=== PATIENT | male | born 1965 | race Caucasian/White ===

== ENCOUNTER → 2019-07-21 14:53 | Outpatient (BNVA) | payer MEDICAID, SELFPAY | PROVIDERS: Family Provider Nurse Practitioner; PCP Nurse Practitioner; Visit Provider Nurse Practitioner | DX: M54.5 Low back pain (principal); F17.210 Nicotine dependence, cigarettes, uncomplicated; Z79.891 Long term (current) use of opiate analgesic | CPT/HCPCS: 99213 ==

== ENCOUNTER 2019-08-11 17:25 | Emergency (ER) | payer MEDICAID, SELFPAY ==
[2019-08-11] VITALS (46 sets, daily range): BP systolic 108–149; BP diastolic 58–78; PULSE 0–134; RESP 18–20; TEMP 37.9–39.3; O2SAT 87–95; BMI 40.8
--- NOTE | 2019-08-11 18:02 | ED_ITS ---
Entered by Priya Eason, acting as scribe for Camron Ramos MD, [facility] [place] - SOB/Dyspnea General: Chief Complaint: Shortness of Breath/Dyspnea Stated Complaint: feels like he's drowning Time Seen by Provider: 08/11/19 18:01 Source: patient Mode of arrival: wheelchair Limitations: no limitations History of Present Illness: HPI Narrative: 53 yo Male presents to ED with complaint of shortness of breath. Pt states that he has had a fever of 100-102 degrees. Pt states that his whole body is aching. Pt states that he has been sleeping in a recliner and he feels like he is drowning. Pt states that he smokes a pack of cigarettes a week. Pt has had a productive cough. MD elicited complaint: shortness of breath Onset (ago): day(s) Timing: progressively worsening Severity: moderate Exacerbating factors: lying flat, exertion and coughing Relieving factors: oxygen and rest Associated symptoms: Reports chest congestion, cough and fever(s); Deny abdominal pain, chest pain, nausea, palpitations, polydipsia, polyuria or vomiting Treatment prior to arrival: none Related Data: Home oxygen amount: none Review of Systems General: Reports: 10 or more systems reviewed and unremarkable except in HPI and below Const: Reports: fever Eyes: Denies: change in vision or blurry vision ENMT: Denies: throat pain, enlarged tonsils, painful swallowing, hoarseness, mouth pain or swelling of lips/tongue Card: Denies: chest pain, palpitations, irregular heart rhythm, edema or swelling of feet/ankles Resp: Reports: shortness of breath, productive cough and chest congestion GI: Denies: abdominal pain, nausea or vomiting : Denies: flank pain, painful urination, urinary frequency, urinary urgency or urinary hesitancy Musc: Denies: neck pain, back pain or extremity swelling Skin/Breast: Denies: rash, itching or redness Neuro: Denies: headache, numbness in extremities or weakness in extremities Endo: Denies: excessive urination, excessive thirst or tired all the time [facility] ED PFSH: Medical History Chronic low back pain Depression Joint pain Long-term use of high-risk medication Lumbar back pain with radiculopathy affecting right lower extremity Pain management contract signed Smoking Surgical History History of back surgery (~2013) 12/2013 T12 REMOVAL POST WORK ACCIDENT S/P hernia repair (~12/2013) UMBILICAL HERNIA REPAIR Family History Mother Diabetes CAD (coronary artery disease) Psychiatric illness Stroke Cancer UTERINE CANCER Social History Smoking and tobacco status: current every day smoker cigarettes Alcohol intake: current Alcohol intake frequency: holidays/special occasions only Alcohol type: beer History of recent travel: No Current gender identity: Male Physical Exam Const: COMMON NORMALS: no apparent distress, average body habitus, oriented x3, no limitations, healthy appearing, alert and well nourished HENMT: COMMON NORMALS: normocephalic, head/scalp atraumatic and moist oral mucous membranes HEAD & SCALP: normocephalic and atraumatic Eye: COMMON NORMALS: PERRL, EOMs intact bilaterally, conjunctivae normal and no scleral icterus CONJUNCTIVA: Yes conjunctivae normal PUPIL: Yes PERRL Neck/C-Spine: COMMON NORMALS: full ROM, supple, no meningeal signs, no JVD and no carotid bruits Chest: COMMONS NORMALS: inspection of chest normal and palpation of chest normal Resp: COMMON NORMALS: normal respiratory effort, no retractions, no use of accessory muscles, clear to auscultation bilaterally and percussion normal AUSCULTATION: clear to auscultation bilaterally PERCUSSION: percussion normal Cardio: COMMON NORMALS: no JVD, regular rate, regular rhythm, S1 normal heart sound, S2 normal heart sound, no gallops, no clicks, no murmurs, no rub and peripheral pulses 2+ throughout RATE: regular rate RHYTHM: regular rhythm HEART SOUNDS: S1 normal and S2 normal PERIPHERAL PULSES: pulses 2+ throughout GI: COMMON NORMALS: normal to inspection, nondistended, normoactive bowel sounds, soft to palpation, non-tender, no hepatosplenomegaly, no masses and no bruits PALPATION: Yes soft and Yes no hepatosplenomegaly : COMMON NORMALS: Yes no CVA tenderness BLADDER/KIDNEY EXAM: Yes no CVA tenderness Back/Pelvis: COMMON NORMALS: no CVA tenderness Extremity: COMMON NORMALS: normal to inspection, full ROM, normal capillary refill, no calf tenderness and no pedal edema Neuro: COMMON NORMALS: oriented x3 SENSORIUM/ORIENTATION: Yes alert MENINGEAL SIGNS: Yes no meningeal signs Skin: COMMON NORMALS: no rashes or lesions noted, no wounds, skin turgor normal, no jaundice, no petechiae and no mottling GENERAL SKIN EXAM: no rashes or lesions noted and turgor normal Course Vital Signs: Vital signs: Vital Signs Temperature 100.3 F H 08/11/19 20:50 Pulse Rate 116 H 08/11/19 22:25 Respiratory Rate 20 H 08/11/19 18:57 Blood Pressure 126/68 08/11/19 22:30 Pulse Oximetry 90 08/11/19 22:25 MDM - SOB/Dyspnea MDM Narrative: Medical decision making narrative: Patient who presented to the ED with complaints of fever. The patient is also febrile here in the ED. The evaluation of this patient showed a normal WBC, elevated d-dimer, CTA was negative for a PE but showed likely bibasilar pneumonia. CURB-65 score is 0 He is therefore discharged home on oral antibiotics after receiving a dose of intravenous ceftriaxone here in the emergency department. Medical Records: Attestation: I reviewed the patient's medical records. Lab Data: Attestation: I reviewed the patient's lab results. Labs: Lab Results 08/11/19 08/11/19 08/11/19 Range/Units 17:54 17:54 17:54 WBC 9.1 (4.0-10.0) 10^3/ uL RBC 5.65 H (4.1-5.3) 10^6/u L Hgb 15.5 (11.7-16.6) g/dL Hct 48.6 (42.0-52.0) % MCV 86.0 (80-94) fL MCH 27.4 L (28.0-34.0) pg MCHC 31.9 (30.0-36.0) g/dL RDW 14.6 (12.1-15.1) % Plt Count 243 (130-400) 10^3/c mm MPV 9.4 (7.4-10.4) fL Neut % (Auto) 76.3 % Lymph % (Auto) 14.1 % Bath % (Auto) 7.5 % Eos % (Auto) 1.2 % Baso % (Auto) 0.3 % Neut # (Auto) 6.9 (1.8-7.7) 10^3/u L Lymph # (Auto) 1.3 (0.8-4.8) 10^3/u L Bath # (Auto) 0.7 (0.2-0.9) 10^3/u L Eos # (Auto) 0.1 (0.0-0.8) 10^3/u L Baso # (Auto) 0.0 (0.0-0.1) 10^3/u L Nucleated RBC % (a uto) 0 % Nucleated RBCs # 0.0 /100WBC D-Dimer (0-0.59) ug/mIFE U Sodium 135 L (136-145) mmol/L Potassium 3.7 (3.5-5.1) mmol/L Chloride 96 L (98-107) mmol/L Carbon Dioxide 27 (22-29) mmol/L Anion Gap 15.7 (5-19) BUN 11 (6-20) mg/dL Creatinine 0.9 (0.7-1.2) mg/dL GFR Calculation 88.3 L (90-130) mL/min Glucose 149 H (65-115) mg/dL Lactic Acid 2.0 (0.5-2.2) mmol/L Calcium 9.0 (8.5-10.5) mg/dL Total Bilirubin 0.4 (0.15-1.2) mg/dL AST 74 H (0-40) U/L ALT 90 H (0-41) U/L Alkaline Phosphata se 123 (40-130) IU/L NT-Pro-B Natriuret Pep (0-125) pg/mL Total Protein 7.7 (6.6-8.7) g/dL Albumin 3.7 (3.5-5.2) g/dL Globulin 4.0 (1.3-4.6) g/dL Influenza Type A A g (Negative) POC Influenza B Ag (Negative) 08/11/19 08/11/19 08/11/19 Range/Units 17:54 17:54 17:54 WBC (4.0-10.0) 10^3/ uL RBC (4.1-5.3) 10^6/u L Hgb (11.7-16.6) g/dL Hct (42.0-52.0) % MCV (80-94) fL MCH (28.0-34.0) pg MCHC (30.0-36.0) g/dL RDW (12.1-15.1) % Plt Count (130-400) 10^3/c mm MPV (7.4-10.4) fL Neut % (Auto) % Lymph % (Auto) % Bath % (Auto) % Eos % (Auto) % Baso % (Auto) % Neut # (Auto) (1.8-7.7) 10^3/u L Lymph # (Auto) (0.8-4.8) 10^3/u L Bath # (Auto) (0.2-0.9) 10^3/u L Eos # (Auto) (0.0-0.8) 10^3/u L Baso # (Auto) (0.0-0.1) 10^3/u L Nucleated RBC % (a uto) % Nucleated RBCs # /100WBC D-Dimer 1.35 H (0-0.59) ug/mIFE U Sodium (136-145) mmol/L Potassium (3.5-5.1) mmol/L Chloride (98-107) mmol/L Carbon Dioxide (22-29) mmol/L Anion Gap (5-19) BUN (6-20) mg/dL Creatinine (0.7-1.2) mg/dL GFR Calculation (90-130) mL/min Glucose (65-115) mg/dL Lactic Acid (0.5-2.2) mmol/L Calcium (8.5-10.5) mg/dL Total Bilirubin (0.15-1.2) mg/dL AST (0-40) U/L ALT (0-41) U/L Alkaline Phosphata se (40-130) IU/L NT-Pro-B Natriuret Pep 75 (0-125) pg/mL Total Protein (6.6-8.7) g/dL Albumin (3.5-5.2) g/dL Globulin (1.3-4.6) g/dL Influenza Type A A g Negative (Negative) POC Influenza B Ag Negative (Negative) Imaging Data^: CTA Chest: Radiologist's impression: [address] [address] [address] Scan Report Signed Patient: Iqra Meredith #: [id number] : 1965Acct#:[id number] Age/Sex: 53 / MADM Date: 08/11/19 Loc: ERRoom/Bed: Attending Dr: Ordering Provider/Ordering MD: Camron Ramos MD, [facility] [place] of Service: 08/11/19 Procedure(s): CT angio chest PE protcl 24224 Accession Number(s): [id number] Report Number: [id number] PROCEDURE INFORMATION: Exam: CT Angiography Chest With Contrast Exam date and time: 08/11/2019 8:17 PM Age: 53 years old Clinical indication: Shortness of breath; Prior surgery; Surgery date: 6+ months; Surgery type: Hernia. T12; Additional info: Shortness of breath, elevated d-dimer TECHNIQUE: Imaging protocol: Computed tomographic angiography of the chest with intravenous contrast. 3D rendering: MIP and/or 3D reconstructed images were created by the technologist. Total DLP: 626.53 mGy-cm Radiation optimization: All CT scans at this facility use at least one of these dose optimization techniques: automated exposure control; mA and/or kV adjustment per patient size (includes targeted exams where dose is matched to clinical indication); or iterative reconstruction. Contrast material: OMNI; Contrast volume: 95 ml; Contrast route: IV; COMPARISON: CR XR chest 1V portable [id number] 08/11/2019 6:14 PM FINDINGS: Pulmonary arteries: Normal. No pulmonary emboli. Aorta: Unremarkable. No aortic aneurysm. No aortic dissection. Lungs: Bibasilar atelectasis versus infiltrate. Pleural space: Unremarkable. No pneumothorax. No pleural effusion. Heart: Unremarkable. No cardiomegaly. No pericardial effusion. Gallbladder and bile ducts: Cholelithiasis. Pancreas: Incompletely visualized is an apparent 3.9 cm partially calcified mass in the pancreatic tail, consider dedicated nonemergent CT abdomen and pelvis. Lymph nodes: Unremarkable. No enlarged lymph nodes. Bones/joints: Surgical hardware in the spine. Soft tissues: Unremarkable. CT/CT angio chest PE protcl [id number] IMPRESSION: 1. Negative for pulmonary embolus. 2. Bibasilar atelectasis versus infiltrate. 3. Surgical hardware in the spine. 4. Cholelithiasis. 5. Incompletely visualized is an apparent 3.9 cm partially calcified mass in the pancreatic tail, consider dedicated nonemergent CT abdomen and pelvis. Radiation Dose CTDIVOL = (mGy): DLP = 626.53 (mGy-cm) Dictated By:John Rainey MD Signed By:John Rainey MDSigned Date/Time:08/11/192110 DD/ 08 Discharge Plan Discharge Patient Disposition: Home, Self-Care Clinical Impression: Community acquired pneumonia Qualifiers: Lung location: lower lobe of lung Condition: Stable Prescriptions: New amoxicillin 500 mg capsule 1,000 mg PO TID 10 Days Qty: 60 RF: 0 azithromycin 250 mg tablet See Rx Instructions .ROUTE .COMPLEX Qty: 6 RF: 0 Continued meloxicam 15 mg tablet 15 mg PO DAILY RF: 0 sulfamethoxazole-trimethoprim [Bactrim DS] 800-160 mg tablet 1 tab PO BID Qty: 20 RF: 0 hydrocodone-acetaminophen 5-325 mg tablet 1 tab PO TID PRN (Reason: pain) 30 Days Qty: 90 RF: 0 methocarbamol 500 mg tablet 500 mg PO TID RF: 0 albuterol sulfate [ProAir HFA] 90 mcg/actuation HFA aerosol inhaler 1 inh INHALATION DAILY RF: 0 sennosides-docusate sodium [Lax Stool Softener With Senna] 8.6-50 mg tablet 1 tab-cap PO DAILY RF: 0 gabapentin 300 mg capsule 300 mg PO BID Qty: 60 RF: 5 Cymbalta 60 mg capsule,delayed release(DR/EC) 60 mg PO BID RF: 0 Discharge Orders: Discharge Order (Routine); Ordered 08/11/19 Ordered By: Camron Ramos Referrals: Prema Recinos FNP [Primary Care Provider] - 1-3 days Patient Instructions: Community-acquired Pneumonia (ED) Activity Restrictions/Additional Instructions: Return for any new or worsening symptoms. Follow-up with your primary care provider within 3 days. Take the antibiotics as prescribed. If you have any concerns please return Discharge Date/Time: 08/11/19 22:45 Coding Level of Care Code ED Professor Of Literature for Chg Fwd Exam Comprehensive The documentation recorded by the Yumi fierro Carmen, accurately reflects the service I personally performed and the decisions made by , Camron Ramos MD, [facility] Aug 11, 2019 17:25
--- NOTE | 2019-08-11 18:10 | XR_ITS ---
WS: [id number] CHEST XRAY TECHNIQUE: Portable chest. CLINICAL INFORMATION: shortness of breath COMPARISON: 018 FINDINGS: Heart: Normal cardiac silhouette. Lungs: Moderate chronic emphysematous changes. Chronic right pleural thickening unchanged. No focal p neumonia. Bones: Postoperative changes pedicle screw fixation lower thoracic and upper lumbar spine. Chronic po sterior rib fractures with callus formation. Chronic right clavicular fracture with callus formation. XR/XR chest 1V portable [id number] IMPRESSION: No acute chest findings. No focal pneumonia.
[2019-08-11 18:15] LABS: Basophils % 0.3 %; Eosinophils # 0.1 10^3/uL (0.0-0.8); Eosinophils % 1.2 %; Hematocrit 48.6 % (42.0-52.0); Hemoglobin 15.5 g/dL (11.7-16.6); Lymphocytes # 1.3 10^3/uL (0.8-4.8); Lymphocytes % 14.1 %; Mean Corpuscular HGB Conc 31.9 g/dL (30.0-36.0); Mean Corpuscular Hemoglobin 27.4 pg (28.0-34.0); Mean Platelet Volume 9.4 fL (7.4-10.4); Monocytes # 0.7 10^3/uL (0.2-0.9); Monocytes % 7.5 %; Neutrophils # 6.9 10^3/uL (1.8-7.7); Neutrophils % 76.3 %; Nucleated Red Blood Cells % 0 %; Platelet Count 243 10^3/cmm (130-400); Red Blood Count 5.65 10^6/uL (4.1-5.3); Red Cell Distribution Width 14.6 % (12.1-15.1); White Blood Count 9.1 10^3/uL (4.0-10.0)
[2019-08-11 18:31] LABS: Alanine Aminotransferase 90 U/L (0-41); Albumin Level 3.7 g/dL (3.5-5.2); Alkaline Phosphatase 123 IU/L (40-130); Anion Gap 15.7 (5-19); Aspartate Amino Transferase 74 U/L (0-40); Blood Urea Nitrogen 11 mg/dL (6-20); Carbon Dioxide 27 mmol/L (22-29); Chloride 96 mmol/L (98-107); Glomerular Filtration Rate 88.3 mL/min (90-130); Glucose 149 mg/dL (65-115); Potassium 3.7 mmol/L (3.5-5.1); Sodium 135 mmol/L (136-145); Total Bilirubin 0.4 mg/dL (0.15-1.2); Total Protein 7.7 g/dL (6.6-8.7)
[2019-08-11 18:55] LABS: Influenza A by IFA Negative (Negative); Influenza B by IFA Negative (Negative)
[2019-08-11] MEDS: ipratropium-albuterol 3 mL Neb INHALATION (18:56)
--- NOTE | 2019-08-11 19:21 | PC.NURSE ---
pt request to sit up in wc d/t to pain
[2019-08-11] MEDS: acetaminophen 500 mg Tablet 1000 MG PO (19:36)
[2019-08-11] MEDS: sodium chloride 0.9% 1,000 ML 999 ML IV (19:37)
[2019-08-11 19:51] LABS: D Dimer 1.35 ug/mIFEU (0-0.59)
--- NOTE | 2019-08-11 20:03 | CTR_ITS ---
PROCEDURE INFORMATION: Exam: CT Angiography Chest With Contrast Exam date and time: 08/11/2019 8:17 PM Age: 53 years old Clinical indication: Shortness of breath; Prior surgery; Surgery date: 6+ months; Surgery type: Hernia. T12; Additional info: Shortness of breath, elevated d-dimer TECHNIQUE: Imaging protocol: Computed tomographic angiography of the chest with intravenous contrast. 3D rendering: MIP and/or 3D reconstructed images were created by the technologist. Total DLP: 626.53 mGy-cm Radiation optimization: All CT scans at this facility use at least one of these dose optimization techniques: automated exposure control; mA and/or kV adjustment per patient size (includes targeted exams where dose is matched to clinical indication); or iterative reconstruction. Contrast material: OMNI; Contrast volume: 95 ml; Contrast route: IV; COMPARISON: CR XR chest 1V portable [id number] 08/11/2019 6:14 PM FINDINGS: Pulmonary arteries: Normal. No pulmonary emboli. Aorta: Unremarkable. No aortic aneurysm. No aortic dissection. Lungs: Bibasilar atelectasis versus infiltrate. Pleural space: Unremarkable. No pneumothorax. No pleural effusion. Heart: Unremarkable. No cardiomegaly. No pericardial effusion. Gallbladder and bile ducts: Cholelithiasis. Pancreas: Incompletely visualized is an apparent 3.9 cm partially calcified mass in the pancreatic tail, consider dedicated nonemergent CT abdomen and pelvis. Lymph nodes: Unremarkable. No enlarged lymph nodes. Bones/joints: Surgical hardware in the spine. Soft tissues: Unremarkable. CT/CT angio chest PE protcl [id number] IMPRESSION: 1. Negative for pulmonary embolus. 2. Bibasilar atelectasis versus infiltrate. 3. Surgical hardware in the spine. 4. Cholelithiasis. 5. Incompletely visualized is an apparent 3.9 cm partially calcified mass in the pancreatic tail, consider dedicated nonemergent CT abdomen and pelvis. Radiation Dose CTDIVOL = (mGy): DLP = 626.53 (mGy-cm)
[2019-08-11 20:09] LABS: NT Pro B Type Natriuretic Pept 75 pg/mL (0-125)
[2019-08-11] MEDS: iohexol 350 mg/mL 100 mL Btl 95 ML IV (20:36)
[2019-08-11] MEDS: cefTRIAXone 1,000 MG in sodium chloride 0.9% (plus) 50 ML 100 MG IV (21:32)
== END 2019-08-11 22:45 | disposition home or self-care (01) ==
PROVIDERS: Emergency Provider Family Medicine; Family Provider Nurse Practitioner; PCP Nurse Practitioner
DX: J18.9 Pneumonia, unspecified organism (principal); F17.210 Nicotine dependence, cigarettes, uncomplicated
CPT/HCPCS: 36415; 71045; 71275; 80053; 83605; 83880; 85025; 85378; 87040; 87070; 87205; 87804; 94640; 96360; 96365; 99284; J0696; J7030; Q9967

== ENCOUNTER 2019-08-13 22:34 | Inpatient (IN) | payer MEDICAID, SELFPAY ==
[2019-08-13] VITALS (7 sets, daily range): BP systolic 113–152; BP diastolic 73–83; PULSE 101–114; RESP 18–26; TEMP 37.6; O2SAT 74–93; BMI 40.1
--- NOTE | 2019-08-13 22:45 | PC.NURSE ---
Patient states he started feeling bad on saturday and has been diagnosed with pneumonia on saturday. Patient states he is on antibiotics. Patient was oxygen staturation of 74 on room air when arrived at ED. Patient is sating 95 on 10 liters with a non-rebreather. Patient states he has been having a cough and shortness of breath today that has gotten increasingly worse.
--- NOTE | 2019-08-13 22:47 | ED_ITS ---
Entered by Johanne Hanley, acting as scribe for Iwona Dominguez HPI - SOB/Dyspnea General: Chief Complaint: Shortness of Breath/Dyspnea Stated Complaint: sob Time Seen by Provider: 08/13/19 22:47 Source: patient and family Mode of arrival: wheelchair History of Present Illness: HPI Narrative: 53 y/o male presents to the ED with complaint of SOB and difficulty breathing. Family states this started Saturday. He was seen here Saturday and was dx with pneumonia. He was placed on abx and has been taking them appropriately. Family states he has a hx of COPD. Pt was 74% on room air, upon arrival. He had no improvement with NC and was placed on O2 mask. MD elicited complaint: shortness of breath Pertinent past history: COPD Onset (ago): day(s) Timing: progressively worsening Severity: severe Exacerbating factors: movement and deep breaths Known history of: COPD Associated symptoms: Deny abdominal pain, chest pain, diaphoresis, dizziness, extremity pain, fever(s), nausea, orthopnea, palpitations, polydipsia, syncope or vomiting Review of Systems General: Reports: other (negative unless marked) Const: Denies: fever, chills, body aches, fatigue, malaise or diaphoresis Eyes: Denies: change in vision or blurry vision ENMT: Denies: throat pain, painful swallowing, hoarseness, ear pain, ear discharge, Change in hearing or nasal discharge Card: Denies: chest pain, palpitations, irregular heart rhythm, syncope, pre- syncope, shortness of breath on exertion or shortness of breath when lying down GI: Denies: abdominal pain, nausea, vomiting, vomiting blood, coffee grounds in vomit, diarrhea, constipation, cramping, blood in stool or black tarry stool : Denies: flank pain, difficulty urinating, painful urination, urinary frequency, urinary urgency, decreased urine ouput, urinary incontinence or blood in urine Musc: Denies: neck pain, back pain, extremity pain, extremity swelling, joint pain, joint swelling, joint warmth or joint stiffness Skin/Breast: Denies: rash, skin tenderness or yellow skin Neuro: Denies: headache, numbness in extremities, weakness in extremities, changes in sensation, lack of coordination, difficulty walking, dizziness, vertigo or confusion Endo: Denies: excessive thirst, tired all the time, cold intolerance, excessive sweating, flushing or hot flashes Emiliano/Lymph: Denies: easy bruising, easy bleeding, petechiae or enlarged lymph nodes All/Imm: Denies: hives, throat swelling, tongue swelling, facial swelling or acute wheezing PFSH ED PFSH: Social History Smoking and tobacco status: current every day smoker cigarettes Alcohol intake: current Alcohol intake frequency: holidays/special occasions only Alcohol type: beer History of recent travel: No Current gender identity: Male Physical Exam Const: COMMON NORMALS: oriented x3 EXAM LIMITATIONS: no altered mental status GENERAL APPEARANCE: cooperative, well kempt and well developed ORIENTATION/CONSCIOUSNESS: Yes awake HENMT: COMMON NORMALS: normocephalic, head/scalp atraumatic, hearing grossly normal bilaterally, external ears normal, EAC's normal, external nose normal and moist oral mucous membranes HEAD & SCALP: normal to inspection, normocephalic and atraumatic FACE & SINUS: normal facial exam and face symmetric NOSE: external nose normal and nares normal EXTERNAL EAR: Yes external ears normal EXTERNAL AUDITORY CANAL: EAC's normal MOUTH: oral and palatal mucosa normal and tongue normal Eye: COMMON NORMALS: PERRL, EOMs intact bilaterally, conjunctivae normal and no scleral icterus GENERAL EYE: normal appearance of both eyes and normal light reflex CONJUNCTIVA: Yes conjunctivae normal SCLERA: sclerae normal CORNEA: Yes corneas normal PUPIL: Yes PERRL DIRECT OPHTHALMOSCOPY: Yes normal light reflex Neck/C-Spine: COMMON NORMALS: full ROM, no lymphadenopathy, supple, no meningeal signs and no JVD GENERAL: Yes normal visual inspection and Yes trachea midline CERVICAL SPINE: Yes cervical ROM normal Chest: COMMONS NORMALS: inspection of chest normal and palpation of chest normal Cardio: COMMON NORMALS: no JVD, regular rate, regular rhythm, S1 normal heart sound, S2 normal heart sound, no gallops, no clicks, no murmurs and no rub JUGULAR VENOUS DISTENTION: no JVD RATE: regular rate RHYTHM: regular rhythm HEART SOUNDS: S1 normal and S2 normal GI: COMMON NORMALS: soft to palpation, non-tender, no hepatosplenomegaly and no masses INSPECTION: Yes normal to inspection PALPATION: Yes soft and Yes no hepatosplenomegaly : COMMON NORMALS: Yes no CVA tenderness BLADDER/KIDNEY EXAM: Yes no CVA tenderness Back/Pelvis: COMMON NORMALS: no CVA tenderness, thoracic and lumbar spine normal to inspection, no thoracic nor lumbar tenderness and thoraco-lumbar ROM normal Extremity: COMMON NORMALS: normal to inspection, full ROM, normal capillary refill, no joint enlargement, no clubbing, cyanosis or edema and no calf tenderness Neuro: COMMON NORMALS: oriented x3, CN's II-XII intact bilaterally, moves all extremities, no focal motor deficits and no sensory deficits noted MENINGEAL SIGNS: Yes no meningeal signs Psych: COMMON NORMALS: mental status grossly normal, thought process normal, cooperative, affect normal and activity/motor behavior normal APPEARANCE: Yes well kempt THOUGHT PROCESS: normal thought process Skin: COMMON NORMALS: no rashes or lesions noted, skin turgor normal, no jaundice, no petechiae and no mottling GENERAL SKIN EXAM: no rashes or lesions noted and turgor normal Course Vital Signs: Vital signs: Vital Signs Temperature 99.7 F H 08/13/19 22:41 Pulse Rate 64 08/14/19 02:20 Respiratory Rate 18 08/14/19 02:20 Blood Pressure 135/99 08/14/19 02:20 Pulse Oximetry 98 08/14/19 02:20 MDM - SOB/Dyspnea MDM Narrative: Medical decision making narrative: Mr. Meredith is a 53-year-old male who comes in complaining of shortness of breath. He is influenza A positive. He has a significant hypoxemia with this. He was placed on BiPAP and improved greatly. He is now on just supplemental oxygen. He was covered appearing with antibiotics he was also given Tamiflu. The case was endorsed to Dr. Miranda and she agrees to admission for his hypoxemia and COPD exacerbation caused by influenza. Lab Data: Labs: Lab Results 08/13/19 08/13/19 08/13/19 Range/Units 23:02 23:02 23:02 WBC 8.1 (4.0-10.0) 10^3/ uL RBC 5.59 H (4.1-5.3) 10^6/u L Hgb 15.3 (11.7-16.6) g/dL Hct 49.5 (42.0-52.0) % MCV 88.6 (80-94) fL MCH 27.4 L (28.0-34.0) pg MCHC 30.9 (30.0-36.0) g/dL RDW 14.6 (12.1-15.1) % Plt Count 220 (130-400) 10^3/c mm MPV 9.4 (7.4-10.4) fL Neut % (Auto) 80.5 % Lymph % (Auto) 11.1 % Gibson % (Auto) 7.4 % Eos % (Auto) 0.2 % Baso % (Auto) 0.4 % Neut # (Auto) 6.5 (1.8-7.7) 10^3/u L Lymph # (Auto) 0.9 (0.8-4.8) 10^3/u L Gibson # (Auto) 0.6 (0.2-0.9) 10^3/u L Eos # (Auto) 0.0 (0.0-0.8) 10^3/u L Baso # (Auto) 0.0 (0.0-0.1) 10^3/u L Nucleated RBC % (a uto) 0 % Nucleated RBCs # 0.0 /100WBC Specimen Type Sample Site ABG pH (7.35-7.45) ABG pCO2 (35-45) mmHg ABG pO2 (80.0-100.0) mmH g ABG HCO3 (22-26) mmol/L ABG Base Excess (-2.0-2.0) mmol/ L Juan Antonio Test Hematocrit (42-52) % O2 Delivery Device FiO2 % Press Hand Supervisor ID Sodium 133 L (136-145) mmol/L Potassium 3.9 (3.5-5.1) mmol/L Chloride 95 L (98-107) mmol/L Carbon Dioxide 27 (22-29) mmol/L Anion Gap 14.9 (5-19) BUN 10 (6-20) mg/dL Creatinine 0.9 (0.7-1.2) mg/dL GFR Calculation 88.3 L (90-130) mL/min Glucose 182 H (65-115) mg/dL Lactic Acid 0.9 (0.5-2.2) mmol/L Calcium 8.7 (8.5-10.5) mg/dL Magnesium 2.3 (1.7-2.3) mg/dL Total Bilirubin 0.2 (0.15-1.2) mg/dL AST 53 H (0-40) U/L ALT 98 H (0-41) U/L Alkaline Phosphata se 114 (40-130) IU/L Troponin T Baselin e (0-15) ng/mL Troponin T 120 Min chilkoot (0-15) ng/mL Delta Troponin T (0-10) ABS# NT-Pro-B Natriuret Pep 205 H (0-125) pg/mL Total Protein 7.0 (6.6-8.7) g/dL Albumin 3.1 L (3.5-5.2) g/dL Globulin 3.9 (1.3-4.6) g/dL Influenza Type A A g (Negative) POC Influenza B Ag (Negative) 08/13/19 08/13/19 08/13/19 Range/Units 23:02 23:05 23:05 WBC (4.0-10.0) 10^3/ uL RBC (4.1-5.3) 10^6/u L Hgb (11.7-16.6) g/dL Hct (42.0-52.0) % MCV (80-94) fL MCH (28.0-34.0) pg MCHC (30.0-36.0) g/dL RDW (12.1-15.1) % Plt Count (130-400) 10^3/c mm MPV (7.4-10.4) fL Neut % (Auto) % Lymph % (Auto) % Gibson % (Auto) % Eos % (Auto) % Baso % (Auto) % Neut # (Auto) (1.8-7.7) 10^3/u L Lymph # (Auto) (0.8-4.8) 10^3/u L Gibson # (Auto) (0.2-0.9) 10^3/u L Eos # (Auto) (0.0-0.8) 10^3/u L Baso # (Auto) (0.0-0.1) 10^3/u L Nucleated RBC % (a uto) % Nucleated RBCs # /100WBC Specimen Type Arterial Sample Site Radial, right ABG pH 7.43 (7.35-7.45) ABG pCO2 48.1 H (35-45) mmHg ABG pO2 71.1 L (80.0-100.0) mmH g ABG HCO3 31.7 H (22-26) mmol/L ABG Base Excess 6.0 H (-2.0-2.0) mmol/ L Juan Antonio Test Pos Hematocrit 48.9 (42-52) % O2 Delivery Device Bipap FiO2 40.0 % Press Hand Supervisor ID hinja Sodium (136-145) mmol/L Potassium (3.5-5.1) mmol/L Chloride (98-107) mmol/L Carbon Dioxide (22-29) mmol/L Anion Gap (5-19) BUN (6-20) mg/dL Creatinine (0.7-1.2) mg/dL GFR Calculation (90-130) mL/min Glucose (65-115) mg/dL Lactic Acid (0.5-2.2) mmol/L Calcium (8.5-10.5) mg/dL Magnesium (1.7-2.3) mg/dL Total Bilirubin (0.15-1.2) mg/dL AST (0-40) U/L ALT (0-41) U/L Alkaline Phosphata se (40-130) IU/L Troponin T Baselin e 18 H (0-15) ng/mL Troponin T 120 Min chilkoot (0-15) ng/mL Delta Troponin T (0-10) ABS# NT-Pro-B Natriuret Pep (0-125) pg/mL Total Protein (6.6-8.7) g/dL Albumin (3.5-5.2) g/dL Globulin (1.3-4.6) g/dL Influenza Type A A g Positive H (Negative) POC Influenza B Ag Negative (Negative) 08/14/19 Range/Units 01:10 WBC (4.0-10.0) 10^3/ uL RBC (4.1-5.3) 10^6/u L Hgb (11.7-16.6) g/dL Hct (42.0-52.0) % MCV (80-94) fL MCH (28.0-34.0) pg MCHC (30.0-36.0) g/dL RDW (12.1-15.1) % Plt Count (130-400) 10^3/c mm MPV (7.4-10.4) fL Neut % (Auto) % Lymph % (Auto) % Gibson % (Auto) % Eos % (Auto) % Baso % (Auto) % Neut # (Auto) (1.8-7.7) 10^3/u L Lymph # (Auto) (0.8-4.8) 10^3/u L Gibson # (Auto) (0.2-0.9) 10^3/u L Eos # (Auto) (0.0-0.8) 10^3/u L Baso # (Auto) (0.0-0.1) 10^3/u L Nucleated RBC % (a uto) % Nucleated RBCs # /100WBC Specimen Type Sample Site ABG pH (7.35-7.45) ABG pCO2 (35-45) mmHg ABG pO2 (80.0-100.0) mmH g ABG HCO3 (22-26) mmol/L ABG Base Excess (-2.0-2.0) mmol/ L Juan Antonio Test Hematocrit (42-52) % O2 Delivery Device FiO2 % Press Hand Supervisor ID Sodium (136-145) mmol/L Potassium (3.5-5.1) mmol/L Chloride (98-107) mmol/L Carbon Dioxide (22-29) mmol/L Anion Gap (5-19) BUN (6-20) mg/dL Creatinine (0.7-1.2) mg/dL GFR Calculation (90-130) mL/min Glucose (65-115) mg/dL Lactic Acid (0.5-2.2) mmol/L Calcium (8.5-10.5) mg/dL Magnesium (1.7-2.3) mg/dL Total Bilirubin (0.15-1.2) mg/dL AST (0-40) U/L ALT (0-41) U/L Alkaline Phosphata se (40-130) IU/L Troponin T Baselin e (0-15) ng/mL Troponin T 120 Min chilkoot 16.89 H (0-15) ng/mL Delta Troponin T -1.11 L (0-10) ABS# NT-Pro-B Natriuret Pep (0-125) pg/mL Total Protein (6.6-8.7) g/dL Albumin (3.5-5.2) g/dL Globulin (1.3-4.6) g/dL Influenza Type A A g (Negative) POC Influenza B Ag (Negative) Imaging Data^: CXR: My impression: No acute cardiopulmonary findings. EKG Data^: EKG 1: Attestation: I personally reviewed and interpreted this EKG as follows: EKG Interpretation Date: 08/13/19 EKG interpretation time: 22:45 Interpretation: Normal sinus rhythm at 113 beats a minute, normal intervals, no blocks, nonspecific ST-T wave changes. Significant baseline wandering artifact. Discharge Plan Discharge Patient Disposition: Placed in Observation Admit Provider: Emma Erazo Clinical Impression: Acute exacerbation of chronic obstructive airways disease, Influenza Condition: Stable Referrals: Prema Recinos FNP [Primary Care Provider] - Discharge Date/Time: 08/14/19 02:21 Coding Level of Care Code ED Embossing Press Operator for Chg Fwd Exam Comprehensive The documentation recorded by the Talon fierro Ashley, accurately reflects the service I personally performed and the decisions made by , Iwona Dominguez Aug 13, 2019 22:34
--- NOTE | 2019-08-13 22:47 | XRR_ITS ---
PROCEDURE INFORMATION: Exam: XR Chest, 1 View Exam date and time: 08/13/2019 11:09 PM Age: 53 years old Clinical indication: Cough and shortness of breath; Prior surgery; Surgery type: T spine; Additional info: Cough, SOB TECHNIQUE: Imaging protocol: XR of the chest Views: 1 view. COMPARISON: XR CHEST 08/11/2019 6:14 PM CTA CHEST 08/11/2019 8:44:20 PM FINDINGS: Lungs: There is bilateral central bronchial wall thickening and haziness. No focal peripheral lung consolidation, air bronchogram formation, or silhouette sign. Pleural space: No pleural effusion. No pneumothorax. Heart/Mediastinum: The heart is not felt to be enlarged when allowing for epicardial fat pads. The mediastinal contours are normal. Bones/joints: There are old, healed bilateral rib fractures. Old, healed right clavicular fracture. Prior posterior neda fusion bridging the thoracolumbar spine. XR/XR chest 1V portable [id number] IMPRESSION: Bronchitis.
--- NOTE | 2019-08-13 22:47 | PC.NURSE ---
EKG done at 2240 and shown to ER doctor
[2019-08-13] MEDS: ipratropium-albuterol 3 mL Neb 9 ML INHALATION (23:03)
[2019-08-13 23:16] LABS: ABG PCO2 48.1 mmHg (35-45); ABG PH Result 7.43 (7.35-7.45); Arterial Blood Gas Hematocrit 48.9 % (42-52); Blood Gas Allen Test Pos; Blood Gas Sample Site Radial, right; Blood Gas Sample Type Arterial; HCO3 ABG 31.7 mmol/L (22-26); Oxygen Device BIPAP; PO2 ABG 71.1 mmHg (80.0-100.0)
[2019-08-13] MEDS: piperacillin-tazobactam 3.375 GM in sodium chloride 0.9% (plus) 50 ML IV (23:25)
[2019-08-13 23:28] LABS: Basophils % 0.4 %; Eosinophils % 0.2 %; Hematocrit 49.5 % (42.0-52.0); Hemoglobin 15.3 g/dL (11.7-16.6); Lymphocytes # 0.9 10^3/uL (0.8-4.8); Lymphocytes % 11.1 %; Mean Corpuscular HGB Conc 30.9 g/dL (30.0-36.0); Mean Corpuscular Hemoglobin 27.4 pg (28.0-34.0); Mean Corpuscular Volume 88.6 fL (80-94); Mean Platelet Volume 9.4 fL (7.4-10.4); Monocytes # 0.6 10^3/uL (0.2-0.9); Monocytes % 7.4 %; Neutrophils # 6.5 10^3/uL (1.8-7.7); Neutrophils % 80.5 %; Nucleated Red Blood Cells % 0 %; Platelet Count 220 10^3/cmm (130-400); Red Blood Count 5.59 10^6/uL (4.1-5.3); Red Cell Distribution Width 14.6 % (12.1-15.1); White Blood Count 8.1 10^3/uL (4.0-10.0)
[2019-08-13] MEDS: nitroglycerin 1 gm/inch oint Pkt 1 INCH TOPICAL (23:29)
[2019-08-13 23:34] LABS: Influenza A by IFA Positive (Negative); Influenza B by IFA Negative (Negative)
[2019-08-13 23:34] LABS: Troponin(5th) Baseline 18 ng/mL (0-15)
[2019-08-13 23:35] LABS: Lactic Sepsis W/Reflex 0.9 mmol/L (0.5-2.2)
[2019-08-13 23:42] LABS: Alanine Aminotransferase 98 U/L (0-41); Albumin Level 3.1 g/dL (3.5-5.2); Alkaline Phosphatase 114 IU/L (40-130); Anion Gap 14.9 (5-19); Aspartate Amino Transferase 53 U/L (0-40); Blood Urea Nitrogen 10 mg/dL (6-20); Calcium 8.7 mg/dL (8.5-10.5); Carbon Dioxide 27 mmol/L (22-29); Chloride 95 mmol/L (98-107); Globulin 3.9 g/dL (1.3-4.6); Glomerular Filtration Rate 88.3 mL/min (90-130); Glucose 182 mg/dL (65-115); Magnesium 2.3 mg/dL (1.7-2.3); NT Pro B Type Natriuretic Pept 205 pg/mL (0-125); Potassium 3.9 mmol/L (3.5-5.1); Sodium 133 mmol/L (136-145); Total Bilirubin 0.2 mg/dL (0.15-1.2)
--- NOTE | 2019-08-13 23:42 | PC.NURSE ---
Patient requested drink of water and was given a mouth swab by nurse after HCP consult.
[2019-08-14] VITALS (11 sets, daily range): BP systolic 121–139; BP diastolic 69–99; PULSE 18–105; RESP 16–24; TEMP 37–37.2; O2SAT 86–98
--- NOTE | 2019-08-14 00:48 | ECG_ITS ---
Measurements Intervals Busy Rate: 113 P: 67 DE: 132 QRS: -34 QRSD: 100 T: 67 QT: 305 QTc: 420 SINUS TACHYCARDIA POSSIBLE LEFT ATRIAL ENLARGEMENT [-0.1mV P WAVE IN V1/V2] LEFT AXIS DEVIATION [QRS AXIS < -30] No previous ECG available for comparison Electronically Signed On 08-14-2019 11:15:59 COMMUNICATIONS PROFESSIONAL by Chante Andrews M.D. [email or web address]
--- NOTE | 2019-08-14 00:49 | P.HP_ITS ---
Providers/Chief Complaint Admitting Physician: Emma Erazo MD Primary Care Provider: LAKISHA Mehta Chief Complaint: sob History of Present Illness Iqra Meredith is a 53 year old male who presented to the emergency room with chief complaint of acute difficulty breathing. Patient has not been feeling well for several days. He was seen in the emergency room on the with similar symptoms. He was diagnosed with community-acquired pneumonia, received prescriptions for amoxicillin and azithromycin and was discharged home. Patient is continued to have fever, malaise, chills, productive cough, increased back discomfort which is a chronic problem for him. This evening he had acute worsening of difficulty breathing. Saturations were reportedly in the 70s upon arrival. With oxygen supplementation saturations just barely made it to 90%. He was put on BiPAP. Chest x-ray today shows increased haziness in the left base as well as persistent atelectasis or effusion at the right costophrenic angle. Increased pulmonary vasculature is also noted. Influenza screen today, unlike the other day, is positive for influenza A. White blood count is normal. ABG showed 7.43/40 8/71 on 40% FiO2 with BiPAP. Given the degree of distress he presented with he is being admitted for further care. Review of Systems Const: Reports: fever and chills; Denies: change in weight ENMT: Reports: throat pain and nasal congestion Card: Reports: chest pain; Denies: palpitations or edema Resp: Reports: shortness of breath, productive cough and wheezing; Denies: coughing up blood GI: Reports: nausea; Denies: abdominal pain, vomiting, diarrhea, constipation or blood in stool : Denies: urinary frequency Musc: Reports: muscle weakness and other (general aches); Denies: joint swelling or joint warmth Skin/Breast: Denies: rash or sores Neuro: Reports: headache; Denies: numbness in extremities Psych: Reports: depression; Denies: anxiety Emiliano/Lymph: Denies: easy bruising or easy bleeding Medications/Allergies Allergies Allergy/AdvReac Type Severity Reaction Status Date / Time No Known Allergies Allergy Verified 07/30/19 10:40 Additional Medication Information Additional Medication Information: Home Medications Medication Instructions Recorded Confirmed Type methocarbamol 500 mg tablet 500 mg PO TID 06/30/19 08/14/19 History albuterol sulfate 90 mcg/actuation 1 inh INHALATION DAILY gm 07/28/19 08/14/19 History aerosol inhaler meloxicam 15 mg tablet 15 mg PO DAILY tab 07/28/19 08/14/19 History sennosides 8.6 mg-docusate sodium 1 tab-cap PO DAILY tab 07/28/19 08/14/19 History 50 mg tablet duloxetine [Cymbalta] 60 mg PO BID 08/11/19 08/14/19 History Other home medications include recent prescriptions for amoxicillin and azithromycin, gabapentin, hydrocodone, meloxicam PFSH Acute PFSH: Medical History COPD (chronic obstructive pulmonary disease) Depression Lumbar back pain with radiculopathy affecting right lower extremity 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 S/P hernia repair (~12/2013) UMBILICAL HERNIA REPAIR Family History Mother Diabetes CAD (coronary artery disease) Psychiatric illness Stroke Cancer UTERINE CANCER Social History Smoking and tobacco status: current every day smoker cigarettes Alcohol intake: current Alcohol intake frequency: holidays/special occasions only Alcohol type: beer History of recent travel: No Current gender identity: Male Vitals/I&O/Wt Last Vital Signs Temp 99.7 F H 08/13/19 22:41 Pulse 105 H 08/14/19 00:20 Resp 16 08/14/19 00:20 BP 136/70 08/14/19 00:20 Pulse Ox 91 08/14/19 00:20 Weight last 48 hrs Weight 127.006 kg Physical Exam Const: COMMON NORMALS: oriented x3 and alert HENMT: COMMON NORMALS: normocephalic and head/scalp atraumatic Eye: COMMON NORMALS: PERRL and EOMs intact bilaterally Neck/C-Spine: COMMON NORMALS: supple Resp: EFFORT & INSPECTION: Yes pursed lip breathing, Yes actively coughing and Yes uses accessory muscles AUSCULTATION: wheezes throughout Cardio: COMMON NORMALS: regular rhythm, no gallops and no murmurs RATE: tachycardic GI: COMMON NORMALS: soft to palpation and non-tender AUSCULTATION: Yes normoactive bowel sounds Extremity: COMMON NORMALS: normal capillary refill, no clubbing, cyanosis or edema and no calf tenderness Neuro: COMMON NORMALS: oriented x3, moves all extremities and no sensory deficits noted Psych: COMMON NORMALS: thought process normal and cooperative THOUGHT PRO CESS: normal thought process Skin: COMMON NORMALS: no rashes or lesions noted and no mottling Data : 08/14/19 05:02 08/14/19 05:02 Micro: Microbiology 08/13/19 23:18 Blood Culture - Preliminary Blood SPECIMEN COLLECTED 08/13/19 23:02 Blood Culture - Preliminary Blood SPECIMEN COLLECTED A&P Assessment and plan (1) Influenza: Flu A positive Status: Acute Code(s): J11.1 - Influenza due to unidentified influenza virus with other respiratory manifestations (2) Community acquired pneumonia: initiated on treatment at last ED visit for this diagnosis Status: Acute Qualifiers: Laterality: left Lung location: lower lobe of lung Qualified Code(s): J18.9 - Pneumonia, unspecified organism Code(s): J18.9 - Pneumonia, unspecified organism (3) Acute exacerbation of chronic obstructive airways disease: Related to above. Not chronically on oxygen but has been told that he had a borderline low oxygen and a clinic visit previously. On those occasions oxygen saturation improved with deep breathing. Status: Acute Code(s): J44.1 - Chronic obstructive pulmonary disease with (acute) exacerbation (4) Hyperglycemia: without a history of diabetes Status: Acute Code(s): R73.9 - Hyperglycemia, unspecified (5) Transaminitis: Suspect either fatty liver or related to viral process Status: Acute Code(s): R74.0 - Nonspecific elevation of levels of transaminase and lactic acid dehydrogenase [LDH] (6) Mass of pancreas: Incidentally noted on CTA of the chest done on August 11. Will need dedicated nonemergent CT imaging of the abdomen. Denies abdominal pain, and started complaining of back pain which is chronic for him Status: Acute Code(s): K86.89 - Other specified diseases of pancreas (7) Lumbar back pain with radiculopathy affecting right lower extremity: Status: Chronic Code(s): M54.16 - Radiculopathy, lumbar region Additional A&P Information Inpatient admission Droplet isolation Breathing treatments Steroids Start on Tamiflu Will continue antibiotics started a few days ago Follow-up x-ray report Check hemoglobin A1c discussed with the patient possibility of diabetes Sliding scale insulin if needed Lovenox for DVT prophylaxis Continue home pain medications Wean oxygen as able, may need home oxygen evaluation prior to discharge Supportive care otherwise Plans discussed with patient and his and questions were answered Will need CT imaging of the abdomen upon discharge and when improved clinically. I have gone on and placed an order for the outpatient setting to be processed at the time of discharge. I did review the findings of a calcified mass in the head of the pancreas with Mr. Meredith, including the importance of following up to get the CAT scan. Mentioned that we need to see if this is anything to worry about such as cancer or other process requiring intervention. Full code Attestations Medical Necessity Statement*: Anticipated stay greater than 2 midnights in a patient with several ED visits this week who is currently requiring oxygen and does not normally, and also required BiPAP initially. Coding Level of Care Code Acute Ice Resurfacing Machine Operators for [facility] Fwd Diagnoses Influenza J11.1 Community acquired pneumonia J18.9 Laterality: left Lung location: lower lobe of lung Acute exacerbation of chronic obstructive airways disease J44.1 Hyperglycemia R73.9 Transaminitis R74.0 Mass of pancreas K86.89 Lumbar back pain with radiculopathy affecting right lower extremity M54.16
--- NOTE | 2019-08-14 01:19 | PC.NURSE ---
EKG done at 0117 and shown to ER doctor
--- NOTE | 2019-08-14 01:19 | PC.NURSE ---
Patient requested if he could sit in the wheelchair to be more comfortable. I assisted patient to the wheelchair at bedside.
[2019-08-14 01:39] LABS: Troponin 5 2HR 16.89 ng/mL (0-15)
[2019-08-14 01:44] LABS: Troponin 5 2HR Delta -1.11 ABS# (0-10)
[2019-08-14] MEDS: ondansetron 2 mg/ML SDV 2 mL 4 MG IVP (02:15)
[2019-08-14] MEDS: morphine 4 mg/mL SDV 1 mL IVP ×2 (03:59→18:29)
--- NOTE | 2019-08-14 04:48 | ECG_ITS ---
Measurements Intervals Allen Rate: 93 P: 65 ID: [id number] QRS: -12 QRSD: 98 T: 66 QT: 341 QTc: 425 SINUS RHYTHM No previous ECG available for comparison Electronically Signed On 08-14-2019 11:15:35 CORE WORKER by Chante Andrews M.D. [id number]
[2019-08-14] MEDS: sodium chloride 0.9% 1,000 ML 100 ML IV (04:56)
[2019-08-14 05:38] LABS: Basophils % 0.3 %; Hematocrit 51.2 % (42.0-52.0); Hemoglobin 15.6 g/dL (11.7-16.6); Lymphocytes # 0.5 10^3/uL (0.8-4.8); Mean Corpuscular HGB Conc 30.5 g/dL (30.0-36.0); Mean Corpuscular Hemoglobin 26.9 pg (28.0-34.0); Mean Corpuscular Volume 88.3 fL (80-94); Mean Platelet Volume 9.7 fL (7.4-10.4); Monocytes # 0.1 10^3/uL (0.2-0.9); Monocytes % 1.4 %; Neutrophils # 5.8 10^3/uL (1.8-7.7); Neutrophils % 89.7 %; Nucleated Red Blood Cells % 0 %; Platelet Count 217 10^3/cmm (130-400); Red Cell Distribution Width 14.4 % (12.1-15.1); White Blood Count 6.5 10^3/uL (4.0-10.0)
[2019-08-14 06:02] LABS: Troponin 5 6HR 12.26 ng/mL (0-15)
[2019-08-14 06:04] LABS: Troponin 5 6HR Delta -5.74 ng/L (0-12)
[2019-08-14 07:17] LABS: Anion Gap 17.8 (5-19); Blood Urea Nitrogen 11 mg/dL (6-20); Calcium 8.8 mg/dL (8.5-10.5); Carbon Dioxide 29 mmol/L (22-29); Chloride 95 mmol/L (98-107); Glomerular Filtration Rate 101.1 mL/min (90-130); Glucose 193 mg/dL (65-115); Osmolality Calculated 285 mOsm/kg (285-295); Potassium 4.8 mmol/L (3.5-5.1); Sodium 137 mmol/L (136-145)
[2019-08-14 09:16] LABS: Estmated Average Glucose 148; Hemoglobin A1C 6.8 % (4.0-6.0)
[2019-08-14] MEDS: enoxaparin 40 mg/0.4 mL Syringe SUBCUT (09:27)
[2019-08-14] MEDS: oseltamivir phosphate 75 mg Capsule PO ×2 (09:27→17:49)
[2019-08-14] MEDS: duloxetine 60 mg Capsule PO ×2 (09:27→17:49)
[2019-08-14] MEDS: gabapentin 300 mg Capsule PO ×2 (09:28→17:49)
[2019-08-14] MEDS: meloxicam 7.5 mg tablet 15 MG PO (09:28)
[2019-08-14] MEDS: sennosides-docusate Tablet 1 TAB PO (09:28)
[2019-08-14] MEDS: methocarbamol 500 mg Tablet PO ×3 (09:28→20:31)
[2019-08-14] MEDS: azithromycin 250 mg Tablet PO (09:28)
[2019-08-14] MEDS: cefTRIAXone 1,000 MG in sodium chloride 0.9% (plus) 50 ML 100 MG IV (09:29)
[2019-08-14] MEDS: predniSONE 20 mg Tablet 40 MG PO (09:29)
[2019-08-14 11:00] LABS: Glucose Point of Care 169 mg/dL (70-110)
[2019-08-14] MEDS: HYDROcodone-acetaminophen 5-325 mg Tablet 1 TAB PO ×2 (11:40→20:30)
--- NOTE | 2019-08-14 12:24 | PC.CHAP ---
Pastoral Care Encounter/Spiritual Assessment Type of Contact [] Declined split and drum room supervisor visit [] Patient/Family/Request visit [] Outpatient visit [] Follow-up visit [] Physician referral [] Code/Alert x[] Routine visit [] Staff referral [] Actively dying [] Patient sleeping [] Family support [] [] Out of room [] Palliative care [] [] Receiving care in room [] Pre-surgical visit [] Trauma [] Long length of stay [] ICU visit [] Other: Relational/Emotional Strength [x] Patient feels connected with others/family/visitors/staff [] Distress [] Loneliness/isolation [] Abandonment Spirituality of Patient [x] Person of Rosey [x] Attends Gnosticist of their Rosey [] Believes in Prayer [] Reads Bible or Congregation materials [] There are Spiritual issues to be addressed B2B Appointment Setter Interventions [x] Prayer [x] Active listening x] Non-anxious presence [x] Spiritual/emotional support [] Crisis/trauma care [] Spiritual counseling [] Bereavement support [] Provided bereavement packet [] Provided Bible/devotional materials [] Provided toy/stuffed animal, coloring book to patient or family member [] Provided Communion [] Anointing/[place] [] Salvation [x] Completed spiritual assessment [] Other: Impact on Illness or Injury [] Angry [] Fearful [] Anxious [] Often cries [] Exhaustion [] Unable to work [] Unable to attend yazidism [] Unable to walk/stand [] Unable to read [] Unable to drive [] Unable to eat/drink [] Unable to sleep [] Unable to be with family [] Patient intubated [] Other: Summary Time spent with patient 10 min
--- NOTE | 2019-08-14 13:21 | P.PN_ITS ---
Subjective Subjective: Interval history: Chart reviewed. Patient seen and examined, sitting up in bed, somewhat ill appearing, had had productive cough with clear sputum, is currently on 5 L NC. Medications: Reviewed: Yes Medication Review Details: Active Medications Generic Name Dose Route Start Last Admin Trade Name Freq PRN Reason Stop Dose Admin Acetaminophen 650 mg 08/14/19 02:27 Tylenol PO Q6H PRN Mild/Mod Pain Or Temp >/= 101 Hydrocodone Bitart /Acetaminophen 1 tab 08/14/19 08:38 08/14/19 11:40 [place] 5-325 Mg PO 1 tab Q6H PRN Administration pain Azithromycin 250 mg 08/14/19 09:00 08/14/19 09:28 Zithromax PO 08/17/19 09:01 250 mg DAILY RUPERT Administration Protocol Dextrose 25 ml 08/14/19 08:40 D50w IVP ONCE PRN hypoglycemia prot ocol Protocol Dextrose 50 ml 08/14/19 08:40 D50w IVP PRN PRN hypoglycemia prot ocol Protocol Enoxaparin Sodium 40 mg 08/14/19 08:45 08/14/19 09:27 Lovenox SUBCUT 40 mg Q24H RUPERT Administration Gabapentin 300 mg 08/14/19 09:00 08/14/19 09:28 Neurontin PO 300 mg BID RUPERT Administration Glucagon 1 mg 08/14/19 08:40 Glucagen IM ONCE PRN Adult Acute Hypog lycemia Prot. Protocol Sodium Chloride 1,000 mls @ 100 m ls/hr 08/14/19 02:27 08/14/19 04:56 Sodium Chloride 0.9% IV 100 mls/hr .Q10H RUPERT Administration Ceftriaxone Sodium 1,000 mg/ 50 mls @ 100 mls/ hr 08/14/19 09:00 08/14/19 09:29 Sodium Chloride IV 100 mls/hr Q24H RUPERT Administration Protocol Dextrose 500 mls @ 100 mls /hr 08/14/19 08:40 D5w IV ONCE PRN Adult Acute Hypog lycemia Prot Protocol Insulin Aspart 0 unit 08/14/19 12:00 08/14/19 12:05 Novolog SUBCUT 2 unit TIDWM RUPERT Administration Protocol Insulin Aspart 0 unit 08/14/19 21:00 Novolog SUBCUT BEDTIME RUPERT Protocol Meloxicam 15 mg 08/14/19 09:15 08/14/19 09:28 Mobic PO 15 mg DAILY RUPERT Administration Methocarbamol 500 mg 08/14/19 09:00 08/14/19 09:28 Robaxin PO 500 mg TID RUPERT Administration Morphine Sulfate 4 mg 08/14/19 02:27 08/14/19 03:59 Morphine IVP 4 mg Q4H PRN Administration SEVERE PAIN Nicotine 1 patch 08/14/19 08:56 Nicoderm 21 Mg P atch TRANSDERMA DAILY PRN nicotine withdraw al Ondansetron HCl 4 mg 08/14/19 02:27 Zofran PO Q8H PRN NAUSEA AND VOMITI NG Oseltamivir Phosph ate 75 mg 08/14/19 09:00 08/14/19 09:27 Tamiflu PO 75 mg BID RUPERT Administration Prednisone 40 mg 08/14/19 09:00 08/14/19 09:29 Prednisone PO 40 mg DAILY RUPERT Administration Senna/Docusate Sod ium 1 tab 08/14/19 09:00 08/14/19 09:28 Senna-S PO 1 tab DAILY RUPERT Administration No Known Allergies Allergy (Verified 07/30/19 10:40) Vitals/I&O/Wt Last Vital Signs Temp 98.7 F 08/14/19 11:51 Pulse 88 08/14/19 11:51 Resp 20 H 08/14/19 11:51 BP 136/86 08/14/19 11:51 Pulse Ox 95 08/14/19 11:51 08/13/19 08/14/19 08/14/19 22:59 06:59 14:59 Intake Total 480 / 480 240 / 240 Balance 480 / 480 240 / 240 Weight last 48 hrs Weight 127.006 kg Physical Exam Const: COMMON NORMALS: no apparent distress and oriented x3 GENERAL APPEARANCE: cooperative, comfortable and ill appearing (somewhat) NUTRITIONAL APPEARANCE: obese morbidly obese ORIENTATION/CONSCIOUSNESS: Yes awake HENMT: COMMON NORMALS: normocephalic, head/scalp atraumatic, hearing grossly normal bilaterally and moist oral mucous membranes HEAD & SCALP: normocephalic and atraumatic Eye: COMMON NORMALS: PERRL, EOMs intact bilaterally and conjunctivae normal CONJUNCTIVA: Yes conjunctivae normal PUPIL: Yes PERRL Neck/C-Spine: COMMON NORMALS: full ROM GENERAL: Yes normal visual inspection and Yes trachea midline Chest: COMMONS NORMALS: inspection of chest normal Resp: COMMON NORMALS: normal respiratory effort, no retractions and no use of accessory muscles EFFORT & INSPECTION: Yes able to speak in complete sentences, Yes symmetric chest movement and No tachypneic AUSCULTATION: rhonchi and diminished lung sounds bilateral OTHER: -currently on 5 L NC Cardio: COMMON NORMALS: regular rate, regular rhythm, S1 normal heart sound, S2 normal heart sound and no murmurs RATE: regular rate RHYTHM: regular rhythm HEART SOUNDS: S1 normal and S2 normal GI: COMMON NORMALS: normal to inspection, nondistended, normoactive bowel sounds, soft to palpation and non-tender INSPECTION: Yes central obesity PALPATION: Yes soft Extremity: COMMON NORMALS: normal to inspection, full ROM and no clubbing, cyanosis or edema; negative for no pedal edema Neuro: COMMON NORMALS: oriented x3, moves all extremities, no focal motor deficits and no sensory deficits noted Psych: COMMON NORMALS: mental status grossly normal, thought process normal, cooperative, affect normal and speech normal SPEECH: Yes normal speech THOUGHT PROCESS: normal thought process Skin: COMMON NORMALS: no rashes or lesions noted, no jaundice, no petechiae and no mottling GENERAL SKIN EXAM: no rashes or lesions noted Data : 08/14/19 05:02 08/14/19 05:02 Micro: Microbiology 08/13/19 23:18 Blood Culture - Preliminary Blood SPECIMEN COLLECTED 08/13/19 23:02 Blood Culture - Preliminary Blood SPECIMEN COLLECTED A&P Assessment and plan (1) Influenza: -found to be influenza A positive -on Tamiflu -droplet isolation precautions Status: Acute Code(s): J11.1 - Influenza due to unidentified influenza virus with other respiratory manifestations (2) Acute exacerbation of chronic obstructive airways disease: -acute COPD exacerbation -on steroids, Neb treatments, antibiotics -CXR reported as bronchitis -continue to monitor respiratory status Status: Acute Code(s): J44.1 - Chronic obstructive pulmonary disease with (acute) exacerbation (3) Community acquired pneumonia: -CXR reported as bronchitis -noted possible infiltrates on CT chest done 08/11 and has been on antibiotics which are continued (Ceftriaxone, Azithromycin) -no leukocytosis, afebrile Status: Acute Qualifiers: Laterality: left Lung location: lower lobe of lung Qualified Code(s): J18.9 - Pneumonia, unspecified organism Code(s): J18.9 - Pneumonia, unspecified organism Additional A&P Information -Hyperglycemia with A1c-6.8; accucheks, ISS, consistent carb diet -Morbid obesity: BMI-40 kg/m2 -Transaminitis, continue to trend LFTs; CT abdomen as outpatient for further evaluation -Chronic low back pain; continue pain meds -DVT ppx with Lovenox -Dispo: home -Code status: FULL code Attestations Medical Necessity Statement*: Patient requires hospitalization for continued management of influenza A, pneumonia and acute COPD exacerbation. Time Spent in Patient Care: 16 - 35 minutes (>than 50% of time spent in counselling and/or direct pt care on unit) . 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
--- NOTE | 2019-08-14 16:55 | PC.RESP ---
Patient given Pulmonary Rehab/Smoking Cessation information.
[2019-08-14 17:00] LABS: Glucose Point of Care 140 mg/dL (70-110)
[2019-08-14 20:28] LABS: Glucose Point of Care 167 mg/dL (70-110)
[2019-08-15] VITALS (14 sets, daily range): BP systolic 128–148; BP diastolic 71–86; PULSE 58–92; RESP 16–20; TEMP 36.7–37.3; O2SAT 91–96
[2019-08-15] MEDS: ondansetron 2 mg/ML SDV 2 mL 4 MG IVP (00:42)
[2019-08-15] MEDS: sodium chloride 0.9% 1,000 ML 100 ML IV ×2 (01:08→19:22)
[2019-08-15] MEDS: HYDROcodone-acetaminophen 5-325 mg Tablet 1 TAB PO (05:46)
[2019-08-15 06:54] LABS: Glucose Point of Care 174 mg/dL (70-110)
[2019-08-15] MEDS: cefTRIAXone 1,000 MG in sodium chloride 0.9% (plus) 50 ML 100 MG IV (08:27)
[2019-08-15] MEDS: methocarbamol 500 mg Tablet PO (08:28)
[2019-08-15] MEDS: duloxetine 60 mg Capsule PO (08:28)
[2019-08-15] MEDS: enoxaparin 40 mg/0.4 mL Syringe SUBCUT (08:28)
[2019-08-15] MEDS: predniSONE 20 mg Tablet 40 MG PO (08:29)
[2019-08-15] MEDS: sennosides-docusate Tablet 1 TAB PO (08:29)
[2019-08-15] MEDS: azithromycin 250 mg Tablet PO (08:29)
[2019-08-15] MEDS: gabapentin 300 mg Capsule PO (08:29)
[2019-08-15] MEDS: oseltamivir phosphate 75 mg Capsule PO ×2 (08:29→17:58)
[2019-08-15] MEDS: meloxicam 7.5 mg tablet 15 MG PO (08:29)
[2019-08-15 11:17] LABS: Glucose Point of Care 147 mg/dL (70-110)
[2019-08-15 16:09] LABS: ABG PH Result 7.29 (7.35-7.45); Arterial Blood Gas Hematocrit 46.6 % (42-52); Base Excess ABG 7.7 mmol/L (-2.0-2.0); Blood Gas Allen Test Pos; Blood Gas LPM 4.5 %; Blood Gas Sample Site Radial, left; Blood Gas Sample Type Arterial; Carboxyhemoglobin 0.7 %THgb (0.4-20.1); HCO3 ABG 37.8 mmol/L (22-26); HGB O2 Sat 93.8 % (95-100); Ionized Calcium Level - ABG 1.2 mmol/L (1.1-1.4); Methemoglobin 0.3 % (0.4-1.5); Oxygen Device NC; Oxygen Saturation ABG 94.7; PO2 ABG 76.4 mmHg (80.0-100.0); Total Hemoglobin 15.2 g/dL (14-18)
[2019-08-15 16:10] LABS: ABG PCO2 78.8 mmHg (35-45)
--- NOTE | 2019-08-15 16:20 | P.PN_ITS ---
Subjective Subjective: Interval history: No acute events overnight. This morning on evaluation patient is little drowsy and sleepy though is AO x3. He states his cough is a little better. As per the nurse patient was started on his home dose of Cymbalta and gabapentin yesterday which she has not been taking as an outpatient because he was trying to save up money. Vitals/I&O/Wt Last Vital Signs Temp 98.0 F 08/15/19 15:50 Pulse 61 08/15/19 15:50 Resp 18 08/15/19 15:50 BP 128/75 08/15/19 15:50 Pulse Ox 93 08/15/19 15:50 08/15/19 08/15/19 08/15/19 06:59 14:59 22:59 Intake Total 720 / 720 Balance 720 / 720 Weight last 48 hrs Weight 127.006 kg Physical Exam Narrative: EXAM NARRATIVE: General: No acute distress, AO x3, lethargic HEENT: PERRLA, pupils bilaterally equal and reactive Chest: Normal vesicular breath sounds, bilateral rhonchi anterior more than posterior, equal good air entry bilaterally CVS: S1-S2 regular, no murmurs, no tachycardia, no gallops, no rubs Abdomen: Soft, nontender, no organomegaly, bowel sounds present Neuro: No focal deficits, no facial deformity, AO x3, power 5/5 in all limbs Data : 08/14/19 05:02 08/14/19 05:02 Micro: Microbiology 08/13/19 23:18 Blood Culture - Preliminary Blood NEGATIVE TO DATE 08/13/19 23:02 Blood Culture - Preliminary Blood NEGATIVE TO DATE A&P Assessment and plan (1) Acute exacerbation of chronic obstructive airways disease: Related to above. Not chronically on oxygen but has been told that he had a borderline low oxygen and a clinic visit previously. On those occasions oxygen saturation improved with deep breathing. Status: Acute Code(s): J44.1 - Chronic obstructive pulmonary disease with (acute) exacerbation (2) Influenza: Flu A positive Status: Acute Code(s): J11.1 - Influenza due to unidentified influenza virus with other respiratory manifestations (3) Community acquired pneumonia: initiated on treatment at last ED visit for this diagnosis Status: Acute Qualifiers: Laterality: left Lung location: lower lobe of lung Qualified Code(s): J18.9 - Pneumonia, unspecified organism Code(s): J18.9 - Pneumonia, unspecified organism (4) Transaminitis: Suspect either fatty liver or related to viral process Status: Acute Code(s): R74.0 - Nonspecific elevation of levels of transaminase and lactic acid dehydrogenase [LDH] (5) Mass of pancreas: Status: Acute Code(s): K86.89 - Other specified diseases of pancreas (6) Type 2 diabetes mellitus: Status: Acute Code(s): E11.9 - Type 2 diabetes mellitus without complications Additional A&P Information Acute exacerbation of COPD: Most likely due to influenza A and bronchitis. Contact precautions. Continue Tamiflu. Continue prednisone 40 mg p.o. daily. Would most likely need 5-day course. Nebulizations not ordered. We will start patient on budesonide twice daily and DuoNebs every 6 hourly. Community-acquired pneumonia: CT done on 10/23/2019 felt consistent with bilateral lower lobe possible infiltrates. NO leukocytosis. Altready started on Azithromycin and ceftriaxone. Will continue antibiotics for overall 5 days. Day 2 today. Can plan to discharge on azithromycin and oral Levaquin. Altered mental status: We will have to rule out hypercapnia given COPD exacerbation. Stat ABG. We will cut down on his outpatient Cymbalta and gabapentin to daily rather than twice daily. If hypercapnic will plan for BiPAP ventilation. Type 2 diabetes mellitus: A1c 6.8. Insulin sliding scale, consistent carb diet. Incidental mass on pancreas and CT:Will need CT imaging of the abdomen upon discharge and when improved clinically. I have gone on and placed an order for the outpatient setting to be processed at the time of discharge. I did review the findings of a calcified mass in the head of the pancreas with Mr. Meredith, including the importance of following up to get the CAT scan. Mentioned that we need to see if this is anything to worry about such as cancer or other process requiring intervention. Full code. Consistent carb diet. Lovenox for DVT prophylaxis. 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
[2019-08-15 17:29] LABS: Glucose Point of Care 144 mg/dL (70-110)
[2019-08-15] MEDS: ipratropium-albuterol 3 mL Neb INHALATION (19:50)
[2019-08-15] MEDS: budesonide 0.5 mg/2 mL Neb INHALATION (19:50)
[2019-08-15 21:25] LABS: Glucose Point of Care 159 mg/dL (70-110)
--- NOTE | 2019-08-15 22:11 | PC.CHAP ---
Pastoral Care Encounter/Spiritual Assessment Type of Contact [] Declined senior sales administrator visit [] Patient/Family/Request visit [] Outpatient visit [] Follow-up visit [] Physician referral [] Code/Alert [] Routine visit [] Staff referral [] Actively dying [] Patient sleeping [] Family support [] [] Out of room [] Palliative care [] [] Receiving care in room [] Pre-surgical visit [] Trauma [] Long length of stay [] ICU visit [] Other: Relational/Emotional Strength [] Patient feels connected with others/family/visitors/staff [] Distress [] Loneliness/isolation [] Abandonment Spirituality of Patient [] Person of Rosey [] Attends Adventism of their Rosey [] Believes in Prayer [] Reads Bible or Congregational materials [] There are Spiritual issues to be addressed Prepleater Interventions [] Prayer [] Active listening [] Non-anxious presence [] Spiritual/emotional support [] Crisis/trauma care [] Spiritual counseling [] Bereavement support [] Provided bereavement packet [] Provided Bible/devotional materials [] Provided toy/stuffed animal, coloring book to patient or family member [] Provided Communion [] Anointing/[place] [] Salvation [] Completed spiritual assessment [] Other: Impact on Illness or Injury [] Angry [] Fearful [] Anxious [] Often cries [] Exhaustion [] Unable to work [] Unable to attend buddhism [] Unable to walk/stand [] Unable to read [] Unable to drive [] Unable to eat/drink [] Unable to sleep [] Unable to be with family [] Patient intubated [] Other: Summary COULD NOT VISIT DUE TO INFECTION PRECAUTIONS Time spent with patient
[2019-08-16] VITALS (14 sets, daily range): BP systolic 116–138; BP diastolic 64–78; PULSE 60–84; RESP 16–22; TEMP 36.6–37.2; O2SAT 91–96
[2019-08-16] MEDS: ipratropium-albuterol 3 mL Neb INHALATION ×4 (02:49→21:21)
[2019-08-16] MEDS: HYDROcodone-acetaminophen 5-325 mg Tablet 1 TAB PO (04:45)
[2019-08-16] MEDS: sodium chloride 0.9% 1,000 ML 100 ML IV ×2 (04:48→17:55)
[2019-08-16 06:35] LABS: Glucose Point of Care 149 mg/dL (70-110)
[2019-08-16] MEDS: cefTRIAXone 1,000 MG in sodium chloride 0.9% (plus) 50 ML 100 MG IV (08:47)
[2019-08-16] MEDS: enoxaparin 40 mg/0.4 mL Syringe SUBCUT (08:47)
[2019-08-16] MEDS: oseltamivir phosphate 75 mg Capsule PO ×2 (08:48→19:47)
[2019-08-16] MEDS: azithromycin 250 mg Tablet PO (08:48)
[2019-08-16] MEDS: sennosides-docusate Tablet 1 TAB PO (08:48)
[2019-08-16] MEDS: methocarbamol 500 mg Tablet PO ×3 (08:48→19:46)
[2019-08-16] MEDS: predniSONE 20 mg Tablet 40 MG PO (08:48)
[2019-08-16] MEDS: gabapentin 300 mg Capsule PO (08:49)
[2019-08-16] MEDS: meloxicam 7.5 mg tablet 15 MG PO (08:49)
[2019-08-16] MEDS: budesonide 0.5 mg/2 mL Neb INHALATION ×2 (09:42→21:21)
[2019-08-16 10:55] LABS: Glucose Point of Care 150 mg/dL (70-110)
[2019-08-16 16:21] LABS: Glucose Point of Care 163 mg/dL (70-110)
--- NOTE | 2019-08-16 16:44 | PM.PN ---
Subjective Subjective: Interval history: No acute events overnight. On examination patient is continued to remain on BiPAP. As per the nurse patient has not been tried off BiPAP since morning. Patient is awake alert oriented and not confused during examination today. Denies of having any nausea, vomiting, headache, palpitations. On evaluation because the patient is off BiPAP and started him on nasal cannula oxygenation on 4 L. Patient remains comfortable without any tachypnea. Vitals/I&O/Wt Last Vital Signs Temp 97.9 F 08/16/19 15:05 Pulse 72 08/16/19 15:18 Resp 20 H 08/16/19 15:18 BP 138/64 08/16/19 15:05 Pulse Ox 92 08/16/19 15:18 08/16/19 08/16/19 08/16/19 06:59 14:59 22:59 Intake Total 943.333 / 2953.333 720 / 720 Output Total 650 / 650 Balance 943.333 / 2853.333 70 / 70 Physical Exam Narrative: EXAM NARRATIVE: General: No acute distress, AO x3, lethargic HEENT: PERRLA, pupils bilaterally equal and reactive Chest: Normal vesicular breath sounds, bilateral rhonchi anterior more than posterior, equal good air entry bilaterally CVS: S1-S2 regular, no murmurs, no tachycardia, no gallops, no rubs Abdomen: Soft, nontender, no organomegaly, bowel sounds present Neuro: No focal deficits, no facial deformity, AO x3, power 5/5 in all limbs Data : 08/14/19 05:02 08/14/19 05:02 A&P Assessment and plan (1) Acute exacerbation of chronic obstructive airways disease: Related to above. Not chronically on oxygen but has been told that he had a borderline low oxygen and a clinic visit previously. On those occasions oxygen saturation improved with deep breathing. Status: Acute Code(s): J44.1 - Chronic obstructive pulmonary disease with (acute) exacerbation (2) Influenza: Flu A positive Status: Acute Code(s): J11.1 - Influenza due to unidentified influenza virus with other respiratory manifestations (3) Community acquired pneumonia: initiated on treatment at last ED visit for this diagnosis Status: Acute Qualifiers: Laterality: left Lung location: lower lobe of lung Qualified Code(s): J18.9 - Pneumonia, unspecified organism Code(s): J18.9 - Pneumonia, unspecified organism (4) Transaminitis: Suspect either fatty liver or related to viral process Status: Acute Code(s): R74.0 - Nonspecific elevation of levels of transaminase and lactic acid dehydrogenase [LDH] (5) Mass of pancreas: Status: Acute Code(s): K86.89 - Other specified diseases of pancreas (6) Type 2 diabetes mellitus: Status: Acute Code(s): E11.9 - Type 2 diabetes mellitus without complications Additional A&P Information Acute exacerbation of COPD: Most likely due to influenza A and bronchitis. Given patient body habitus it is most likely patient has an undiagnosed PATRICIA as well. Contact precautions. Continue Tamiflu. Day 3 of treatment today. Continue prednisone 40 mg p.o. daily. Would most likely need 5-day course. Nebulizations not ordered. We will start patient on budesonide twice daily and DuoNebs every 6 hourly. Community-acquired pneumonia: X-ray done on admission did not show any infiltrate. CT scan done on 08/11 showed possible bibasilar atelectasis. NO leukocytosis. Altready started on Azithromycin and ceftriaxone. Will continue antibiotics for overall 5 days. Day 3 today. We will stop the azithromycin and continue the ceftriaxone for 2 more days. Can plan to discharge on oral Levaquin. Altered mental status: Due to hypercapnia from COPD exacerbation and somnolence from Cymbalta and gabapentin. Resolved now. We will continue with decreased dose of Cymbalta and gabapentin. BiPAP nightly as needed Type 2 diabetes mellitus: A1c 6.8. Insulin sliding scale, consistent carb diet. Incidental mass on pancreas and CT:Will need CT imaging of the abdomen upon discharge and when improved clinically. I have gone on and placed an order for the outpatient setting to be processed at the time of discharge. I did review the findings of a calcified mass in the head of the pancreas with Mr. Meredith, including the importance of following up to get the CAT scan. Mentioned that we need to see if this is anything to worry about such as cancer or other process requiring intervention. Full code. Consistent carb diet. Lovenox for DVT prophylaxis. 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
[2019-08-16 19:27] LABS: Glucose Point of Care 173 mg/dL (70-110)
[2019-08-16] MEDS: duloxetine 60 mg Capsule PO (19:47)
[2019-08-17] VITALS (15 sets, daily range): BP systolic 133–165; BP diastolic 73–96; PULSE 67–93; RESP 16–20; TEMP 35.7–37.1; O2SAT 91–95
[2019-08-17] MEDS: ipratropium-albuterol 3 mL Neb INHALATION ×5 (02:39→21:37)
[2019-08-17] MEDS: sodium chloride 0.9% 1,000 ML 100 ML IV ×2 (03:34→12:25)
[2019-08-17 06:37] LABS: Glucose Point of Care 105 mg/dL (70-110)
[2019-08-17] MEDS: budesonide 0.5 mg/2 mL Neb INHALATION ×2 (08:41→21:37)
[2019-08-17] MEDS: sennosides-docusate Tablet 1 TAB PO (09:00)
[2019-08-17] MEDS: gabapentin 300 mg Capsule PO (09:00)
[2019-08-17] MEDS: predniSONE 20 mg Tablet 40 MG PO (09:00)
[2019-08-17] MEDS: oseltamivir phosphate 75 mg Capsule PO ×2 (09:01→17:51)
[2019-08-17] MEDS: azithromycin 250 mg Tablet PO (09:01)
[2019-08-17] MEDS: meloxicam 7.5 mg tablet 15 MG PO (09:01)
[2019-08-17] MEDS: cefTRIAXone 1,000 MG in sodium chloride 0.9% (plus) 50 ML 100 MG IV (09:01)
[2019-08-17] MEDS: enoxaparin 40 mg/0.4 mL Syringe SUBCUT (09:01)
[2019-08-17] MEDS: methocarbamol 500 mg Tablet PO ×3 (09:01→19:46)
[2019-08-17 09:23] LABS: Basophils % 0.2 %; Eosinophils % 0.3 %; Hematocrit 45.2 % (42.0-52.0); Lymphocytes # 2.4 10^3/uL (0.8-4.8); Lymphocytes % 26.2 %; Mean Corpuscular Hemoglobin 26.6 pg (28.0-34.0); Mean Corpuscular Volume 85.9 fL (80-94); Mean Platelet Volume 9.6 fL (7.4-10.4); Monocytes # 0.6 10^3/uL (0.2-0.9); Monocytes % 6.9 %; Neutrophils % 65.7 %; Nucleated Red Blood Cells % 0 %; Platelet Count 254 10^3/cmm (130-400); Red Blood Count 5.26 10^6/uL (4.1-5.3); Red Cell Distribution Width 13.8 % (12.1-15.1); White Blood Count 9.2 10^3/uL (4.0-10.0)
[2019-08-17 10:05] LABS: Alanine Aminotransferase 51 U/L (0-41); Albumin Level 3.1 g/dL (3.5-5.2); Alkaline Phosphatase 79 IU/L (40-130); Anion Gap 12.8 (5-19); Aspartate Amino Transferase 19 U/L (0-40); Blood Urea Nitrogen 12 mg/dL (6-20); Calcium 8.4 mg/dL (8.5-10.5); Carbon Dioxide 32 mmol/L (22-29); Chloride 99 mmol/L (98-107); Globulin 3.5 g/dL (1.3-4.6); Glomerular Filtration Rate 140.9 mL/min (90-130); Glucose 146 mg/dL (65-115); Potassium 3.8 mmol/L (3.5-5.1); Sodium 140 mmol/L (136-145); Total Bilirubin 0.5 mg/dL (0.15-1.2); Total Protein 6.6 g/dL (6.6-8.7)
[2019-08-17 10:18] LABS: Slide Review Slide Review Perform
--- NOTE | 2019-08-17 11:16 | PC.RESP ---
Patient given information on Smoking Cessation.
[2019-08-17 17:05] LABS: Glucose Point of Care 185 mg/dL (70-110)
--- NOTE | 2019-08-17 17:47 | P.PN_ITS ---
Subjective Subjective: Interval history: No acute events overnight. On examination patient is on 4 L nasal cannula saturating more than 94%. Patient states he is feeling little better. He denies of having any shortness of breath, nausea, vomiting, headache, palpitations, cough. Overnight patient was on BiPAP intermittently which she was not able to tolerate well. Not really sure why BiPAP was placed as he continued to saturate well. We will asked respiratory therapy to avoid BiPAP overnight to see if patient can be discharged tomorrow. To put BiPAP only if patient is desaturating or u ncomfortable. Medications: Reviewed: Yes Medication Review Details: Active Medications Generic Name Dose Route Start Last Admin Trade Name Freq PRN Reason Stop Dose Admin Acetaminophen 650 mg 08/14/19 02:27 Tylenol PO Q6H PRN Mild/Mod Pain Or Temp >/= 101 Hydrocodone Bitart /Acetaminophen 1 tab 08/14/19 08:38 08/14/19 11:40 Levant 5-325 Mg PO 1 tab Q6H PRN Administration pain Azithromycin 250 mg 08/14/19 09:00 08/14/19 09:28 Zithromax PO 08/17/19 09:01 250 mg DAILY RUPERT Administration Protocol Dextrose 25 ml 08/14/19 08:40 D50w IVP ONCE PRN hypoglycemia prot ocol Protocol Dextrose 50 ml 08/14/19 08:40 D50w IVP PRN PRN hypoglycemia prot ocol Protocol Enoxaparin Sodium 40 mg 08/14/19 08:45 08/14/19 09:27 Lovenox SUBCUT 40 mg Q24H RUPERT Administration Gabapentin 300 mg 08/14/19 09:00 08/14/19 09:28 Neurontin PO 300 mg BID RUPERT Administration Glucagon 1 mg 08/14/19 08:40 Glucagen IM ONCE PRN Adult Acute Hypog lycemia Prot. Protocol Sodium Chloride 1,000 mls @ 100 m ls/hr 08/14/19 02:27 08/14/19 04:56 Sodium Chloride 0.9% IV 100 mls/hr .Q10H RUPERT Administration Ceftriaxone Sodium 1,000 mg/ 50 mls @ 100 mls/ hr 08/14/19 09:00 08/14/19 09:29 Sodium Chloride IV 100 mls/hr Q24H RUPERT Administration Protocol Dextrose 500 mls @ 100 mls /hr 08/14/19 08:40 D5w IV ONCE PRN Adult Acute Hypog lycemia Prot Protocol Insulin Aspart 0 unit 08/14/19 12:00 08/14/19 12:05 Novolog SUBCUT 2 unit TIDWM RUPERT Administration Protocol Insulin Aspart 0 unit 08/14/19 21:00 Novolog SUBCUT BEDTIME RUPERT Protocol Meloxicam 15 mg 08/14/19 09:15 08/14/19 09:28 Mobic PO 15 mg DAILY RUPERT Administration Methocarbamol 500 mg 08/14/19 09:00 08/14/19 09:28 Robaxin PO 500 mg TID RUPERT Administration Morphine Sulfate 4 mg 08/14/19 02:27 08/14/19 03:59 Morphine IVP 4 mg Q4H PRN Administration SEVERE PAIN Nicotine 1 patch 08/14/19 08:56 Nicoderm 21 Mg P atch TRANSDERMA DAILY PRN nicotine withdraw al Ondansetron HCl 4 mg 08/14/19 02:27 Zofran PO Q8H PRN NAUSEA AND VOMITI NG Oseltamivir Phosph ate 75 mg 08/14/19 09:00 08/14/19 09:27 Tamiflu PO 75 mg BID RUPERT Administration Prednisone 40 mg 08/14/19 09:00 08/14/19 09:29 Prednisone PO 40 mg DAILY RUPERT Administration Senna/Docusate Sod ium 1 tab 08/14/19 09:00 08/14/19 09:28 Senna-S PO 1 tab DAILY RUPERT Administration No Known Allergies Allergy (Verified 07/30/19 10:40) Vitals/I&O/Wt Last Vital Signs Temp 98.8 F 08/17/19 15:37 Pulse 93 08/17/19 15:37 Resp 18 08/17/19 15:37 BP 165/96 08/17/19 15:37 Pulse Ox 91 08/17/19 15:37 08/17/19 08/17/19 08/17/19 06:59 14:59 22:59 Intake Total 965 / 3495 1245 / 1245 Output Total 555 / 1405 900 / 900 Balance 410 / 2090 1245 / 1245 -900 / 345 Physical Exam Narrative: EXAM NARRATIVE: General: No acute distress, AO x3, lethargic HEENT: PERRLA, pupils bilaterally equal and reactive Chest: Normal vesicular breath sounds, bilateral rhonchi anterior more than posterior, equal good air entry bilaterally CVS: S1-S2 regular, no murmurs, no tachycardia, no gallops, no rubs Abdomen: Soft, nontender, no organomegaly, bowel sounds present Neuro: No focal deficits, no facial deformity, AO x3, power 5/5 in all limbs Data : 08/17/19 09:00 08/17/19 09:00 A&P Assessment and plan (1) Acute exacerbation of chronic obstructive airways disease: Related to above. Not chronically on oxygen but has been told that he had a borderline low oxygen and a clinic visit previously. On those occasions oxygen saturation improved with deep breathing. Status: Acute Code(s): J44.1 - Chronic obstructive pulmonary disease with (acute) exacerbation (2) Influenza: Flu A positive Status: Acute Code(s): J11.1 - Influenza due to unidentified influenza virus with other respiratory manifestations (3) Community acquired pneumonia: initiated on treatment at last ED visit for this diagnosis Status: Acute Qualifiers: Laterality: left Lung location: lower lobe of lung Qualified Code(s): J18.9 - Pneumonia, unspecified organism Code(s): J18.9 - Pneumonia, unspecified organism (4) Transaminitis: Suspect either fatty liver or related to viral process Status: Acute Code(s): R74.0 - Nonspecific elevation of levels of transaminase and lactic acid d ehydrogenase [LDH] (5) Mass of pancreas: Status: Acute Code(s): K86.89 - Other specified diseases of pancreas (6) Type 2 diabetes mellitus: Status: Acute Code(s): E11.9 - Type 2 diabetes mellitus without complications Additional A&P Information Acute exacerbation of COPD: Most likely due to influenza A and bronchitis. Given patient body habitus it is most likely patient has an undiagnosed PATRICIA as well. Contact precautions. Continue Tamiflu. Day 4 of treatment today. Continue prednisone 40 mg p.o. daily. Would most likely need 5-day course. Continue with duo nebs and budesonide as ordered. Community-acquired pneumonia: X-ray done on admission did not show any infiltrate. CT scan done on 08/11 showed possible bibasilar atelectasis. NO leukocytosis. Altready started on Azithromycin and ceftriaxone. Will continue antibiotics for overall 5 days. Day 4 today. We will stop the azithromycin and continue the ceftriaxone for 1 more days. Can plan to discharge on oral Levaquin. Altered mental status: Due to hypercapnia from COPD exacerbation and somnolence from Cymbalta and gabapentin. Resolved now. We will continue with decreased dose of Cymbalta and gabapentin. BiPAP nightly as needed Type 2 diabetes mellitus: A1c 6.8. Insulin sliding scale, consistent carb diet. Incidental mass on pancreas and CT:Will need CT imaging of the abdomen upon discharge and when improved clinically. I have gone on and placed an order for the outpatient setting to be processed at the time of discharge. I did review the findings of a calcified mass in the head of the pancreas with Mr. Meredith, including the importance of following up to get the CAT scan. Mentioned that we need to see if this is anything to worry about such as cancer or other process requiring intervention. Full code. Consistent carb diet. Lovenox for DVT prophylaxis. 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
[2019-08-17] MEDS: duloxetine 60 mg Capsule PO (19:46)
[2019-08-17 19:47] LABS: Glucose Point of Care 126 mg/dL (70-110)
[2019-08-17 19:47] LABS: Glucose Point of Care 142 mg/dL (70-110)
[2019-08-18] VITALS (12 sets, daily range): BP systolic 131–147; BP diastolic 76–89; PULSE 75–104; RESP 16–20; TEMP 37.1–37.2; O2SAT 88–96
[2019-08-18] MEDS: sodium chloride 0.9% 1,000 ML 100 ML IV (01:47)
[2019-08-18] MEDS: ipratropium-albuterol 3 mL Neb INHALATION ×3 (02:27→14:32)
[2019-08-18 05:51] LABS: Basophils % 0.2 %; Eosinophils # 0.1 10^3/uL (0.0-0.8); Eosinophils % 0.6 %; Hematocrit 45.5 % (42.0-52.0); Hemoglobin 14.4 g/dL (11.7-16.6); Lymphocytes # 2.7 10^3/uL (0.8-4.8); Lymphocytes % 25.2 %; Mean Corpuscular HGB Conc 31.6 g/dL (30.0-36.0); Mean Corpuscular Hemoglobin 27.9 pg (28.0-34.0); Mean Platelet Volume 9.4 fL (7.4-10.4); Monocytes # 0.7 10^3/uL (0.2-0.9); Monocytes % 6.6 %; Nucleated Red Blood Cells % 0 %; Platelet Count 266 10^3/cmm (130-400); Positive M 1; Red Blood Count 5.17 10^6/uL (4.1-5.3); Red Cell Distribution Width 14.2 % (12.1-15.1); White Blood Count 10.7 10^3/uL (4.0-10.0)
[2019-08-18 06:14] LABS: Alanine Aminotransferase 74 U/L (0-41); Albumin Level 3.1 g/dL (3.5-5.2); Alkaline Phosphatase 82 IU/L (40-130); Anion Gap 12.9 (5-19); Aspartate Amino Transferase 27 U/L (0-40); Blood Urea Nitrogen 12 mg/dL (6-20); Calcium 8.7 mg/dL (8.5-10.5); Carbon Dioxide 33 mmol/L (22-29); Chloride 100 mmol/L (98-107); Globulin 3.2 g/dL (1.3-4.6); Glomerular Filtration Rate 173.9 mL/min (90-130); Glucose 122 mg/dL (65-115); Potassium 3.9 mmol/L (3.5-5.1); Sodium 142 mmol/L (136-145); Total Bilirubin 0.4 mg/dL (0.15-1.2); Total Protein 6.3 g/dL (6.6-8.7)
[2019-08-18 06:28] LABS: Slide Review Slide Review Perform
[2019-08-18 06:45] LABS: Glucose Point of Care 128 mg/dL (70-110)
[2019-08-18] MEDS: cefTRIAXone 1,000 MG in sodium chloride 0.9% (plus) 50 ML 100 MG IV (08:01)
[2019-08-18] MEDS: enoxaparin 40 mg/0.4 mL Syringe SUBCUT (08:02)
[2019-08-18] MEDS: methocarbamol 500 mg Tablet PO (08:02)
[2019-08-18] MEDS: meloxicam 7.5 mg tablet 15 MG PO (08:03)
[2019-08-18] MEDS: oseltamivir phosphate 75 mg Capsule PO (08:03)
[2019-08-18] MEDS: gabapentin 300 mg Capsule PO (08:03)
[2019-08-18] MEDS: predniSONE 20 mg Tablet 40 MG PO (08:03)
[2019-08-18] MEDS: sennosides-docusate Tablet 1 TAB PO (08:04)
[2019-08-18] MEDS: budesonide 0.5 mg/2 mL Neb INHALATION (09:00)
--- NOTE | 2019-08-18 11:42 | PM.DCS ---
Discharge Providers Date of Admission: 08/14/19 10:27 Date of Discharge: August 18, 2019 Attending Provider at Admission: Emma Erazo MD Attending Provider at Discharge: Dash Price MD Primary Care Provider: LAKISHA Mehta Diagnoses at Discharge Discharge Diagnosis (1) Acute exacerbation of chronic obstructive airways disease: Status: Acute (2) Influenza: Status: Acute (3) Community acquired pneumonia: Status: Acute Qualifiers: Laterality: left Lung location: lower lobe of lung Qualified Code(s): J18.9 - Pneumonia, unspecified organism (4) Transaminitis: Status: Acute (5) Mass of pancreas: Status: Acute Problem details: Incidentally noted on CTA of the chest done in the ED 08/11/2019 (6) Type 2 diabetes mellitus: Status: Acute Reason for Visit Reason for Visit: Reason For Visit: sob Hospital Course Discharge Summary: Iqra Meredith is a 53 year old male who presented to the emergency room with chief complaint of acute difficulty breathing on August 14, 2019. Patient has not been feeling well for several days. He was seen in the emergency room on the with similar symptoms. He was diagnosed with community-acquired pneumonia, received prescriptions for amoxicillin and azithromycin and was discharged home. Patient is continued to have fever, malaise, chills, productive cough, increased back discomfort which is a chronic problem for him. This evening he had acute worsening of difficulty breathing. Saturations were reportedly in the 70s upon arrival. With oxygen supplementation saturations just barely made it to 90%. He was put on BiPAP. Chest x-ray today shows increased haziness in the left base as well as persistent atelectasis or effusion at the right costophrenic angle. Increased pulmonary vasculature is also noted. Influenza screen today, unlike the other day, is positive for influenza A. White blood count is normal. ABG showed 7.43/40 8/71 on 40% FiO2 with BiPAP. Given the degree of distress he presented with he is being admitted for further care. Patient was started treatment on Tamiflu, IV Rocephin for possible superimposed pneumonia. Patient during hospitalization required BiPAP for tonight which was transitioned over to nasal cannula oxygen supplementation keeping saturation 90%. Patient responded well to the treatment but was still requiring oxygen so home O2 exam evaluation was done and he was qualified for 4 L of oxygen requirement. Patient was treated with oral steroids for which he would require for 3 more days and he finished a course of 5 days of Tamiflu antibiotics. Patient's was also being treated for Tamiflu so he was given 2 more days of Tamiflu course to finish overall 7 days. He is being discharged in hemodynamically stable condition with 4 L oxygen requirement for which oxygen has been provided. Prior to hospitalization patient was having difficulty getting his medication so financial assistance program was sought and admits to bed was done so that he can have all his medications with him. Patient's hospital stay was unremarkable. CT chest abdomen pelvis was done on admission given his respiratory distress which showed an incidental mass in his pancreas for which he was advised to follow-up as an outpatient with a repeat study in [address] abdomen has been ordered. Given the body habitus it is most likely patient also has sleep apnea for which sleep study has been ordered and is supposed to followed up with his primary care physician. Physical Exam Narrative: EXAM NARRATIVE: General: No acute distress, AO x3, lethargic HEENT: PERRLA, pupils bilaterally equal and reactive Chest: Normal vesicular breath sounds, bilateral rhonchi anterior more than posterior, equal good air entry bilaterally CVS: S1-S2 regular, no murmurs, no tachycardia, no gallops, no rubs Abdomen: Soft, nontender, no organomegaly, bowel sounds present Neuro: No focal deficits, no facial deformity, AO x3, power 5/5 in all limbs Discharge Data Data Completed and Pending: Completed Studies During Hospitalization Category Date Time Status XR chest 1V m[place] ble [id number] Stat Exams 08/13/19 22:47 Completed Pending at discharge Category Date Time Status Blood Culture Sta t Lab 08/13/19 23:18 Results Labs from last 24 hours 08/18/19 08/18/19 08/18/19 06:40 05:18 05:18 WBC 10.7 H RBC 5.17 Hgb 14.4 Hct 45.5 MCV 88.0 MCH 27.9 L MCHC 31.6 RDW 14.2 Plt Count 266 MPV 9.4 Neut % (Auto) 66.0 Lymph % (Auto) 25.2 [place] % (Auto) 6.6 Eos % (Auto) 0.6 Baso % (Auto) 0.2 Neut # (Auto) 7.0 Lymph # (Auto) 2.7 [place] # (Auto) 0.7 Eos # (Auto) 0.1 Baso # (Auto) 0.0 Nucleated RBC % (a uto) 0 Nucleated RBCs # 0.0 Sodium 142 Potassium 3.9 Chloride 100 Carbon Dioxide 33 H Anion Gap 12.9 BUN 12 Creatinine 0.5 L GFR Calculation 173.9 H Glucose 122 H POC Glucose 128 Calcium 8.7 Total Bilirubin 0.4 AST 27 ALT 74 H Alkaline Phosphata se 82 Total Protein 6.3 L Albumin 3.1 L Globulin 3.2 08/17/19 08/17/19 08/17/19 19:04 16:58 11:29 WBC RBC Hgb Hct MCV MCH MCHC RDW Plt Count MPV Neut % (Auto) Lymph % (Auto) [place] % (Auto) Eos % (Auto) Baso % (Auto) Neut # (Auto) Lymph # (Auto) [place] # (Auto) Eos # (Auto) Baso # (Auto) Nucleated RBC % (a uto) Nucleated RBCs # Sodium Potassium Chloride Carbon Dioxide Anion Gap BUN Creatinine GFR Calculation Glucose POC Glucose 142 185 126 Calcium Total Bilirubin AST ALT Alkaline Phosphata se Total Protein Albumin Globulin Vitals: Last Vital Signs Temp 98.7 F 08/18/19 11:30 Pulse 87 08/18/19 11:30 Resp 20 H 08/18/19 11:30 BP 147/76 08/18/19 11:30 Pulse Ox 92 08/18/19 11:30 Discharge Plan Discharge Patient Disposition: Home, Self-Care Condition: Stable Prescriptions: New Tamiflu 75 mg capsule 75 mg PO BID Qty: 5 RF: 0 Pulmicort Flexhaler 180 mcg/actuation aerosol powdr breath activated 1 inh INHALATION Q12H Qty: 1 RF: 0 Spiriva with HandiHaler 18 mcg capsule, w/inhalation device 1 cap INHALATION DAILY Qty: 14 RF: 0 prednisone 20 mg Tablet 40 mg PO DAILY Qty: 6 RF: 0 Protonix 40 mg tablet,delayed release (DR/EC) 40 mg PO DAILY 10 Days Qty: 10 RF: 0 Continued meloxicam 15 mg tablet 15 mg PO DAILY RF: 0 hydrocodone-acetaminophen 5-325 mg tablet 1 tab PO TID PRN (Reason: pain) 30 Days Qty: 90 RF: 0 methocarbamol 500 mg tablet 500 mg PO TID RF: 0 albuterol sulfate [ProAir HFA] 90 mcg/actuation HFA aerosol inhaler 1 inh INHALATION DAILY RF: 0 sennosides-docusate sodium [Lax Stool Softener With Senna] 8.6-50 mg tablet 1 tab-cap PO DAILY RF: 0 gabapentin 300 mg capsule 300 mg PO BID Qty: 60 RF: 5 duloxetine [Cymbalta] 60 mg capsule,delayed release(DR/EC) 60 mg PO BID RF: 0 Discontinued sulfamethoxazole-trimethoprim [Bactrim DS] 800-160 mg tablet 1 tab PO BID Qty: 20 RF: 0 amoxicillin 500 mg capsule 1,000 mg PO TID 10 Days Qty: 60 RF: 0 azithromycin 250 mg tablet See Rx Instructions .ROUTE .COMPLEX Qty: 6 RF: 0 Discharge Orders: Discharge Order (Routine); Ordered 08/18/19 Ordered By: Dash Price Other Ambulatory Orders: CT abdomen pelvis w con* [id number] (Routine) Timeframe: 2 Weeks Facility: [facility] - Location: [facility] Ordered By: Emma Erazo DME: Oxygen (Order) Location: None Selected Ordered By: Dash Price Sleep Study W Sleep Stage (Routine) Timeframe: 2 Weeks Location: None Selected Ordered By: Dash Price Referrals: Prema Recinos FNP [Primary Care Provider] - 08/26/19 9:30 am Discharge Diet: Regular Discharge Activity: Resume usual activity Patient Instructions: Type 2 Diabetes, Diabetes and Diet, Prednisone (By mouth), Budesonide (By breathing), Oseltamivir (By mouth), Pantoprazole (By mouth), Tiotropium (By breathing) Activity Restrictions/Additional Instructions: Please follow-up with CT abdomen sleep studies as prescribed. Continue medications as directed. 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
--- NOTE | 2019-08-18 16:46 | PC.NURSE ---
Discharge summary patient was given discharge summary and verbalized understanding. IV discontinued and alert and oriented. patient received teaching on how to use his at home oxygen. patient received his meds at bedside. Follow up appointments made and relayed to patient.
[2019-08-19 06:14] LABS: Glucose Point of Care 179 mg/dL (70-110)
== END 2019-08-18 16:00 | disposition home or self-care (01) | DRG 190 ==
LOC: ER 08-14 00:40 → MEDSURG 08-14 01:59
PROVIDERS: Family Medicine; Admitting Provider Hospitalist; Emergency Provider Emergency Medicine; Family Provider Nurse Practitioner; PCP Nurse Practitioner; Visit Provider Student in an Organized Health Care Education/Training Program
DX: J44.1 Chronic obstructive pulmonary disease with (acute) exacerbation (principal); J18.9 Pneumonia, unspecified organism; Z68.41 Body mass index [BMI] 40.0-44.9, adult; J11.1 Influenza due to unidentified influenza virus with other respiratory manifestations; F17.210 Nicotine dependence, cigarettes, uncomplicated; K86.89 Other specified diseases of pancreas; R74.0 Nonspecific elevation of levels of transaminase and lactic acid dehydrogenase [LDH]; E11.65 Type 2 diabetes mellitus with hyperglycemia; M54.16 Radiculopathy, lumbar region; E66.01 Morbid (severe) obesity due to excess calories; G89.29 Other chronic pain; F45.42 Pain disorder with related psychological factors; Z79.51 Long term (current) use of inhaled steroids; Z99.81 Dependence on supplemental oxygen; Z79.2 Long term (current) use of antibiotics
CPT/HCPCS: 12345; 36415; 36416; 36600; 71045; 80048; 80051; 80053; 82803; 82810; 82962; 83036; 83605; 83735; 83880; 83986; 84484; 85025; 87040; 87804; 93005; 94640; 94660; 96372; 96375; 99284; G0378; J0696; J1650; J1815; J2270; J2405; J2543; J2930; J7030; J7512; J7626; Q0144

== ENCOUNTER 2019-08-13 22:34 | Emergency (ER) | payer MEDICAID, SELFPAY | END 2019-08-14 02:21 | disposition still patient (30) | LOC: ER 10-05 09:57 | PROVIDERS: Emergency Provider Emergency Medicine; Family Provider Nurse Practitioner; PCP Nurse Practitioner | DX: Z01.89 Encounter for other specified special examinations (principal) | CPT/HCPCS: 36600; 71045; 80053; 82803; 83605; 83735; 83880; 84484; 85025; 87040; 87804; 93005; 94640; 94660; 96365; 96372; 96375; 99284; 99291; G0378; J0696; J1650; J2270; J2405; J2543; J2930; J7030; J7512; Q0144 ==

== ENCOUNTER 2019-09-01 12:17 | Outpatient (CLI) | payer MEDICAID, SELFPAY ==
[2019-09-01] MEDS: iohexol 300 mg/mL 50 mL Btl PO (12:40)
--- NOTE | 2019-09-01 14:00 | CT_ITS ---
WS: [id number] CT ABDOMEN PELVIS TECHNIQUE: Contrast-enhanced CT of the abdomen and pelvis with coronal and sagittal reformatted image s. CLINICAL INFORMATION: pancreatic mass noted on CTA chest COMPARISON: CTA 2019 DLP: 1100.[address] scans at [facility] use at least one of these dose optimization techniques: automat ed exposure control; mA and/or kV adjustment per patient size (includes targeted exams where dose is matched to clinical indication); or iterative reconstruction. FINDINGS: Cholelithiasis. No pericholecystic fluid or gallbladder wall thickening. Peripheral enhancing partial ly calcified pancreatic mass in the tail of the pancreas measuring approximately 3.1 x 3.1 CM. Centra l low-attenuation. No significant pancreatic ductal dilatation. Primary differential considerations i nclude mucinous or serous cystic neoplasms. Pancreatic fatty atrophy. Spleen appears normal. Adrenal glands are normal. Normal liver. Normal GE junction. Subsegmental atelectasis in the lung bases. Adrenal glands are normal. Normal renal parenchymal enhancement. No hydronephrosis. Normal caliber abdominal aorta. No periaortic lymphadenopathy. Sigmoid diverticulosis. No evidence of small or large bowel obstruction. No periaortic or inguinal lymphadenopathy. Extensive prior postoperative changes T10-L3. Interconnecting rods appear intact. Interbody fusion at T12-L1. Associated laminectomy defects. CT/CT abdomen pelvis w con* [id number] IMPRESSION: 1. Partially calcified peripheral enhancing mass in the tail of the pancreas m easuring 3.1 x 3.1 cm with central low-attenuation. Findings are consistent wit h pancreatic neoplasm and primary considerations include mucinous or serous cys tic neoplasm. No significant pancreatic ductal dilatation. This can be further evaluated with MRI for better anatomic detail 2. No abdominal lymphadenopathy. No pelvic or inguinal lymphadenopathy. 3. Cholelithiasis. No gallbladder wall thickening or pericholecystic fluid. Ga llbladder can be further evaluated with ultrasound. 4. Extensive prior postoperative changes lower thoracic and lumbar spine descr ibed above. 5. Normal caliber abdominal aorta.
[2019-09-01] MEDS: iohexol 300 mg/mL 100 mL Btl IV (14:08)
== END 2019-09-01 12:18 | disposition home or self-care (01) ==
LOC: RADWPI 12:37
PROVIDERS: Family Provider Nurse Practitioner; PCP Nurse Practitioner; Visit Provider Hospitalist
DX: K86.89 Other specified diseases of pancreas (principal); K80.20 Calculus of gallbladder without cholecystitis without obstruction; Z79.899 Other long term (current) drug therapy
CPT/HCPCS: 74177; Q9967

== ENCOUNTER 2019-09-10 06:51 | Outpatient (CLI) | payer MEDICAID, SELFPAY | END 2019-09-10 06:52 | disposition home or self-care (01) | LOC: RADSHAW 06:53 | PROVIDERS: Family Provider Nurse Practitioner; PCP Nurse Practitioner; Visit Provider Nurse Practitioner | DX: Z01.89 Encounter for other specified special examinations (principal) ==

== ENCOUNTER → 2019-09-15 08:12 | Outpatient (BNVA) | payer MEDICAID, SELFPAY | PROVIDERS: Family Provider Nurse Practitioner; PCP Nurse Practitioner; Visit Provider Anesthesiology | DX: Z76.89 Persons encountering health services in other specified circumstances (principal) | CPT/HCPCS: 99213 ==

== ENCOUNTER → 2019-11-04 08:00 | Outpatient (BNVA) | payer MEDICAID, SELFPAY | PROVIDERS: Family Provider Nurse Practitioner; PCP Nurse Practitioner; Visit Provider Counselor Mental Health | DX: F33.2 Major depressive disorder, recurrent severe without psychotic features (principal) | CPT/HCPCS: 90834 ==

== ENCOUNTER → 2019-11-06 10:41 | Outpatient (BNVA) | payer MEDICAID, SELFPAY | PROVIDERS: Family Provider Nurse Practitioner; PCP Nurse Practitioner; Visit Provider Psychiatry & Neurology Psychiatry | DX: F06.32 Mood disorder due to known physiological condition with major depressive-like episode (principal); F32.9 Major depressive disorder, single episode, unspecified; G47.00 Insomnia, unspecified; F17.200 Nicotine dependence, unspecified, uncomplicated | CPT/HCPCS: 99205 ==

== ENCOUNTER → 2019-11-11 08:04 | Outpatient (BNVA) | payer MEDICAID, SELFPAY | PROVIDERS: Family Provider Nurse Practitioner; PCP Nurse Practitioner; Visit Provider Counselor Mental Health | DX: F33.2 Major depressive disorder, recurrent severe without psychotic features (principal) | CPT/HCPCS: 90834 ==

== ENCOUNTER → 2019-11-18 08:08 | Outpatient (BNVA) | payer MEDICAID, SELFPAY | PROVIDERS: Family Provider Nurse Practitioner; PCP Nurse Practitioner; Visit Provider Counselor Mental Health | DX: F32.9 Major depressive disorder, single episode, unspecified (principal) | CPT/HCPCS: 90832; 90834 ==

== ENCOUNTER → 2019-11-25 08:11 | Outpatient (BNVA) | payer MEDICAID, SELFPAY | PROVIDERS: Family Provider Nurse Practitioner; PCP Nurse Practitioner; Visit Provider Counselor Mental Health | DX: F32.9 Major depressive disorder, single episode, unspecified (principal); F06.32 Mood disorder due to known physiological condition with major depressive-like episode | CPT/HCPCS: 90834 ==

== ENCOUNTER → 2019-12-02 08:02 | Outpatient (BNVA) | payer MEDICAID, SELFPAY | PROVIDERS: Family Provider Nurse Practitioner; PCP Nurse Practitioner; Visit Provider Counselor Mental Health | DX: F32.9 Major depressive disorder, single episode, unspecified (principal); F06.32 Mood disorder due to known physiological condition with major depressive-like episode | CPT/HCPCS: 90834 ==

== ENCOUNTER → 2019-12-10 08:04 | Outpatient (BNVA) | payer MEDICAID, SELFPAY | PROVIDERS: Family Provider Nurse Practitioner; PCP Nurse Practitioner; Visit Provider Nurse Practitioner Psychiatric/Mental Health | DX: F06.32 Mood disorder due to known physiological condition with major depressive-like episode (principal); M54.5 Low back pain; G89.29 Other chronic pain; F17.200 Nicotine dependence, unspecified, uncomplicated | CPT/HCPCS: 99212 ==

== ENCOUNTER → 2019-12-16 07:37 | Outpatient (BNVA) | payer MEDICAID, SELFPAY | PROVIDERS: Family Provider Nurse Practitioner; PCP Nurse Practitioner; Visit Provider Counselor Mental Health | DX: F32.9 Major depressive disorder, single episode, unspecified (principal); F06.32 Mood disorder due to known physiological condition with major depressive-like episode | CPT/HCPCS: 90832 ==

== ENCOUNTER → 2019-12-17 15:01 | Outpatient (BNVA) | payer MEDICAID, SELFPAY | PROVIDERS: Family Provider Nurse Practitioner; PCP Nurse Practitioner; Visit Provider Nurse Practitioner | DX: G89.29 Other chronic pain (principal); M54.16 Radiculopathy, lumbar region; Z79.891 Long term (current) use of opiate analgesic; Z87.891 Personal history of nicotine dependence | CPT/HCPCS: 99213 ==

== ENCOUNTER → 2019-12-23 08:13 | Outpatient (BNVA) | payer MEDICAID, SELFPAY | PROVIDERS: Family Provider Nurse Practitioner; PCP Nurse Practitioner; Visit Provider Counselor Mental Health | DX: F32.9 Major depressive disorder, single episode, unspecified (principal) | CPT/HCPCS: 90834 ==

== ENCOUNTER → 2019-12-24 10:02 | Outpatient (BNVA) | payer MEDICAID, SELFPAY | PROVIDERS: Family Provider Nurse Practitioner; PCP Nurse Practitioner; Visit Provider Anesthesiology | DX: G89.29 Other chronic pain (principal); M54.16 Radiculopathy, lumbar region; Z98.1 Arthrodesis status; Z79.891 Long term (current) use of opiate analgesic | CPT/HCPCS: 62323; J1040; J3490 ==

== ENCOUNTER → 2019-12-30 08:37 | Outpatient (BNVA) | payer MEDICAID, SELFPAY | PROVIDERS: Family Provider Nurse Practitioner; PCP Nurse Practitioner; Visit Provider Counselor Mental Health | DX: F06.32 Mood disorder due to known physiological condition with major depressive-like episode (principal) | CPT/HCPCS: 90834 ==

== ENCOUNTER → 2020-01-06 08:01 | Outpatient (BNVA) | payer MEDICAID, SELFPAY | PROVIDERS: Family Provider Nurse Practitioner; PCP Nurse Practitioner; Visit Provider Counselor Mental Health | DX: F32.9 Major depressive disorder, single episode, unspecified (principal); F06.32 Mood disorder due to known physiological condition with major depressive-like episode; F43.12 Post-traumatic stress disorder, chronic | CPT/HCPCS: 90834 ==

== ENCOUNTER → 2020-01-07 08:14 | Outpatient (BNVA) | payer MEDICAID, SELFPAY | PROVIDERS: Family Provider Nurse Practitioner; PCP Nurse Practitioner; Visit Provider Nurse Practitioner Psychiatric/Mental Health | DX: F06.32 Mood disorder due to known physiological condition with major depressive-like episode (principal); M54.5 Low back pain; G89.29 Other chronic pain | CPT/HCPCS: 99213 ==

== ENCOUNTER → 2020-01-13 08:10 | Outpatient (BNVA) | payer MEDICAID, SELFPAY | PROVIDERS: Family Provider Nurse Practitioner; PCP Nurse Practitioner; Visit Provider Counselor Mental Health | DX: F06.32 Mood disorder due to known physiological condition with major depressive-like episode (principal); F32.9 Major depressive disorder, single episode, unspecified; F43.11 Post-traumatic stress disorder, acute | CPT/HCPCS: 90834 ==

== ENCOUNTER 2020-01-17 17:02 | Emergency (ER) | payer MEDICAID, SELFPAY ==
[2020-01-17 17:22] VITALS: BP 138/80; PULSE 115; RESP 16; TEMP 36.8; O2SAT 93; BMI 41.5
--- NOTE | 2020-01-17 17:29 | W.ED.GENADLT ---
HPI - General Adult General: Chief complaint: General Medical Stated complaint: rash Time Seen by Provider: 01/17/20 17:29 History of Present Illness: HPI narrative: Patient is a 54-year-old male comes to the ED with bilateral pruritic rash on both right and left lower extremities. Rash started 10 days ago when patient was outside walking in the yard with bare feet. Patient says rash is continued to move up the leg. Denies any fever, chills, nausea/vomiting, abdominal pain,, shortness of breath, bladder or bowel symptoms. Associated symptoms: Reports rash (Bilateral lower extremity pruritic rash); Deny chest pain, dyspnea, headache(s), nausea, palpitations or vomiting Review of Systems Const: Denies: fever(s), chills or fatigue Eyes: Denies: change in vision or eye discomfort ENMT: Denies: throat pain, odynophagia, nasal discharge or nasal congestion Card: Denies: chest pain, palpitations, edema, swelling of feet/ankles, dyspnea on exertion or orthopnea Resp: Denies: dyspnea, productive cough or non-productive cough GI: Denies: abdominal pain, nausea, vomiting, diarrhea, constipation or hematochezia : Denies: flank pain, difficulty urinating, dysuria or hematuria Musc: Denies: neck pain, back pain or extremity swelling Skin/Breast: Reports: rash (Bilateral lower extremity pruritic rash); Denies: new lesions Neuro: Denies: headache(s), numbness in extremities or weakness in extremities PFSH ED PFSH: Medical History COPD (chronic obstructive pulmonary disease) Depression Encounter for long-term opiate analgesic use Lumbar back pain with radiculopathy affecting right lower extremity Nicotine dependence with current use Not interested in smoking cessation. 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 History of spinal fusion S/P hernia repair (~12/2013) UMBILICAL HERNIA REPAIR Family History Mother Diabetes CAD (coronary artery disease) Psychiatric illness Stroke Cancer UTERINE CANCER Social History Smoking and tobacco status: current some day smoker cigarettes Quit status (tobacco): has tried quititng Second hand smoke exposure: No Alcohol intake: former Substance/Drug Use: never History of recent travel: No Current gender identity: Male Physical Exam Const: COMMON NORMALS: no acute distress, patient oriented x3, healthy appearing and alert GENERAL APPEARANCE: cooperative and comfortable HENMT: COMMON NORMALS: normocephalic HEAD & SCALP: normocephalic MOUTH: Normal oral and palatal mucosa present THROAT: posterior oropharynx normal and uvula midline Eye: COMMON NORMALS: Equal, round and reactive pupils present PUPIL: Yes Equal, round and reactive pupils present Neck/C-Spine: COMMON NORMALS: supple GENERAL: Yes normal visual inspection Resp: COMMON NORMALS: normal respiratory effort, No retractions, No use of accessory muscles and clear to auscultation bilaterally AUSCULTATION: clear to auscultation bilaterally Cardio: COMMON NORMALS: regular rate, regular rhythm, S1 normal heart sound present, S2 normal heart sound present, No gallops present (Cardio), No clicks present (Cardio), No murmurs present (Cardio) and Peripheral pulses 2+ throughout RATE: regular rate RHYTHM: regular rhythm HEART SOUNDS: S1 normal heart sound present and S2 normal heart sound present PERIPHERAL PULSES: Peripheral pulses 2+ throughout GI: COMMON NORMALS: Normal to inspection, nondistended, normoactive bowel sounds present, Soft to palpation, non-tender and no masses PALPATION: Yes Soft to palpation : COMMON NORMALS: Yes no CVA tenderness BLADDER/KIDNEY EXAM: Yes no CVA tenderness Back/Pelvis: COMMON NORMALS: no CVA tenderness Extremity: NARRATIVE EXTREMITY EXAM: Pruritic rash on both right and left lower extremities. GENERAL: Yes normal exam except as noted Neuro: COMMON NORMALS: patient oriented x3 and moves all extremities SENSORIUM/ORIENTATION: Yes alert Skin: GENERAL SKIN EXAM: dry skin RASHES: rashes noted bilateral LE rash Rash type: Yes maculopapular Rash location: Pruritic rash on both right and left lower extremities starting from foot going up to mid calf. Rash distribution: Yes asymmetrical Rash color: Yes red and Yes other (Pruritic) Rash surface: Yes dry Rash border: Yes raised and Yes surrounding erythema Rash tenderness: Yes nontender Rash findings consistent with: Yes contact dermatitis Course Vital Signs: Vital signs: Vital Signs Temperature 98.2 F 01/17/20 17:22 Pulse Rate 62 01/17/20 18:04 Respiratory Rate 18 01/17/20 18:04 Blood Pressure 165/74 01/17/20 18:04 Pulse Oximetry 96 01/17/20 18:04 MDM - General Adult MDM Narrative: Medical decision making narrative: Patient is a 54-year-old male comes to the ED with pruritic rash on both right and left lower extremities that started 10 days ago after walking around outside barefoot. Patient says rashes very itchy and has continued to move up both legs. Rash is not tender or warm. It is red and raised. patient diagnosed with contact dermatitis and given an injection of triamcinolone while here in the ED and sent home with a prescription for prednisone. Patient was told to return to the ED if symptoms worsen. Follow-up with PCP in 7 days reevaluation. Patient understood and agreed with plan. Discharge Plan Discharge Patient Disposition: Home Clinical Impression: Allergic contact dermatitis Qualifiers: Contact dermatitis trigger: unspecified trigger Qualified Code(s): L23.9 - Allergic contact dermatitis, unspecified cause Condition: Stable Prescriptions: No Action albuterol sulfate [ProAir HFA] 90 mcg/actuation HFA aerosol inhaler 1 inh INHALATION DAILY RF: 0 sennosides-docusate sodium [Lax Stool Softener With Senna] 8.6-50 mg tablet 1 tab-cap PO DAILY RF: 0 hydrocodone-acetaminophen 5-325 mg tablet 1 tab PO TID PRN (Reason: pain) 30 Days Qty: 90 RF: 0 methocarbamol 500 mg tablet 500 mg PO TID PRN (Reason: muscle spasticity) Qty: 90 RF: 1 Cerefolin 6-5-50-1 mg tablet 1 tab PO BID Qty: 30 RF: 2 potassium gluconate 595 mg (99 mg) tablet 595 mg PO DAILY RF: 0 aspirin [Adult Low Dose Aspirin] 81 mg tablet,delayed release (DR/EC) 81 mg PO .HS RF: 0 bupropion HCl [Wellbutrin SR] 150 mg tablet sustained-release 12 hr 150 mg PO QAM Qty: 30 RF: 1 gabapentin 300 mg capsule 300 mg PO BID Qty: 60 RF: 5 meloxicam 15 mg tablet 15 mg PO DAILY 30 Days Qty: 30 RF: 1 Discharge Orders: Discharge Order (Routine); Ordered 01/17/20 Ordered By: Bobby Crystal Discharge Diet: Regular Discharge Activity: Resume usual activity Patient Instructions: Contact Dermatitis (ED) Activity Restrictions/Additional Instructions: Follow-up with medical provider as directed in 7-10 days. Take medications as prescribed. Return to the ER or your medical provider if condition worsens. Please read and understand discharge instructions. If any questions, please ask. Discharge Date/Time: 01/17/20 18:08 Coding Level of Care Code ED Stra[employer] for [employer]shad Fwd Exam Comprehensive
[2020-01-17] MEDS: triamcinolone 40 mg/mL SDV IM (18:03)
[2020-01-17 18:04] VITALS: BP 165/74; PULSE 62; RESP 18; O2SAT 96
== END 2020-01-17 18:08 | disposition home or self-care (01) ==
PROVIDERS: Emergency Provider Physician Assistant
DX: L23.9 Allergic contact dermatitis, unspecified cause (principal); Z79.82 Long term (current) use of aspirin; J44.9 Chronic obstructive pulmonary disease, unspecified; F17.210 Nicotine dependence, cigarettes, uncomplicated
CPT/HCPCS: 12345; 96372; 99281; 99283; J3301

== ENCOUNTER → 2020-01-20 08:49 | Outpatient (BNVA) | payer MEDICAID, SELFPAY | PROVIDERS: Visit Provider Counselor Mental Health | DX: F32.9 Major depressive disorder, single episode, unspecified (principal); F06.32 Mood disorder due to known physiological condition with major depressive-like episode; F43.11 Post-traumatic stress disorder, acute | CPT/HCPCS: 90834 ==

== ENCOUNTER → 2020-01-27 09:06 | Outpatient (BNVA) | payer MEDICAID, SELFPAY | PROVIDERS: Visit Provider Counselor Mental Health | DX: F32.9 Major depressive disorder, single episode, unspecified (principal); F06.32 Mood disorder due to known physiological condition with major depressive-like episode; F43.11 Post-traumatic stress disorder, acute | CPT/HCPCS: 90834 ==

== ENCOUNTER → 2020-02-03 08:27 | Outpatient (BNVA) | payer MEDICAID, SELFPAY | PROVIDERS: Family Provider Nurse Practitioner; PCP Nurse Practitioner; Visit Provider Counselor Mental Health | DX: F06.32 Mood disorder due to known physiological condition with major depressive-like episode (principal); F32.9 Major depressive disorder, single episode, unspecified; G47.00 Insomnia, unspecified; F43.11 Post-traumatic stress disorder, acute | CPT/HCPCS: 90834 ==

== ENCOUNTER 2020-02-09 20:00 | Outpatient (CLI) | payer MEDICAID, SELFPAY | END 2020-02-09 20:01 | disposition home or self-care (01) | LOC: SLEEP 02-10 09:43 | PROVIDERS: Visit Provider Internal Medicine | DX: G47.33 Obstructive sleep apnea (adult) (pediatric) (principal); R06.83 Snoring | CPT/HCPCS: 95810 ==

== ENCOUNTER → 2020-02-10 08:35 | Outpatient (BNVA) | payer MEDICAID, SELFPAY | PROVIDERS: Visit Provider Counselor Mental Health | DX: F32.9 Major depressive disorder, single episode, unspecified (principal); F06.32 Mood disorder due to known physiological condition with major depressive-like episode; F43.11 Post-traumatic stress disorder, acute | CPT/HCPCS: 90834 ==

== ENCOUNTER → 2020-02-17 08:48 | Outpatient (BNVA) | payer MEDICAID, SELFPAY | PROVIDERS: Visit Provider Counselor Mental Health | DX: F32.9 Major depressive disorder, single episode, unspecified (principal); F06.32 Mood disorder due to known physiological condition with major depressive-like episode | CPT/HCPCS: 90834 ==

== ENCOUNTER → 2020-02-19 08:53 | Outpatient (BNVA) | payer MEDICAID, SELFPAY | PROVIDERS: Family Provider Nurse Practitioner; PCP Internal Medicine; Visit Provider Nurse Practitioner | DX: G89.29 Other chronic pain (principal); M54.16 Radiculopathy, lumbar region; M54.6 Pain in thoracic spine; M25.50 Pain in unspecified joint; F17.210 Nicotine dependence, cigarettes, uncomplicated; Z02.89 Encounter for other administrative examinations; Z79.891 Long term (current) use of opiate analgesic; Z71.6 Tobacco abuse counseling | CPT/HCPCS: 99213 ==

== ENCOUNTER → 2020-02-24 08:57 | Outpatient (BNVA) | payer MEDICAID, SELFPAY | PROVIDERS: Visit Provider Counselor Mental Health | DX: F32.9 Major depressive disorder, single episode, unspecified (principal); F06.32 Mood disorder due to known physiological condition with major depressive-like episode; F43.11 Post-traumatic stress disorder, acute | CPT/HCPCS: 90834 ==

== ENCOUNTER → 2020-02-25 07:55 | Outpatient (BNVA) | payer MEDICAID, SELFPAY | PROVIDERS: Visit Provider Nurse Practitioner Psychiatric/Mental Health | DX: F06.32 Mood disorder due to known physiological condition with major depressive-like episode (principal); M54.5 Low back pain; G89.29 Other chronic pain | CPT/HCPCS: 99212 ==

== ENCOUNTER → 2020-03-02 08:31 | Outpatient (BNVA) | payer MEDICAID, SELFPAY | PROVIDERS: Visit Provider Counselor Mental Health | DX: F32.9 Major depressive disorder, single episode, unspecified (principal); F06.32 Mood disorder due to known physiological condition with major depressive-like episode | CPT/HCPCS: 90834 ==

== ENCOUNTER → 2020-03-09 08:39 | Outpatient (BNVA) | payer MEDICAID, SELFPAY | PROVIDERS: Visit Provider Counselor Mental Health | DX: F06.32 Mood disorder due to known physiological condition with major depressive-like episode (principal); F32.9 Major depressive disorder, single episode, unspecified | CPT/HCPCS: 90834 ==

== ENCOUNTER 2020-03-16 13:29 | Outpatient (CLI) | payer MEDICAID, SELFPAY | END 2020-03-16 13:30 | disposition home or self-care (01) | PROVIDERS: Family Provider Internal Medicine; Visit Provider Counselor Mental Health | DX: F32.9 Major depressive disorder, single episode, unspecified (principal); F06.32 Mood disorder due to known physiological condition with major depressive-like episode | CPT/HCPCS: 90834 ==

== ENCOUNTER → 2020-03-23 08:43 | Outpatient (BNVA) | payer MEDICAID, SELFPAY | PROVIDERS: Visit Provider Counselor Mental Health | DX: F06.32 Mood disorder due to known physiological condition with major depressive-like episode (principal) | CPT/HCPCS: 90834 ==

== ENCOUNTER → 2020-03-30 08:35 | Outpatient (BNVA) | payer MEDICAID, SELFPAY | PROVIDERS: Visit Provider Counselor Mental Health | DX: F06.32 Mood disorder due to known physiological condition with major depressive-like episode (principal); F32.9 Major depressive disorder, single episode, unspecified | CPT/HCPCS: 90834 ==

== ENCOUNTER → 2020-04-06 08:33 | Outpatient (BNVA) | payer MEDICAID, SELFPAY | PROVIDERS: Visit Provider Counselor Mental Health | DX: F06.32 Mood disorder due to known physiological condition with major depressive-like episode (principal); F32.9 Major depressive disorder, single episode, unspecified | CPT/HCPCS: 90834 ==

== ENCOUNTER 2020-04-11 20:00 | Outpatient (CLI) | payer MEDICAID, SELFPAY | END 2020-04-11 20:01 | disposition home or self-care (01) | LOC: SLEEP 04-12 09:00 | PROVIDERS: PCP Internal Medicine; Visit Provider Internal Medicine | DX: G47.33 Obstructive sleep apnea (adult) (pediatric) (principal); I10 Essential (primary) hypertension | CPT/HCPCS: 90834; 95811 ==

== ENCOUNTER → 2020-04-13 07:45 | Outpatient (BNVA) | payer MEDICAID, SELFPAY | PROVIDERS: PCP Internal Medicine; Visit Provider Counselor Mental Health | DX: F06.32 Mood disorder due to known physiological condition with major depressive-like episode (principal); F32.9 Major depressive disorder, single episode, unspecified | CPT/HCPCS: 90834 ==

== ENCOUNTER → 2020-04-15 08:39 | Outpatient (BNVA) | payer MEDICAID, SELFPAY | PROVIDERS: Family Provider Nurse Practitioner; PCP Internal Medicine; Visit Provider Anesthesiology | DX: G89.29 Other chronic pain (principal); M54.6 Pain in thoracic spine; M47.22 Other spondylosis with radiculopathy, cervical region; M25.50 Pain in unspecified joint; F17.210 Nicotine dependence, cigarettes, uncomplicated; Z98.1 Arthrodesis status; Z79.891 Long term (current) use of opiate analgesic | CPT/HCPCS: 99214 ==

== ENCOUNTER 2020-04-18 08:27 | Outpatient (RCR) | payer MEDICAID, SELFPAY | END 2020-05-16 23:59 | disposition home or self-care (01) | LOC: SPT 08:27 | PROVIDERS: PCP Internal Medicine; Referring Provider Internal Medicine; Visit Provider Internal Medicine | DX: M54.9 Dorsalgia, unspecified (principal); G89.29 Other chronic pain | CPT/HCPCS: 80061; 83036; 97110; 97161 ==

== ENCOUNTER → 2020-04-20 09:00 | Outpatient (BNVA) | payer MEDICAID, SELFPAY ==
[2020-04-19 14:47] VITALS: BP 136/85; BMI 41.3
== END ==
PROVIDERS: Family Provider Nurse Practitioner; Visit Provider Counselor Mental Health
DX: F06.32 Mood disorder due to known physiological condition with major depressive-like episode (principal); F32.9 Major depressive disorder, single episode, unspecified
CPT/HCPCS: 90834

== ENCOUNTER → 2020-04-27 08:19 | Outpatient (BNVA) | payer MEDICAID, SELFPAY ==
[2020-04-19 14:47] VITALS: BP 136/85; BMI 41.3
== END ==
PROVIDERS: Family Provider Nurse Practitioner; PCP Internal Medicine; Visit Provider Counselor Mental Health
DX: F06.32 Mood disorder due to known physiological condition with major depressive-like episode (principal); F32.9 Major depressive disorder, single episode, unspecified
CPT/HCPCS: 90834

== ENCOUNTER → 2020-05-04 08:34 | Outpatient (BNVA) | payer MEDICAID, SELFPAY ==
[2020-04-19 14:47] VITALS: BP 136/85; BMI 41.3
== END ==
PROVIDERS: Family Provider Nurse Practitioner; PCP Internal Medicine; Visit Provider Counselor Mental Health
DX: F33.2 Major depressive disorder, recurrent severe without psychotic features (principal)
CPT/HCPCS: 90834

== ENCOUNTER 2020-05-06 04:49 | Emergency (ER) | payer MEDICAID, SELFPAY ==
[2020-04-19 14:47] VITALS: BP 136/85; BMI 41.3
[2020-05-06 04:59] VITALS: BP 125/82; PULSE 99; RESP 18; TEMP 36.8; O2SAT 94; BMI 41.1
--- NOTE | 2020-05-06 05:32 | XR_ITS ---
WS: [id number] RIGHT ELBOW: 3 VIEW(S) TECHNIQUE: AP, oblique and lateral. HISTORY: Fall/injury COMPARISON: None available. No acute fractures or dislocation. No joint effusion. No soft tissue abnormality. XR/XR elbow RT min 3V* [id number] IMPRESSION: Normal RIGHT elbow.
--- NOTE | 2020-05-06 05:32 | XR_ITS ---
WS: [id number] LUMBAR SPINE: 3 VIEWS TECHNIQUE: AP, lateral and L5-S1 spot. HISTORY: Fall/injury COMPARISON: 01/28/2018 Straightening of the normal lumbar lordosis. Posterior lumbar fusion hardware extends from T9 through L3. Hardware is intact. Metallic cage at the T12 level is unchanged in position. No acute fractures. SI joints are symmetric bilaterally. No soft tissue abnormalities. Well-circumscribed calcified densities in the mid RIGHT abdomen were present on the prior studies and may be related to gallstones. XR/XR lumbar spine 2-3V* [id number] IMPRESSION: 1. Extensive posterior thoracolumbar fusion hardware. No acute fracture or int erval change since 01/28/2018.
--- NOTE | 2020-05-06 05:35 | W.ED.BACK ---
Documented by User: Iwona Dominguez 05/06/20 05:37 HPI - Back Pain/Injury General: Chief Complaint: Back Pain/Injury Stated Complaint: fall/lower back pain/right elbow Time Seen by Provider: 05/06/20 05:29 Source: patient Mode of arrival: ambulatory Limitations: no limitations History of Present Illness: HPI Narrative: Mr. Meredith is a very nice 54-year-old male who comes in complaining of low back pain and right elbow pain after a fall. Patient states that he was sitting on a chair which broke underneath him causing him to fall to the ground. This was probably 2-1/2 3 feet from the ground. He landed on his bottom. Since that time the areas feels stiff and painful. He denies any other complaints or injuries. Associated symptoms: Deny abdominal pain, chills, difficulty walking, dysuria, fatigue, fever(s), hematuria, nausea, syncope, urinary urgency or vomiting Review of Systems Const: Denies: fever(s), chills, body aches, fatigue, malaise or diaphoresis Eyes: Denies: change in vision, blurry vision, photophobia, eye discomfort, eye discharge, eye redness or yellow eyes ENMT: Denies: throat pain, odynophagia, hoarseness, swelling of lips/tongue, ear or mastoid pain, ear discharge, change in hearing or nasal discharge Card: Denies: chest pain, palpitations, irregular heart rhythm, edema, lightheadedness, syncope, pre-syncope, dyspnea on exertion or orthopnea Resp: Denies: dyspnea, productive cough, non-productive cough, wheezing, hemoptysis or chest congestion GI: Denies: abdominal pain, nausea, vomiting, hematemesis, coffee ground emesis, heartburn, diarrhea, constipation, GI cramping, hematochezia or melena : Denies: flank pain, dysuria, urinary frequency, urinary urgency or hematuria Musc: Reports: back pain and joint pain; Denies: neck pain, extremity pain, extremity swelling, joint swelling, joint redness, joint warmth or joint stiffness Skin/Breast: Denies: rash, pruritus, erythema, skin pain or skin tenderness Neuro: Denies: headache(s), numbness in extremities, weakness in extremities, sensory changes, lack of coordination, difficulty walking, dizziness, vertigo, confusion, Slurred speech present or seizure-like activity Emiliano/Lymph: Denies: easy bruising, easy bleeding, petechiae, purpura or enlarged lymph nodes All/Imm: Denies: urticaria, throat swelling, tongue swelling, facial swelling or acute wheezing PFSH ED PFSH: Medical History Cellulitis and abscess of left leg COPD (chronic obstructive pulmonary disease) Depression Encounter for long-term opiate analgesic use Lumbar back pain with radiculopathy affecting right lower extremity Nicotine dependence with current use Not interested in smoking cessation. 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 History of spinal fusion S/P hernia repair (~12/2013) UMBILICAL HERNIA REPAIR Family History Mother Diabetes CAD (coronary artery disease) Psychiatric illness Stroke Cancer UTERINE CANCER Other Family history of premature coronary artery disease Social History Smoking and tobacco status: current some day smoker cigarettes Quit status (tobacco): has tried quititng Second hand smoke exposure: No Alcohol intake: former Desire information about alcohol rehabilitation?: No Adopted: No Caregiver/support person: No Lives independently: Yes Household members: spouse, family and children Housing: Manufactured/Mobile home Marital status: Number of children: 2 Number of grandchildren: 3 Highest education level completed: Some College, No Degree service: No Current occupational status: disabled Pets and animals: Yes Pets & animals: cat(s), dog(s), farm animals and other Pets & animal details: rabbits History of recent travel: No Leisure activites: games Current gender identity: Male Rosey/Restorationist: Other Special rosey needs: No Agree to transfusion: Yes Financial difficulty paying for basics: Hard Physical Exam Const: COMMON NORMALS: no acute distress, patient oriented x3, no limitations and alert GENERAL APPEARANCE: cooperative HENMT: COMMON NORMALS: normocephalic, atraumatic, external ears normal, EAC's normal and Normal external nose present HEAD & SCALP: normal to inspection, normocephalic and atraumatic FACE & SINUS: normal facial exam and face symmetric NOSE: Normal external nose present and Normal nares present EXTERNAL EAR: Yes external ears normal EXTERNAL AUDITORY CANAL: EAC's normal MOUTH: Normal oral and palatal mucosa present, lip normal and tongue normal Eye: COMMON NORMALS: Equal, round and reactive pupils present and conjunctivae normal GENERAL EYE: appearance normal, both eyes and all related structures ALIGNMENT: Yes alignment normal PERIORBITAL: periorbital findings normal EYELID: eyelids normal CONJUNCTIVA: Yes conjunctivae normal SCLERA: sclerae normal PUPIL: Yes Equal, round and reactive pupils present Neck/C-Spine: COMMON NORMALS: full ROM, no lymphadenopathy, supple, no meningeal signs and no JVD GENERAL: Yes normal visual inspection and Yes trachea midline Chest: COMMONS NORMALS: normal inspection of the chest and normal palpation of entire chest wall Resp: COMMON NORMALS: normal respiratory effort, No retractions, No use of accessory muscles and clear to auscultation bilaterally EFFORT & INSPECTION: Yes able to speak in complete sentences and Yes symmetric chest movement AUSCULTATION: clear to auscultation bilaterally, no crackles, no rales, no rhonchi and no wheezes Cardio: COMMON NORMALS: no JVD, regular rate, regular rhythm, S1 normal heart sound present and S2 normal heart sound present RATE: regular rate RHYTHM: regular rhythm HEART SOUNDS: S1 normal heart sound present, S2 normal heart sound present, no click, no gallops, no murmurs and no rubs GI: COMMON NORMALS: Soft to palpation and No hepatosplenomegaly present PALPATION: Yes Soft to palpation, No Tenderness to palpation present (GI), No Guarding due to palpation present (GI), No Rigid due to palpation, Yes No hepatosplenomegaly present, No Hernia present, No Palpable mass present and No Pulsatile mass present Back/Pelvis: GENERAL BACK: Yes other (Mild tenderness to palpation in the bilateral lumbar paraspinal muscles. N) Extremity: COMMON NORMALS: normal to inspection, full ROM, capillary refill normal, no joint enlargement, no clubbing, cyanosis or edema and no calf tenderness NARRATIVE EXTREMITY EXAM: Mild pain with range of motion of the right elbow. No obvious deformity or injury seen. Neuro: COMMON NORMALS: patient oriented x3, CN's II-XII intact bilaterally, moves all extremities, no focal motor deficits and no sensory deficits noted SENSORIUM/ORIENTATION: Yes alert MENINGEAL SIGNS: Yes no meningeal signs SPEECH: speech normal Psych: COMMON NORMALS: mental status grossly normal, Normal thought process present, cooperative, normal affect, speech normal and activity/motor behavior normal SPEECH: Yes normal speech THOUGHT PROCESS: Normal thought process present Skin: COMMON NORMALS: no rashes or lesions noted, turgor normal, no jaundice, no petechiae and no mottling GENERAL SKIN EXAM: no rashes or lesions noted and turgor normal Course Vital Signs: Vital signs: Vital Signs Temperature 97.8 F 05/06/20 07:50 Pulse Rate 89 05/06/20 07:50 Respiratory Rate 20 H 05/06/20 07:50 Blood Pressure 120/68 05/06/20 07:50 Pulse Oximetry 94 05/06/20 07:50 Discharge Plan Discharge Patient Disposition: Home Clinical Impression: Fall from chair, Chronic low back pain, History of spinal fusion, Low back pain Condition: Stable Prescriptions: No Action docusate sodium 100 mg capsule 100 mg PO DAILY RF: 0 bupropion HCl [Wellbutrin SR] 150 mg tablet sustained-release 12 hr 150 mg PO QAM Qty: 30 RF: 2 hydrocodone-acetaminophen 5-325 mg tablet 1 tab PO TID PRN (Reason: pain) 30 Days Qty: 90 RF: 0 hydrocodone-acetaminophen 5-325 mg tablet 1 tab PO TID PRN (Reason: pain) 30 Days Qty: 90 RF: 0 meloxicam 15 mg tablet 15 mg PO DAILY 30 Days Qty: 30 RF: 0 albuterol sulfate [ProAir HFA] 90 mcg/actuation HFA aerosol inhaler 1 inh INHALATION DAILY RF: 0 Cerefolin 6-5-50-1 mg tablet 1 tab PO BID Qty: 30 RF: 2 potassium gluconate 595 mg (99 mg) tablet 595 mg PO DAILY PRNRF: 0 trazodone 150 mg tablet 150 mg PO .1/2-1 HS PRNRF: 0 metformin 500 mg tablet 500 mg PO BID RF: 0 methocarbamol 500 mg tablet 500 mg PO TID PRN (Reason: muscle spasticity) Qty: 90 RF: 2 gabapentin 300 mg capsule 300 mg PO BID Qty: 60 RF: 2 methylprednisolone acetate [Depo-Medrol] 80 mg/mL suspension 80 mg Infiltration ONCE Qty: 1 RF: 0 sodium chloride 0.9 % Solution 10 ml epidural ONCE Qty: 10 RF: 0 bupivacaine (PF) 0.25 % (2.5 mg/mL) solution 2 ml epidural ONCE Qty: 1 RF: 0 lidocaine (PF) 10 mg/mL (1 %) solution 10 mg SUBCUT ONCE Qty: 1 RF: 0 Discharge Orders: Discharge Order (Routine); Ordered 05/06/20 Ordered By: Liam Hooker Referrals: Luz Thomas DO [Primary Care Provider] - Discharge Diet: Usual diet Discharge Activity: Increase activity as tolerated Activity Restrictions/Additional Instructions: Use previously prescribed medications for pain Sign Out Sign Out Data: Patient Sign Out occurred on 05/06/20 at 07:36. Patient's care was discussed, and care was transferred from to Liam Hooker DO. Coding Level of Care Code ED Machine Setter Supervisor for Chg Fwd Exam Comprehensive Documented by User: Liam Hooker DO 05/06/20 07:55 HPI - Back Pain/Injury General: Chief Complaint: Back Pain/Injury Stated Complaint: fall/lower back pain/right elbow Time Seen by Provider: 05/06/20 05:29 PFSH ED PFSH: Medical History Cellulitis and abscess of left leg COPD (chronic obstructive pulmonary disease) Depression Encounter for long-term opiate analgesic use Lumbar back pain with radiculopathy affecting right lower extremity Nicotine dependence with current use Not interested in smoking cessation. 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 History of spinal fusion S/P hernia repair (~12/2013) UMBILICAL HERNIA REPAIR Family History Mother Diabetes CAD (coronary artery disease) Psychiatric illness Stroke Cancer UTERINE CANCER Other Family history of premature coronary artery disease Social History Smoking and tobacco status: current some day smoker cigarettes Quit status (tobacco): has tried quititng Second hand smoke exposure: No Alcohol intake: former Desire information about alcohol rehabilitation?: No Adopted: No Caregiver/support person: No Lives independently: Yes Household members: spouse, family and children Housing: Manufactured/Mobile home Marital status: Number of children: 2 Number of grandchildren: 3 Highest education level completed: Some College, No Degree service: No Current occupational status: disabled Pets and animals: Yes Pets & animals: cat(s), dog(s), farm animals and other Pets & animal details: rabbits History of recent travel: No Leisure activites: games Current gender identity: Male Rosey/Restorationist: Other Special rosey needs: No Agree to transfusion: Yes Financial difficulty paying for basics: Hard Course Vital Signs: Vital signs: Vital Signs Temperature 97.8 F 05/06/20 07:50 Pulse Rate 89 05/06/20 07:50 Respiratory Rate 20 H 05/06/20 07:50 Blood Pressure 120/68 05/06/20 07:50 Pulse Oximetry 94 05/06/20 07:50 MDM - Back Pain/Injury MDM Narrative: Medical decision making narrative: Care assumed a change of shift from Dr. Pham. X-ray is unremarkable compared to previous lumbar spine films to today's no acute fractures hardware is intact. Patient is sleeping in the room is actually a little bit difficult to arouse when we did arouse him he states he is at his baseline as far as pain and discomfort with his back goes we will go and discharge him home use previously prescribed medications for pain control and follow-up with his primary care doctor as previously scheduled return to the emergency room if has further problems. Discharge Plan Discharge Patient Disposition: Home Clinical Impression: Fall from chair, Chronic low back pain, History of spinal fusion, Low back pain Condition: Stable Prescriptions: No Action docusate sodium 100 mg capsule 100 mg PO DAILY RF: 0 bupropion HCl [Wellbutrin SR] 150 mg tablet sustained-release 12 hr 150 mg PO QAM Qty: 30 RF: 2 hydrocodone-acetaminophen 5-325 mg tablet 1 tab PO TID PRN (Reason: pain) 30 Days Qty: 90 RF: 0 hydrocodone-acetaminophen 5-325 mg tablet 1 tab PO TID PRN (Reason: pain) 30 Days Qty: 90 RF: 0 meloxicam 15 mg tablet 15 mg PO DAILY 30 Days Qty: 30 RF: 0 albuterol sulfate [ProAir HFA] 90 mcg/actuation HFA aerosol inhaler 1 inh INHALATION DAILY RF: 0 Cerefolin 6-5-50-1 mg tablet 1 tab PO BID Qty: 30 RF: 2 potassium gluconate 595 mg (99 mg) tablet 595 mg PO DAILY PRNRF: 0 trazodone 150 mg tablet 150 mg PO .1/2-1 HS PRNRF: 0 metformin 500 mg tablet 500 mg PO BID RF: 0 methocarbamol 500 mg tablet 500 mg PO TID PRN (Reason: muscle spasticity) Qty: 90 RF: 2 gabapentin 300 mg capsule 300 mg PO BID Qty: 60 RF: 2 methylprednisolone acetate [Depo-Medrol] 80 mg/mL suspension 80 mg Infiltration ONCE Qty: 1 RF: 0 sodium chloride 0.9 % Solution 10 ml epidural ONCE Qty: 10 RF: 0 bupivacaine (PF) 0.25 % (2.5 mg/mL) solution 2 ml epidural ONCE Qty: 1 RF: 0 lidocaine (PF) 10 mg/mL (1 %) solution 10 mg SUBCUT ONCE Qty: 1 RF: 0 Discharge Orders: Discharge Order (Routine); Ordered 05/06/20 Ordered By: Liam Hooker Referrals: Luz Thomas DO [Primary Care Provider] - Discharge Diet: Usual diet Discharge Activity: Increase activity as tolerated Activity Restrictions/Additional Instructions: Use previously prescribed medications for pain Sign Out Sign Out Data: Patient Sign Out occurred on 05/06/20 at 07:36. Patient's care was discussed, and care was transferred from to Liam Hooker DO. Coding Level of Care Code ED Machine Setter Supervisor for Chg Fwd Exam Comprehensive
[2020-05-06 05:51] VITALS: BP 119/77; PULSE 91; RESP 16; O2SAT 93
[2020-05-06 06:33] VITALS: BP 120/77; PULSE 91; RESP 17; O2SAT 93
[2020-05-06 07:00] VITALS: BP 118/74; PULSE 94; RESP 18; O2SAT 93
--- NOTE | 2020-05-06 07:02 | PC.NURSE ---
Received report assumed care. NO changes noted from report. Offered water, updated pt of reports. Continue to monitor.
[2020-05-06 07:50] VITALS: BP 120/68; PULSE 89; RESP 20; TEMP 36.6; O2SAT 94
== END 2020-05-06 07:52 | disposition home or self-care (01) ==
PROVIDERS: Emergency Provider Family Medicine; PCP Internal Medicine
DX: G89.29 Other chronic pain (principal); M54.5 Low back pain; W07.XXXA Fall from chair, initial encounter; Z79.84 Long term (current) use of oral hypoglycemic drugs; J44.9 Chronic obstructive pulmonary disease, unspecified; F17.210 Nicotine dependence, cigarettes, uncomplicated
CPT/HCPCS: 12345; 72100; 73080; 99282; 99283

== ENCOUNTER → 2020-05-11 07:40 | Outpatient (BNVA) | payer MEDICAID, SELFPAY ==
[2020-04-19 14:47] VITALS: BP 136/85; BMI 41.3
== END ==
PROVIDERS: PCP Internal Medicine; Visit Provider Counselor Mental Health
DX: F06.32 Mood disorder due to known physiological condition with major depressive-like episode (principal); F32.9 Major depressive disorder, single episode, unspecified
CPT/HCPCS: 90834

== ENCOUNTER 2020-05-17 06:00 | Outpatient (RCR) | payer MEDICAID, SELFPAY ==
[2020-04-19 14:47] VITALS: BP 136/85; BMI 41.3
== END 2020-06-16 23:59 | disposition home or self-care (01) ==
LOC: SPT 06:00
PROVIDERS: Family Provider Nurse Practitioner; PCP Internal Medicine; Referring Provider Internal Medicine; Visit Provider Internal Medicine
DX: M54.89 Other dorsalgia (principal); G89.29 Other chronic pain; M99.09 Segmental and somatic dysfunction of abdomen and other regions
CPT/HCPCS: 97110

== ENCOUNTER → 2020-05-18 08:41 | Outpatient (BNVA) | payer MEDICAID, SELFPAY ==
[2020-04-19 14:47] VITALS: BP 136/85; BMI 41.3
== END ==
PROVIDERS: Family Provider Nurse Practitioner; PCP Internal Medicine; Visit Provider Counselor Mental Health
DX: F06.32 Mood disorder due to known physiological condition with major depressive-like episode (principal); F32.9 Major depressive disorder, single episode, unspecified
CPT/HCPCS: 90834

== ENCOUNTER → 2020-05-23 08:45 | Outpatient (BNVA) | payer MEDICAID, SELFPAY ==
[2020-04-19 14:47] VITALS: BP 136/85; BMI 41.3
== END ==
PROVIDERS: Family Provider Nurse Practitioner; PCP Internal Medicine; Visit Provider Nurse Practitioner Psychiatric/Mental Health
DX: F06.32 Mood disorder due to known physiological condition with major depressive-like episode (principal); G47.00 Insomnia, unspecified; M54.5 Low back pain; G89.29 Other chronic pain
CPT/HCPCS: 99212

== ENCOUNTER → 2020-05-26 10:25 | Outpatient (BNVA) | payer MEDICAID, SELFPAY ==
[2020-04-19 14:47] VITALS: BP 136/85; BMI 41.3
== END ==
PROVIDERS: Family Provider Nurse Practitioner; PCP Internal Medicine; Visit Provider Anesthesiology
DX: G89.29 Other chronic pain (principal); M54.16 Radiculopathy, lumbar region; M54.6 Pain in thoracic spine; F17.210 Nicotine dependence, cigarettes, uncomplicated; Z98.1 Arthrodesis status; Z79.891 Long term (current) use of opiate analgesic
CPT/HCPCS: 62323; J1040; J3490

== ENCOUNTER → 2020-06-01 08:23 | Outpatient (BNVA) | payer MEDICAID, SELFPAY ==
[2020-04-19 14:47] VITALS: BP 136/85; BMI 41.3
== END ==
PROVIDERS: Family Provider Nurse Practitioner; PCP Internal Medicine; Visit Provider Counselor Mental Health
DX: F06.32 Mood disorder due to known physiological condition with major depressive-like episode (principal)
CPT/HCPCS: 90834

== ENCOUNTER → 2020-06-08 07:54 | Outpatient (BNVA) | payer MEDICAID, SELFPAY ==
[2020-04-19 14:47] VITALS: BP 136/85; BMI 41.3
== END ==
PROVIDERS: Family Provider Nurse Practitioner; PCP Internal Medicine; Visit Provider Counselor Mental Health
DX: F06.32 Mood disorder due to known physiological condition with major depressive-like episode (principal); F32.9 Major depressive disorder, single episode, unspecified
CPT/HCPCS: 90834

== ENCOUNTER → 2020-06-15 08:04 | Outpatient (BNVA) | payer MEDICAID, SELFPAY ==
[2020-04-19 14:47] VITALS: BP 136/85; BMI 41.3
== END ==
PROVIDERS: Family Provider Nurse Practitioner; PCP Internal Medicine; Visit Provider Counselor Mental Health
DX: F06.32 Mood disorder due to known physiological condition with major depressive-like episode (principal); F32.9 Major depressive disorder, single episode, unspecified
CPT/HCPCS: 90834

== ENCOUNTER 2020-06-17 06:00 | Outpatient (RCR) | payer MEDICAID, SELFPAY ==
[2020-04-19 14:47] VITALS: BP 136/85; BMI 41.3
== END 2020-07-17 23:59 | disposition home or self-care (01) ==
LOC: SPT 06:00
PROVIDERS: Family Provider Nurse Practitioner; PCP Internal Medicine; Referring Provider Internal Medicine; Visit Provider Internal Medicine
DX: M54.9 Dorsalgia, unspecified (principal); M99.09 Segmental and somatic dysfunction of abdomen and other regions
CPT/HCPCS: 97110

== ENCOUNTER → 2020-06-24 09:09 | Outpatient (BNVA) | payer MEDICAID, SELFPAY ==
[2020-04-19 14:47] VITALS: BP 136/85; BMI 41.3
== END ==
PROVIDERS: Family Provider Nurse Practitioner; PCP Internal Medicine; Visit Provider Anesthesiology
DX: G89.29 Other chronic pain (principal); M47.22 Other spondylosis with radiculopathy, cervical region; M54.5 Low back pain; M25.50 Pain in unspecified joint; M54.6 Pain in thoracic spine; F17.210 Nicotine dependence, cigarettes, uncomplicated; Z79.1 Long term (current) use of non-steroidal anti-inflammatories (NSAID); Z79.891 Long term (current) use of opiate analgesic; Z79.899 Other long term (current) drug therapy
CPT/HCPCS: 99213

== ENCOUNTER → 2020-06-29 09:16 | Outpatient (BNVA) | payer MEDICAID, SELFPAY ==
[2020-06-24 09:44] VITALS: BP 136/85; BMI 41.3
== END ==
PROVIDERS: Family Provider Nurse Practitioner; PCP Internal Medicine; Visit Provider Counselor Mental Health
DX: F06.32 Mood disorder due to known physiological condition with major depressive-like episode (principal); F32.9 Major depressive disorder, single episode, unspecified
CPT/HCPCS: 90834

== ENCOUNTER → 2020-07-06 08:26 | Outpatient (BNVA) | payer MEDICAID, SELFPAY ==
[2020-06-24 09:44] VITALS: BP 136/85; BMI 41.3
== END ==
PROVIDERS: Family Provider Nurse Practitioner; PCP Internal Medicine; Visit Provider Counselor Mental Health
DX: F06.32 Mood disorder due to known physiological condition with major depressive-like episode (principal); F32.9 Major depressive disorder, single episode, unspecified
CPT/HCPCS: 90834

== ENCOUNTER → 2020-07-13 08:32 | Outpatient (BNVA) | payer MEDICAID, SELFPAY ==
[2020-06-24 09:44] VITALS: BP 136/85; BMI 41.3
== END ==
PROVIDERS: Family Provider Nurse Practitioner; PCP Internal Medicine; Visit Provider Counselor Mental Health
DX: F06.32 Mood disorder due to known physiological condition with major depressive-like episode (principal); F32.9 Major depressive disorder, single episode, unspecified
CPT/HCPCS: 90834

== ENCOUNTER 2020-07-17 06:41 | Emergency (ER) | payer MEDICAID, SELFPAY ==
[2020-06-24 09:44] VITALS: BP 136/85; BMI 41.3
[2020-07-17 06:49] VITALS: BP 138/80; PULSE 86; RESP 16; TEMP 35.9; O2SAT 94; BMI 40.6
--- NOTE | 2020-07-17 07:06 | ED_ITS ---
HPI - Back Pain/Injury General: Chief Complaint: Back Pain/Injury Stated Complaint: Lower Back Pain/Injury Time Seen by Provider: 07/17/20 06:44 History of Present Illness: HPI Narrative: Patient is a 54-year-old male comes to the ED with lower back pain after fall. Patient says yesterday he was outside and he stepped in some mud and slipped falling backwards. Patient says he landed on his back and it took him a few minutes before he was able to get up. Since fall patient reports having lower back pain that is located just in the lower back and no pain radiating down his legs. He rates his pain an 8 out of 10. Denies bladder or bowel incontinence, pelvic anesthesia or any weakness or numbness to lower extremities. He is able to ambulate and has some pain in his lower back with range of motion. Patient has taken meloxicam, methocarbamol and hydrocodone to help with lower back pain. Denies any head trauma or loss of consciousness. Associated symptoms: Deny abdominal pain, chills, dysuria, fatigue, fever(s), hematuria, nausea or vomiting Review of Systems Const: Denies: fever(s), chills or fatigue Eyes: Denies: change in vision or eye discomfort ENMT: Denies: throat pain, odynophagia, nasal discharge or nasal congestion Card: Denies: chest pain, palpitations, edema, swelling of feet/ankles, dyspnea on exertion or orthopnea Resp: Denies: dyspnea, productive cough or non-productive cough GI: Denies: abdominal pain, nausea, vomiting, diarrhea, constipation or hematochezia : Denies: flank pain, difficulty urinating, dysuria or hematuria Musc: Reports: back pain; Denies: neck pain or extremity swelling Skin/Breast: Denies: rash or new lesions Neuro: Denies: headache(s), numbness in extremities or weakness in extremities PFSH ED PFSH: Medical History Cellulitis and abscess of left leg COPD (chronic obstructive pulmonary disease) Depression Encounter for long-term opiate analgesic use Lumbar back pain with radiculopathy affecting right lower extremity Nicotine dependence with current use Not interested in smoking cessation. 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 History of spinal fusion S/P hernia repair (~12/2013) UMBILICAL HERNIA REPAIR Family History Mother Diabetes CAD (coronary artery disease) Psychiatric illness Stroke Cancer UTERINE CANCER Other Family history of premature coronary artery disease Social History Smoking and tobacco status: current some day smoker cigarettes Quit status (tobacco): has tried quititng Second hand smoke exposure: No Alcohol intake: former Desire information about alcohol rehabilitation?: No Adopted: No Caregiver/support person: No Lives independently: Yes Household members: spouse, family and children Housing: Manufactured/Mobile home Marital status: Number of children: 2 Number of grandchildren: 3 Highest education level completed: Some College, No Degree service: No Current occupational status: disabled Pets and animals: Yes Pets & animals: cat(s), dog(s), farm animals and other Pets & animal details: rabbits History of recent travel: No Leisure activites: games Current gender identity: Male Rosey/Temple: Other Special rosey needs: No Agree to transfusion: Yes Financial difficulty paying for basics: Hard Physical Exam Const: COMMON NORMALS: no acute distress, patient oriented x3 and alert GENERAL APPEARANCE: cooperative and comfortable NUTRITIONAL APPEARANCE: obese HENMT: COMMON NORMALS: normocephalic HEAD & SCALP: normocephalic MOUTH: Normal oral and palatal mucosa present THROAT: posterior oropharynx normal and uvula midline Neck/C-Spine: COMMON NORMALS: supple GENERAL: Yes normal visual inspection Resp: COMMON NORMALS: normal respiratory effort, No retractions, No use of accessory muscles and clear to auscultation bilaterally AUSCULTATION: clear to auscultation bilaterally Cardio: COMMON NORMALS: regular rate, regular rhythm, S1 normal heart sound present, S2 normal heart sound present, No gallops present (Cardio), No clicks present (Cardio), No murmurs present (Cardio) and Peripheral pulses 2+ throughout RATE: regular rate RHYTHM: regular rhythm HEART SOUNDS: S1 normal heart sound present and S2 normal heart sound present PERIPHERAL PULSES: Peripheral pulses 2+ throughout GI: COMMON NORMALS: Normal to inspection, nondistended, normoactive bowel sounds present, Soft to palpation, non-tender and no masses PALPATION: Yes Soft to palpation : COMMON NORMALS: Yes no CVA tenderness BLADDER/KIDNEY EXAM: Yes no CVA tenderness Back/Pelvis: COMMON NORMALS: no CVA tenderness LUMBAR SPINE/LOWER BACK: Yes pain with ROM, No lumbar spinal tenderness and Yes paraspinal muscle tenderness Extremity: COMMON NORMALS: normal to inspection Neuro: COMMON NORMALS: patient oriented x3 and moves all extremities SENSORIUM/ORIENTATION: Yes alert Skin: GENERAL SKIN EXAM: dry skin Course Vital Signs: Vital signs: Vital Signs Temperature 96.7 F L 07/17/20 06:49 Pulse Rate 86 07/17/20 06:49 Respiratory Rate 16 07/17/20 06:49 Blood Pressure 138/80 07/17/20 06:49 Pulse Oximetry 94 07/17/20 06:49 MDM - Back Pain/Injury MDM Narrative: Medical decision making narrative: Patient is a 54-year-old male comes to the ED with lower back pain after fall. Denies any pain radiating down the leg or cauda equina symptoms. Patient had some paraspinal muscle tenderness in the lumbar spine. No lumbar spinal tenderness. Lumbar x-ray showed no acute fractures or findings. Patient was given a shot of Toradol here in the ED. He was diagnosed with lumbar back pain and discharged home. Follow- up with PCP in 7 to 10 days for reevaluation. Return to ED precautions given. Continue taking previously prescribed pain medications and muscle relaxer to help with symptoms. Patient understood and agreed with plan. Imaging Data^: Xray Ortho: Attestation: I personally reviewed and interpreted this imaging study as follows: Radiologist's impression: [address] [address] XRay Report Signed Patient: Iqra Meredith Unit #: [id number] : 1965 Age/Sex: 54 / M ADM Date: 07/17/20 Loc: ER Room/Bed: Attending Dr: Ordering Provider/Ordering MD: Bobby Crystal Date of Service: 07/17/20 Procedure(s): XR lumbar spine 2-3V* [id number] Accession Number(s): [id number] Report Number: [id number] PROCEDURE INFORMATION: Exam: XR Lumbosacral Spine, 2 or 3 Views Exam date and time: 07/17/2020 7:20 AM Age: 54 years old Clinical indication: Injury or trauma; Fall; Blunt trauma (contusions or hematomas); Prior surgery; Surgery type: Back; Additional info: Fall with back injury TECHNIQUE: Imaging protocol: XR of the lumbosacral spine, 2 or 3 views. COMPARISON: CT abdomen pelvis w con* [id number] 09/01/2019 2:07 PM FINDINGS: Bones/joints: The patient has undergone posterior spinal fusion with pedicle screws and rods extending from T10 to L3. There is an intervertebral disc cage at the T12-L1 level. The position and alignment appears satisfactory. There is old mild compression fracture of the superior endplate of T9. No acute fractures are seen. There is no malalignment. Chronic degenerative changes are present especially in the lower lumbar facet joints. Soft tissues: Unremarkable. Other findings: Cholelithiasis. XR/XR lumbar spine 2-3V* [id number] IMPRESSION: No acute abnormalities are seen. Dictated By: Marciano Peoples Signed By: Marciano Peoples Signed Date/Time: 07/17/20751 DD/ 075 Discharge Plan Discharge Patient Disposition: Home Clinical Impression: Lumbar back pain Condition: Stable Prescriptions: No Action docusate sodium 100 mg capsule 100 mg PO DAILY RF: 0 hydrocodone-acetaminophen 5-325 mg tablet 1 tab PO TID PRN (Reason: pain) 30 Days Qty: 90 RF: 0 hydrocodone-acetaminophen 5-325 mg tablet 1 tab PO TID PRN (Reason: pain) 30 Days Qty: 90 RF: 0 meloxicam 15 mg tablet 15 mg PO DAILY 30 Days Qty: 30 RF: 1 gabapentin 300 mg capsule 300 mg PO BID Qty: 60 RF: 1 albuterol sulfate [ProAir HFA] 90 mcg/actuation HFA aerosol inhaler 1 inh INHALATION DAILY RF: 0 Cerefolin 6-5-50-1 mg tablet 1 tab PO BID Qty: 30 RF: 2 potassium gluconate 595 mg (99 mg) tablet 595 mg PO DAILY PRNRF: 0 trazodone 150 mg tablet 150 mg PO .1/2-1 HS PRNRF: 0 methocarbamol 500 mg tablet 500 mg PO TID PRN (Reason: muscle spasticity) Qty: 90 RF: 2 metformin 500 mg tablet 1,000 mg PO BID RF: 0 bupropion HCl [Wellbutrin SR] 150 mg tablet sustained-release 12 hr 150 mg PO QAM Qty: 30 RF: 2 multivitamin Tablet 1 tab PO DAILY RF: 0 Discharge Orders: Discharge ED (Routine); Ordered 07/17/20 Ordered By: Bobby Crystal Referrals: Luz Thomas DO [Primary Care Provider] - Discharge Diet: Regular Discharge Activity: Increase activity as tolerated Patient Instructions: Acute Low Back Pain (ED), Back Pain (ED) Activity Restrictions/Additional Instructions: Follow-up with medical provider as directed in 7 to 10 days. Continue to taking all home medications as prescribed. Rest and apply cold pack or heat on lower back to help with symptoms. Stretch lower back daily. Continue taking your previously prescribed muscle relaxer and pain meds to help with symptoms. Return to the ER or your medical provider if condition worsens. Please read and understand discharge instructions. If any questions, please ask. Coding Level of Care Code ED Rivet Hole Puncher for Dilshad Fwd Exam Comprehensive
--- NOTE | 2020-07-17 07:15 | XRR_ITS ---
PROCEDURE INFORMATION: Exam: XR Lumbosacral Spine, 2 or 3 Views Exam date and time: 07/17/2020 7:20 AM Age: 54 years old Clinical indication: Injury or trauma; Fall; Blunt trauma (contusions or hematomas); Prior surgery; Surgery type: Back; Additional info: Fall with back injury TECHNIQUE: Imaging protocol: XR of the lumbosacral spine, 2 or 3 views. COMPARISON: CT abdomen pelvis w con* [id number] 09/01/2019 2:07 PM FINDINGS: Bones/joints: The patient has undergone posterior spinal fusion with pedicle screws and rods extending from T10 to L3. There is an intervertebral disc cage at the T12-L1 level. The position and alignment appears satisfactory. There is old mild compression fracture of the superior endplate of T9. No acute fractures are seen. There is no malalignment. Chronic degenerative changes are present especially in the lower lumbar facet joints. Soft tissues: Unremarkable. Other findings: Cholelithiasis. XR/XR lumbar spine 2-3V* [id number] IMPRESSION: No acute abnormalities are seen.
[2020-07-17] MEDS: ketorolac 60 mg/2 mL INJ IM (07:19)
== END 2020-07-17 08:13 | disposition home or self-care (01) ==
PROVIDERS: Emergency Provider Physician Assistant; PCP Internal Medicine
DX: M54.5 Low back pain (principal); J44.9 Chronic obstructive pulmonary disease, unspecified; F17.210 Nicotine dependence, cigarettes, uncomplicated
CPT/HCPCS: 12345; 72100; 96372; 99281; 99283; J1885

== ENCOUNTER 2020-07-18 06:00 | Outpatient (RCR) | payer MEDICAID, SELFPAY ==
[2020-06-24 09:44] VITALS: BP 136/85; BMI 41.3
== END 2020-08-14 23:59 | disposition home or self-care (01) ==
LOC: SPT 06:00
PROVIDERS: Family Provider Nurse Practitioner; PCP Internal Medicine; Referring Provider Internal Medicine; Visit Provider Internal Medicine
DX: G89.29 Other chronic pain (principal); M54.9 Dorsalgia, unspecified; M99.09 Segmental and somatic dysfunction of abdomen and other regions
CPT/HCPCS: 97110

== ENCOUNTER → 2020-07-20 09:09 | Outpatient (BNVA) | payer MEDICAID, SELFPAY ==
[2020-06-24 09:44] VITALS: BP 136/85; BMI 41.3
== END ==
PROVIDERS: Family Provider Nurse Practitioner; PCP Internal Medicine; Visit Provider Counselor Mental Health
DX: F06.32 Mood disorder due to known physiological condition with major depressive-like episode (principal); F32.9 Major depressive disorder, single episode, unspecified; G47.00 Insomnia, unspecified
CPT/HCPCS: 90834

== ENCOUNTER → 2020-07-27 08:20 | Outpatient (BNVA) | payer MEDICAID, SELFPAY ==
[2020-06-24 09:44] VITALS: BP 136/85; BMI 41.3
== END ==
PROVIDERS: Family Provider Nurse Practitioner; PCP Internal Medicine; Visit Provider Counselor Mental Health
DX: F06.32 Mood disorder due to known physiological condition with major depressive-like episode (principal); F32.9 Major depressive disorder, single episode, unspecified; G47.00 Insomnia, unspecified
CPT/HCPCS: 90834

== ENCOUNTER → 2020-08-04 07:46 | Outpatient (BNVA) | payer MEDICAID, SELFPAY ==
[2020-06-24 09:44] VITALS: BP 136/85; BMI 41.3
== END ==
PROVIDERS: Family Provider Nurse Practitioner; PCP Internal Medicine; Visit Provider Counselor Mental Health
DX: F06.32 Mood disorder due to known physiological condition with major depressive-like episode (principal); F32.9 Major depressive disorder, single episode, unspecified; G47.00 Insomnia, unspecified
CPT/HCPCS: 90834

== ENCOUNTER → 2020-08-10 08:08 | Outpatient (BNVA) | payer MEDICAID, SELFPAY ==
[2020-06-24 09:44] VITALS: BP 136/85; BMI 41.3
== END ==
PROVIDERS: Family Provider Nurse Practitioner; PCP Internal Medicine; Visit Provider Counselor Mental Health
DX: F06.32 Mood disorder due to known physiological condition with major depressive-like episode (principal); F32.9 Major depressive disorder, single episode, unspecified; G47.00 Insomnia, unspecified
CPT/HCPCS: 90834

== ENCOUNTER 2020-08-10 12:55 | Outpatient (CLI) | payer MEDICAID, SELFPAY ==
[2020-06-24 09:44] VITALS: BP 136/85; BMI 41.3
--- NOTE | 2020-08-10 15:37 | ONC CON_ITS ---
Dr. Guy New Patient Note Patient: Iqra Meredith Unit #: [id number]: 1965 Dicatated By: Dale Gyu M.D.Date of Visit: Aug 10, 2020 Onc MED New Patient/Consult Referring Physician: Dr. Ej Mcbride Iii, M.D. History of Present Illness: Mr. Iqra Meredith, is a 55-year-old gentleman with a history of pancreatic mass since July 2019, as per patient at that time he was admitted to hospital with pneumonia and scans done at that time shows incidental finding of pancreatic body/tail mass and patient was referred to Dr. Mcbride in [place] for evaluation but due to Covid related issue, there was delay in surgical consultation eventually on April 08, 2020 patient underwent MRI scan of abdomen with and without contrast and it showed rounded hypervascular mass arising from the pancreatic tail which contain a capsule and demonstrates a central area of calcification. No associated adenopathy or metastatic foci associated with this abnormality and shown some mild increase in size since previous exam done in August 2019. Small right-sided adrenal nodule demonstrating features of benign adrenal adenoma, patient was evaluated by Dr. Mcbride on May 09, 2020 and at that time patient reported no episode of hyper or hypoglycemia, no diarrhea, no facial flushing, no unintentional weight loss, as per patient and medical record, patient was advised for EUS and left pancreatectomy and splenectomy was recommended and presplenectomy vaccination was given to the patient. Patient underwent EUS Showed 3.9 x 3.8 cm tail of the pancreas mass with central calcification and shadowing and FNA of pancreatic tail mass on July 12, 2020 and final pathology report came back well-differentiated neuroendocrine tumor tumor cells are positive for synaptophysin and chromogranin and Ki-67 was less than 1%. Patient came to see us for second opinion regarding nonsurgical options Patient denies any history of alcohol use or smoking Patient denies any history of diarrhea or facial flushing, denies any wheezing, denies any abdominal pain denies any jaundice denies any back pain. Denies any weight loss Denies any indigestion or hyperacidity Past Medical History: Mr. Gilberts medical history consists of chronic obstructive pulmonary disease, depression, and lumbar radiculopathy. Past Surgical History: Mr. Meredith's surgical/procedural history consists of removal of T12, hernia repair in 2014 - umbilical, hernia repair in 2013, and spinal fusion in 2013. Medications: A Thru Z Select 50+ Mens Tablet Oral daily, buPROPion HCl (100 mg) Tablet Oral daily, buPROPion HCl ER (SR) (150 mg) Tablet SR 12 HR Oral daily, Dulcolax Stool Softener Capsule Oral daily, Gabapentin (300 mg) Capsule Oral b.i.d., Glucophage (1000 mg) Tablet Oral b.i.d., HYDROcodone-Acetaminophen (5-325 mg) Tablet Oral t.i.d., Mobic (15 mg) Tablet Oral daily, traZODone HCl (150 mg) Tablet Oral at bedtime Allergies: No Known Allergies. Social History: Mr. Meredith is . He is a daily smoker who smokes 0.5 packs/day. He is a former drinker. He has indicated exposure to the following products: cigarettes. Family History: Mr. Meredith's mother at age 67: coronary artery disease, and stroke, and type II diabetes, and uterine cancer. Mr. Meredith's father at age 55. Mr. Meredith has 1 sister who is alive. Review Of Symptoms: Review of Systems is not available for this patient. Vital Signs: Performed on Aug 10, 2020 14:21: 6, 8, 0.00, 0.00 sq.m, 93 % (LOW), 91 /min, 18 /min, 122/77 mm(hg), 97.9 F (LOW), and 283 lbs (HIGH). Performance Status: 0 - Fully active, able to carry on all predisease activities without restrictions. (ECOG) Physical Examination: ENMT - No mouth sores, no thrush, no jaundice, Respiratory - Lungs are clear to auscultation, Cardiovascular - Regular rate and rhythm of heart, Abdomen - Soft, bowel sounds present, Extremities - No visible edema. Lab/Imaging: Most recent lab results are not available for this patient. Impression: Well-differentiated neuroendocrine tumor of pancreatic tail per EUS/FNA done on July 12, 2020 which showed 3.9 x 3.8 cm mass with central calcification and shadowing. Immunohistochemistry were positive for synaptophysin and chromogranin, Ki-67 was less than 1% MRI scan of the abdomen done on April 08, 2020 showed rounded hypervascular mass arising from the pancreatic tail which contain capsule and demonstrate a central area of calcification with no associated adenopathy or metastatic disease Plan: Discussed with patient regarding disease status and treatment options, as per pathology, patient has neuroendocrine tumor probably nonsecretory type as patient has no associated signs symptom like facial flushing, diarrhea, hypokalemia, facial flushing, hyper or hypoglycemia or uncontrolled hyperacidity and MRI scan of the abdomen done in March 2020 showed localized disease and recently done EUS showed no liver mets. Patient was seen by Dr. Mcbride in [place] and was offered left pancreatectomy with splenectomy in fact he was given presplenectomy vaccination during his last visit. But patient wanted to discuss nonsurgical options, patient was advised as per NCCN guidelines, neuroendocrine tumor of pancreas with size more than 2 cm, surgery is the best option as systemic therapy is not curative rather most of the time palliative. As his MRI scan of abdomen was done in March 2020, may recommend repeating scan or octreotide scan to assess the disease status although EUS done recently showed no significant change in the size of the tumor or no mention about regional lymphadenopathy. we will defer that decision to Dr. Mcbride As patient is considering surgical intervention Patient has decided to proceed with surgery and would call Dr. Mcbride for an appointment, and we will see him on as-needed basis. Signed By: Dale Guy M.D. <<Signature on File>>
== END 2020-08-10 12:56 | disposition home or self-care (01) ==
LOC: ONCMED 12:56
PROVIDERS: Family Provider Nurse Practitioner; PCP Internal Medicine; Visit Provider Internal Medicine Hematology & Oncology
DX: C7A.8 Other malignant neuroendocrine tumors (principal)
CPT/HCPCS: 90834; 99205

== ENCOUNTER 2020-08-15 06:00 | Outpatient (RCR) | payer MEDICAID, SELFPAY ==
[2020-06-24 09:44] VITALS: BP 136/85; BMI 41.3
== END 2020-09-14 23:59 | disposition home or self-care (01) ==
LOC: SPT 06:00
PROVIDERS: PCP Internal Medicine; Referring Provider Internal Medicine; Visit Provider Internal Medicine
DX: F06.32 Mood disorder due to known physiological condition with major depressive-like episode (principal); G47.00 Insomnia, unspecified; M54.5 Low back pain; G89.29 Other chronic pain; M99.09 Segmental and somatic dysfunction of abdomen and other regions
CPT/HCPCS: 97110; 99213

== ENCOUNTER → 2020-08-17 08:10 | Outpatient (BNVA) | payer MEDICAID, SELFPAY ==
[2020-06-24 09:44] VITALS: BP 136/85; BMI 41.3
== END ==
PROVIDERS: Family Provider Nurse Practitioner; PCP Internal Medicine; Visit Provider Counselor Mental Health
DX: F06.32 Mood disorder due to known physiological condition with major depressive-like episode (principal); F32.9 Major depressive disorder, single episode, unspecified; G47.00 Insomnia, unspecified
CPT/HCPCS: 90834

== ENCOUNTER → 2020-08-24 08:16 | Outpatient (BNVA) | payer MEDICAID, SELFPAY ==
[2020-06-24 09:44] VITALS: BP 136/85; BMI 41.3
== END ==
PROVIDERS: Family Provider Nurse Practitioner; PCP Internal Medicine; Visit Provider Counselor Mental Health
DX: F06.32 Mood disorder due to known physiological condition with major depressive-like episode (principal); F32.9 Major depressive disorder, single episode, unspecified; G47.00 Insomnia, unspecified
CPT/HCPCS: 90834

== ENCOUNTER → 2020-08-31 08:05 | Outpatient (BNVA) | payer MEDICAID, SELFPAY ==
[2020-06-24 09:44] VITALS: BP 136/85; BMI 41.3
== END ==
PROVIDERS: Family Provider Nurse Practitioner; PCP Internal Medicine; Visit Provider Counselor Mental Health
DX: F06.32 Mood disorder due to known physiological condition with major depressive-like episode (principal); F32.9 Major depressive disorder, single episode, unspecified; G47.00 Insomnia, unspecified
CPT/HCPCS: 90834

== ENCOUNTER → 2020-09-14 08:11 | Outpatient (BNVA) | payer MEDICAID, SELFPAY ==
[2020-06-24 09:44] VITALS: BP 136/85; BMI 41.3
== END ==
PROVIDERS: Family Provider Nurse Practitioner; PCP Internal Medicine; Visit Provider Counselor Mental Health
DX: F06.32 Mood disorder due to known physiological condition with major depressive-like episode (principal); F32.9 Major depressive disorder, single episode, unspecified; G47.00 Insomnia, unspecified
CPT/HCPCS: 90834

== ENCOUNTER → 2020-09-21 08:26 | Outpatient (BNVA) | payer MEDICAID, SELFPAY ==
[2020-06-24 09:44] VITALS: BP 136/85; BMI 41.3
== END ==
PROVIDERS: Family Provider Nurse Practitioner; PCP Internal Medicine; Visit Provider Counselor Mental Health
DX: F06.32 Mood disorder due to known physiological condition with major depressive-like episode (principal)
CPT/HCPCS: 90832

== ENCOUNTER → 2020-10-04 09:47 | Outpatient (BNVA) | payer MEDICAID, SELFPAY ==
[2020-06-24 09:44] VITALS: BP 136/85; BMI 41.3
== END ==
PROVIDERS: Family Provider Nurse Practitioner; PCP Internal Medicine; Visit Provider Anesthesiology
DX: G89.29 Other chronic pain (principal); M47.22 Other spondylosis with radiculopathy, cervical region; M25.50 Pain in unspecified joint; M54.6 Pain in thoracic spine; Z98.1 Arthrodesis status; Z79.899 Other long term (current) drug therapy; Z79.891 Long term (current) use of opiate analgesic
CPT/HCPCS: 99213

== ENCOUNTER → 2020-10-05 07:49 | Outpatient (BNVA) | payer MEDICAID, SELFPAY ==
[2020-06-24 09:44] VITALS: BP 136/85; BMI 41.3
== END ==
PROVIDERS: Family Provider Nurse Practitioner; PCP Internal Medicine; Visit Provider Counselor Mental Health
DX: F06.32 Mood disorder due to known physiological condition with major depressive-like episode (principal); F32.9 Major depressive disorder, single episode, unspecified; G47.00 Insomnia, unspecified
CPT/HCPCS: 90834

== ENCOUNTER 2020-10-10 08:12 | Outpatient (CLI) | payer MEDICAID, SELFPAY ==
[2020-06-24 09:44] VITALS: BP 136/85; BMI 41.3
[2020-10-10 10:08] LABS: Basophils # 0.1 10^3/uL (0.0-0.1); Basophils % 0.7 %; Eosinophils # 0.2 10^3/uL (0.0-0.8); Eosinophils % 1.6 %; Hematocrit 45.8 % (42.0-52.0); Hemoglobin 14.4 g/dL (11.7-16.6); Lymphocytes # 2.4 10^3/uL (0.8-4.8); Lymphocytes % 17.8 %; Mean Corpuscular HGB Conc 31.4 g/dL (30.0-36.0); Mean Corpuscular Hemoglobin 27.2 pg (28.0-34.0); Mean Corpuscular Volume 86.6 fL (80-94); Mean Platelet Volume 9.4 fL (7.4-10.4); Monocytes # 1.3 10^3/uL (0.2-0.9); Monocytes % 9.7 %; Neutrophils % 69.6 %; Nucleated Red Blood Cells % 0 %; Platelet Count 641 10^3/cmm (130-400); Red Blood Count 5.29 10^6/uL (4.1-5.3); Red Cell Distribution Width 15.6 % (12.1-15.1); White Blood Count 13.5 10^3/uL (4.0-10.0)
[2020-10-10 10:31] LABS: Alanine Aminotransferase 23 U/L (0-41); Albumin Level 3.6 g/dL (3.5-5.2); Alkaline Phosphatase 118 IU/L (40-130); Anion Gap 14.4 (5-19); Aspartate Amino Transferase 16 U/L (0-40); Blood Urea Nitrogen 8 mg/dL (6-20); Calcium 8.7 mg/dL (8.5-10.5); Carbon Dioxide 29 mmol/L (22-29); Chloride 98 mmol/L (98-107); Globulin 3.3 g/dL (1.3-4.6); Glomerular Filtration Rate 140.4 mL/min (90-130); Glucose 178 mg/dL (65-115); Osmolality Calculated 287 mOsm/kg (285-295); Potassium 4.4 mmol/L (3.5-5.1); Sodium 137 mmol/L (136-145); Total Bilirubin 0.3 mg/dL (0.15-1.2); Total Protein 6.9 g/dL (6.6-8.7)
[2020-10-10 10:42] LABS: Parathyroid Hormone 25.4 pg/mL (15-65)
--- NOTE | 2020-10-12 16:30 | ONC FU_ITS ---
Dr. Guy follow up note Patient: Iqra Meredith Unit #: [id number]: 1965 Dicatated By: Dale Guy M.D.Date of Visit:Oct 10, 2020 Onc Med Follow-up/Prog Note History of Present Illness: Mr. Iqra Meredith, is a 54-year-old gentleman with a history of pancreatic mass since July 2019, as per patient at that time he was admitted to hospital with pneumonia and scans done at that time shows incidental finding of pancreatic body/tail mass and patient was referred to Dr. Mcbride in [place] for evaluation but due to Covid related issue, there was delay in surgical consultation eventually on April 08, 2020 patient underwent MRI scan of abdomen with and without contrast and it showed rounded hypervascular mass arising from the pancreatic tail which contain a capsule and demonstrates a central area of calcification. No associated adenopathy or metastatic foci associated with this abnormality and shown some mild increase in size since previous exam done in August 2019. Small right-sided adrenal nodule demonstrating features of benign adrenal adenoma, patient was evaluated by Dr. Mcbride on May 09, 2020 and at that time patient reported no episode of hyper or hypoglycemia, no diarrhea, no facial flushing, no unintentional weight loss, as per patient and medical record, patient was advised for EUS and left pancreatectomy and splenectomy was recommended and presplenectomy vaccination was given to the patient. Patient underwent EUS Showed 3.9 x 3.8 cm tail of the pancreas mass with central calcification and shadowing and FNA of pancreatic tail mass on July 12, 2020 and final pathology report came back well-differentiated neuroendocrine tumor tumor cells are positive for synaptophysin and chromogranin and Ki-67 was less than 1%. Patient came to see us for second opinion regarding nonsurgical options, Eventually patient decided to go for surgery and on September 20, 2020 he underwent laparoscopic left pancreatectomy and splenectomy and final pathology report confirmed well-differentiated neuroendocrine tumor, less than 2 mitosis per 2 mm, Ki-67 was approximately 6%, all margins clear. 0 of 5 lymph node positive for metastatic disease. No lymphovascular or perineural invasion seen. pT2, N0 Patient denies any history of alcohol use or smoking Patient denies any history of diarrhea or facial flushing, denies any wheezing, denies any abdominal pain denies any jaundice denies any back pain. Denies any weight loss Denies any indigestion or hyperacidity Came for follow-up, patient denies any specific complaints except diarrhea since surgery, usually 4-6 bowel movements a day, no mucus or blood seen. Mostly watery stool. No abdominal pain, no shortness of breath no wheezing, no indigestion or belching, no facial flushing, no jaundice, no history of fluctuation in blood sugar. Or unstable blood pressure. Patient tolerated pancreatic surgery well otherwise Medications: A Thru Z Select 50+ Mens Tablet Oral daily, buPROPion HCl (100 mg) Tablet Oral daily, buPROPion HCl ER (SR) (150 mg) Tablet SR 12 HR Oral daily, Dulcolax Stool Softener Capsule Oral daily, Gabapentin (300 mg) Capsule Oral b.i.d., Glucophage (1000 mg) Tablet Oral b.i.d., HYDROcodone-Acetaminophen (5-325 mg) Tablet Oral t.i.d., Mobic (15 mg) Tablet Oral daily, traZODone HCl (150 mg) Tablet Oral at bedtime Allergies: No Known Allergies. Review of Systems: Review of Systems is not available for this patient. Vital Signs: Performed on Oct 10, 2020 08:46 Weight - 272.6 lbs (LOW) BSA - 0.00 sq.m BMI - 0.00 Temperature - 97.0 F (LOW) Pulse - 99 /min Respiration - 18 /min BP - 147/83 mm(hg) (HIGH) O2 Sat - 94 % (LOW) Pain - 6 Fatigue - 8 Performance Status: 1 - No physically strenuous activity, but ambulatory and able to carry out light or sedentary work (e.g. office work, light house work). (ECOG) Physical Examination: ENMT - No mouth sores, no thrush, no jaundice, Respiratory - Poor air entry otherwise clear, Cardiovascular - Regular rate and rhythm of heart, Abdomen - Soft, bowel sounds present, Extremities - No visible edema. Lab/Imaging: Most recent lab results are not available for this patient. Impression: Well-differentiated neuroendocrine tumor of pancreatic tail per EUS/FNA done on July 12, 2020 which showed 3.9 x 3.8 cm mass with central calcification and shadowing. Immunohistochemistry were positive for synaptophysin and chromogranin, Ki-67 was less than 1% Status post laparoscopic left pancreatectomy and splenectomy,Done on September 20, 2020 final pathology report showed 3.5 cm, well-differentiated neuroendocrine tumor, mitotic rate less than 2 mitosis per millimeter square, Ki-67 proximately 6%, margins clear, no lymphovascular or perineural invasion seen., 0 out of 5 lymph node positive for metastatic disease., PT2N0 MRI scan of the abdomen done on April 08, 2020 showed rounded hypervascular mass arising from the pancreatic tail which contain capsule and demonstrate a central area of calcification with no associated adenopathy or metastatic disease Plan: Discussed with patient regarding risks final pathology report and is concerned about diarrhea since surgery, etiology could be multifactorial including pancreatic enzyme deficiency or bacterial overgrowth or functional neuroendocrine tumor but less likely., As clinically it appears 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 13 region. Patient may have other malignancies like parathyroid involvement pituitary or adrenal or thyroid, thus we will refer him to endocrinology for evaluation in the consider gastrin level, serotonin, chromogranin A level, PTH, 24-hour urine for 5-HIAA and patient will return to clinic in 3 weeks with CBC CMP As per patient his diarrhea is somewhat improving, if above-mentioned work-up shows no abnormality and diarrhea still persist, may consider pancreas supplement. Signed By: Dale Guy M.D. <<Signature on File>>
[2020-10-12 20:57] LABS: Gastrin <15 pg/mL (< OR = 100)
[2020-10-13 12:43] LABS: Serotonin Whole Blood 207 ng/mL (56-244)
== END 2020-10-10 08:13 | disposition home or self-care (01) ==
PROVIDERS: PCP Internal Medicine; Visit Provider Internal Medicine Hematology & Oncology
DX: C7A.8 Other malignant neuroendocrine tumors (principal); R19.7 Diarrhea, unspecified; Z79.899 Other long term (current) drug therapy
CPT/HCPCS: 80053; 82310; 82941; 83970; 84260; 85025; 86316; 99214

== ENCOUNTER 2020-10-12 08:09 | Outpatient (CLI) | payer MEDICAID, SELFPAY ==
[2020-06-24 09:44] VITALS: BP 136/85; BMI 41.3
[2020-10-16 06:07] LABS: 24 Hour Urine Volume 2225 mL; 5-HIAA, 24 Hour Urine 4.5 mg/24 h (<=6.0)
== END 2020-10-12 08:10 | disposition home or self-care (01) ==
LOC: ONCMED 08:11
PROVIDERS: PCP Internal Medicine; Visit Provider Internal Medicine Hematology & Oncology
DX: F06.32 Mood disorder due to known physiological condition with major depressive-like episode (principal); F32.9 Major depressive disorder, single episode, unspecified; G47.00 Insomnia, unspecified
CPT/HCPCS: 90834; 83497

== ENCOUNTER 2020-10-16 01:22 | Emergency (ER) | payer MEDICAID, SELFPAY ==
[2020-06-24 09:44] VITALS: BP 136/85; BMI 41.3
[2020-10-16 01:28] VITALS: BP 121/85; PULSE 121; RESP 18; TEMP 37; O2SAT 90; BMI 38.2
--- NOTE | 2020-10-16 01:37 | XRR_ITS ---
PROCEDURE INFORMATION: Exam: XR Chest Exam date and time: 10/16/2020 1:59 AM Age: 54 years old Clinical indication: Left-sided chest pain; Patient HX: C/O L sided abd and cp, tachy w low o2 sats; Additional info: Tachycardia, low o2 TECHNIQUE: Imaging protocol: XR of the chest. Views: 1 view. COMPARISON: CR XR chest 1V portable [id number] 08/13/2019 10:57 PM FINDINGS: Lungs: There are some hazy in strandy opacity seen in the lung bases bilaterally most probably representing atelectasis. However, bilateral basilar infiltrates and pneumonia cannot be entirely excluded. Pleural spaces: Left hemidiaphragm is obscured likely secondary to a left pleural effusion. Heart/Mediastinum: Unremarkable. No cardiomegaly. Bones/joints: Pedicle screws and posterior rods are seen within the lower thoracic spine. XR/XR chest 1V portable [id number] IMPRESSION: 1. Left pleural effusion obscures the left hemidiaphragm. 2. Strandy and hazy opacities in the lung bases bilaterally may represent atelectasis although basilar infiltrates and pneumonia cannot be entirely excluded.
--- NOTE | 2020-10-16 01:37 | USR_ITS ---
PROCEDURE INFORMATION: Exam: US Duplex Right Lower Extremity Veins, Limited Exam date and time: 10/16/2020 1:43 AM Age: 54 years old Clinical indication: Pain; Leg, lower; Right; Additional info: Leg swelling; Recent surgery on abd TECHNIQUE: Imaging protocol: Real-time Duplex ultrasound of the Right Lower Extremity with 2-D mackay scale, color Doppler flow and spectral waveform analysis with image documentation. Limited exam was focused on the right lower extremity veins. COMPARISON: No relevant prior studies available. FINDINGS: Right deep veins: Unremarkable. The common femoral, femoral, proximal profunda femoral and popliteal veins are patent without thrombus. Normal Doppler waveforms. Normal compressibility and/or augmentation response. Right superficial veins: Unremarkable. Saphenofemoral junction is patent without thrombus. Soft tissues: Unremarkable. US/[place] [id number] IMPRESSION: No evidence of deep vein thrombosis.
--- NOTE | 2020-10-16 01:37 | CTR_ITS ---
PROCEDURE INFORMATION: Exam: CTA Chest With Contrast Exam date and time: 10/16/2020 2:10 AM Age: 54 years old Clinical indication: Abdominal tenderness; Shortness of breath; Prior surgery; Surgery date: <1 month; Surgery type: ? Whipple and spleen; Patient HX: C/O L sided abd pain w SOB and tachy; Additional info: Recent surgery; SOB; Low o2 TECHNIQUE: Imaging protocol: Computed tomographic angiography of the chest with contrast. 3D rendering (Not supervised by radiologist): MIP and/or 3D reconstructed images were created by the technologist. Radiation optimization: All CT scans at this facility use at least one of these dose optimization techniques: automated exposure control; mA and/or kV adjustment per patient size (includes targeted exams where dose is matched to clinical indication); or iterative reconstruction. Contrast material: OMNI 350; Contrast volume: 95 ml; Contrast route: INTRAVENOUS (IV); COMPARISON: CT angio chest PE protcl [id number] 08/11/2019 8:44 PM RADIATION DOSE METRICS: Total DLP (mGy-cm): 2265.21 FINDINGS: Pulmonary arteries: Normal. No pulmonary emboli. Aorta: Unremarkable. No aortic aneurysm. No aortic dissection. Lungs: Strandy and patchy opacities and some consolidation is superimposed over the left pleural effusion likely representing atelectasis. However, a basilar pneumonia cannot be entirely excluded. There is evidence of healed rib fractures bilaterally. Pleural spaces: There is a left pleural effusion present. Heart: Unremarkable. No cardiomegaly. No pericardial effusion. Lymph nodes: Unremarkable. No enlarged lymph nodes. Bones/joints: See Lungs finding. Soft tissues: Unremarkable. IMPRESSION: 1. There is no evidence for pulmonary emboli. 2. Left pleural effusion with superimposed strandy and patchy opacities and consolidation likely representing atelectasis although left basilar pneumonia cannot be entirely excluded. PROCEDURE INFORMATION: Exam: CT Abdomen And Pelvis With Contrast Exam date and time: 10/16/2020 2:10 AM Age: 54 years old Clinical indication: Abdominal tenderness; Shortness of breath; Prior surgery; Surgery date: <1 month; Surgery type: ? Whipple and spleen; Patient HX: C/O L sided abd pain w SOB and tachy; Additional info: Recent surgery; SOB; Low o2 TECHNIQUE: Imaging protocol: Computed tomography of the abdomen and pelvis with contrast. Radiation optimization: All CT scans at this facility use at least one of these dose optimization techniques: automated exposure control; mA and/or kV adjustment per patient size (includes targeted exams where dose is matched to clinical indication); or iterative reconstruction. Contrast material: OMNI 350; Contrast volume: 95 ml; Contrast route: INTRAVENOUS (IV); COMPARISON: CT angio chest PE protcl [id number] 08/11/2019 8:44 PM RADIATION DOSE METRICS: Total DLP (mGy-cm): 2265.21 FINDINGS: Tubes, catheters and devices: There is a tubular tract that extends from the left anterior abdominal wall to the left upper quadrant likely representing the pathway of a previously placed surgical drain tube. Liver: Normal. No mass. Gallbladder and bile ducts: There are 2 prominent gallstones seen within the gallbladder neck. Pancreas: There is a fluid collection seen adjacent to the pancreatectomy site that measures 3.9 cm transverse dimension by 5.1 cm AP dimension by 4.3 cm craniocaudal dimension. This may represent a developing pancreatic cyst or pseudocyst. However, abscess cannot be entirely excluded. Spleen: Status post partial pancreatectomy and splenectomy. Adrenal glands: Normal. No mass. Kidneys and ureters: Normal. No hydronephrosis. Stomach and bowel: A few diverticula are seen on the sigmoid colon. There are no inflammatory changes seen to suggest diverticulitis. Appendix: The appendix is visualized and is normal in configuration. Intraperitoneal space: There is an abnormal fluid collection seen in the subdiaphragmatic region on the left measuring 5.4 cm transverse dimension by 5.8 cm AP dimension by 4.5 cm craniocaudal dimension surrounded by a rim a soft tissue attenuation , findings suggesting a subdiaphragmatic abscess. There are strandy opacities seen in the adjacent fat and fascia compatible with some inflammatory changes. Vasculature: Unremarkable. No abdominal aortic aneurysm. Lymph nodes: Unremarkable. No enlarged lymph nodes. Urinary bladder: Unremarkable as visualized. Reproductive: Unremarkable as visualized. Bones/joints: Pedicle screws and posterior rods extend from the lower thoracic spine through the L3 level. Soft tissues: Unremarkable. CT/CT angio chest w abd pel w con IMPRESSION: 1. The patient appears to be status post a partial pancreatectomy and splenectomy. 2. There is a cystic mass present in the region the pancreatic tail adjacent to the pancreatectomy site likely representing a developing pancreatic cyst or pseudocyst. However a abscess cannot be entirely excluded. 3. There is a subdiaphragmatic abnormal fluid collection seen in the left upper quadrant with surrounding the soft tissue enhancement worrisome for a subdiaphragmatic abscess. There is evidence of a previously placed surgical drain tube in the left upper quadrant . 4. Two prominent gallstones without evidence of cholecystitis. Radiation Dose CTDIVOL = (mGy): DLP = 2265.21~2265.21 (mGy-cm)
--- NOTE | 2020-10-16 01:42 | ED_ITS ---
Documented by User: JAMIA Gleason 10/16/20 17:27 HPI - Abdominal Pain General: Chief Complaint: Abdominal Pain Stated Complaint: post op left lower abd pain Time Seen by Provider: 10/16/20 01:24 Source: patient Mode of arrival: ambulatory Limitations: no limitations History of Present Illness: HPI narrative: Patient is a very nice 54-year-old male who presents to the ED today for evaluation of left abdominal pain. Patient states approximately 4 weeks ago he underwent a splenectomy and pancreatectomy by Dr. Mcbride in [place] secondary to pancreatic cancer. Patient tells me he was discharged home with SHANTAL drains. He states he has had one follow-up visit with Dr. Mcbride. He states the SHANTAL drains accidentally fell out a few days ago. He states this evening he began developing fairly severe left-sided abdominal pain. He is complaining of pain to his left shoulder. No injury or trauma. Of note, during my assessment patient is noted to be mildly hypoxic at 88 to 90%. He tells me he was discharged from the hospital with oxygen although he had never required this before. He has not been running fevers. No nausea or vomiting. Reports some mild constipation that he feels is secondary to pain medication. MD elicited complaint: abdominal pain Pertinent past history: other (recent abdominal surgery; hx of pancreatic cancer ) Onset (ago): hour(s) Pain Consistency: constant Location: LUQ and LLQ Migration to: no migration Exacerbating factors: nothing Relieving factors: nothing Associated Symptoms: Denies change in stool character, chills, diarrhea, dysuria, fever(s), nausea, syncope and vomiting Review of Systems Const: Denies: fever(s), chills, body aches, fatigue or malaise Card: Reports: dyspnea on exertion; Denies: chest pain, palpitations, irregular heart rhythm, edema, swelling of feet/ankles, lightheadedness, syncope or pre-syncope Resp: Reports: dyspnea; Denies: productive cough, hemoptysis or chest congestion GI: Reports: abdominal pain; Denies: nausea, vomiting, diarrhea or change in stool character : Denies: flank pain or dysuria Musc: Denies: neck pain, back pain or joint pain Skin/Breast: Denies: rash Neuro: Denies: headache(s), numbness in extremities, weakness in extremities, sensory changes, dizziness or confusion FORMERLY [facility], [facility] ED PFSH: Medical History Cellulitis and abscess of left leg COPD (chronic obstructive pulmonary disease) Depression Encounter for long-term opiate analgesic use Lumbar back pain with radiculopathy affecting right lower extremity Nicotine dependence with current use Not interested in smoking cessation. 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 History of spinal fusion S/P hernia repair (~12/2013) UMBILICAL HERNIA REPAIR Family History Mother Diabetes CAD (coronary artery disease) Psychiatric illness Stroke Cancer UTERINE CANCER Other Family history of premature coronary artery disease Social History Smoking and tobacco status: former smoker Quit status (tobacco): has quit using tobacco Second hand smoke exposure: No Alcohol intake: current Desire information about alcohol rehabilitation?: No Adopted: No Caregiver/support person: No Lives independently: Yes Household members: spouse, family and children Housing: Manufactured/Mobile home Marital status: Number of children: 2 Number of grandchildren: 3 Highest education level completed: Some College, No Degree service: No Current occupational status: disabled Pets and animals: Yes Pets & animals: cat(s), dog(s), farm animals and other Pets & animal details: rabbits History of recent travel: No Leisure activites: games Current gender identity: Male Rosey/Roman Catholic: Other Special rosey needs: No Agree to transfusion: Yes Financial difficulty paying for basics: Hard Physical Exam Const: COMMON NORMALS: no acute distress, patient oriented x3, no limitations and alert GENERAL APPEARANCE: cooperative NUTRITIONAL APPEARANCE: obese ORIENTATION/CONSCIOUSNESS: Yes awake, Yes oriented to person, Yes oriented to place and Yes oriented to time HENMT: COMMON NORMALS: normocephalic and atraumatic HEAD & SCALP: normocephalic and atraumatic Resp: COMMON NORMALS: normal respiratory effort and clear to auscultation bilaterally AUSCULTATION: clear to auscultation bilaterally OTHER: pt noted to be hypoxic at 88-91% on RA; he complains of mild SOB-states this worsens with exertion Cardio: COMMON NORMALS: regular rhythm RATE: tachycardic RHYTHM: regular rhythm GI: INSPECTION: Yes other (surgical incisions do not appear infected ) AUSCULTATION: Yes normoactive bowel sounds PALPATION: Yes Firmness to palpation present (GI) and Yes Tenderness to palpation present (GI) (throughout L abdomen ) Extremity: COMMON NORMALS: no pedal edema NARRATIVE EXTREMITY EXAM: R LE is larger in circumference than L; no calf tenderness/negative Eveline's; no redness/warmth Neuro: JOSEPH COMA SCALE: document GCS findings Joseph coma scale eye opening: Spontaneous Enterprise coma scale verbal response: Orientated Enterprise coma scale motor response: Obey commands Joseph coma scale total score: 15 COMMON NORMALS: patient oriented x3 SENSORIUM/ORIENTATION: Yes alert, Yes oriented to person, Yes oriented to place and Yes oriented to time Course ED course: Will obtain CT imaging to evaluate for intra-abdominal process related to recent surgery. Given his mild hypoxia, SOB tachycardia, R LE swelling, and recent surgery he will also need CTA imaging of his chest to rule out PE. CXR shows L lower effusion. Vital Signs: Vital signs: Vital Signs Temperature 98.6 F 10/16/20 01:28 Pulse Rate 111 H 10/16/20 05:40 Respiratory Rate 19 H 10/16/20 05:40 Blood Pressure 136/89 10/16/20 05:40 Pulse Oximetry 97 10/16/20 05:40 MDM - Abdominal Pain MDM Narrative: Medical decision making narrative: Care transferred to Dr. Gramajo at the end of my shift pending CT results. Lab Data: Labs: Lab Results 10/16/20 10/16/20 10/16/20 Range/Units 01:45 01:45 01:45 WBC 16.9 H (4.0-10.0) 10^3/ uL RBC 5.37 H (4.1-5.3) 10^6/u L Hgb 14.7 (11.7-16.6) g/dL Hct 46.5 (42.0-52.0) % MCV 86.6 (80-94) fL MCH 27.4 L (28.0-34.0) pg MCHC 31.6 (30.0-36.0) g/dL RDW 15.5 H (12.1-15.1) % Plt Count 586 H (130-400) 10^3/c mm MPV 9.7 (7.4-10.4) fL Neut % (Auto) 67.4 % Lymph % (Auto) 19.0 % [place] % (Auto) 11.1 % Eos % (Auto) 1.5 % Baso % (Auto) 0.6 % Neut # (Auto) 11.40 H (1.8-7.7) 10^3/u L Lymph # (Auto) 3.2 (0.8-4.8) 10^3/u L [place] # (Auto) 1.9 H (0.2-0.9) 10^3/u L Eos # (Auto) 0.3 (0.0-0.8) 10^3/u L Baso # (Auto) 0.1 (0.0-0.1) 10^3/u L Nucleated RBC % (a uto) 0 % Nucleated RBCs # 0.0 /100WBC Sodium 133 L (136-145) mmol/L Potassium 4.3 (3.5-5.1) mmol/L Chloride 97 L (98-107) mmol/L Carbon Dioxide 27 (22-29) mmol/L Anion Gap 13.3 (5-19) BUN 9 (6-20) mg/dL Creatinine 0.6 L (0.7-1.2) mg/dL GFR Calculation 140.4 H (90-130) mL/min Glucose 140 H (65-115) mg/dL Calculated Osmolal ity 277 L (285-295) mOsm/k g Lactic Acid 1.2 (0.5-2.2) mmol/L Calcium 8.5 (8.5-10.5) mg/dL Total Bilirubin 0.6 (0.15-1.2) mg/dL AST 21 (0-40) U/L ALT 24 (0-41) U/L Alkaline Phosphata se 117 (40-130) IU/L Total Protein 6.9 (6.6-8.7) g/dL Albumin 3.6 (3.5-5.2) g/dL Globulin 3.3 (1.3-4.6) g/dL Lipase 35 (13-60) U/L Urine Color (Yellow) Urine Appearance (CLEAR) Urine pH (5-7) Ur Specific Gravit y (1.005-1.030) Urine Protein (Negative) Urine Glucose (UA) (Normal) Urine Ketones (Negative) Urine Blood (Negative) Urine Nitrate (Negative) Urine Bilirubin (Negative) Urine Urobilinogen (Negative) mg/dL Ur Leukocyte Tresa ase (Negative) 10/16/20 Range/Units 03:20 WBC (4.0-10.0) 10^3/ uL RBC (4.1-5.3) 10^6/u L Hgb (11.7-16.6) g/dL Hct (42.0-52.0) % MCV (80-94) fL MCH (28.0-34.0) pg MCHC (30.0-36.0) g/dL RDW (12.1-15.1) % Plt Count (130-400) 10^3/c mm MPV (7.4-10.4) fL Neut % (Auto) % Lymph % (Auto) % [place] % (Auto) % Eos % (Auto) % Baso % (Auto) % Neut # (Auto) (1.8-7.7) 10^3/u L Lymph # (Auto) (0.8-4.8) 10^3/u L [place] # (Auto) (0.2-0.9) 10^3/u L Eos # (Auto) (0.0-0.8) 10^3/u L Baso # (Auto) (0.0-0.1) 10^3/u L Nucleated RBC % (a uto) % Nucleated RBCs # /100WBC Sodium (136-145) mmol/L Potassium (3.5-5.1) mmol/L Chloride (98-107) mmol/L Carbon Dioxide (22-29) mmol/L Anion Gap (5-19) BUN (6-20) mg/dL Creatinine (0.7-1.2) mg/dL GFR Calculation (90-130) mL/min Glucose (65-115) mg/dL Calculated Osmolal ity (285-295) mOsm/k g Lactic Acid (0.5-2.2) mmol/L Calcium (8.5-10.5) mg/dL Total Bilirubin (0.15-1.2) mg/dL AST (0-40) U/L ALT (0-41) U/L Alkaline Phosphata se (40-130) IU/L Total Protein (6.6-8.7) g/dL Albumin (3.5-5.2) g/dL Globulin (1.3-4.6) g/dL Lipase (13-60) U/L Urine Color Yellow (Yellow) Urine Appearance Clear (CLEAR) Urine pH 6 (5-7) Ur Specific Gravit y 1.020 (1.005-1.030) Urine Protein Neg (Negative) Urine Glucose (UA) Norm (Normal) Urine Ketones Negative (Negative) Urine Blood Neg (Negative) Urine Nitrate Negative (Negative) Urine Bilirubin Neg (Negative) Urine Urobilinogen Norm (Negative) mg/dL Ur Leukocyte Tresa ase Negative (Negative) Imaging Data ^: CXR: Radiologist's impression: [address] [id number] ReportSigned Patient: Iqra Meredith #: [id number]: 1965Acct#:[id number]/Sex: 54 / MADM Date: 10/16/20Loc: ERRoom/Bed:Attending Dr: Ordering Provider/Ordering MD: Vanna Lares Date of Service: 10/16/20 Procedure(s): XR chest 1V portable [id number] Accession Number(s): [id number] Report Number: [id number] PROCEDURE INFORMATION: Exam: XR Chest Exam date and time: 10/16/2020 1:59 AM Age: 54 years old Clinical indication: Left-sided chest pain; Patient HX: C/O L sided abd and cp, tachy w low o2 sats; Additional info: Tachycardia, low o2 TECHNIQUE: Imaging protocol: XR of the chest. Views: 1 view. COMPARISON: CR XR chest 1V portable [id number] 08/13/2019 10:57 PM FINDINGS: Lungs: There are some hazy in strandy opacity seen in the lung bases bilaterally most probably representing atelectasis. However, bilateral basilar infiltrates and pneumonia cannot be entirely excluded. Pleural spaces: Left hemidiaphragm is obscured likely secondary to a left pleural effusion. Heart/Mediastinum: Unremarkable. No cardiomegaly. Bones/joints: Pedicle screws and posterior rods are seen within the lower thoracic spine. XR/XR chest 1V portable [id number] IMPRESSION: 1. Left pleural effusion obscures the left hemidiaphragm. 2. Strandy and hazy opacities in the lung bases bilaterally may represent atelectasis although basilar infiltrates and pneumonia cannot be entirely excluded. Dictated By:Elvis Lopez MDSigned By:Elvis Lopez MDSigned Date/Time:10/16/20237DD/ 5 US R LE venous: My impression: Per Jeremy Aguilera, tech?no DVT Discharge Plan Discharge Patient Disposition: Xfer Short-Term Hosp Clinical Impression: Abdominal fluid collection Abdominal pain Qualifiers: Abdominal location: left upper quadrant Qualified Code(s): R10.12 - Left upper quadrant pain Condition: Stable Referrals: Luz Thomas DO [Primary Care Provider] - Patient Instructions: Abdominal Pain (ED) Coding Level of Care Code ED Zinc Etcher for Chg Fwd Exam Detailed Documented by User: Denny Gramajo DO 10/16/20 06:49 HPI - Abdominal Pain General: Chief Complaint: Abdominal Pain Stated Complaint: post op left lower abd pain Time Seen by Provider: 10/16/20 01:24 PFSH ED PFSH: Medical History Cellulitis and abscess of left leg COPD (chronic obstructive pulmonary disease) Depression Encounter for long-term opiate analgesic use Lumbar back pain with radiculopathy affecting right lower extremity Nicotine dependence with current use Not interested in smoking cessation. 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 History of spinal fusion S/P hernia repair (~12/2013) UMBILICAL HERNIA REPAIR Family History Mother Diabetes CAD (coronary artery disease) Psychiatric illness Stroke Cancer UTERINE CANCER Other Family history of premature coronary artery disease Social History (Reviewed 10/04/20 @ 10:14 by JOSE Herrera Smoking and tobacco status: former smoker Quit status (tobacco): has quit using tobacco Second hand smoke exposure: No Alcohol intake: current Desire information about alcohol rehabilitation?: No Adopted: No Caregiver/support person: No Lives independently: Yes Household members: spouse, family and children Housing: Manufactured/Mobile home Marital status: Number of children: 2 Number of grandchildren: 3 Highest education level completed: Some College, No Degree service: No Current occupational status: disabled Pets and animals: Yes Pets & animals: cat(s), dog(s), farm animals and other Pets & animal details: rabbits History of recent travel: No Leisure activites: games Current gender identity: Male Rosey/Roman Catholic: Other Special rosey needs: No Agree to transfusion: Yes Financial difficulty paying for basics: Hard Course ED course: 54-year-old male checked out to me by Mrs. Lares?PAWAN Ferro I agree with her history, evaluation, work-up and treatment. This gentleman has tachycardia, mild hypoxia, and increased pain near his surgical site. He has a white blood cell count of 17. He has an increased platelet count. His el ectrolytes are benign. CT of the chest does not reveal a PE. CT of the abdomen reveals a fluid collection in the left upper quadrant as well as the pancreas. Abscess cannot be ruled out in this patient. He is started on Zosyn. If drainage is needed, we do not have interventional radiology here. He will be transferred back to service at [facility] where he had his surgery. Ultrasound for DVT was negative. Vital Signs: Vital signs: Vital Signs Temperature 98.6 F 10/16/20 01:28 Pulse Rate 111 H 10/16/20 05:40 Respiratory Rate 19 H 10/16/20 05:40 Blood Pressure 136/89 10/16/20 05:40 Pulse Oximetry 97 10/16/20 05:40 MDM - Abdominal Pain Lab Data: Labs: Lab Results 10/16/20 10/16/20 10/16/20 Range/Units 01:45 01:45 01:45 WBC 16.9 H (4.0-10.0) 10^3/ uL RBC 5.37 H (4.1-5.3) 10^6/u L Hgb 14.7 (11.7-16.6) g/dL Hct 46.5 (42.0-52.0) % MCV 86.6 (80-94) fL MCH 27.4 L (28.0-34.0) pg MCHC 31.6 (30.0-36.0) g/dL RDW 15.5 H (12.1-15.1) % Plt Count 586 H (130-400) 10^3/c mm MPV 9.7 (7.4-10.4) fL Neut % (Auto) 67.4 % Lymph % (Auto) 19.0 % [place] % (Auto) 11.1 % Eos % (Auto) 1.5 % Baso % (Auto) 0.6 % Neut # (Auto) 11.40 H (1.8-7.7) 10^3/u L Lymph # (Auto) 3.2 (0.8-4.8) 10^3/u L [place] # (Auto) 1.9 H (0.2-0.9) 10^3/u L Eos # (Auto) 0.3 (0.0-0.8) 10^3/u L Baso # (Auto) 0.1 (0.0-0.1) 10^3/u L Nucleated RBC % (a uto) 0 % Nucleated RBCs # 0.0 /100WBC Sodium 133 L (136-145) mmol/L Potassium 4.3 (3.5-5.1) mmol/L Chloride 97 L (98-107) mmol/L Carbon Dioxide 27 (22-29) mmol/L Anion Gap 13.3 (5-19) BUN 9 (6-20) mg/dL Creatinine 0.6 L (0.7-1.2) mg/dL GFR Calculation 140.4 H (90-130) mL/min Glucose 140 H (65-115) mg/dL Calculated Osmolal ity 277 L (285-295) mOsm/k g Lactic Acid 1.2 (0.5-2.2) mmol/L Calcium 8.5 (8.5-10.5) mg/dL Total Bilirubin 0.6 (0.15-1.2) mg/dL AST 21 (0-40) U/L ALT 24 (0-41) U/L Alkaline Phosphata se 117 (40-130) IU/L Total Protein 6.9 (6.6-8.7) g/dL Albumin 3.6 (3.5-5.2) g/dL Globulin 3.3 (1.3-4.6) g/dL Lipase 35 (13-60) U/L Urine Color (Yellow) Urine Appearance (CLEAR) Urine pH (5-7) Ur Specific Gravit y (1.005-1.030) Urine Protein (Negative) Urine Glucose (UA) (Normal) Urine Ketones (Negative) Urine Blood (Negative) Urine Nitrate (Negative) Urine Bilirubin (Negative) Urine Urobilinogen (Negative) mg/dL Ur Leukocyte Tresa ase (Negative) 10/16/20 Range/Units 03:20 WBC (4.0-10.0) 10^3/ uL RBC (4.1-5.3) 10^6/u L Hgb (11.7-16.6) g/dL Hct (42.0-52.0) % MCV (80-94) fL MCH (28.0-34.0) pg MCHC (30.0-36.0) g/dL RDW (12.1-15.1) % Plt Count (130-400) 10^3/c mm MPV (7.4-10.4) fL Neut % (Auto) % Lymph % (Auto) % [place] % (Auto) % Eos % (Auto) % Baso % (Auto) % Neut # (Auto) (1.8-7.7) 10^3/u L Lymph # (Auto) (0.8-4.8) 10^3/u L [place] # (Auto) (0.2-0.9) 10^3/u L Eos # (Auto) (0.0-0.8) 10^3/u L Baso # (Auto) (0.0-0.1) 10^3/u L Nucleated RBC % (a uto) % Nucleated RBCs # /100WBC Sodium (136-145) mmol/L Potassium (3.5-5.1) mmol/L Chloride (98-107) mmol/L Carbon Dioxide (22-29) mmol/L Anion Gap (5-19) BUN (6-20) mg/dL Creatinine (0.7-1.2) mg/dL GFR Calculation (90-130) mL/min Glucose (65-115) mg/dL Calculated Osmolal ity (285-295) mOsm/k g Lactic Acid (0.5-2.2) mmol/L Calcium (8.5-10.5) mg/dL Total Bilirubin (0.15-1.2) mg/dL AST (0-40) U/L ALT (0-41) U/L Alkaline Phosphata se (40-130) IU/L Total Protein (6.6-8.7) g/dL Albumin (3.5-5.2) g/dL Globulin (1.3-4.6) g/dL Lipase (13-60) U/L Urine Color Yellow (Yellow) Urine Appearance Clear (CLEAR) Urine pH 6 (5-7) Ur Specific Gravit y 1.020 (1.005-1.030) Urine Protein Neg (Negative) Urine Glucose (UA) Norm (Normal) Urine Ketones Negative (Negative) Urine Blood Neg (Negative) Urine Nitrate Negative (Negative) Urine Bilirubin Neg (Negative) Urine Urobilinogen Norm (Negative) mg/dL Ur Leukocyte Tresa ase Negative (Negative) Discharge Plan Discharge Patient Disposition: Xfer Short-Term Hosp Clinical Impression: Abdominal fluid collection Abdominal pain Qualifiers: Abdominal location: left upper quadrant Qualified Code(s): R10.12 - Left upper quadrant pain Condition: Stable Referrals: Luz Thomas DO [Primary Care Provider] - Patient Instructions: Abdominal Pain (ED) Coding Level of Care Code ED Zinc Etcher for g Fwd Exam Detailed
[2020-10-16 02:06] LABS: Basophils # 0.1 10^3/uL (0.0-0.1); Basophils % 0.6 %; Eosinophils # 0.3 10^3/uL (0.0-0.8); Eosinophils % 1.5 %; Hematocrit 46.5 % (42.0-52.0); Hemoglobin 14.7 g/dL (11.7-16.6); Lymphocytes # 3.2 10^3/uL (0.8-4.8); Mean Corpuscular HGB Conc 31.6 g/dL (30.0-36.0); Mean Corpuscular Hemoglobin 27.4 pg (28.0-34.0); Mean Corpuscular Volume 86.6 fL (80-94); Mean Platelet Volume 9.7 fL (7.4-10.4); Monocytes # 1.9 10^3/uL (0.2-0.9); Monocytes % 11.1 %; Neutrophils % 67.4 %; Nucleated Red Blood Cells % 0 %; Platelet Count 586 10^3/cmm (130-400); Red Blood Count 5.37 10^6/uL (4.1-5.3); Red Cell Distribution Width 15.5 % (12.1-15.1); White Blood Count 16.9 10^3/uL (4.0-10.0)
[2020-10-16 02:21] LABS: Alanine Aminotransferase 24 U/L (0-41); Albumin Level 3.6 g/dL (3.5-5.2); Alkaline Phosphatase 117 IU/L (40-130); Anion Gap 13.3 (5-19); Aspartate Amino Transferase 21 U/L (0-40); Blood Urea Nitrogen 9 mg/dL (6-20); Calcium 8.5 mg/dL (8.5-10.5); Carbon Dioxide 27 mmol/L (22-29); Chloride 97 mmol/L (98-107); Globulin 3.3 g/dL (1.3-4.6); Glomerular Filtration Rate 140.4 mL/min (90-130); Glucose 140 mg/dL (65-115); Lipase 35 U/L (13-60); Osmolality Calculated 277 mOsm/kg (285-295); Potassium 4.3 mmol/L (3.5-5.1); Sodium 133 mmol/L (136-145); Total Bilirubin 0.6 mg/dL (0.15-1.2); Total Protein 6.9 g/dL (6.6-8.7)
[2020-10-16 02:22] LABS: Lactic Sepsis W/Reflex 1.2 mmol/L (0.5-2.2)
[2020-10-16 03:21] VITALS: BP 133/81; PULSE 87; RESP 16; O2SAT 96
[2020-10-16 03:26] LABS: Add Urine Microscopic? NO; Charge for UA Resulting for Rev
[2020-10-16 03:28] LABS: Bilirubin Urine Neg (Negative); Blood Urine Neg (Negative); Glucose Urine UA Norm (Normal); Ketones Urine Negative (Negative); Leukocyte Esterase Urine Negative (Negative); Nitrate Urine Negative (Negative); Protein Urine Neg (Negative); Urine Appearance Clear (CLEAR); Urine Color Yellow (Yellow); Urobilinogen Urine Norm (Negative); pH Urine 6 (5-7)
[2020-10-16] MEDS: iohexol 350 mg/mL 100 mL Btl IV (03:36)
[2020-10-16 04:03] VITALS: BP 136/89; PULSE 111; RESP 19; O2SAT 97
[2020-10-16] MEDS: ondansetron 2 mg/ML SDV 2 mL 4 MG IVP (05:37)
[2020-10-16] MEDS: morphine 4 mg/mL SDV 1 mL IVP (05:38)
[2020-10-16 05:40] VITALS: BP 136/89; PULSE 111; RESP 19; O2SAT 97
--- NOTE | 2020-10-16 05:53 | PC.NURSE ---
Report called to Antonio Goldstein RN at [facility] at 1426
[2020-10-16] MEDS: HYDROmorphone 1 mg/mL INJ 1 mL IVP (06:52)
== END 2020-10-16 06:58 | disposition short-term general hospital (02) ==
PROVIDERS: Physician Assistant; Emergency Provider Emergency Medicine; PCP Internal Medicine
DX: R10.12 Left upper quadrant pain (principal); R18.8 Other ascites; J44.9 Chronic obstructive pulmonary disease, unspecified; Z87.891 Personal history of nicotine dependence
CPT/HCPCS: 71045; 71275; 74177; 80053; 81003; 83605; 83690; 85025; 87040; 93971; 96374; 96375; 99285; J1170; J2270; J2405; Q9967

== ENCOUNTER → 2020-10-19 08:26 | Outpatient (BNVA) | payer MEDICAID, SELFPAY ==
[2020-06-24 09:44] VITALS: BP 136/85; BMI 41.3
== END ==
PROVIDERS: Family Provider Nurse Practitioner; PCP Internal Medicine; Visit Provider Counselor Mental Health
DX: F06.32 Mood disorder due to known physiological condition with major depressive-like episode (principal); F32.9 Major depressive disorder, single episode, unspecified; G47.00 Insomnia, unspecified
CPT/HCPCS: 90832

== ENCOUNTER 2020-10-24 15:08 | Outpatient (CLI) | payer MEDICAID, SELFPAY ==
[2020-06-24 09:44] VITALS: BP 136/85; BMI 41.3
--- NOTE | 2020-10-24 15:26 | XRR_ITS ---
PROCEDURE INFORMATION: Exam: XR Chest Exam date and time: 10/24/2020 3:53 PM Age: 54 years old Clinical indication: Condition or disease; Lung condition and disease; Pleural effusion; Other: Not specified; Prior surgery; Surgery type: Pancreatic, t12, hernia; Patient HX: HX of pancreatic cancer; Additional info: Pleural effuison TECHNIQUE: Imaging protocol: XR of the chest. Views: 2 views. Total images: 2 COMPARISON: 1. CR XR chest 1V portable [id number] 10/16/2020 1:[address] angio chest w abd pel w con 10/16/2020 3:40:18 AM FINDINGS: Tubes, catheters and devices: Interpedicle screw and sidebar fixation device. Lungs: Cardiac structures and configuration stable. Pleural spaces: Moderate volume left pleural effusion. Heart/Mediastinum: Silhouetting of the left hemidiaphragm and left heart border consistent with consolidated alveolar airspace disease of the lingula and left lower lobe which could reflect atelectasis, focal edema, and/or pneumonia. Right lung clear. Bones/joints: Old right clavicle fracture. Intervertebral disc prosthesis. XR/XR chest 2V* [id number] IMPRESSION: 1. Moderate volume left pleural effusion. 2. Left lower lobe and lingula consolidated alveolar airspace disease.
--- NOTE | 2020-10-24 15:26 | XRR_ITS ---
PROCEDURE INFORMATION: Exam: XR Abdomen Exam date and time: 10/24/2020 3:53 PM Age: 54 years old Clinical indication: Condition or disease; Ascites; Prior surgery; Surgery type: Pancreatic, t-12, hernia; Patient HX: HX of pancreatic cancer TECHNIQUE: Imaging protocol: XR of the abdomen. Views: 2 Views. Upright and supine views. Total images: 3 COMPARISON: CT angio chest w abd pel w con 10/16/2020 3:40 AM FINDINGS: Pleural space: Moderate volume left pleural effusion. Gastrointestinal tract: Heavy fecal residue consistent with constipation. Nonobstructive bowel pattern. No visible adynamic or reactive ileus. Intraperitoneal space: No visible pneumoperitoneum. Organs: Cholelithiasis. Bones/joints: Interpedicle screw and side bar fixation T9 through L3. Other findings: Hepatomegaly. XR/XR abdomen min 2V [id number] IMPRESSION: 1. Heavy fecal residue consistent with constipation. 2. Moderate volume left pleural effusion. 3. Cholelithiasis.
== END 2020-10-24 15:09 | disposition home or self-care (01) ==
PROVIDERS: PCP Internal Medicine; Visit Provider Internal Medicine
DX: R18.8 Other ascites (principal); J90 Pleural effusion, not elsewhere classified; K80.20 Calculus of gallbladder without cholecystitis without obstruction
CPT/HCPCS: 71046; 74019

== ENCOUNTER → 2020-10-26 08:20 | Outpatient (BNVA) | payer MEDICAID, SELFPAY ==
[2020-06-24 09:44] VITALS: BP 136/85; BMI 41.3
== END ==
PROVIDERS: PCP Internal Medicine; Visit Provider Counselor Mental Health
DX: F06.32 Mood disorder due to known physiological condition with major depressive-like episode (principal); F32.9 Major depressive disorder, single episode, unspecified; G47.00 Insomnia, unspecified
CPT/HCPCS: 90834

== ENCOUNTER 2020-10-31 15:18 | Outpatient (CLI) | payer MEDICAID, SELFPAY ==
[2020-06-24 09:44] VITALS: BP 136/85; BMI 41.3
--- NOTE | 2020-10-31 16:29 | ONC FU_ITS ---
Dr. Guy follow up note Patient: Iqra Meredith Unit #: [id number]: [id number] Dicatated By: Dale Guy M.D.Date of Visit:October 31, 2020 Onc Med Follow-up/Prog Note History of Present Illness: Mr. Iqra Meredith, is a 54-year-old gentleman with a history of pancreatic mass since July 2019, as per patient at that time he was admitted to hospital with pneumonia and scans done at that time shows incidental finding of pancreatic body/tail mass and patient was referred to Dr. Mcbride in [place] for evaluation but due to Covid related issue, there was delay in surgical consultation eventually on April 08, 2020 patient underwent MRI scan of abdomen with and without contrast and it showed rounded hypervascular mass arising from the pancreatic tail which contain a capsule and demonstrates a central area of calcification. No associated adenopathy or metastatic foci associated with this abnormality and shown some mild increase in size since previous exam done in August 2019. Small right-sided adrenal nodule demonstrating features of benign adrenal adenoma, patient was evaluated by Dr. Mcbride on May 09, 2020 and at that time patient reported no episode of hyper or hypoglycemia, no diarrhea, no facial flushing, no unintentional weight loss, as per patient and medical record, patient was advised for EUS and left pancreatectomy and splenectomy was recommended and presplenectomy vaccination was given to the patient. Patient underwent EUS Showed 3.9 x 3.8 cm tail of the pancreas mass with central calcification and shadowing and FNA of pancreatic tail mass on July 12, 2020 and final pathology report came back well-differentiated neuroendocrine tumor tumor cells are positive for synaptophysin and chromogranin and Ki-67 was less than 1%. Patient came to see us for second opinion regarding nonsurgical options, Eventually patient decided to go for surgery and on September 20, 2020 he underwent laparoscopic left pancreatectomy and splenectomy and final pathology report confirmed well-differentiated neuroendocrine tumor, less than 2 mitosis per 2 mm, Ki-67 was approximately 6%, all margins clear. 0 of 5 lymph node positive for metastatic disease. No lymphovascular or perineural invasion seen. pT2, N0 Lab work-up done on October 10, 2020 showed gastrin less than 15, serotonin 207, chromogranin A level 187, normal less than 311, 24-hour urine for 5-HIAA 4.5, normal being less than 6 Patient denies any history of alcohol use or smoking Patient denies any history of diarrhea or facial flushing, denies any wheezing, denies any abdominal pain denies any jaundice denies any back pain. Denies any weight loss Denies any indigestion or hyperacidity , Came for follow-up, complaining of generalized weakness and fatigue, patient is on narcotics for chronic injuries due to work-related accident, also on CPAP and using home oxygen. His diarrhea is improving. No melena hematochezia, no hemoptysis or hematemesis, no jaundice, no facial flushing, no wheezing Medications: A Thru Z Select 50+ Mens Tablet Oral daily, buPROPion HCl (100 mg) Tablet Oral daily, buPROPion HCl ER (SR) (150 mg) Tablet SR 12 HR Oral daily, Dulcolax Stool Softener Capsule Oral daily, Gabapentin (300 mg) Capsule Oral b.i.d., Glucophage (1000 mg) Tablet Oral b.i.d., HYDROcodone-Acetaminophen (5-325 mg) Tablet Oral t.i.d., Mobic (15 mg) Tablet Oral daily, traZODone HCl (150 mg) Tablet Oral at bedtime Allergies: No Known Allergies. Review of Systems: Review of Systems is not available for this patient. Vital Signs: Performed on October 31, 2020 15:51 Weight - 266 lbs (LOW) BSA - 0.00 sq.m BMI - 0.00 Temperature - 97.6 F (LOW) Pulse - 97 /min Respiration - 18 /min BP - 152/92 mm(hg) (HIGH) O2 Sat - 94 % (LOW) Pain - 4 Performance Status: 1 - No physically strenuous activity, but ambulatory and able to carry out light or sedentary work (e.g. office work, light house work). (ECOG) Physical Examination: ENMT - No mouth sores, no thrush, no jaundice, Respiratory - Lungs are clear to auscultation, Cardiovascular - Regular rate and rhythm of heart, Abdomen - Soft, bowel sounds present, Extremities - No visible edema. Lab/Imaging: Most recent lab results are not available for this patient. Impression: Well-differentiated neuroendocrine tumor of pancreatic tail per EUS/FNA done on July 12, 2020 which showed 3.9 x 3.8 cm mass with central calcification and shadowing. Immunohistochemistry were positive for synaptophysin and chromogranin, Ki-67 was less than 1% Status post laparoscopic left pancreatectomy and splenectomy,Done on September 20, 2020 final pathology report showed 3.5 cm, well-differentiated neuroendocrine tumor, mitotic rate less than 2 mitosis per millimeter square, Ki-67 proximately 6%, margins clear, no lymphovascular or perineural invasion seen., 0 out of 5 lymph node positive for metastatic disease., PT2N0 Labs checked on October 11, 2020 Showed serotonin, chromogranin A, gastrin level, 24-hour urine for 5-HIAA level all came back within normal range, MRI scan of the abdomen done on April 08, 2020 showed rounded hypervascular mass arising from the pancreatic tail which contain capsule and demonstrate a central area of calcification with no associated adenopathy or metastatic disease Chronic generalized body pains/chronic back pain due to work-related injuries, COPD/sleep apnea, on home oxygen and CPAP machine Plan: Discussed with patient regarding his lab work-up which include serotonin, chromogranin A, gastrin level, 24-hour urine for 5-HIAA level all came back within normal range, patient has no signs symptoms suggestive of secretory carcinoid tumor. Patient is awaiting endocrinology evaluation for evaluation regarding MEN 1 As for generalized weakness and fatigue is concerned probably multifactorial including narcotics, decreased mobility due to chronic injuries, Return to clinic in 2 months with CBC CMP and follow-up CT scan of abdomen pelvis Signed By: Dale Guy M.D. <<Signature on File>>
== END 2020-10-31 15:19 | disposition home or self-care (01) ==
LOC: ONCMED 15:19
PROVIDERS: PCP Internal Medicine; Visit Provider Internal Medicine Hematology & Oncology
DX: C7A.8 Other malignant neuroendocrine tumors (principal); R79.89 Other specified abnormal findings of blood chemistry; G89.29 Other chronic pain; M54.5 Low back pain; J44.9 Chronic obstructive pulmonary disease, unspecified; G47.33 Obstructive sleep apnea (adult) (pediatric); Z99.81 Dependence on supplemental oxygen; Z79.899 Other long term (current) drug therapy
CPT/HCPCS: 99214

== ENCOUNTER → 2020-11-01 09:04 | Outpatient (BNVA) | payer MEDICAID, SELFPAY ==
[2020-06-24 09:44] VITALS: BP 136/85; BMI 41.3
== END ==
PROVIDERS: Family Provider Nurse Practitioner; PCP Internal Medicine; Visit Provider Nurse Practitioner Psychiatric/Mental Health
DX: F06.32 Mood disorder due to known physiological condition with major depressive-like episode (principal); G47.00 Insomnia, unspecified; M54.5 Low back pain; G89.29 Other chronic pain
CPT/HCPCS: 99213

== ENCOUNTER → 2020-11-02 08:01 | Outpatient (BNVA) | payer MEDICAID, SELFPAY ==
[2020-06-24 09:44] VITALS: BP 136/85; BMI 41.3
== END ==
PROVIDERS: Family Provider Nurse Practitioner; PCP Internal Medicine; Visit Provider Counselor Mental Health
DX: F06.32 Mood disorder due to known physiological condition with major depressive-like episode (principal); F32.9 Major depressive disorder, single episode, unspecified; G47.00 Insomnia, unspecified
CPT/HCPCS: 90834

== ENCOUNTER 2020-11-05 10:43 | Emergency (ER) | payer MEDICAID, SELFPAY ==
[2020-06-24 09:44] VITALS: BP 136/85; BMI 41.3
[2020-11-05 11:05] VITALS: BP 131/84; PULSE 108; RESP 18; TEMP 37.2; O2SAT 91; BMI 37.3
--- NOTE | 2020-11-05 11:16 | XRR_ITS ---
PROCEDURE INFORMATION: Exam: XR Chest Exam date and time: 11/05/2020 11:18 AM Age: 54 years old Clinical indication: Shortness of breath; Additional info: Shortness of breath/pleural effusion TECHNIQUE: Imaging protocol: XR of the chest. Views: 1 view. COMPARISON: CR XR chest 2V* [id number] 10/24/2020 3:35 PM FINDINGS: Lungs: Interstitial prominence. Extensive left basilar airspace/pleural disease obscuring the left hemidiaphragm and the inferior left heart border. Mild right basilar airspace/pleural disease. Heart/Mediastinum: No cardiomegaly. Bones/joints: Old right clavicular fracture. Surgical hardware in the thoracic spine. Degenerative change. XR/XR chest 1V portable [id number] IMPRESSION: 1. Extensive left basilar airspace/pleural disease obscuring the left hemidiaphragm and the inferior left heart border. 2. Additional findings as described above. Impression.
--- NOTE | 2020-11-05 11:17 | ED_ITS ---
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 Patient states that he subsequently developed a lot of ascites and pleural effusion. Patient had a thoracentesis yesterday at [facility] in [facility] with Dr. Mcbride. Patient was reportedly advised to come to the emergency department patient developed a fever. Patient did have a fever of greater than 101 that has been intermittent since yesterday would come down intermittently with aspirin but then returned back. Patient angry and having issues with shortness of breath and tenderness to the abdomen. Will do medical evaluation treat as needed. MD elicited complaint: abdominal pain Pertinent past history: none Pain Consistency: intermittent Severity: moderate Pain scale (0-10): 5 Associated Symptoms: Reports fever(s); Denies chills, dysuria, nausea and vomiting Review of Systems General: Reports: 10 or more systems reviewed and unremarkable except in HPI and below Const: Reports: fever(s); Denies: chills Eyes: Denies: change in vision or blurry vision ENMT: Denies: throat pain, hoarseness or mouth pain Card: Denies: chest pain, palpitations, irregular heart rhythm, edema, swelling of feet/ankles or lightheadedness Resp: Reports: dyspnea; Denies: productive cough, non-productive cough, wheezing or pain on inspiration GI: Reports: abdominal pain; Denies: nausea or vomiting : Denies: dysuria Musc: Denies: neck pain, back pain, extremity pain, extremity swelling, joint pain, joint swelling, joint redness, joint warmth or limited range of motion Skin/Breast: Denies: rash, pruritus, erythema or skin tenderness Neuro: Denies: headache(s), numbness in extremities or weakness in extremities Psych: Denies: anxiety or depression PFSH ED PFSH: Medical History Cellulitis and abscess of left leg COPD (chronic obstructive pulmonary disease) Depression Encounter for long-term opiate analgesic use Lumbar back pain with radiculopathy affecting right lower extremity Nicotine dependence with current use Not interested in smoking cessation. 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 History of spinal fusion S/P hernia repair (~12/2013) UMBILICAL HERNIA REPAIR Family History Mother Diabetes CAD (coronary artery disease) Psychiatric illness Stroke Cancer UTERINE CANCER Other Family history of premature coronary artery disease Social History Smoking and tobacco status: former smoker Quit status (tobacco): has quit using tobacco Second hand smoke exposure: No Alcohol intake: current Desire information about alcohol rehabilitation?: No Adopted: No Caregiver/support person: No Lives independently: Yes Household members: spouse, family and children Housing: Manufactured/Mobile home Marital status: Number of children: 2 Number of grandchildren: 3 Highest education level completed: Some College, No Degree service: No Current occupational status: disabled Pets and animals: Yes Pets & animals: cat(s), dog(s), farm animals and other Pets & animal details: rabbits History of recent travel: No Leisure activites: games Current gender identity: Male Rosey/Congregation: Other Special rosey needs: No Agree to transfusion: Yes Financial difficulty paying for basics: Hard Physical Exam Const: COMMON NORMALS: no acute distress, average body habitus, patient oriented x3, no limitations, healthy appearing, alert and well nourished HENMT: COMMON NORMALS: normocephalic, atraumatic, external ears normal, EAC's normal, TM's normal bilaterally, Normal external nose present and Normal nasal mucous membranes and turbinates present HEAD & SCALP: normocephalic and atraumatic NOSE: Normal external nose present and Normal nasal mucous membranes and turbinates present EXTERNAL EAR: Yes external ears normal EXTERNAL AUDITORY CANAL: EAC's normal TYMPANIC MEMBRANE: TM's normal bilaterally Neck/C-Spine: COMMON NORMALS: full ROM, no lymphadenopathy, supple, no meningeal signs, no JVD, Thyroid normal and No carotid bruits THYROID: Thyroid normal Chest: COMMONS NORMALS: normal inspection of the chest, normal palpation of entire chest wall, normal inspection of the breasts and normal palpation of the breasts Breast/axilla inspection: Yes normal inspection of the breasts BREAST/AXILLA PALPATION: Yes normal palpation of the breasts Resp: COMMON NORMALS: normal respiratory effort, No retractions, No use of ac cessory muscles, clear to auscultation bilaterally and percussion normal EFFORT & INSPECTION: Yes tachypneic AUSCULTATION: clear to auscultation bilaterally and diminished lung sounds PERCUSSION: percussion normal Cardio: COMMON NORMALS: no JVD, regular rate, regular rhythm, S1 normal heart sound present, S2 normal heart sound present, No gallops present (Cardio), No clicks present (Cardio), No murmurs present (Cardio), No rub (Cardio) and Peripheral pulses 2+ throughout RATE: regular rate RHYTHM: regular rhythm HEART SOUNDS: S1 normal heart sound present and S2 normal heart sound present PERIPHERAL PULSES: Peripheral pulses 2+ throughout GI: COMMON NORMALS: Normal to inspection, nondistended, normoactive bowel sounds present, non-tender, No hepatosplenomegaly present, no masses and no bruits PALPATION: Yes Firmness to palpation present (GI), Yes Tenderness to palpation present (GI) and Yes No hepatosplenomegaly present : COMMON NORMALS: Yes no CVA tenderness BLADDER/KIDNEY EXAM: Yes no CVA tenderness Back/Pelvis: COMMON NORMALS: no CVA tenderness, thoracic and lumbar spine normal to inspection, no thoracic nor lumbar tenderness, thoraco-lumbar ROM normal and straight leg raise negative bilaterally Extremity: COMMON NORMALS: normal to inspection, full ROM, capillary refill normal, no joint enlargement, no clubbing, cyanosis or edema, no calf tenderness and no pedal edema Neuro: COMMON NORMALS: patient oriented x3 SENSORIUM/ORIENTATION: Yes alert MENINGEAL SIGNS: Yes no meningeal signs Course Reevaluation(s): Reevaluation #1: Patient doing well with no complaints. Discussed options with patient about being transferred to [facility] in [place] for further evaluation and treatment for area of concern for lung pneumonia. And intermittent fevers. Versus treatment as an outpatient and followed up as an outpatient. Patient declines transfer and wishes to be discharged home he is aware of my conversation with Dr. Cloud and states understanding and is thankful. Patient is to follow the following instructions. Continue home O2. Use incent adam spirometer as discussed. ProAir puffer inhaler as needed. Finish all antibiotics. His symptoms fail to improve or worsen he may return to the emergency department either here or at [facility]. Follow-up with primary care and specialist as instructed in the next 2 to 3 days. Time: 13:14 Consultations: Consultation #1: I discussed at length with Dr. Cloud at [facility] we did reviewed the patient's chart and recent procedures at [facility] for thoracentesis and his procedure to remove a mass off of his pancreas. He agrees to accept this patient for transfer if needed will discuss further with patient about options. He also stated it would be okay to follow-up as an outpatient if patient wishes or desires. 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 Patient states that he subsequently developed a lot of ascites and pleural effusion. Patient had a thoracentesis yesterday at [facility] in [facility] with Dr. Mcbride. Patient was reportedly advised to come to the emergency department patient developed a fever. Patient did have a fever of greater than 101 that has been intermittent since yesterday would come down intermittently with aspirin but then returned back. Patient angry and having issues with shortness of breath and tenderness to the abdomen.I discussed at length with Dr. Cloud at [facility] we did reviewed the patient's chart and recent procedures at [facility] for thoracentesis and his procedure to remove a mass off of his pancreas. He agrees to accept this patient for transfer if needed will discuss further with patient about options. He also stated it would be okay to follow-up as an outpatient if patient wishes or desires. Patient doing well with no complaints. Discussed options with patient about being transferred to [facility] in [place] for further evaluation and treatment for area of concern for lung pneumonia. And intermittent fevers. Versus treatment as an outpatient and followed up as an outpatient. Patient declines transfer and wishes to be discharged home he is aware of my conversation with Dr. Cloud and states understanding and is thankful. Patient is to follow the following instructions. Continue home O2. Use incentive spirometer as discussed. ProAir puffer inhaler as needed. Finish all antibiotics. His symptoms fail to improve or worsen he may return to the emergency department either here or at [facility]. Follow-up with primary care and specialist as instructed in the next 2 to 3 days. Medical Records: Attestation: I reviewed the patient's medical records. Lab Data: Attestation: I reviewed the patient's lab results. Labs: Lab Results 11/05/20 11/05/20 11/05/20 Range/Units 11:33 11:33 11:33 WBC 17.4 H (4.0-10.0) 10^3/ uL RBC 5.40 H (4.1-5.3) 10^6/u L Hgb 14.7 (11.7-16.6) g/dL Hct 46.7 (42.0-52.0) % MCV 86.5 (80-94) fL MCH 27.2 L (28.0-34.0) pg MCHC 31.5 (30.0-36.0) g/dL RDW 15.8 H (12.1-15.1) % Plt Count 538 H (130-400) 10^3/c mm MPV 10.0 (7.4-10.4) fL Neut % (Auto) 72.0 % Lymph % (Auto) 14.8 % Pickett % (Auto) 10.2 % Eos % (Auto) 2.0 % Baso % (Auto) 0.6 % Neut # (Auto) 12.53 H (1.8-7.7) 10^3/u L Lymph # (Auto) 2.6 (0.8-4.8) 10^3/u L Pickett # (Auto) 1.8 H (0.2-0.9) 10^3/u L Eos # (Auto) 0.4 (0.0-0.8) 10^3/u L Baso # (Auto) 0.1 (0.0-0.1) 10^3/u L Nucleated RBC % (a uto) 0 % Nucleated RBCs # 0.0 /100WBC ESR 67 H (0-10) mm/hr PT 14.20 (12.1-14.9) SECO NDS INR 1.07 (0.8-1.2) APTT 30.5 (23.9-36.7) SECO NDS Specimen Type Sample Site ABG pH (7.35-7.45) ABG pCO2 (35-45) mmHg ABG pO2 (80.0-100.0) mmH g ABG HCO3 (22-26) mmol/L ABG Base Excess (-2.0-2.0) mmol/ L Juan Antonio Test Hematocrit (42-52) % O2 Delivery Device O2 Liters/Min % FiO2 % House Fellow ID Sodium (136-145) mmol/L Potassium (3.5-5.1) mmol/L Chloride (98-107) mmol/L Carbon Dioxide (22-29) mmol/L Anion Gap (5-19) BUN (6-20) mg/dL Creatinine (0.7-1.2) mg/dL GFR Calculation (90-130) mL/min Glucose (65-115) mg/dL Calculated Osmolal ity (285-295) mOsm/k g Lactate (0.5-2.2) mmol/L Calcium (8.5-10.5) mg/dL Total Bilirubin (0.15-1.2) mg/dL AST (0-40) U/L ALT (0-41) U/L Alkaline Phosphata se (40-130) IU/L NT-Pro-B Natriuret Pep (0-125) pg/mL Total Protein (6.6-8.7) g/dL Albumin (3.5-5.2) g/dL Globulin (1.3-4.6) g/dL Lipase (13-60) U/L Urine Color (Yellow) Urine Appearance (CLEAR) Urine pH (5-7) Ur Specific Gravit y (1.005-1.030) Urine Protein (Negative) Urine Glucose (UA) (Normal) Urine Ketones (Negative) Urine Blood (Negative) Urine Nitrate (Negative) Urine Bilirubin (Negative) Urine Urobilinogen (Negative) mg/dL Ur Leukocyte Tresa ase (Negative) 11/05/20 11/05/20 11/05/20 Range/Units 11:33 11:33 12:02 WBC (4.0-10.0) 10^3/ uL RBC (4.1-5.3) 10^6/u L Hgb (11.7-16.6) g/dL Hct (42.0-52.0) % MCV (80-94) fL MCH (28.0-34.0) pg MCHC (30.0-36.0) g/dL RDW (12.1-15.1) % Plt Count (130-400) 10^3/c mm MPV (7.4-10.4) fL Neut % (Auto) % Lymph % (Auto) % Pickett % (Auto) % Eos % (Auto) % Baso % (Auto) % Neut # (Auto) (1.8-7.7) 10^3/u L Lymph # (Auto) (0.8-4.8) 10^3/u L Pickett # (Auto) (0.2-0.9) 10^3/u L Eos # (Auto) (0.0-0.8) 10^3/u L Baso # (Auto) (0.0-0.1) 10^3/u L Nucleated RBC % (a uto) % Nucleated RBCs # /100WBC ESR (0-10) mm/hr PT (12.1-14.9) SECO NDS INR (0.8-1.2) APTT (23.9-36.7) SECO NDS Specimen Type Arterial Sample Site Radial, left ABG pH 7.48 H (7.35-7.45) ABG pCO2 41.0 (35-45) mmHg ABG pO2 92.5 (80.0-100.0) mmH g ABG HCO3 30.2 H (22-26) mmol/L ABG Base Excess 6.0 H (-2.0-2.0) mmol/ L Juan Antonio Test Pos Hematocrit 46.4 (42-52) % O2 Delivery Device Nc O2 Liters/Min 2.0 % FiO2 28.0 % House Fellow ID Cak Sodium 137 (136-145) mmol/L Potassium 4.0 (3.5-5.1) mmol/L Chloride 99 (98-107) mmol/L Carbon Dioxide 29 (22-29) mmol/L Anion Gap 13.0 (5-19) BUN 7 (6-20) mg/dL Creatinine 0.6 L (0.7-1.2) mg/dL GFR Calculation 140.4 H (90-130) mL/min Glucose 128 H (65-115) mg/dL Calculated Osmolal ity 284 L (285-295) mOsm/k g Lactate 0.9 (0.5-2.2) mmol/L Calcium 8.8 (8.5-10.5) mg/dL Total Bilirubin 0.8 (0.15-1.2) mg/dL AST 37 (0-40) U/L ALT 54 H (0-41) U/L Alkaline Phosphata se 146 H (40-130) IU/L NT-Pro-B Natriuret Pep 25 (0-125) pg/mL Total Protein 7.9 (6.6-8.7) g/dL Albumin 3.5 (3.5-5.2) g/dL Globulin 4.4 (1.3-4.6) g/dL Lipase 14 (13-60) U/L Urine Color (Yellow) Urine Appearance (CLEAR) Urine pH (5-7) Ur Specific Gravit y (1.005-1.030) Urine Protein (Negative) Urine Glucose (UA) (Normal) Urine Ketones (Negative) Urine Blood (Negative) Urine Nitrate (Negative) Urine Bilirubin (Negative) Urine Urobilinogen (Negative) mg/dL Ur Leukocyte Tresa ase (Negative) 11/05/20 Range/Units 12:50 WBC (4.0-10.0) 10^3/ uL RBC (4.1-5.3) 10^6/u L Hgb (11.7-16.6) g/dL Hct (42.0-52.0) % MCV (80-94) fL MCH (28.0-34.0) pg MCHC (30.0-36.0) g/dL RDW (12.1-15.1) % Plt Count (130-400) 10^3/c mm MPV (7.4-10.4) fL Neut % (Auto) % Lymph % (Auto) % Pickett % (Auto) % Eos % (Auto) % Baso % (Auto) % Neut # (Auto) (1.8-7.7) 10^3/u L Lymph # (Auto) (0.8-4.8) 10^3/u L Pickett # (Auto) (0.2-0.9) 10^3/u L Eos # (Auto) (0.0-0.8) 10^3/u L Baso # (Auto) (0.0-0.1) 10^3/u L Nucleated RBC % (a uto) % Nucleated RBCs # /100WBC ESR (0-10) mm/hr PT (12.1-14.9) SECO NDS INR (0.8-1.2) APTT (23.9-36.7) SECO NDS Specimen Type Sample Site ABG pH (7.35-7.45) ABG pCO2 (35-45) mmHg ABG pO2 (80.0-100.0) mmH g ABG HCO3 (22-26) mmol/L ABG Base Excess (-2.0-2.0) mmol/ L Juan Antonio Test Hematocrit (42-52) % O2 Delivery Device O2 Liters/Min % FiO2 % House Fellow ID Sodium (136-145) mmol/L Potassium (3.5-5.1) mmol/L Chloride (98-107) mmol/L Carbon Dioxide (22-29) mmol/L Anion Gap (5-19) BUN (6-20) mg/dL Creatinine (0.7-1.2) mg/dL GFR Calculation (90-130) mL/min Glucose (65-115) mg/dL Calculated Osmolal ity (285-295) mOsm/k g Lactate (0.5-2.2) mmol/L Calcium (8.5-10.5) mg/dL Total Bilirubin (0.15-1.2) mg/dL AST (0-40) U/L ALT (0-41) U/L Alkaline Phosphata se (40-130) IU/L NT-Pro-B Natriuret Pep (0-125) pg/mL Total Protein (6.6-8.7) g/dL Albumin (3.5-5.2) g/dL Globulin (1.3-4.6) g/dL Lipase (13-60) U/L Urine Color Dark yellow (Yellow) Urine Appearance Clear (CLEAR) Urine pH 5 (5-7) Ur Specific Gravit y 1.020 (1.005-1.030) Urine Protein Neg (Negative) Urine Glucose (UA) Norm (Normal) Urine Ketones Negative (Negative) Urine Blood Neg (Negative) Urine Nitrate Negative (Negative) Urine Bilirubin 1+ H (Negative) Urine Urobilinogen 1 H (Negative) mg/dL Ur Leukocyte Tresa ase Negative (Negative) Imaging Data ^: CXR: Attestation: I personally reviewed and interpreted this imaging study as follows: Radiologist's impression: FINDINGS: Lungs: Interstitial prominence. Extensive left basilar airspace/pleural disease obscuring the left hemidiaphragm and the inferior left heart border. Mild right basilar airspace/pleural disease. Heart/Mediastinum: No cardiomegaly. Bones/joints: Old right clavicular fracture. Surgical hardware in the thoracic spine. Degenerative change. XR/XR chest 1V portable [id number] IMPRESSION: 1. Extensive left basilar airspace/pleural disease obscuring the left hemidiaphragm and the inferior left heart border. Discharge Plan Discharge Patient Disposition: Home Clinical Impression: Pneumonia, COPD (chronic obstructive pulmonary disease), Status post thoracentesis Condition: Stable Prescriptions: New ProAir HFA 90 mcg/actuation HFA aerosol inhaler 2 inh inhalation Q4H PRN (Reason: shortness of breath or wheezing) Qty: 8.5 RF: 0 Zithromax 250 mg tablet See Rx Instructions .ROUTE .COMPLEX Qty: 6 RF: 0 No Action docusate sodium 100 mg capsule 100 mg PO DAILY RF: 0 hydrocodone-acetaminophen 5-325 mg tablet 1 tab PO TID PRN (Reason: pain) 30 Days Qty: 90 RF: 0 gabapentin 300 mg capsule 300 mg PO BID Qty: 60 RF: 1 meloxicam 15 mg tablet 15 mg PO DAILY 30 Days Qty: 30 RF: 1 albuterol sulfate [ProAir HFA] 90 mcg/actuation HFA aerosol inhaler 1 inh INHALATION DAILY RF: 0 methocarbamol 500 mg tablet 500 mg PO TID PRN (Reason: muscle spasticity) Qty: 90 RF: 2 metformin 500 mg tablet 1,000 mg PO BID RF: 0 multivitamin Tablet 1 tab PO DAILY RF: 0 (DME) oxygen-air delivery systems Device See Rx Instructions .ROUTE RF: 0 L.acidoph,saliva-B.bif-S.therm [Acidophilus Probiotic Blend] 175 mg capsule 1 cap PO DAILY RF: 0 trazodone 150 mg tablet 150 mg PO .1/2-1 HS PRN (Reason: insomnia) Qty: 30 RF: 2 bupropion HCl 200 mg tablet sustained-release 12 hr 200 mg PO DAILY RF: 0 Discharge Orders: Discharge ED (Routine); Ordered 11/05/20 Ordered By: Mathieu Terry Referrals: Luz Thomas DO [Primary Care Provider] - Discharge Diet: Usual diet Discharge Activity: Resume usual activity Patient Instructions: Opioid Safety Activity Restrictions/Additional Instructions: Patient is to follow the following instructions. Continue home O2. Use incentive spirometer as discussed. ProAir puffer inhaler as needed. Finish all antibiotics. His symptoms fail to improve or worsen he may return to the emergency department either here or at [facility]. Follow-up with primary care and specialist as instructed in the next 2 to 3 days. Coding Level of Care Code ED Safe And Vault Mechanic for Dilshad Bowens Exam Comprehensive
[2020-11-05 11:45] LABS: Basophils # 0.1 10^3/uL (0.0-0.1); Basophils % 0.6 %; Eosinophils # 0.4 10^3/uL (0.0-0.8); Hematocrit 46.7 % (42.0-52.0); Hemoglobin 14.7 g/dL (11.7-16.6); Lymphocytes # 2.6 10^3/uL (0.8-4.8); Lymphocytes % 14.8 %; Mean Corpuscular HGB Conc 31.5 g/dL (30.0-36.0); Mean Corpuscular Hemoglobin 27.2 pg (28.0-34.0); Mean Corpuscular Volume 86.5 fL (80-94); Monocytes # 1.8 10^3/uL (0.2-0.9); Monocytes % 10.2 %; Neutrophils # 12.53 10^3/uL (1.8-7.7); Nucleated Red Blood Cells % 0 %; Platelet Count 538 10^3/cmm (130-400); Red Cell Distribution Width 15.8 % (12.1-15.1); White Blood Count 17.4 10^3/uL (4.0-10.0)
[2020-11-05 12:01] LABS: INR 1.07 (0.8-1.2)
[2020-11-05 12:02] LABS: Partial Thromboplastin Time 30.5 SECONDS (23.9-36.7)
[2020-11-05 12:14] LABS: ABG PH Result 7.48 (7.35-7.45); Arterial Blood Gas Hematocrit 46.4 % (42-52); Blood Gas Allen Test Pos; Blood Gas Operator Identificat CAK; Blood Gas Sample Site Radial, left; Blood Gas Sample Type Arterial; HCO3 ABG 30.2 mmol/L (22-26); Oxygen Device NC; PO2 ABG 92.5 mmHg (80.0-100.0)
[2020-11-05 12:18] LABS: Lactate (Lactic Acid level) 0.9 mmol/L (0.5-2.2)
[2020-11-05 12:28] LABS: Alanine Aminotransferase 54 U/L (0-41); Albumin Level 3.5 g/dL (3.5-5.2); Alkaline Phosphatase 146 IU/L (40-130); Aspartate Amino Transferase 37 U/L (0-40); Blood Urea Nitrogen 7 mg/dL (6-20); Calcium 8.8 mg/dL (8.5-10.5); Carbon Dioxide 29 mmol/L (22-29); Chloride 99 mmol/L (98-107); Globulin 4.4 g/dL (1.3-4.6); Glomerular Filtration Rate 140.4 mL/min (90-130); Glucose 128 mg/dL (65-115); Lipase 14 U/L (13-60); NT Pro B Type Natriuretic Pept 25 pg/mL (0-125); Osmolality Calculated 284 mOsm/kg (285-295); Sodium 137 mmol/L (136-145); Total Bilirubin 0.8 mg/dL (0.15-1.2); Total Protein 7.9 g/dL (6.6-8.7)
[2020-11-05 12:32] LABS: Erythrocyte Sedimentation Rate 67 mm/hr (0-10)
[2020-11-05 13:00] LABS: Add Urine Microscopic? NO; Charge for UA Resulting for Rev
[2020-11-05] MEDS: cefTRIAXone 1,000 MG in sodium chloride 0.9% (plus) 50 ML 100 MG IV (13:02)
[2020-11-05 13:03] LABS: Bilirubin Urine 1+ (Negative); Blood Urine Neg (Negative); Glucose Urine UA Norm (Normal); Ketones Urine Negative (Negative); Leukocyte Esterase Urine Negative (Negative); Nitrate Urine Negative (Negative); Protein Urine Neg (Negative); Urine Appearance Clear (CLEAR); Urine Color Dark Yellow (Yellow); Urobilinogen Urine 1 mg/dL (Negative); pH Urine 5 (5-7)
[2020-11-05 13:23] VITALS: PULSE 78; RESP 17; O2SAT 95
[2020-11-05 13:36] VITALS: BP 152/96; PULSE 104; RESP 18; O2SAT 94
[2020-11-05 13:46] VITALS: BP 152/74; PULSE 107; RESP 18; O2SAT 96
== END 2020-11-05 13:47 | disposition home or self-care (01) ==
PROVIDERS: Emergency Provider Emergency Medicine; PCP Internal Medicine
DX: J44.0 Chronic obstructive pulmonary disease with (acute) lower respiratory infection (principal); J18.9 Pneumonia, unspecified organism; Z87.891 Personal history of nicotine dependence
CPT/HCPCS: 36600; 71045; 80053; 81003; 82803; 83605; 83690; 83880; 85025; 85610; 85651; 85730; 87040; 96365; 99284; J0696

== ENCOUNTER 2020-11-14 21:38 | Emergency (ER) | payer MEDICAID, SELFPAY ==
[2020-06-24 09:44] VITALS: BP 136/85; BMI 41.3
[2020-11-14 22:11] VITALS: BP 114/74; PULSE 108; RESP 24; TEMP 37.2; O2SAT 94; BMI 36.7
--- NOTE | 2020-11-14 22:15 | XRR_ITS ---
PROCEDURE INFORMATION: Exam: XR Chest Exam date and time: 11/14/2020 10:52 PM Age: 54 years old Clinical indication: Cough and fever and shortness of breath; Additional info: Cough, nausea, fever TECHNIQUE: Imaging protocol: XR of the chest. Views: 2 views. COMPARISON: CR (CHEST, ) 11/05/2020 11:30 AM FINDINGS: Ill-defined opacification at each lung base is most compatible with atelectasis/infiltrate with adjacent pleural effusion, mild on right and prominent on left, again demonstrated. Much of cardiac silhouette is obscured. No significant vascular congestion is demonstrated. There is scattered pulmonary scarring bilaterally. There is old fracture of midshaft right clavicle . Metallic hardware projects over visualized thoracic spine. XR/XR chest 2V* [id number] IMPRESSION: Ill-defined opacification at each lung base is most compatible with atelectasis/infiltrate with adjacent pleural effusion, mild on right and prominent on left, again demonstrated. Much of cardiac silhouette is obscured.
--- NOTE | 2020-11-14 22:42 | ED_ITS ---
HPI - Fever General: Chief Complaint: Fever Stated Complaint: fever, n/v, cough Time Seen by Provider: 11/14/20 22:41 Source: patient Mode of arrival: ambulatory Limitations: no limitations History of Present Illness: HPI Narrative: Mr. Iqra Meredith, is a 54-year-old male patient presents with c/o fever SOB and just not feeling well. Pt with a history of pancreatic mass which had removed September 20, 2020 he underwentlaparoscopic left pancreatectomy and splenectomy. pt denies chest pain abd pain does c/o back pain. Pt denies any urinary symptoms. Ot is TYPE 2 DM with controlled sugars Associated symptoms: Reports chills, nausea and vomiting; Deny abdominal pain, flank pain, chest pain, confusion, diarrhea, dysuria, extremity pain, headache(s), nasal congestion or sinus pain Review of Systems Const: Reports: fever(s), chills, fatigue and malaise; Denies: body aches, change in appetite, change in weight or diaphoresis Eyes: Denies: change in vision, blurry vision, blind spots, photophobia, eye discomfort, eye discharge, eye redness, floaters or seeing flashes ENMT: Denies: throat pain, uvular edema, enlarged tonsils, odynophagia, hoarseness, mouth pain, swelling of lips/tongue, oral sores, bleeding gums, dental pain, dry mouth, ear or mastoid pain, ear discharge, change in hearing, tinnitus, disequilibrium, nasal discharge, nasal congestion, post nasal drip or sinus pain Card: Denies: chest pain, palpitations, irregular heart rhythm, edema, swelling of feet/ankles, lightheadedness, syncope, pre-syncope, dyspnea on exertion, orthopnea, leg pain with exertion or acrocyanosis Resp: Reports: dyspnea; Denies: productive cough, non-productive cough, wheezing, stridor, pain on inspiration, change in phlegm color, hemoptysis or chest congestion GI: Reports: nausea and vomiting; Denies: abdominal pain, hematemesis, dysphagia, diarrhea, constipation, GI cramping, change in bowel habits or rectal pain : Denies: flank pain, dysuria, urinary frequency, urinary urgency, urinary hesitancy or hematuria Musc: Denies: neck pain, back pain, extremity pain, extremity swelling, joint pain, joint swelling, joint redness, joint warmth or deformity Skin/Breast: Denies: rash, pruritus, erythema, sores, new lesions, changes in skin color or dry skin Neuro: Denies: headache(s), numbness in extremities, weakness in extremities, sensory changes, lack of coordination, difficulty walking, frequent falls, dizziness, vertigo, confusion, behavioral changes, Slurred speech present, difficulty communicating thoughts or seizure-like activity Psych: Denies: anxiety, depression, suicidal ideation or homicidal ideation Endo: Denies: polyuria, polydipsia, tired all the time, cold intolerance, excessive sweating, flushing, hot flashes or heat intolerance Emiliano/Lymph: Denies: easy bruising, easy bleeding, petechiae, purpura, enlarged lymph nodes or tender lymph nodes All/Imm: Denies: urticaria, throat swelling, tongue swelling, facial swelling, acute wheezing or itchy eyes PFSH ED PFSH: Medical History Cellulitis and abscess of left leg COPD (chronic obstructive pulmonary disease) Depression Encounter for long-term opiate analgesic use Lumbar back pain with radiculopathy affecting right lower extremity Nicotine dependence with current use Not interested in smoking cessation. 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 History of spinal fusion S/P hernia repair (~12/2013) UMBILICAL HERNIA REPAIR Family History Mother Diabetes CAD (coronary artery disease) Psychiatric illness Stroke Cancer UTERINE CANCER Other Family history of premature coronary artery disease Social History Smoking and tobacco status: former smoker Quit status (tobacco): has quit using tobacco Second hand smoke exposure: No Alcohol intake: current Desire information about alcohol rehabilitation?: No Adopted: No Caregiver/support person: No Lives independently: Yes Household members: spouse, family and children Housing: Manufactured/Mobile home Marital status: Number of children: 2 Number of grandchildren: 3 Highest education level completed: Some College, No Degree service: No Current occupational status: disabled Pets and animals: Yes Pets & animals: cat(s), dog(s), farm animals and other Pets & animal details: rabbits History of recent travel: No Leisure activites: games Current gender identity: Male Rosey/Gnosticism: Other Special rosey needs: No Agree to transfusion: Yes Financial difficulty paying for basics: Hard Physical Exam Const: COMMON NORMALS: no acute distress, patient oriented x3, healthy appearing, alert and well nourished GENERAL APPEARANCE: cooperative, comfortable, well kempt and well developed; not ill appearing ORIENTATION/CONSCIOUSNESS: Yes awake, Yes oriented to person, Yes oriented to place and Yes oriented to time HENMT: COMMON NORMALS: normocephalic, atraumatic, hearing grossly normal bilaterally, external ears normal, EAC's normal, TM's normal bilaterally, Normal external nose present, Normal nasal mucous membranes and turbinates present and moist oral mucous membranes HEAD & SCALP: normal to inspection, normocephalic and atraumatic FACE & SINUS: normal facial exam, sinuses nontender and face symmetric NOSE: Normal external nose present, Normal nares present, Normal nasal mucous membranes and turbinates present, No nasal discharge present and Abnormal external nose present EXTERNAL EAR: Yes external ears normal and Yes mastoids normal EXTERNAL AUDITORY CANAL: EAC's normal TYMPANIC MEMBRANE: TM's normal bilaterally MOUTH: Normal oral and palatal mucosa present, lip normal, tongue normal and Normal salivary glands and ducts present THROAT: no uvular edema Eye: COMMON NORMALS: Equal, round and reactive pupils present, EOMs intact bilaterally, conjunctivae normal, no scleral icterus and no papilledema GENERAL EYE: appearance normal, both eyes and all related structures EYELID: eyelids normal CONJUNCTIVA: Yes conjunctivae normal SCLERA: sclerae normal CORNEA: Yes corneas normal PUPIL: Yes Equal, round and reactive pupils present DIRECT OPHTHALMOSCOPY: Yes no papilledema Neck/C-Spine: COMMON NORMALS: full ROM, no lymphadenopathy, supple, no meningeal signs, no JVD and Thyroid normal GENERAL: Yes normal visual inspection and Yes trachea midline THYROID: Thyroid normal CERVICAL SPINE: Yes cervical ROM normal Lymph: LYMPHATIC: no lymphadenopathy noted and no lymphedema noted Chest: COMMONS NORMALS: normal inspection of the chest and normal palpation of entire chest wall Resp: COMMON NORMALS: normal respiratory effort, No retractions, No use of accessory muscles and clear to auscultation bilaterally EFFORT & INSPECTION: Yes able to speak in complete sentences and Yes symmetric chest movement AUSCULTATION: clear to auscultation bilaterally and diminished lung sounds on the left Cardio: COMMON NORMALS: no JVD, regular rate and regular rhythm RATE: regular rate RHYTHM: regular rhythm GI: COMMON NORMALS: Normal to inspection, nondistended, normoactive bowel sounds present, Soft to palpation, non-tender, No hepatosplenomegaly present, no masses and no bruits INSPECTION: Yes normal to inspection AUSCULTATION: Yes normoactive bowel sounds PALPATION: Yes Soft to palpation and Yes No hepatosplenomegaly present PERCUSSION: normal to percussion RECTAL EXAM: Yes deferred : COMMON NORMALS: Yes no CVA tenderness BLADDER/KIDNEY EXAM: Yes no CVA tenderness Back/Pelvis: COMMON NORMALS: no CVA tenderness, thoracic and lumbar spine normal to inspection, no thoracic nor lumbar tenderness, thoraco-lumbar ROM normal and straight leg raise negative bilaterally THORACIC SPINE/UPPER BACK: Yes normal to inspection LUMBAR SPINE/LOWER BACK: Yes normal to inspection Extremity: COMMON NORMALS: normal to inspection, full ROM and capillary refill normal GENERAL: Yes normal exam except as noted Neuro: COMMON NORMALS: patient oriented x3, CN's II-XII intact bilaterally, moves all extremities, no focal motor deficits, no sensory deficits noted, deep tendon reflexes 2+ bilaterally and gait normal SENSORIUM/ORIENTATION: Yes alert, Yes oriented to person, Yes oriented to place and Yes oriented to time MENINGEAL SIGNS: Yes no meningeal signs CRANIAL NERVES: Yes CN normal except as noted SPEECH: speech normal GAIT: Yes Normal gait present SENSORY EXAM: Yes extremities MOTOR EXAM: 5/5 motor strength present throughout Psych: COMMON NORMALS: mental status grossly normal, Normal thought process present, cooperative, normal affect, speech normal, activity/motor behavior normal, denies hallucinations, denies homicidal ideation and denies suicidal ideation APPEARANCE: Yes grossly normal and Yes well kempt ATTITUDE: Yes calm ACTIVITY/MOTOR BEHAVIOR: Yes appropriate eye contact SPEECH: Yes normal speech THOUGHT PROCESS: Normal thought process present THOUGHT CONTENT: Yes Normal thought content present ATTENTION/CONCENTRATION: Yes attention grossly intact MEMORY/COGNITION: Yes memory grossly intact INSIGHT: Good insight present (Psych) JUDGEMENT: Good judgement present (Psych) Skin: COMMON NORMALS: no rashes or lesions noted, no wounds, turgor normal, no jaundice, no petechiae and no mottling GENERAL SKIN EXAM: no rashes or lesions noted and turgor normal Course Vital Signs: Vital signs: Vital Signs Temperature 98.6 F 11/15/20 02:03 Pulse Rate 102 H 11/15/20 02:03 Respiratory Rate 19 H 11/15/20 02:03 Blood Pressure 149/84 11/15/20 02:03 Pulse Oximetry 94 11/15/20 02:03 MDM - Fever MDM Narrative: Medical decision making narrative: PT will be transferred to [facility] by Dr. Larson. based on patient labs of WBC 27.[address] report Patient: Iqra Meredith #: [id number]: 1965Acct#:[id number]/Sex: 54 / MADM Date: 11/14/20Loc: ERRoom/Bed:Attending Dr: Ordering Provider/Ordering MD: Mercy Hathaway NP Date of Service: 11/14/20 Procedure(s): CT chest abd pel w con* Accession Number(s): [id number] Report Number: [id number] PROCEDURE INFORMATION: Exam: CT Chest With Contrast; Diagnostic Exam date and time: 11/14/2020 11:36 PM Age: 54 years old Clinical indication: Abnormal findings; Abnormal lab test; Elevated wbc; Abnormal diagnostic tests; Abnormal ekg; Prior surgery; Surgery date: 6+ months; Surgery type: Hernia, pancreas, back; Patient HX: Pancreatic cancer, SOB; Additional info: Infection TECHNIQUE: Imaging protocol: Diagnostic computed tomography of the chest with contrast. Radiation optimization: All CT scans at this facility use at least one of these dose optimization techniques: automated exposure control; mA and/or kV adjustment per patient size (includes targeted exams where dose is matched to clinical indication); or iterative reconstruction. Contrast material: OMNI 300; Contrast volume: 95 ml; Contrast route: INTRAVENOUS (IV); COMPARISON: CT angio chest w abd pel w con 10/16/2020 3:40 AM RADIATION DOSE METRICS: Total DLP (mGy-cm): 2740.91 FINDINGS: Lungs: Strandy opacities and some consolidation seen in the left lower lobe most probably representing atelectasis. However, a left lower lobe infiltrate and pneumonia cannot be entirely excluded. Stable strandy opacities are seen in the right lower lobe peripherally and within the left upper lobe laterally. Pleural spaces: A left pleural effusion is again seen, slightly larger compared with 10/16/2020. Heart: Unremarkable. No cardiomegaly. No pericardial effusion. Aorta: Unremarkable. No aortic aneurysm. Lymph nodes: Unremarkable. No enlarged lymph nodes. Bones/joints: Unremarkable. No acute fracture. Soft tissues: Unremarkable. IMPRESSION: 1. Slightly larger left pleural effusion compared to 10/16/2020. 2. Probable left lower lobe atelectasis although infiltrates and pneumonia cannot be entirely excluded. 3. Otherwise stable CT appearance of the chest compared with 10/16/2020. PROCEDURE INFORMATION: Exam: CT Abdomen And Pelvis With Contrast Exam date and time: 11/14/2020 11:36 PM Age: 54 years old Clinical indication: Abnormal findings; Abnormal lab test; Elevated wbc; Abnormal diagnostic tests; Abnormal ekg; Prior surgery; Surgery date: 6+ months; Surgery type: Hernia, pancreas, back; Patient HX: Pancreatic cancer, SOB; Additional info: Infection TECHNIQUE: Imaging protocol: Computed tomography of the abdomen and pelvis with contrast. Radiation optimization: All CT scans at this facility use at least one of these dose optimization techniques: automated exposure control; mA and/or kV adjustment per patient size (includes targeted exams where dose is matched to clinical indication); or iterative reconstruction. Contrast material: OMNI 300; Contrast volume: 95 ml; Contrast route: INTRAVENOUS (IV); COMPARISON: CT angio chest w abd pel w con 10/16/2020 3:40 AM RADIATION DOSE METRICS: Total DLP (mGy-cm): 2740.91 FINDINGS: Liver: Normal. No mass. Gallbladder and bile ducts: Gallstones are again seen within the gallbladder neck. Pancreas: A mildly inhomogeneous cystic masses is again seen in the pancreatic tail adjacent to the suture line measuring 5.5 cm transverse dimension by 7 cm AP dimension by 6.6 cm craniocaudal dimension. This represents an increase in size compared with 10/16/2020. Although this may represent an enlarging pseudocyst, an infected cyst or abscess cannot be excluded. This pancreatic cystic mass appears contiguous with the greater curvature of the stomach. A stent is now seen within the distal main pancreatic duct. 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 Adrenal glands: Normal. No mass. Kidneys and ureters: Normal. No hydronephrosis. Stomach and bowel: See Intraperitoneal space finding. Appendix: No evidence of appendicitis. Intraperitoneal space: There is a complex subdiaphragmatic fluid collection present surrounded by soft tissue attenuation again seen. The mass is similar in configuration to that seen previously, perhaps slightly smaller today. The mass is contiguous with the gastric fundus. A subdiaphragmatic abscess cannot be excluded. Vasculature: Unremarkable. No abdominal aortic aneurysm. Lymph nodes: Unremarkable. No enlarged lymph nodes. Urinary bladder: Unremarkable as visualized. Reproductive: Unremarkable as visualized. Bones/joints: Status post PLIF the lower thoracic spine through L3. Soft tissues: Unremarkable. CT/CT chest abd pel w con* IMPRESSION: 1. The patient is status post partial pancreatectomy and splenectomy. 2. There is interval placement of a stent within the distal main pancreatic duct. 3. Enlarging cystic mass within the pancreatic tail compared with 10/16/2020. Although this could represent a cyst or pseudocyst, a recurrent cystic pancreatic mass, infected cyst or abscess cannot be excluded. 4. Stable complex subdiaphragmatic cystic mass adjacent to the gastric fundus. 5. Gallstones Blood cultures are pending. Gentamycin and Zosyn given Lab Data: Labs: Lab Results 11/14/20 11/14/20 11/14/20 Range/Units 23:00 23:02 23:02 WBC 27.3 H (4.0-10.0) 10^3/ uL RBC 4.99 (4.1-5.3) 10^6/u L Hgb 13.3 (11.7-16.6) g/dL Hct 41.9 L (42.0-52.0) % MCV 84.0 (80-94) fL MCH 26.7 L (28.0-34.0) pg MCHC 31.7 (30.0-36.0) g/dL RDW 15.1 (12.1-15.1) % Plt Count 631 H (130-400) 10^3/c mm MPV 9.5 (7.4-10.4) fL Neut % (Auto) 79.8 % Lymph % (Auto) 10.3 % [place] % (Auto) 8.4 % Eos % (Auto) 0.2 % Baso % (Auto) 0.4 % Neut # (Auto) 21.78 H (1.8-7.7) 10^3/u L Lymph # (Auto) 2.8 (0.8-4.8) 10^3/u L [place] # (Auto) 2.3 H (0.2-0.9) 10^3/u L Eos # (Auto) 0.1 (0.0-0.8) 10^3/u L Baso # (Auto) 0.1 (0.0-0.1) 10^3/u L Nucleated RBC % (a uto) 0 % Nucleated RBCs # 0.0 /100WBC Sodium 135 L (136-145) mmol/L Potassium 4.5 (3.5-5.1) mmol/L Chloride 97 L (98-107) mmol/L Carbon Dioxide 28 (22-29) mmol/L Anion Gap 14.5 (5-19) BUN 7 (6-20) mg/dL Creatinine 0.6 L (0.7-1.2) mg/dL GFR Calculation 140.4 H (90-130) mL/min Glucose 134 H (65-115) mg/dL Calculated Osmolal ity 280 L (285-295) mOsm/k g Lactate (0.5-2.2) mmol/L Calcium 8.8 (8.5-10.5) mg/dL Total Bilirubin 0.5 (0.15-1.2) mg/dL AST 30 (0-40) U/L ALT 56 H (0-41) U/L Alkaline Phosphata se 199 H (40-130) IU/L NT-Pro-B Natriuret Pep 155 H (0-125) pg/mL Total Protein 7.4 (6.6-8.7) g/dL Albumin 3.2 L (3.5-5.2) g/dL Globulin 4.2 (1.3-4.6) g/dL Amylase 14 L (28-100) U/L Lipase 11 L (13-60) U/L Urine Color Yellow (Yellow) Urine Appearance Clear (CLEAR) Urine pH 5 (5-7) Ur Specific Gravit y 1.015 (1.005-1.030) Urine Protein Neg (Negative) Urine Glucose (UA) Norm (Normal) Urine Ketones Negative (Negative) Urine Blood Neg (Negative) Urine Nitrate Negative (Negative) Urine Bilirubin Neg (Negative) Urine Urobilinogen Norm (Negative) mg/dL Ur Leukocyte Tresa ase Negative (Negative) SARS-CoV-2 Ag (Rap id) (Negative) 11/14/20 11/14/20 Range/Units 23:05 23:29 WBC (4.0-10.0) 10^3/ uL RBC (4.1-5.3) 10^6/u L Hgb (11.7-16.6) g/dL Hct (42.0-52.0) % MCV (80-94) fL MCH (28.0-34.0) pg MCHC (30.0-36.0) g/dL RDW (12.1-15.1) % Plt Count (130-400) 10^3/c mm MPV (7.4-10.4) fL Neut % (Auto) % Lymph % (Auto) % [place] % (Auto) % Eos % (Auto) % Baso % (Auto) % Neut # (Auto) (1.8-7.7) 10^3/u L Lymph # (Auto) (0.8-4.8) 10^3/u L [place] # (Auto) (0.2-0.9) 10^3/u L Eos # (Auto) (0.0-0.8) 10^3/u L Baso # (Auto) (0.0-0.1) 10^3/u L Nucleated RBC % (a uto) % Nucleated RBCs # /100WBC Sodium (136-145) mmol/L Potassium (3.5-5.1) mmol/L Chloride (98-107) mmol/L Carbon Dioxide (22-29) mmol/L Anion Gap (5-19) BUN (6-20) mg/dL Creatinine (0.7-1.2) mg/dL GFR Calculation (90-130) mL/min Glucose (65-115) mg/dL Calculated Osmolal ity (285-295) mOsm/k g Lactate 1.0 (0.5-2.2) mmol/L Calcium (8.5-10.5) mg/dL Total Bilirubin (0.15-1.2) mg/dL AST (0-40) U/L ALT (0-41) U/L Alkaline Phosphata se (40-130) IU/L NT-Pro-B Natriuret Pep (0-125) pg/mL Total Protein (6.6-8.7) g/dL Albumin (3.5-5.2) g/dL Globulin (1.3-4.6) g/dL Amylase (28-100) U/L Lipase (13-60) U/L Urine Color (Yellow) Urine Appearance (CLEAR) Urine pH (5-7) Ur Specific Gravit y (1.005-1.030) Urine Protein (Negative) Urine Glucose (UA) (Normal) Urine Ketones (Negative) Urine Blood (Negative) Urine Nitrate (Negative) Urine Bilirubin (Negative) Urine Urobilinogen (Negative) mg/dL Ur Leukocyte Tresa ase (Negative) SARS-CoV-2 Ag (Rap id) Negative (Negative) Discharge Plan Discharge Prescriptions: No Action docusate sodium 100 mg capsule 100 mg PO DAILY RF: 0 hydrocodone-acetaminophen 5-325 mg tablet 1 tab PO TID PRN (Reason: pain) 30 Days Qty: 90 RF: 0 gabapentin 300 mg capsule 300 mg PO BID Qty: 60 RF: 1 meloxicam 15 mg tablet 15 mg PO DAILY 30 Days Qty: 30 RF: 1 albuterol sulfate [ProAir HFA] 90 mcg/actuation HFA aerosol inhaler 1 inh INHALATION DAILY RF: 0 methocarbamol 500 mg tablet 500 mg PO TID PRN (Reason: muscle spasticity) Qty: 90 RF: 2 metformin 500 mg tablet 1,000 mg PO BID RF: 0 multivitamin Tablet 1 tab PO DAILY RF: 0 (DME) oxygen-air delivery systems Device See Rx Instructions .ROUTE RF: 0 L.acidoph,saliva-B.bif-S.therm [Acidophilus Probiotic Blend] 175 mg capsule 1 cap PO DAILY RF: 0 trazodone 150 mg tablet 150 mg PO .1/2-1 HS PRN (Reason: insomnia) Qty: 30 RF: 2 bupropion HCl 200 mg tablet sustained-release 12 hr 200 mg PO DAILY RF: 0 ProAir HFA 90 mcg/actuation HFA aerosol inhaler 2 inh inhalation Q4H PRN (Reason: shortness of breath or wheezing) Qty: 8.5 RF: 0 Zithromax 250 mg tablet See Rx Instructions .ROUTE .COMPLEX Qty: 6 RF: 0 Coding Level of Care Code ED Strategic Account Manager for Chg Fwd Exam Comprehensive
[2020-11-14 23:03] LABS: Add Urine Microscopic? NO; Charge for UA Resulting for Rev
[2020-11-14 23:07] LABS: Basophils # 0.1 10^3/uL (0.0-0.1); Basophils % 0.4 %; Eosinophils # 0.1 10^3/uL (0.0-0.8); Eosinophils % 0.2 %; Hematocrit 41.9 % (42.0-52.0); Hemoglobin 13.3 g/dL (11.7-16.6); Lymphocytes # 2.8 10^3/uL (0.8-4.8); Lymphocytes % 10.3 %; Mean Corpuscular HGB Conc 31.7 g/dL (30.0-36.0); Mean Corpuscular Hemoglobin 26.7 pg (28.0-34.0); Mean Platelet Volume 9.5 fL (7.4-10.4); Monocytes # 2.3 10^3/uL (0.2-0.9); Monocytes % 8.4 %; Neutrophils # 21.78 10^3/uL (1.8-7.7); Neutrophils % 79.8 %; Nucleated Red Blood Cells % 0 %; Platelet Count 631 10^3/cmm (130-400); Red Blood Count 4.99 10^6/uL (4.1-5.3); Red Cell Distribution Width 15.1 % (12.1-15.1); White Blood Count 27.3 10^3/uL (4.0-10.0)
[2020-11-14 23:08] LABS: Bilirubin Urine Neg (Negative); Blood Urine Neg (Negative); Glucose Urine UA Norm (Normal); Ketones Urine Negative (Negative); Leukocyte Esterase Urine Negative (Negative); Nitrate Urine Negative (Negative); Protein Urine Neg (Negative); Specific Gravity, Urine 1.015 (1.005-1.030); Urine Appearance Clear (CLEAR); Urine Color Yellow (Yellow); Urobilinogen Urine Norm (Negative); pH Urine 5 (5-7)
[2020-11-14 23:25] LABS: SARS Covid-2 Antigen Negative (Negative)
--- NOTE | 2020-11-14 23:32 | CTR_ITS ---
PROCEDURE INFORMATION: Exam: CT Chest With Contrast; Diagnostic Exam date and time: 11/14/2020 11:36 PM Age: 54 years old Clinical indication: Abnormal findings; Abnormal lab test; Elevated wbc; Abnormal diagnostic tests; Abnormal ekg; Prior surgery; Surgery date: 6+ months; Surgery type: Hernia, pancreas, back; Patient HX: Pancreatic cancer, SOB; Additional info: Infection TECHNIQUE: Imaging protocol: Diagnostic computed tomography of the chest with contrast. Radiation optimization: All CT scans at this facility use at least one of these dose optimization techniques: automated exposure control; mA and/or kV adjustment per patient size (includes targeted exams where dose is matched to clinical indication); or iterative reconstruction. Contrast material: OMNI 300; Contrast volume: 95 ml; Contrast route: INTRAVENOUS (IV); COMPARISON: CT angio chest w abd pel w con 10/16/2020 3:40 AM RADIATION DOSE METRICS: Total DLP (mGy-cm): 2740.91 FINDINGS: Lungs: Strandy opacities and some consolidation seen in the left lower lobe most probably representing atelectasis. However, a left lower lobe infiltrate and pneumonia cannot be entirely excluded. Stable strandy opacities are seen in the right lower lobe peripherally and within the left upper lobe laterally. Pleural spaces: A left pleural effusion is again seen, slightly larger compared with 10/16/2020. Heart: Unremarkable. No cardiomegaly. No pericardial effusion. Aorta: Unremarkable. No aortic aneurysm. Lymph nodes: Unremarkable. No enlarged lymph nodes. Bones/joints: Unremarkable. No acute fracture. Soft tissues: Unremarkable. IMPRESSION: 1. Slightly larger left pleural effusion compared to 10/16/2020. 2. Probable left lower lobe atelectasis although infiltrates and pneumonia cannot be entirely excluded. 3. Otherwise stable CT appearance of the chest compared with 10/16/2020. PROCEDURE INFORMATION: Exam: CT Abdomen And Pelvis With Contrast Exam date and time: 11/14/2020 11:36 PM Age: 54 years old Clinical indication: Abnormal findings; Abnormal lab test; Elevated wbc; Abnormal diagnostic tests; Abnormal ekg; Prior surgery; Surgery date: 6+ months; Surgery type: Hernia, pancreas, back; Patient HX: Pancreatic cancer, SOB; Additional info: Infection TECHNIQUE: Imaging protocol: Computed tomography of the abdomen and pelvis with contrast. Radiation optimization: All CT scans at this facility use at least one of these dose optimization techniques: automated exposure control; mA and/or kV adjustment per patient size (includes targeted exams where dose is matched to clinical indication); or iterative reconstruction. Contrast material: OMNI 300; Contrast volume: 95 ml; Contrast route: INTRAVENOUS (IV); COMPARISON: CT angio chest w abd pel w con 10/16/2020 3:40 AM RADIATION DOSE METRICS: Total DLP (mGy-cm): 2740.91 FINDINGS: Liver: Normal. No mass. Gallbladder and bile ducts: Gallstones are again seen within the gallbladder neck. Pancreas: A mildly inhomogeneous cystic masses is again seen in the pancreatic tail adjacent to the suture line measuring 5.5 cm transverse dimension by 7 cm AP dimension by 6.6 cm craniocaudal dimension. This represents an increase in size compared with 10/16/2020. Although this may represent an enlarging pseudocyst, an infected cyst or abscess cannot be excluded. This pancreatic cystic mass appears contiguous with the greater curvature of the stomach. A stent is now seen within the distal main pancreatic duct. 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 Adrenal glands: Normal. No mass. Kidneys and ureters: Normal. No hydronephrosis. Stomach and bowel: See Intraperitoneal space finding. Appendix: No evidence of appendicitis. Intraperitoneal space: There is a complex subdiaphragmatic fluid collection present surrounded by soft tissue attenuation again seen. The mass is similar in configuration to that seen previously, perhaps slightly smaller today. The mass is contiguous with the gastric fundus. A subdiaphragmatic abscess cannot be excluded. Vasculature: Unremarkable. No abdominal aortic aneurysm. Lymph nodes: Unremarkable. No enlarged lymph nodes. Urinary bladder: Unremarkable as visualized. Reproductive: Unremarkable as visualized. Bones/joints: Status post PLIF the lower thoracic spine through L3. Soft tissues: Unremarkable. CT/CT chest abd pel w con* IMPRESSION: 1. The patient is status post partial pancreatectomy and splenectomy. 2. There is interval placement of a stent within the distal main pancreatic duct. 3. Enlarging cystic mass within the pancreatic tail compared with 10/16/2020. Although this could represent a cyst or pseudocyst, a recurrent cystic pancreatic mass, infected cyst or abscess cannot be excluded. 4. Stable complex subdiaphragmatic cystic mass adjacent to the gastric fundus. 5. Gallstones Radiation Dose CTDIVOL = (mGy): DLP = 2740.91~2740.91 (mGy-cm)
[2020-11-14 23:46] LABS: Alanine Aminotransferase 56 U/L (0-41); Albumin Level 3.2 g/dL (3.5-5.2); Alkaline Phosphatase 199 IU/L (40-130); Amylase 14 U/L (28-100); Anion Gap 14.5 (5-19); Aspartate Amino Transferase 30 U/L (0-40); Blood Urea Nitrogen 7 mg/dL (6-20); Calcium 8.8 mg/dL (8.5-10.5); Carbon Dioxide 28 mmol/L (22-29); Chloride 97 mmol/L (98-107); Globulin 4.2 g/dL (1.3-4.6); Glomerular Filtration Rate 140.4 mL/min (90-130); Glucose 134 mg/dL (65-115); Lipase 11 U/L (13-60); NT Pro B Type Natriuretic Pept 155 pg/mL (0-125); Osmolality Calculated 280 mOsm/kg (285-295); Potassium 4.5 mmol/L (3.5-5.1); Sodium 135 mmol/L (136-145); Total Bilirubin 0.5 mg/dL (0.15-1.2); Total Protein 7.4 g/dL (6.6-8.7)
[2020-11-15] MEDS: iohexol 300 mg/mL 100 mL Btl IV (00:13)
[2020-11-15] MEDS: piperacillin-tazobactam 4.5 GM in sodium chloride 0.9% (plus) 50 ML IV (00:26)
[2020-11-15 00:32] VITALS: BP 143/80; PULSE 106; RESP 19; O2SAT 94
[2020-11-15 02:03] VITALS: BP 149/84; PULSE 102; RESP 19; TEMP 37; O2SAT 94
[2020-11-15 02:59] VITALS: BP 128/80; PULSE 88; RESP 18; O2SAT 96
--- NOTE | 2020-11-15 03:34 | PC.NURSE ---
Pt left facility with [facility] at [id number]
== END 2020-11-15 02:59 | disposition short-term general hospital (02) ==
PROVIDERS: Emergency Provider Registered Nurse; PCP Internal Medicine
DX: R50.9 Fever, unspecified (principal); Z79.84 Long term (current) use of oral hypoglycemic drugs; J44.9 Chronic obstructive pulmonary disease, unspecified; Z87.891 Personal history of nicotine dependence
CPT/HCPCS: 36415; 71046; 71260; 74177; 80053; 81003; 82150; 83605; 83690; 83880; 85025; 87040; 87426; 96365; 96366; 96367; 96375; 99285; J1580; J2543; J2930; Q9967

== ENCOUNTER 2020-11-21 10:26 | Outpatient (CLI) | payer MEDICAID, SELFPAY ==
[2020-06-24 09:44] VITALS: BP 136/85; BMI 41.3
--- NOTE | 2020-11-21 10:36 | XRR_ITS ---
PROCEDURE INFORMATION: Exam: XR Chest Exam date and time: 11/21/2020 10:37 AM Age: 54 years old Clinical indication: Condition or disease; Lung condition and disease; Pleural effusion; Other: Not specified; Prior surgery; Surgery type: Appendectomy, spleen; Additional info: Rule out pleural effusion TECHNIQUE: Imaging protocol: XR of the chest. Views: 2 views. COMPARISON: CT chest abd pel w con* 11/15/2020 12:03 AM FINDINGS: Lungs: Hyperinflation , interstitial prominence, and asymmetric left basilar airspace disease. Pleural spaces: Large left pleural effusion obscuring the inferior left heart border left hemidiaphragm. Heart/Mediastinum: No cardiomegaly. Bones/joints: Surgical hardware in the thoracolumbar spine. Old rib and clavicular fractures. Degenerative change and ligamentous calcification. XR/XR chest 2V* [id number] IMPRESSION: 1. Hyperinflation, interstitial prominence, and left basilar airspace disease. 2. Large left pleural effusion obscuring the inferior left heart border left hemidiaphragm.
== END 2020-11-21 10:27 | disposition home or self-care (01) ==
PROVIDERS: PCP Internal Medicine; Visit Provider Internal Medicine Pulmonary Disease
DX: J90 Pleural effusion, not elsewhere classified (principal)
CPT/HCPCS: 71046

== ENCOUNTER → 2020-11-23 08:35 | Outpatient (BNVA) | payer MEDICAID, SELFPAY ==
[2020-06-24 09:44] VITALS: BP 136/85; BMI 41.3
== END ==
PROVIDERS: PCP Internal Medicine; Visit Provider Counselor Mental Health
DX: F06.32 Mood disorder due to known physiological condition with major depressive-like episode (principal); F32.9 Major depressive disorder, single episode, unspecified; G47.00 Insomnia, unspecified
CPT/HCPCS: 90834

== ENCOUNTER 2020-11-25 05:55 | Day surgery (SDC) | payer MEDICAID, SELFPAY ==
[2020-06-24 09:44] VITALS: BP 136/85; BMI 41.3
[2020-11-25 06:23] VITALS: BMI 35.7
[2020-11-25 06:28] VITALS: BP 130/86; PULSE 90; RESP 18; TEMP 35.6; O2SAT 97
--- NOTE | 2020-11-25 07:28 | XR_ITS ---
WS: [id number] CHEST 2 VIEWS HISTORY: LEFT PLEURAL EFFUSION COMPARISON: 11/21/2020 Lungs: Atelectasis and obscuration at the LEFT lung base. There is a small LEFT pleural effusion whic h is not significantly changed. No significant RIGHT pleural effusion. Lungs are hyperinflated from e mphysema. Cardiac size: Mildly enlarged cardiac silhouette. Mediastinum/Aorta: Normal mediastinum. Bones: Status post thoracolumbar fusion. XR/XR chest 2V* [id number] IMPRESSION: 1. Small LEFT pleural effusion with no change since the prior study of 1. 2. Emphysema.
--- NOTE | 2020-11-25 07:44 | PM.OP ---
Operative Report Date of procedure: November 25, 2020 Pre-op Diagnosis: left pleural effusion Post-op diagnosis: same Post-op Findings: mild - moderate left pleural effusion - not good enough pocket to drain Procedure Done: bedside ultrasound showed mild - moderate pleural effusion - not good enough pocket to drain., procedure aborted Brief History: Mr. Iqra Meredith is a 54-year-old gentleman with past medical history of neuroendocrine tumor of pancreas, COPD, sleep apnea on home oxygen and CPAP machine, Patient was referred by his PCP for recurrent left pleural effusion. Patient was admitted to hospital with pneumonia and scans done at that time showed incidental finding of pancreatic body/tail mass and patient was referred to Dr. Mcbride in [place] for evaluation but due to Covid related issue there was delay in surgical consultation and eventually on April 08, 2020 patient underwent MRI of abdomen with and without contrast which showed rounded hypervascular mass arising from pancreatic tail which contains a capsule and demonstrates a central Area of calcification. No associated adenopathy or metastatic foci associated with this abnormality and show some mild increase in size since previous exam done in August 2019. Small right-sided adrenal nodule demonstrating features of benign adrenal adenoma and patient was evaluated by Dr. Mcbride on May 09, 2020. He underwent EUS that showed a 3.9 x 3.8 cm tail of pancreatic mass with central calcification and shadowing in FNA of pancreatic tail mass on July 12, 2020 and final pathology report came back well-differentiated neuroendocrine tumor cells positive for synaptophysin and chromogranin and CHEPE-67 was < 1%. He underwent laparoscopic left pancreatectomy and splenectomy on 09/20/2020 and pathology confirmed well-differentiated neuroendocrine tumor, less than 2 mitosis per 2 mm, Ki-67 was approximately 6%, all margins clear. 0 of 5 lymph node positivem for metastatic disease. No lymphovascular or perineural invasion seen. pT2, N0. Lab work-up done on October 10, 2020 showed gastrin less than 15, serotonin 207, chromogranin A level 187, normal less than 311, 24-hour urine for 5-HIAA 4.5, normal being less than 6. Patient has a history of smoking-up to 2 packs a day for about 35 years and currently cut down to 1/4 pack a day. He is using proair as needed no other inhalers. Reported undergoing thoracentesis 3 times in last 2 months at [facility] and most recently on 11/14/2020 drained 450 mL of fluid and discharged with antibiotics. Currently still taking antibiotics azithromycin. Today in clinic reported that he is having dyspnea on exertion also associated with leg swelling and nonproductive cough. Also complained of abdominal discomfort. Every time he comes to the emergency room at [facility] he was transferred to [facility] for thoracentesis of pleural effusion as he is being worked up for pancreatic cancer since September 2020 and being seen by journeyman powerhouse operator at [facility] for left pleural effusion. I have seen this patient for the first time in pulmonary clinic on 11/21/2020 and left pleural effusion and chest xray on 11/21/20 showed Large left pleural effusion obscuring the inferior left heart border left hemidiaphragm. I scheduled for outpatient thoracentesis today. Procedure: Pulmonary & Critical Care Medicine Procedure - left pleural effusion Thoracentesis Procedure: left pleural effusion Thoracentesis Indication: left Pleural effusion Purchasing Analyst(s): Troy Lynne MD Consent: Signed and placed in chart Anesthesia: 10 cc 1% lidocaine without epinephrine Description: left pleural effusion was localized using ultrasound guidance and the site was marked accordingly. On ultrasound, there is mild to moderate effusion, possibly loculated, but there is no good pocket for entry as free margin of lung is too close to diaphragm on inspiration. There is possibility of trapped lung. patient denied respiratory distress, fevers, chest pain and currently saturating 94% at rest on room air. At home he has been on 3L nasal cannula. 6 minute walk test showed: Patient saturating 92% in room air but desaturated to 87% on exertion requiring 3 L nasal cannula Procedure aborted. Repeat Chest x ray today showed Small LEFT pleural effusion with no change since the prior study of 11/21/2020. Spoke to Dr. Rocha radiology and she thinks there is mild to moderate effusion surrounding possible atelectatic lung. Ultrasound guidance used: yes. Image saved to ultrasound machine yes. -Recommended to use Home O2 - Patient to follow up with pulmonology later this month at [facility] and I discussed with patient about possible VATS. Associated Problem List Diagnoses (1) Recurrent left pleural effusion: (2) Pancreatic cancer: Qualifiers: Pancreatic malignancy location: tail of pancreas Qualified Code(s): C25.2 - Malignant neoplasm of tail of pancreas
[2020-11-25 09:05] VITALS: O2SAT 96
[2020-11-25 09:06] VITALS: O2SAT 87; O2SAT 92; O2SAT 96
== END 2020-11-25 09:05 | disposition home or self-care (01) ==
LOC: GILAB 05:56
PROVIDERS: PCP Internal Medicine; Visit Provider Internal Medicine Pulmonary Disease
DX: J90 Pleural effusion, not elsewhere classified (principal); C25.2 Malignant neoplasm of tail of pancreas
CPT/HCPCS: 71046

== ENCOUNTER → 2020-11-30 07:59 | Outpatient (BNVA) | payer MEDICAID, SELFPAY ==
[2020-06-24 09:44] VITALS: BP 136/85; BMI 41.3
== END ==
PROVIDERS: PCP Internal Medicine; Visit Provider Counselor Mental Health
DX: F06.32 Mood disorder due to known physiological condition with major depressive-like episode (principal); F32.9 Major depressive disorder, single episode, unspecified; G47.00 Insomnia, unspecified
CPT/HCPCS: 90834

== ENCOUNTER → 2020-12-06 09:06 | Outpatient (BNVA) | payer MEDICAID, SELFPAY ==
[2020-06-24 09:44] VITALS: BP 136/85; BMI 41.3
== END ==
PROVIDERS: PCP Internal Medicine; Visit Provider Nurse Practitioner
DX: G89.29 Other chronic pain (principal); M25.50 Pain in unspecified joint; M47.22 Other spondylosis with radiculopathy, cervical region; M54.6 Pain in thoracic spine; Z98.890 Other specified postprocedural states; Z79.891 Long term (current) use of opiate analgesic
CPT/HCPCS: 99213

== ENCOUNTER → 2020-12-14 07:50 | Outpatient (BNVA) | payer MEDICAID, SELFPAY ==
[2020-06-24 09:44] VITALS: BP 136/85; BMI 41.3
== END ==
PROVIDERS: PCP Internal Medicine; Visit Provider Counselor Mental Health
DX: F06.32 Mood disorder due to known physiological condition with major depressive-like episode (principal)
CPT/HCPCS: 90834

== ENCOUNTER → 2020-12-23 09:08 | Outpatient (BNVA) | payer MEDICAID, SELFPAY ==
[2020-06-24 09:44] VITALS: BP 136/85; BMI 41.3
== END ==
PROVIDERS: PCP Internal Medicine; Visit Provider Counselor Mental Health
DX: F06.32 Mood disorder due to known physiological condition with major depressive-like episode (principal)
CPT/HCPCS: 90834

== ENCOUNTER → 2020-12-28 07:25 | Outpatient (BNVA) | payer MEDICAID, SELFPAY ==
[2020-06-24 09:44] VITALS: BP 136/85; BMI 41.3
== END ==
PROVIDERS: PCP Internal Medicine; Visit Provider Counselor Mental Health
DX: F06.32 Mood disorder due to known physiological condition with major depressive-like episode (principal)
CPT/HCPCS: 90834

== ENCOUNTER → 2021-01-04 10:10 | Outpatient (BNVA) | payer MEDICAID, SELFPAY ==
[2020-06-24 09:44] VITALS: BP 136/85; BMI 41.3
== END ==
PROVIDERS: PCP Internal Medicine; Visit Provider Counselor Mental Health
DX: F06.32 Mood disorder due to known physiological condition with major depressive-like episode (principal); F32.9 Major depressive disorder, single episode, unspecified; G47.00 Insomnia, unspecified
CPT/HCPCS: 90834

== ENCOUNTER → 2021-01-12 07:37 | Outpatient (BNVA) | payer MEDICAID, SELFPAY ==
[2020-06-24 09:44] VITALS: BP 136/85; BMI 41.3
== END ==
PROVIDERS: PCP Internal Medicine; Visit Provider Counselor Mental Health
DX: F06.32 Mood disorder due to known physiological condition with major depressive-like episode (principal); F32.9 Major depressive disorder, single episode, unspecified; G47.00 Insomnia, unspecified
CPT/HCPCS: 90834

== ENCOUNTER → 2021-01-19 07:19 | Outpatient (BNVA) | payer MEDICAID, SELFPAY ==
[2020-06-24 09:44] VITALS: BP 136/85; BMI 41.3
== END ==
PROVIDERS: PCP Internal Medicine; Visit Provider Counselor Mental Health
DX: F06.32 Mood disorder due to known physiological condition with major depressive-like episode (principal); F32.9 Major depressive disorder, single episode, unspecified; G47.00 Insomnia, unspecified
CPT/HCPCS: 90834

== ENCOUNTER 2021-01-19 11:00 | Emergency (ER) | payer MEDICAID, SELFPAY ==
[2020-06-24 09:44] VITALS: BP 136/85; BMI 41.3
[2021-01-19] VITALS (10 sets, daily range): BP systolic 123–160; BP diastolic 68–96; PULSE 79–110; RESP 18–22; TEMP 37–37.7; O2SAT 83–96; BMI 35.9
--- NOTE | 2021-01-19 11:11 | XRR_ITS ---
PROCEDURE INFORMATION: Exam: XR Chest Exam date and time: 01/19/2021 11:11 AM Age: 55 years old Clinical indication: Shortness of breath. Worsening COVID symptoms since 01/15/21. Hypoxia. TECHNIQUE: Imaging protocol: XR of the chest. Views: 1 view. COMPARISON: CR XR chest 2V* [id number] 11/25/2020 7:43 AM FINDINGS: Lungs: There are patchy bilateral pulmonary opacities compatible with known COVID pneumonia. Pleural spaces: Decreased left pleural effusion/left basilar consolidation when compared to November 25/2021. No pneumothorax. Heart/Mediastinum: The cardiac silhouette is unchanged. No gross evidence of pneumomediastinum. Bones/joints: Spinal hardware is noted. No gross fracture. XR/XR chest 1V portable [id number] IMPRESSION: 1. Patchy bilateral pulmonary opacities compatible with known COVID pneumonia. 2. Decreased left pleural effusion/left basilar consolidation when compared to November 25/2021.
--- NOTE | 2021-01-19 11:12 | CT_ITS ---
WS: [id number] CT CHEST ANGIOGRAPHY WITH REFORMATS HISTORY: covid/hypoxia TECHNIQUE: Contiguous axial images are obtained through the chest during arterial injection of intrav enous contrast. Images are reconstructed to evaluate the pulmonary arteries. MIP imaging also reviewe d. All CT scans at [facility] use at least one of these dose optimization techniques: aut omated exposure control; mA and/or kV adjustment per patient size (includes targeted exams where dose is matched to clinical indication); or iterative reconstruction. CONTRAST: Omnipaque 350; 95 mL IV. DLP: 1240.66 mGy.cm COMPARISON: 11/15/2020 Adequate but limited opacification of the pulmonary arteries. No central pulmonary embolism. There is significant artifact through the chest secondary to patient's body habitus and the dense areas of co nsolidation within the lungs. Beyond the segmental branches pulmonary emboli cannot be excluded. No e nlargement of the pulmonary artery or RIGHT heart strain. Normal aorta. Normal size heart. Significant multifocal, multilobar areas of consolidations. Mixture of groundglass attenuation and co nsolidations. Small bilateral pleural effusions. No pneumothorax. Reactive mediastinal and hilar lymp h nodes. Underlying metastatic disease from known pancreatic cancer cannot be excluded but the consol idations appear more likely due to pneumonia and pneumonitis. Partial pancreatectomy and splenectomy. There is a stent within the main pancreatic duct. Cholelithia sis. Soft tissue mass with cystic components associated with the pancreatic tail and stomach has sign ificantly decreased in size since 11/15/2020. Extensive posterior fusion hardware. Prior fracture with healing RIGHT clavicle. 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 CT/CT angio chest PE protcl [id number] IMPRESSION: 1. No central pulmonary embolism. Distal to the segmental branches pulmonary e mboli cannot be excluded. 2. Diffuse multi lobar areas of groundglass attenuation and consolidations con sistent with Covid 19. 3. Prior partial pancreatectomy and splenectomy. 4. Cholelithiasis without acute cholecystitis. 5. Hilar and mediastinal adenopathy. Probably reactive from the acute pneumoni a.
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
[2021-01-19 11:20] LABS: ABG PCO2 37.3 mmHg (35-45); ABG PH Result 7.49 (7.35-7.45); Arterial Blood Gas Hematocrit 45.7 % (42-52); Base Excess ABG 5.2 mmol/L (-2.0-2.0); Blood Gas Allen Test Pos; Blood Gas Sample Site Radial, left; Blood Gas Sample Type Arterial; HCO3 ABG 28.6 mmol/L (22-26); Oxygen Device NC; PO2 ABG 70.2 mmHg (80.0-100.0)
[2021-01-19 11:49] LABS: Basophils % 0.3 %; Hematocrit 44.3 % (42.0-52.0); Hemoglobin 14.1 g/dL (11.7-16.6); Lymphocytes # 1.2 10^3/uL (0.8-4.8); Lymphocytes % 8.6 %; Mean Corpuscular HGB Conc 31.8 g/dL (30.0-36.0); Mean Corpuscular Hemoglobin 26.8 pg (28.0-34.0); Mean Corpuscular Volume 84.1 fL (80-94); Mean Platelet Volume 10.2 fL (7.4-10.4); Monocytes # 0.7 10^3/uL (0.2-0.9); Monocytes % 4.8 %; Neutrophils # 11.97 10^3/uL (1.8-7.7); Neutrophils % 85.9 %; Nucleated Red Blood Cells % 0 %; Platelet Count 449 10^3/cmm (130-400); Red Blood Count 5.27 10^6/uL (4.1-5.3); Red Cell Distribution Width 18.9 % (12.1-15.1); White Blood Count 13.9 10^3/uL (4.0-10.0)
[2021-01-19] MEDS: iohexol 350 mg/mL 100 mL Btl IV ×2 (12:09)
[2021-01-19 12:10] LABS: Alanine Aminotransferase 48 U/L (0-41); Albumin Level 3.5 g/dL (3.5-5.2); Alkaline Phosphatase 138 IU/L (40-130); Anion Gap 16.7 (5-19); Aspartate Amino Transferase 52 U/L (0-40); Blood Urea Nitrogen 9 mg/dL (6-20); C Reactive Protein 295.7 mg/L (0.0-4.9); Calcium 8.2 mg/dL (8.5-10.5); Carbon Dioxide 27 mmol/L (22-29); Chloride 94 mmol/L (98-107); Globulin 3.4 g/dL (1.3-4.6); Glomerular Filtration Rate 139.9 mL/min (90-130); Glucose 117 mg/dL (65-115); Osmolality Calculated 278 mOsm/kg (285-295); Potassium 3.7 mmol/L (3.5-5.1); Sodium 134 mmol/L (136-145); Total Bilirubin 0.6 mg/dL (0.15-1.2); Total Protein 6.9 g/dL (6.6-8.7)
[2021-01-19] MEDS: remdesivir 200 MG in sodium chloride 0.9% (100 ml) 100 ML 100 MG IV (12:46)
[2021-01-19] MEDS: dexamethasone 10 mg/mL INJ 6 MG IVP (12:47)
--- NOTE | 2021-01-19 12:53 | PC.PHAR ---
PT STATES HE TAKES CARE OF HIS OWN MEDICATIONS-PT STATES HE HASNT TAKEN METFORMIN SINCE NOVEMBER AFTER A PROCEDURE-PT STATES HE WAS SUPPOSE TO RESTART TAKING BUT NEVER DID-RX LAST FILLED 12/18/20 30D/S-PT STATES HE HAS BEEN TAKING METHOCARBAMOL 500MG PRN RX LAST FILLED 08/09/20 30D/S-PT STATES HE ALSO TAKES TRAZODONE PRN
[2021-01-19] MEDS: HYDROcodone-acetaminophen 5-325 mg Tablet 1 TAB PO (13:22)
--- NOTE | 2021-01-19 19:45 | PC.NURSE ---
Shift Change - Pt alert and oriented, sitting up on chair watching TV. Pt educated on bipap machine and mechanism of treatment. Bipap @ 60% and 01/04. VSS
== END 2021-01-19 22:23 ==
PROVIDERS: Emergency Provider Family Medicine; PCP Internal Medicine
DX: U07.1 COVID-19 (principal); J44.1 Chronic obstructive pulmonary disease with (acute) exacerbation; J96.00 Acute respiratory failure, unspecified whether with hypoxia or hypercapnia; E11.9 Type 2 diabetes mellitus without complications; E66.9 Obesity, unspecified; Z79.84 Long term (current) use of oral hypoglycemic drugs; Z87.891 Personal history of nicotine dependence
CPT/HCPCS: 36415; 36600; 71045; 71275; 80053; 82803; 83605; 85025; 85378; 86140; 94660; 96365; 96375; 99291; J1100; Q9967

== ENCOUNTER → 2021-02-16 09:12 | Outpatient (BNVA) | payer MEDICAID, SELFPAY ==
[2020-06-24 09:44] VITALS: BP 136/85; BMI 41.3
== END ==
PROVIDERS: PCP Internal Medicine; Visit Provider Nurse Practitioner Psychiatric/Mental Health
DX: F32.9 Major depressive disorder, single episode, unspecified (principal); F41.9 Anxiety disorder, unspecified; G47.00 Insomnia, unspecified; M54.5 Low back pain; G89.29 Other chronic pain
CPT/HCPCS: 99213

== ENCOUNTER → 2021-03-09 07:19 | Outpatient (BNVA) | payer MEDICAID, SELFPAY ==
[2020-06-24 09:44] VITALS: BP 136/85; BMI 41.3
== END ==
PROVIDERS: PCP Internal Medicine; Visit Provider Counselor Mental Health
DX: F06.32 Mood disorder due to known physiological condition with major depressive-like episode (principal); F32.9 Major depressive disorder, single episode, unspecified; G47.00 Insomnia, unspecified
CPT/HCPCS: 90834; 87635

== ENCOUNTER 2021-03-15 07:42 | Outpatient (CLI) | payer MEDICAID, SELFPAY ==
[2020-06-24 09:44] VITALS: BP 136/85; BMI 41.3
--- NOTE | 2021-03-15 10:42 | PFTS_ITS ---
Date of Study:03/15/21 Date of Dictation: 03/15/2021 MECHANICS: Postbronchodilator forced vital capacity (FVC) is reduced 59%. Postbronchodilator forced expiratory volume in one second (FEV1) is reduced 57%. FEV1/FVC is normal. There is significant broncho-dilator response FLOW VOLUME LOOP: Normal . LUNG VOLUMES: Total lung capacity (TLC) is mildly reduced. Residual volume (RV) is normal . DIFFUSING CAPACITY FOR CARBON MONOXIDE: Mildly reduced . INTERPRETATION: The spirometry suggestive of moderate restriction with significant bronchodilator response. Lung volumes also reflect mild restriction. There is mild gas transfer defect. clinical correlation recommended.. MTDD
== END 2021-03-15 07:43 | disposition home or self-care (01) ==
LOC: RT 07:45
PROVIDERS: PCP Internal Medicine; Visit Provider Internal Medicine Pulmonary Disease
DX: J43.2 Centrilobular emphysema (principal)
CPT/HCPCS: 94060; 94726; 94729; J7611

== ENCOUNTER → 2021-03-16 09:25 | Outpatient (BNVA) | payer MEDICAID, SELFPAY ==
[2020-06-24 09:44] VITALS: BP 136/85; BMI 41.3
== END ==
PROVIDERS: PCP Internal Medicine; Visit Provider Counselor Mental Health
DX: F06.32 Mood disorder due to known physiological condition with major depressive-like episode (principal); F32.9 Major depressive disorder, single episode, unspecified; G47.00 Insomnia, unspecified
CPT/HCPCS: 90834

== ENCOUNTER → 2021-03-17 13:42 | Outpatient (BNVA) | payer MEDICAID, SELFPAY ==
[2020-06-24 09:44] VITALS: BP 136/85; BMI 41.3
== END ==
PROVIDERS: PCP Internal Medicine; Visit Provider Anesthesiology
DX: G89.29 Other chronic pain (principal); M54.16 Radiculopathy, lumbar region; M54.6 Pain in thoracic spine; Z79.899 Other long term (current) drug therapy; Z79.891 Long term (current) use of opiate analgesic; Z98.1 Arthrodesis status
CPT/HCPCS: 99213

== ENCOUNTER → 2021-04-06 09:14 | Outpatient (BNVA) | payer MEDICAID, SELFPAY ==
[2021-03-17 15:06] VITALS: BP 136/85; BMI 41.3
== END ==
PROVIDERS: PCP Family Medicine; Visit Provider Anesthesiology
DX: M51.16 Intervertebral disc disorders with radiculopathy, lumbar region (principal); Z87.891 Personal history of nicotine dependence
CPT/HCPCS: 62323; 80061; 83036; J1040; J3490

== ENCOUNTER 2021-04-14 10:00 | Outpatient (CLI) | payer MEDICAID, SELFPAY ==
[2021-03-17 15:06] VITALS: BP 136/85; BMI 41.3
[2021-04-10 14:10] VITALS: BP 134/90; BMI 39.5
--- NOTE | 2021-04-14 10:15 | CT_ITS ---
WS: [id number] Exam: CT chest wo con [id number] Date/Time of Exam: 04/14/2021 10:09 AM Reason For Exam: Assess Resolution of Pneumonia DLP: 1011.[address] scans at [facility] use at least one of these dose optimization techniques: automated e xposure control; mA and/or kV adjustment per patient size (includes targeted exams where dose is matc hed to clinical indication); or iterative reconstruction. Comparison 01/19/2021. The lungs are fully expanded. Mild residual groundglass densities in both lungs. No areas of consolid ation. No pleural effusion seen. No suspicious pulmonary nodules are noted. The thoracic aorta is nor mal in caliber. No significant mediastinal or hilar lymphadenopathy. No axillary lymphadenopathy. The airway is patent. Normal thyroid lobes. No pleural or pericardial effusion. Fusion hardware visualiz ed in the mid and lower thoracic spine. No destructive bone lesions. Old healed sternal fracture. The chest wall is otherwise intact. Multiple old rib fractures. Old right clavicle fracture. Signs of pa rtial pancreatectomy. CT/CT chest wo con [id number] IMPRESSION: 1. Mild residual groundglass densities and areas of pleural scarring in both raquel ngs. No acute infiltrate. No suspicious nodule or mass identified. 2. No significant lymphadenopathy in the chest. 3. Other chronic findings as detailed above.
== END 2021-04-14 10:01 | disposition home or self-care (01) ==
LOC: RADWPI 10:03
PROVIDERS: PCP Family Medicine; Visit Provider Internal Medicine Pulmonary Disease
DX: U09.9 Post COVID-19 condition, unspecified (principal)
CPT/HCPCS: 71250

== ENCOUNTER → 2021-04-18 14:32 | Outpatient (BNVA) | payer MEDICAID, SELFPAY ==
[2021-04-10 14:10] VITALS: BP 134/90; BMI 39.5
== END ==
PROVIDERS: PCP Family Medicine; Visit Provider Urology
DX: N43.40 Spermatocele of epididymis, unspecified (principal)
CPT/HCPCS: 81003

== ENCOUNTER → 2021-04-19 08:06 | Outpatient (BNVA) | payer MEDICAID, SELFPAY ==
[2021-04-10 14:10] VITALS: BP 134/90; BMI 39.5
== END ==
PROVIDERS: PCP Family Medicine; Visit Provider Counselor Mental Health
DX: F06.32 Mood disorder due to known physiological condition with major depressive-like episode (principal); F32.9 Major depressive disorder, single episode, unspecified; G47.00 Insomnia, unspecified; F41.9 Anxiety disorder, unspecified; Z02.89 Encounter for other administrative examinations
CPT/HCPCS: 90834

== ENCOUNTER → 2021-04-20 08:10 | Outpatient (BNVA) | payer MEDICAID, SELFPAY ==
[2021-04-10 14:10] VITALS: BP 134/90; BMI 39.5
== END ==
PROVIDERS: PCP Family Medicine; Visit Provider Nurse Practitioner Psychiatric/Mental Health
DX: F32.9 Major depressive disorder, single episode, unspecified (principal); F06.32 Mood disorder due to known physiological condition with major depressive-like episode; G47.00 Insomnia, unspecified
CPT/HCPCS: 99213

== ENCOUNTER → 2021-04-26 07:51 | Outpatient (BNVA) | payer MEDICAID, SELFPAY ==
[2021-04-10 14:10] VITALS: BP 134/90; BMI 39.5
== END ==
PROVIDERS: PCP Family Medicine; Visit Provider Counselor Mental Health
DX: F06.32 Mood disorder due to known physiological condition with major depressive-like episode (principal); F32.9 Major depressive disorder, single episode, unspecified; G47.00 Insomnia, unspecified; F41.9 Anxiety disorder, unspecified; Z02.89 Encounter for other administrative examinations
CPT/HCPCS: 90834

== ENCOUNTER → 2021-05-03 07:57 | Outpatient (BNVA) | payer MEDICAID, SELFPAY ==
[2021-04-10 14:10] VITALS: BP 134/90; BMI 39.5
== END ==
PROVIDERS: PCP Family Medicine; Visit Provider Counselor Mental Health
DX: F06.32 Mood disorder due to known physiological condition with major depressive-like episode (principal); F32.9 Major depressive disorder, single episode, unspecified; G47.00 Insomnia, unspecified; F41.9 Anxiety disorder, unspecified; Z02.89 Encounter for other administrative examinations
CPT/HCPCS: 90834

== ENCOUNTER → 2021-05-08 14:12 | Outpatient (BNVA) | payer MEDICAID, SELFPAY ==
[2021-04-10 14:10] VITALS: BP 134/90; BMI 39.5
== END ==
PROVIDERS: PCP Family Medicine; Visit Provider Internal Medicine
DX: E31.21 Multiple endocrine neoplasia [MEN] type I (principal); D3A.8 Other benign neuroendocrine tumors
CPT/HCPCS: 99214

== ENCOUNTER → 2021-05-09 14:07 | Outpatient (BNVA) | payer MEDICAID, SELFPAY ==
[2021-04-10 14:10] VITALS: BP 134/90; BMI 39.5
== END ==
PROVIDERS: PCP Family Medicine; Visit Provider Anesthesiology
DX: G89.29 Other chronic pain (principal); M54.16 Radiculopathy, lumbar region; M54.6 Pain in thoracic spine; M53.3 Sacrococcygeal disorders, not elsewhere classified; Z98.1 Arthrodesis status; Z79.891 Long term (current) use of opiate analgesic; Z79.899 Other long term (current) drug therapy; Z87.891 Personal history of nicotine dependence
CPT/HCPCS: 99214

== ENCOUNTER → 2021-05-24 07:40 | Outpatient (BNVA) | payer MEDICAID, SELFPAY ==
[2021-04-10 14:10] VITALS: BP 134/90; BMI 39.5
== END ==
PROVIDERS: PCP Family Medicine; Visit Provider Social Worker
DX: F06.32 Mood disorder due to known physiological condition with major depressive-like episode (principal); F32.9 Major depressive disorder, single episode, unspecified; G47.00 Insomnia, unspecified; F41.9 Anxiety disorder, unspecified
CPT/HCPCS: 90837; 90834

== ENCOUNTER → 2021-05-31 07:45 | Outpatient (BNVA) | payer MEDICAID, SELFPAY ==
[2021-04-10 14:10] VITALS: BP 134/90; BMI 39.5
== END ==
PROVIDERS: PCP Family Medicine; Visit Provider Social Worker
DX: F06.32 Mood disorder due to known physiological condition with major depressive-like episode (principal)
CPT/HCPCS: 90834

== ENCOUNTER 2021-06-02 18:00 | Emergency (ER) | payer MEDICAID, SELFPAY ==
[2021-04-10 14:10] VITALS: BP 134/90; BMI 39.5
[2021-06-02 18:09] VITALS: BP 169/86; PULSE 102; RESP 16; TEMP 36.5; O2SAT 93
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
[2021-06-02 21:21] VITALS: BP 162/81; PULSE 98; RESP 17; O2SAT 94
== END 2021-06-02 21:16 | disposition home or self-care (01) ==
PROVIDERS: Emergency Provider Nurse Practitioner Family; PCP Family Medicine
DX: R04.0 Epistaxis (principal); S09.8XXA Other specified injuries of head, initial encounter; Y04.2XXA Assault by strike against or bumped into by another person, initial encounter; Y92.512 Supermarket, store or market as the place of occurrence of the external cause; F17.200 Nicotine dependence, unspecified, uncomplicated; Z79.891 Long term (current) use of opiate analgesic
CPT/HCPCS: 71101; 99282

== ENCOUNTER → 2021-06-14 07:48 | Outpatient (BNVA) | payer MEDICAID, SELFPAY ==
[2021-04-10 14:10] VITALS: BP 134/90; BMI 39.5
== END ==
PROVIDERS: PCP Family Medicine; Visit Provider Social Worker
DX: F06.32 Mood disorder due to known physiological condition with major depressive-like episode (principal); F32.9 Major depressive disorder, single episode, unspecified; G47.00 Insomnia, unspecified; F41.9 Anxiety disorder, unspecified
CPT/HCPCS: 90837; 90834

== ENCOUNTER 2021-06-19 08:07 | Outpatient (CLI) | payer MEDICAID, SELFPAY ==
[2021-04-10 14:10] VITALS: BP 134/90; BMI 39.5
--- NOTE | 2021-06-19 08:13 | MR_ITS ---
WS: [id number] MRI BRAIN WITHOUT CONTRAST HISTORY: Pancreatic cancer. Looking for metastases. COMPARISON: None available. TECHNIQUE: Diffusion imaging, multiplanar T1, T2 and FLAIR imaging obtained. Patient was unable to tolerate additional imaging with postcontrast due to pain. Study terminated ear ly due to pain. No evidence for acute infarct or hemorrhage. [place]endleton-white matter differentiation is normal. No remote or acute infarct. There are a few scattered T2 and FLAIR signal hyperintensities from chron ic white matter disease. No mass effect. No hemorrhage. Ventricles and extra-axial spaces are normal. Mild inferior displacement of cerebellar tonsils by 5.3 mm. Consistent with a very mild Chiari I malf ormation. No obstruction or dilatation of the fourth ventricle. Dural venous sinuses and [place] demonstrate no abnormality on this unenhanced studies. Paranasal sinuses: Clear. Mastoid air cells: Normal. Calvarium and scalp: Intact. MR/MR head wo con* [id number] IMPRESSION: 1. Study terminated early due to pain. No postcontrast imaging. 2. No acute infarct. No acute hemorrhage. 3. Mild chronic microvascular ischemic type changes in the white matter. No si gnificant mass effect or midline shift. 4. Mild Chiari I malformation.
== END 2021-06-19 08:08 | disposition home or self-care (01) ==
PROVIDERS: PCP Family Medicine
DX: E31.21 Multiple endocrine neoplasia [MEN] type I (principal); G93.5 Compression of brain; I67.82 Cerebral ischemia
CPT/HCPCS: 70551

== ENCOUNTER → 2021-06-21 08:16 | Outpatient (BNVA) | payer MEDICAID, SELFPAY ==
[2021-04-10 14:10] VITALS: BP 134/90; BMI 39.5
== END ==
PROVIDERS: PCP Family Medicine; Visit Provider Social Worker
DX: F06.32 Mood disorder due to known physiological condition with major depressive-like episode (principal); F32.9 Major depressive disorder, single episode, unspecified; G47.00 Insomnia, unspecified; F41.9 Anxiety disorder, unspecified
CPT/HCPCS: 90837; 90834

== ENCOUNTER 2021-06-27 13:14 | Outpatient (CLI) | payer MEDICAID, SELFPAY ==
[2021-04-10 14:10] VITALS: BP 134/90; BMI 39.5
--- NOTE | 2021-06-27 13:34 | PFTS_ITS ---
Date of Study:06/27/21 Date of Dictation: MECHANICS: Forced vital capacity (FVC) is reduced. Forced expiratory volume in one second (FEV1) is reduced. FEV1/FVC is normal. FLOW VOLUME LOOP: Reduced lateral lung volumes with scooping. LUNG VOLUMES: Total lung capacity (TLC) is reduced. Residual volume (RV) is normal. DIFFUSING CAPACITY FOR CARBON MONOXIDE: Normal. INTERPRETATION: The postbronchodilator spirometry is consistent with moderate restriction. No significant postbronchodilator response is present. Lung volumes are consistent with restrictive physiology. The patient also has a component of obstructive lung disease as noted by the shape of the flow volume loop. Gas exchange (DLCO) is normal. MTDD
== END 2021-06-27 13:15 | disposition home or self-care (01) ==
LOC: RT 13:15
PROVIDERS: PCP Family Medicine; Visit Provider Internal Medicine Pulmonary Disease
DX: J43.2 Centrilobular emphysema (principal)
CPT/HCPCS: 94060; 94726; 94729; J7611

== ENCOUNTER → 2021-06-28 07:27 | Outpatient (BNVA) | payer MEDICAID, SELFPAY ==
[2021-04-10 14:10] VITALS: BP 134/90; BMI 39.5
== END ==
PROVIDERS: PCP Family Medicine; Visit Provider Social Worker
DX: F06.32 Mood disorder due to known physiological condition with major depressive-like episode (principal); F32.9 Major depressive disorder, single episode, unspecified; G47.00 Insomnia, unspecified; F41.9 Anxiety disorder, unspecified
CPT/HCPCS: 90832

== ENCOUNTER → 2021-07-05 07:38 | Outpatient (BNVA) | payer MEDICAID, SELFPAY ==
[2021-04-10 14:10] VITALS: BP 134/90; BMI 39.5
== END ==
PROVIDERS: PCP Family Medicine; Visit Provider Social Worker
DX: F06.32 Mood disorder due to known physiological condition with major depressive-like episode (principal); F32.9 Major depressive disorder, single episode, unspecified; G47.00 Insomnia, unspecified; F41.9 Anxiety disorder, unspecified
CPT/HCPCS: 90837; 90834

== ENCOUNTER → 2021-07-12 07:53 | Outpatient (BNVA) | payer MEDICAID, SELFPAY ==
[2021-04-10 14:10] VITALS: BP 134/90; BMI 39.5
== END ==
PROVIDERS: PCP Family Medicine; Visit Provider Social Worker
DX: F32.9 Major depressive disorder, single episode, unspecified (principal); F06.32 Mood disorder due to known physiological condition with major depressive-like episode
CPT/HCPCS: 90837; 90834

== ENCOUNTER → 2021-07-13 07:40 | Outpatient (BNVA) | payer MEDICAID, SELFPAY ==
[2021-04-10 14:10] VITALS: BP 134/90; BMI 39.5
== END ==
PROVIDERS: PCP Family Medicine; Visit Provider Nurse Practitioner Psychiatric/Mental Health
DX: F06.32 Mood disorder due to known physiological condition with major depressive-like episode (principal); G47.00 Insomnia, unspecified; F41.9 Anxiety disorder, unspecified
CPT/HCPCS: 99213

== ENCOUNTER → 2021-07-26 08:21 | Outpatient (BNVA) | payer MEDICAID, SELFPAY ==
[2021-04-10 14:10] VITALS: BP 134/90; BMI 39.5
== END ==
PROVIDERS: PCP Family Medicine; Visit Provider Social Worker
DX: F41.9 Anxiety disorder, unspecified (principal); F32.9 Major depressive disorder, single episode, unspecified; F06.32 Mood disorder due to known physiological condition with major depressive-like episode
CPT/HCPCS: 90837; 90834

== ENCOUNTER → 2021-08-02 07:54 | Outpatient (BNVA) | payer MEDICAID, SELFPAY ==
[2021-04-10 14:10] VITALS: BP 134/90; BMI 39.5
== END ==
PROVIDERS: PCP Family Medicine; Visit Provider Social Worker
DX: F32.9 Major depressive disorder, single episode, unspecified (principal); F06.32 Mood disorder due to known physiological condition with major depressive-like episode
CPT/HCPCS: 90837; 90834

== ENCOUNTER → 2021-08-09 07:29 | Outpatient (BNVA) | payer MEDICAID, SELFPAY ==
[2021-04-10 14:10] VITALS: BP 134/90; BMI 39.5
== END ==
PROVIDERS: PCP Family Medicine; Visit Provider Social Worker
DX: F32.9 Major depressive disorder, single episode, unspecified (principal); F06.32 Mood disorder due to known physiological condition with major depressive-like episode; F41.9 Anxiety disorder, unspecified
CPT/HCPCS: 90837; 90834

== ENCOUNTER → 2021-08-16 07:53 | Outpatient (BNVA) | payer MEDICAID, SELFPAY ==
[2021-04-10 14:10] VITALS: BP 134/90; BMI 39.5
== END ==
PROVIDERS: PCP Family Medicine; Visit Provider Social Worker
DX: F32.9 Major depressive disorder, single episode, unspecified (principal); F06.32 Mood disorder due to known physiological condition with major depressive-like episode; F41.9 Anxiety disorder, unspecified
CPT/HCPCS: 90837; 90834

== ENCOUNTER → 2021-08-24 07:51 | Outpatient (BNVA) | payer MEDICAID, SELFPAY ==
[2021-04-10 14:10] VITALS: BP 134/90; BMI 39.5
== END ==
PROVIDERS: PCP Family Medicine; Visit Provider Social Worker
DX: F32.9 Major depressive disorder, single episode, unspecified (principal); F06.32 Mood disorder due to known physiological condition with major depressive-like episode; F41.9 Anxiety disorder, unspecified
CPT/HCPCS: 90837; 90834

== ENCOUNTER → 2021-08-30 11:13 | Outpatient (BNVA) | payer MEDICAID, SELFPAY ==
[2021-04-10 14:10] VITALS: BP 134/90; BMI 39.5
== END ==
PROVIDERS: PCP Family Medicine; Visit Provider Social Worker
DX: F32.9 Major depressive disorder, single episode, unspecified (principal); F06.32 Mood disorder due to known physiological condition with major depressive-like episode; F41.9 Anxiety disorder, unspecified
CPT/HCPCS: 90834

== ENCOUNTER → 2021-09-06 08:20 | Outpatient (BNVA) | payer MEDICAID, SELFPAY ==
[2021-04-10 14:10] VITALS: BP 134/90; BMI 39.5
== END ==
PROVIDERS: PCP Family Medicine; Visit Provider Social Worker
DX: F32.9 Major depressive disorder, single episode, unspecified (principal); F06.32 Mood disorder due to known physiological condition with major depressive-like episode
CPT/HCPCS: 90834

== ENCOUNTER → 2021-09-13 07:52 | Outpatient (BNVA) | payer MEDICAID, SELFPAY ==
[2021-04-10 14:10] VITALS: BP 134/90; BMI 39.5
== END ==
PROVIDERS: PCP Family Medicine; Visit Provider Social Worker
DX: F32.9 Major depressive disorder, single episode, unspecified (principal); F06.32 Mood disorder due to known physiological condition with major depressive-like episode
CPT/HCPCS: 90837; 90834

== ENCOUNTER → 2021-09-28 07:39 | Outpatient (BNVA) | payer MEDICAID, OTHER, SELFPAY ==
[2021-04-10 14:10] VITALS: BP 134/90; BMI 39.5
== END ==
PROVIDERS: PCP Family Medicine; Visit Provider Social Worker
DX: F32.9 Major depressive disorder, single episode, unspecified (principal); F06.32 Mood disorder due to known physiological condition with major depressive-like episode
CPT/HCPCS: 90837; 90834

== ENCOUNTER → 2021-10-04 07:30 | Outpatient (BNVA) | payer MEDICAID, SELFPAY ==
[2021-04-10 14:10] VITALS: BP 134/90; BMI 39.5
== END ==
PROVIDERS: PCP Family Medicine; Visit Provider Social Worker
DX: F32.9 Major depressive disorder, single episode, unspecified (principal); F06.32 Mood disorder due to known physiological condition with major depressive-like episode
CPT/HCPCS: 90834

== ENCOUNTER → 2021-10-05 07:24 | Outpatient (BNVA) | payer MEDICAID, SELFPAY ==
[2021-04-10 14:10] VITALS: BP 134/90; BMI 39.5
== END ==
PROVIDERS: PCP Family Medicine; Visit Provider Nurse Practitioner Psychiatric/Mental Health
DX: F06.32 Mood disorder due to known physiological condition with major depressive-like episode (principal); F41.9 Anxiety disorder, unspecified; G47.00 Insomnia, unspecified
CPT/HCPCS: 99213

== ENCOUNTER 2021-10-09 06:00 | Outpatient (RCR) | payer MEDICAID, SELFPAY ==
[2021-04-10 14:10] VITALS: BP 134/90; BMI 39.5
== END 2021-10-14 23:59 | disposition home or self-care (01) ==
LOC: SPT 06:00
PROVIDERS: PCP Family Medicine; Referring Provider Family Medicine; Visit Provider Family Medicine
DX: M54.9 Dorsalgia, unspecified (principal); G89.29 Other chronic pain
CPT/HCPCS: 97161

== ENCOUNTER → 2021-10-11 07:17 | Outpatient (BNVA) | payer MEDICAID, SELFPAY ==
[2021-04-10 14:10] VITALS: BP 134/90; BMI 39.5
== END ==
PROVIDERS: PCP Family Medicine; Visit Provider Social Worker
DX: F06.32 Mood disorder due to known physiological condition with major depressive-like episode (principal); F41.9 Anxiety disorder, unspecified
CPT/HCPCS: 90834

== ENCOUNTER → 2021-10-16 08:13 | Outpatient (BNVA) | payer MEDICAID, SELFPAY ==
[2021-04-10 14:10] VITALS: BP 134/90; BMI 39.5
== END ==
PROVIDERS: PCP Family Medicine; Visit Provider Internal Medicine
DX: D3A.8 Other benign neuroendocrine tumors (principal); Z87.891 Personal history of nicotine dependence
CPT/HCPCS: 99213; 99214

== ENCOUNTER → 2021-10-18 07:24 | Outpatient (BNVA) | payer MEDICAID, SELFPAY ==
[2021-04-10 14:10] VITALS: BP 134/90; BMI 39.5
== END ==
PROVIDERS: PCP Family Medicine; Visit Provider Social Worker
DX: F41.9 Anxiety disorder, unspecified (principal); F06.32 Mood disorder due to known physiological condition with major depressive-like episode; F32.9 Major depressive disorder, single episode, unspecified
CPT/HCPCS: 90834

== ENCOUNTER → 2021-10-25 07:26 | Outpatient (BNVA) | payer MEDICAID, SELFPAY ==
[2021-04-10 14:10] VITALS: BP 134/90; BMI 39.5
== END ==
PROVIDERS: PCP Family Medicine; Visit Provider Social Worker
DX: F41.9 Anxiety disorder, unspecified (principal); F32.9 Major depressive disorder, single episode, unspecified; F06.32 Mood disorder due to known physiological condition with major depressive-like episode
CPT/HCPCS: 90834

== ENCOUNTER 2021-10-30 12:38 | Outpatient (CLI) | payer MEDICAID, SELFPAY ==
[2021-04-10 14:10] VITALS: BP 134/90; BMI 39.5
--- NOTE | 2021-10-30 12:45 | XRR_ITS ---
PROCEDURE INFORMATION: Exam: XR Thoracic Spine Exam date and time: 10/30/2021 12:59 PM Age: 55 years old Clinical indication: Pain in thoracic spine; Prior surgery; Surgery type: T spine; Patient HX: Chronic back pain, HX FX 2012, HX of pancreatic cancer; Additional info: Back pain, thoracic region TECHNIQUE: Imaging protocol: XR of the thoracic spine. Views: 3 views. COMPARISON: CR (CHEST, ) 06/02/2021 6:23 PM FINDINGS: Bones/joints: No spine curvature seen. The normal thoracic kyphosis is maintained, without listhesis. Thoracolumbar spine fusion is partially included. No evidence of hardware related complication. No acute fracture identified. Mild central loss of height of the T8 superior endplate is again seen, unchanged. There is multilevel degenerative changes, manifested by intervertebral disc space narrowing, endplate osteophytes and facet joint arthrosis. Soft tissues: Unremarkable. XR/XR thoracic spine 2V [id number] IMPRESSION: 1. Degenerative changes of the thoracic spine. 2. No acute injury.
--- NOTE | 2021-10-30 12:45 | XRR_ITS ---
PROCEDURE INFORMATION: Exam: XR Lumbosacral Spine Exam date and time: 10/30/2021 12:59 PM Age: 55 years old Clinical indication: Low back pain; Prior surgery; Surgery type: Chronic back pain, HX FX 2012; Patient HX: HX of pancreatic cancer; Additional info: Thoracic region back pain, h/o veterbral FX at t12 TECHNIQUE: Imaging protocol: XR of the lumbosacral spine. Views: 2 or 3 views. COMPARISON: CR XR lumbar spine 2-3V* [id number] 07/17/2020 7:37 AM FINDINGS: Bones/joints: No spine curvature seen. There is straightening of the normal lumbar lordosis, without listhesis. Stable appearance of T10-L3 posterior fusion hardware. No evidence of hardware related complication. No fracture identified. There is multilevel degenerative changes, manifested by intervertebral disc space narrowing, endplate osteophytes and facet joint arthrosis. Soft tissues: Unremarkable. XR/XR lumbar spine 2-3V* [id number] IMPRESSION: 1. Degenerative changes of the lumbar spine. 2. No acute injury.
== END 2021-10-30 12:39 | disposition home or self-care (01) ==
PROVIDERS: PCP Family Medicine; Visit Provider Family Medicine
DX: M54.6 Pain in thoracic spine (principal); M54.50 Low back pain, unspecified; Z85.07 Personal history of malignant neoplasm of pancreas; M47.896 Other spondylosis, lumbar region; M47.894 Other spondylosis, thoracic region
CPT/HCPCS: 72070; 72100

== ENCOUNTER → 2021-11-01 07:27 | Outpatient (BNVA) | payer MEDICAID, SELFPAY ==
[2021-04-10 14:10] VITALS: BP 134/90; BMI 39.5
== END ==
PROVIDERS: PCP Family Medicine; Visit Provider Social Worker
DX: F41.9 Anxiety disorder, unspecified (principal); F32.9 Major depressive disorder, single episode, unspecified; F06.32 Mood disorder due to known physiological condition with major depressive-like episode
CPT/HCPCS: 90837; 90834

== ENCOUNTER → 2021-11-08 07:32 | Outpatient (BNVA) | payer MEDICAID, SELFPAY ==
[2021-04-10 14:10] VITALS: BP 134/90; BMI 39.5
== END ==
PROVIDERS: PCP Family Medicine; Visit Provider Social Worker
DX: F41.9 Anxiety disorder, unspecified (principal); F06.32 Mood disorder due to known physiological condition with major depressive-like episode; F32.9 Major depressive disorder, single episode, unspecified
CPT/HCPCS: 90834

== ENCOUNTER 2021-11-15 06:00 | Outpatient (RCR) | payer MEDICAID, SELFPAY ==
[2021-04-10 14:10] VITALS: BP 134/90; BMI 39.5
== END 2021-12-14 23:59 | disposition home or self-care (01) ==
LOC: SPT 06:00
PROVIDERS: PCP Family Medicine; Referring Provider Family Medicine; Visit Provider Family Medicine
DX: M54.9 Dorsalgia, unspecified (principal)
CPT/HCPCS: 97110

== ENCOUNTER → 2021-11-15 07:37 | Outpatient (BNVA) | payer MEDICAID, SELFPAY ==
[2021-04-10 14:10] VITALS: BP 134/90; BMI 39.5
== END ==
PROVIDERS: PCP Family Medicine; Visit Provider Social Worker
DX: F41.9 Anxiety disorder, unspecified (principal); F32.9 Major depressive disorder, single episode, unspecified; F06.32 Mood disorder due to known physiological condition with major depressive-like episode
CPT/HCPCS: 90834

== ENCOUNTER → 2021-12-06 07:21 | Outpatient (BNVA) | payer MEDICAID, SELFPAY ==
[2021-04-10 14:10] VITALS: BP 134/90; BMI 39.5
== END ==
PROVIDERS: PCP Family Medicine; Visit Provider Social Worker
DX: F41.9 Anxiety disorder, unspecified (principal); F32.9 Major depressive disorder, single episode, unspecified; F06.32 Mood disorder due to known physiological condition with major depressive-like episode
CPT/HCPCS: 90837; 90834

== ENCOUNTER 2021-12-08 06:58 | Day surgery (SDC) | payer MEDICAID, SELFPAY ==
[2021-04-10 14:10] VITALS: BP 134/90; BMI 39.5
[2021-12-06 08:59] VITALS: BMI 40.1
--- NOTE | 2021-12-08 06:41 | W.PM.OPSFHP ---
Same Day Surgery H&P Indication for Procedure/HPI DATE OF PROCEDURE: December 08, 2021 CHIEF COMPLAINT/INDICATIONFOR SURGICAL PROCEDURE: Screening colonoscopy PREOP DIAGNOSIS: Screening colonoscopy PLANNED PROCEDURE: Operation Date: 12/08/21 08:30 Proposed Procedures p Colonoscopy 71252/[id number](Not Applicable) - Tr Adhikari MD This is a pleasant 55 years old gentleman referred to my practice for screening colonoscopy. Patient denies any history of colon cancer or bleeding per rectum or change in bowel habits. Comes today for screening colonoscopy ROS All systems have been reviewed negative except as for the above or per problem list. Medications/Allergies* Home Medications Medication Instructions Recorded Confirmed Type multivitamin 1 tab PO DAILY 05/19/20 12/08/21 History oxygen-air delivery systems 10/31/20 10/16/21 History acetaminophen 500 mg tablet 1,000 mg PO PRN 01/19/21 12/08/21 History (Tylenol Extra Strength) meloxicam 15 mg tablet 15 mg PO QAM 01/19/21 12/08/21 History atorvastatin 10 mg tablet 10 mg PO DAILY 03/17/21 12/08/21 History glipizide 5 mg tablet 5 mg PO DAILY 03/17/21 12/08/21 History lisinopril 2.5 mg tablet 2.5 mg PO DAILY 03/17/21 12/08/21 History albuterol sulfate 90 mcg/actuation 2 puff INHALATION Q6H PRN 07/11/21 12/08/21 History aerosol inhaler (ProAir HFA) Allergies/Adverse Reactions Allergy/AdvReac Type Severity Reaction Status Date / Time No Known Allergies Allergy Verified 10/16/21 08:30 Pertinent History/Comorbid Conditions* Medical History (Updated 07/04/21 @ 15:04 by Troy Lynne MD) Cellulitis and abscess of left leg Chronic SI joint pain COPD (chronic obstructive pulmonary disease) Depression Encounter for long-term opiate analgesic use Lumbar back pain with radiculopathy affecting right lower extremity Nicotine dependence with current use Not interested in smoking cessation. Obesity Smoking Spermatocele Surgical History (Updated 11/13/20 @ 00:01 by ) History of back surgery (~2013) 12/2013 T12 REMOVAL POST WORK ACCIDENT History of spinal fusion S/P hernia repair (~12/2013) UMBILICAL HERNIA REPAIR Family History (Updated 11/02/21 @ 14:30 by JOSE Powell Father, AT AGE 56 Mother, IN HER 60'S Diabetes Mother CAD (coronary artery disease) Mother Psychiatric illness Mother Family history of premature coronary artery disease Cancer Mother UTERINE CANCER Father PROSTATE Stroke Mother Social History Smoking and tobacco status: former smoker Smoking risk assessment/counseling performed?: Yes Alcohol intake: current Alcohol intake frequency: holidays/special occasions only Marital status: Number of children: 2 Number of grandchildren: 3 Education level details: Phlebotomy Current occupational status: disabled History of recent travel: No Rosey/Scientologist: Other Pertinent Exam Findings alert, oriented x 3, clear to auscultation bilaterally, regular rate & rhythm and procedure specific exam findings (Abdominal examination nontender nondistended soft) Recommendations Surgery/Procedure today (Screening colonoscopy) Other Plans: Plan of care; After thorough history and physical examination and reviewing the chart, plan to perform screening colonoscopy. I discussed with the patient in details the risks,benefits,alternatives and indications.The risk of aspiration, bleeding, soft tissue injury, perforation of the colon and other potential concomitant complications were explained to the patient in details,also the potential need for Laproscoy/Laparotomy to repair any related complications including but not limited to colectomy and or Closotomy.The patient understood this well and did agree to proceed. Rationale was carefully and clearly discussed with the patient.Appropriate informed consent have been reviewed and signed All questions have been answered and all concerns have been addressed to patient's satisfaction. 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
[2021-12-08 07:14] VITALS: BP 145/83; PULSE 94; RESP 18; TEMP 36.2; O2SAT 95
[2021-12-08] MEDS: sodium chloride 0.9% 1,000 ML 30 ML IV (07:29)
--- NOTE | 2021-12-08 07:40 | P.ANESASSM_ITS ---
Pre-Anesthetic Assessment Height/Weight: Height 1.78 m Weight 127.006 kg Temp Pulse Resp BP Pulse Ox 97.1 F L 94 18 145/83 95 12/08/21 07:14 12/08/21 07:14 12/08/21 07:14 12/08/21 07:14 12/08/21 07:14 Preop Diagnosis: Screening colonoscopy Operation Date: 12/08/21 08:30 Proposed Procedures p Colonoscopy 83745/[id number](Not Applicable) - Tr Adhikari MD Familial anesthetic complications: none Was Beta Pillo taken within 24 hours: N/A Was Clonidine taken within 24 hours: N/A Last intake: Intake Last Liquid Date 12/07/21 Last Liquid Time 21:00 Last Solid Date 12/06/21 Last Solid Time 21:00 Social No alcohol and No tobacco former smoker Exam alert, oriented x 3, clear to auscultation bilaterally and regular rate & rhythm Airway Submandibular: within normal limits Cervical ROM: within normal limits Mallampati: Class II Comments: Comments: 6 lower teeth Pulmonary Chronic Obstructive Pulmonary Disease and Sleep Apnea restrictive lung disease Can ascend flight of stairs with pause half way d/t SOB Recurrent left pleural effusions CV/HEM Hypertension Denies CAD Pancreatic cancer MEN 1 syndrome Hepatic None reported GI Gastroesophageal Reflux Disease (well controlled ) Metabolic Diabetes Mellitus and Morbid Obesity BG 203 today Musc/skel Lower Back Pain Neuropsych Depression Denies hx of stroke or seizure Anesthetic Plan ASA status: 3 (55 year old morbidly obese male with PATRICIA, restrictive lung disease, COPD, HTN, pancreatic cancer, DM, and depression ) Anesthesia: Anesthesia Evaluation and MAC Risk of > 500 ml blood loss (7ml/kg in children): No Other Pertinent Information Elevated BG. Patient off oral DM medications for 2 days. Does not use insulin. Plan recheck post op, if BG rises from pre op will administer insulin. Plan discussed with pre op Nurse Marc. Medications/Allergies Home Medications Medication Instructions Recorded Confirmed Last Taken Type multivitamin 1 tab PO DAILY 05/19/20 12/08/21 12/06/21 History oxygen-air delivery systems 10/31/20 10/16/21 11/24/20 History acetaminophen 500 mg tablet 1,000 mg PO PRN 01/19/21 12/08/21 Unknown History (Tylenol Extra Strength) meloxicam 15 mg tablet 15 mg PO QAM 01/19/21 12/08/21 12/06/21 History atorvastatin 10 mg tablet 10 mg PO DAILY 03/17/21 12/08/21 12/06/21 History gabapentin 300 mg capsule 300 mg PO BID #60 cap 03/17/21 12/08/21 12/06/21 Rx glipizide 5 mg tablet 5 mg PO DAILY 03/17/21 12/08/21 12/06/21 History lisinopril 2.5 mg tablet 2.5 mg PO DAILY 03/17/21 12/08/21 12/06/21 History hydrocodone 5 mg-acetaminophen 325 1 tab PO TID PRN 30 Days #90 tab 05/09/21 12/08/21 Unknown Rx mg tablet hydrocodone 5 mg-acetaminophen 325 1 tab PO TID PRN 30 Days #90 tab 05/09/21 12/08/21 12/06/21 Rx mg tablet methocarbamol 500 mg tablet 500 mg PO TID PRN #90 tab 05/09/21 12/08/21 12/06/21 Rx albuterol sulfate 90 mcg/actuation 2 puff INHALATION Q6H PRN #8.5 g 07/04/21 12/08/21 Unknown Rx aerosol inhaler (Ventolin HFA) albuterol sulfate 90 mcg/actuation 2 puff INHALATION Q6H PRN 07/11/21 12/08/21 12/08/21 History aerosol inhaler (ProAir HFA) bupropion HCl 300 mg 24 hr tablet, 300 mg PO QAM #30 tab 10/05/21 12/08/21 12/06/21 Rx extended release trazodone 150 mg tablet 150 mg PO BEDTIME PRN #30 tab 10/05/21 12/08/21 12/04/21 Rx Allergies Allergy/AdvReac Type Severity Reaction Status Date / Time No Known Allergies Allergy Verified 10/16/21 08:30 Current Medications Generic Name Dose Route Start Last Admin Trade Name Freq PRN Reason Stop Dose Admin Sodium Chloride 1,000 mls @ 30 mls/hr 12/08/21 07:15 12/08/21 07:29 Sodium Chloride 0.9% IV 12/09/21 07:14 30 mls/hr .Q24H RUPERT Administration PFSH Anesthesia Medical History Cellulitis and abscess of left leg Chronic SI joint pain COPD (chronic obstructive pulmonary disease) Depression Encounter for long-term opiate analgesic use Lumbar back pain with radiculopathy affecting right lower extremity Nicotine dependence with current use Not interested in smoking cessation. Obesity Smoking Spermatocele Surgical History History of back surgery (~2013) 12/2013 T12 REMOVAL POST WORK ACCIDENT History of spinal fusion S/P hernia repair (~12/2013) UMBILICAL HERNIA REPAIR Family History Mother , IN HER 60'S Diabetes CAD (coronary artery disease) Psychiatric illness Stroke Cancer UTERINE CANCER Father , AT AGE 56 Cancer PROSTATE Other Family history of premature coronary artery disease Social History Smoking and tobacco status: former smoker Smoking risk assessment/counseling performed?: Yes Alcohol intake: current Alcohol intake frequency: holidays/special occasions only Marital status: Number of children: 2 Number of grandchildren: 3 Education level details: Phlebotomy Current occupational status: disabled History of recent travel: No Rosey/Episcopalian: Other Data Anesthesia Cardiac Studies: No Data to Display
[2021-12-08 08:10] VITALS: BP 117/77; PULSE 86; RESP 16; TEMP 36.3; O2SAT 93
[2021-12-08 08:19] VITALS: BP 110/78; PULSE 84; RESP 18; O2SAT 94
--- NOTE | 2021-12-08 11:56 | ANE.PACU2 ---
Inpatient post-anesthesia follow up: Airway intact: Yes Vital signs: Temperature 97.3 F Pulse Rate 84 Respiratory Rate 18 Blood Pressure 110/78 Pulse Oximetry 94 Oxygen Delivery Me thod Room Air Oxygen Flow Rate Fraction of Inspir ed Oxygen Hydration adequate: Yes Nausea and vomiting: No Pain level: 1 Mental status: Baseline
== END 2021-12-08 08:31 | disposition home or self-care (01) ==
PROVIDERS: PCP Family Medicine; Visit Provider Surgery
PROC: 0DJD8ZZ Inspection of Lower Intestinal Tract, Via Natural or Artificial Opening Endoscopic (ICD-10-PCS; CPT 45378; principal; 2021-12-08 08:30)
DX: Z12.11 Encounter for screening for malignant neoplasm of colon (principal); J44.9 Chronic obstructive pulmonary disease, unspecified; F32.9 Major depressive disorder, single episode, unspecified; E66.9 Obesity, unspecified; Z68.41 Body mass index [BMI] 40.0-44.9, adult; F17.210 Nicotine dependence, cigarettes, uncomplicated
CPT/HCPCS: 45378; J2704; J7030

== ENCOUNTER 2021-12-15 06:00 | Outpatient (RCR) | payer MEDICAID, SELFPAY ==
[2021-04-10 14:10] VITALS: BP 134/90; BMI 39.5
== END 2022-01-14 23:59 | disposition home or self-care (01) ==
LOC: SPT 06:00
PROVIDERS: PCP Family Medicine; Referring Provider Family Medicine; Visit Provider Family Medicine
DX: M54.9 Dorsalgia, unspecified (principal)
CPT/HCPCS: 97110

== ENCOUNTER → 2022-01-01 10:03 | Outpatient (BNVA) | payer MEDICAID, SELFPAY ==
[2021-04-10 14:10] VITALS: BP 134/90; BMI 39.5
== END ==
PROVIDERS: PCP Family Medicine; Visit Provider Internal Medicine Pulmonary Disease
DX: J44.9 Chronic obstructive pulmonary disease, unspecified (principal); C25.2 Malignant neoplasm of tail of pancreas; F17.200 Nicotine dependence, unspecified, uncomplicated; U09.9 Post COVID-19 condition, unspecified; Z09 Encounter for follow-up examination after completed treatment for conditions other than malignant neoplasm; Z71.6 Tobacco abuse counseling; R06.02 Shortness of breath
CPT/HCPCS: 99214

== ENCOUNTER → 2022-01-09 13:00 | Outpatient (BNVA) | payer MEDICAID, SELFPAY ==
[2021-04-10 14:10] VITALS: BP 134/90; BMI 39.5
== END ==
PROVIDERS: PCP Family Medicine; Referring Provider Family Medicine; Visit Provider Podiatrist Foot & Ankle Surgery
DX: L84 Corns and callosities (principal); L60.3 Nail dystrophy; E11.42 Type 2 diabetes mellitus with diabetic polyneuropathy; M20.41 Other hammer toe(s) (acquired), right foot; M20.42 Other hammer toe(s) (acquired), left foot; M21.41 Flat foot [pes planus] (acquired), right foot; M21.42 Flat foot [pes planus] (acquired), left foot
CPT/HCPCS: 11056; 11721; 99203; 99204

== ENCOUNTER 2022-02-08 09:30 | Outpatient (CLI) | payer MEDICAID, SELFPAY ==
[2021-04-10 14:10] VITALS: BP 134/90; BMI 39.5
--- NOTE | 2022-02-08 09:30 | US_ITS ---
WS: [id number] ULTRASOUND THYROID TECHNIQUE: Ultrasound of the thyroid. CLINICAL INFORMATION: tumor changes COMPARISON: None. FINDINGS: Thyroid: Right and left thyroid lobes are normal in size and echotexture. A few tiny incidental collo id cysts in the RIGHT thyroid lobe. No suspicious lesions in the LEFT thyroid lobe. Right thyroid lobe: 4.5 cm x 1.3 cm x 1.4 cm Left thyroid lobe: 4.9 cm x 1.4 cm x 1.5 cm. Isthmus: 0.3 mm. Cervical lymphadenopathy: Enlarged bilateral upper cervical lymph nodes. US/US thyroid [id number] IMPRESSION: 1. A few tiny incidental colloid cysts in the RIGHT thyroid. No suspicious nod ule taller for biopsy in either lobe. 2. A few enlarged bilateral cervical lymph nodes nonspecific but may be reacti ve. Recommend clinical correlation. 3. No other suspicious findings.
== END 2022-02-08 09:31 | disposition home or self-care (01) ==
PROVIDERS: PCP Family Medicine; Visit Provider Internal Medicine
DX: D3A.8 Other benign neuroendocrine tumors (principal)
CPT/HCPCS: 76536

== ENCOUNTER → 2022-03-26 13:47 | Outpatient (BNVA) | payer OTHER, SELFPAY ==
[2021-04-10 14:10] VITALS: BP 134/90; BMI 39.5
== END ==
PROVIDERS: PCP Family Medicine; Visit Provider Nurse Practitioner Psychiatric/Mental Health
DX: F41.9 Anxiety disorder, unspecified (principal)
CPT/HCPCS: 80061; 83036

== ENCOUNTER → 2022-04-17 14:05 | Outpatient (BNVA) | payer MEDICAID, SELFPAY ==
[2022-03-29 16:49] VITALS: BP 140/84; BMI 39.2
== END ==
PROVIDERS: PCP Family Medicine; Visit Provider Podiatrist Foot & Ankle Surgery
DX: E11.8 Type 2 diabetes mellitus with unspecified complications (principal); L84 Corns and callosities; L60.3 Nail dystrophy; E11.42 Type 2 diabetes mellitus with diabetic polyneuropathy; M20.41 Other hammer toe(s) (acquired), right foot; M20.42 Other hammer toe(s) (acquired), left foot; M21.41 Flat foot [pes planus] (acquired), right foot; M21.42 Flat foot [pes planus] (acquired), left foot
CPT/HCPCS: 11056; 11721

== ENCOUNTER 2022-04-23 07:04 | Outpatient (CLI) | payer MEDICAID, SELFPAY ==
[2021-04-10 14:10] VITALS: BP 134/90; BMI 39.5
[2022-03-29 16:49] VITALS: BP 140/84; BMI 39.2
--- NOTE | 2022-04-23 07:15 | CT_ITS ---
WS: [id number] LDCT LUNG CANCER SCREENING TECHNIQUE: Noncontrast CT of the chest with coronal and sagittal reformatted images. CLINICAL INFORMATION: Current smoker COMPARISON: None. DLP: 75.00 mGy.cm DIvol: Mean CTDIvol: 1.60 (mGy) All CT scans at [facility] use at least one of these dose optimization techniques: automat ed exposure control; mA and/or kV adjustment per patient size (includes targeted exams where dose is matched to clinical indication); or iterative reconstruction. FINDINGS: No suspicious pulmonary parenchymal opacities. Similar-appearing scattered reticular opacit ies and parenchymal scarring. Mild thoracic curve. Mild thoracic kyphosis. Postoperative changes lower thoracic and upper lumbar s pine. Normal caliber thoracic aorta. No mediastinal or hilar lymphadenopathy. No axillary lymphadenop athy. Adrenal glands are normal. Normal GE junction. CT/CT lung screening [id number] IMPRESSION: LUNG-RADS: 2-Benign Appearance or Behavior FOLLOW UP: 12 Month: Continue annual screening with LDCT
== END 2022-04-23 07:05 | disposition home or self-care (01) ==
LOC: RAD 07:05
PROVIDERS: PCP Family Medicine; Visit Provider Internal Medicine Pulmonary Disease
DX: Z12.2 Encounter for screening for malignant neoplasm of respiratory organs (principal); F17.210 Nicotine dependence, cigarettes, uncomplicated; J44.9 Chronic obstructive pulmonary disease, unspecified; C25.2 Malignant neoplasm of tail of pancreas; Z71.6 Tobacco abuse counseling; G93.39 Other post infection and related fatigue syndromes; U09.9 Post COVID-19 condition, unspecified; Z85.07 Personal history of malignant neoplasm of pancreas; Z90.411 Acquired partial absence of pancreas; Z90.81 Acquired absence of spleen
CPT/HCPCS: 71271; 99214

== ENCOUNTER → 2022-05-07 13:09 | Outpatient (BNVA) | payer MEDICAID, SELFPAY ==
[2022-03-29 16:49] VITALS: BP 140/84; BMI 39.2
== END ==
PROVIDERS: PCP Family Medicine; Visit Provider Internal Medicine
DX: D3A.8 Other benign neuroendocrine tumors (principal); R59.1 Generalized enlarged lymph nodes; Z87.891 Personal history of nicotine dependence
CPT/HCPCS: 99214

== ENCOUNTER 2022-06-28 13:37 | Outpatient (CLI) | payer MEDICAID, SELFPAY ==
[2022-03-29 16:49] VITALS: BP 140/84; BMI 39.2
--- NOTE | 2022-06-28 | CT_ITS ---
WS: [id number] LDCT LUNG CANCER SCREENING HISTORY: NICOTINE DEPENDENCE TECHNIQUE: Axial imaging performed from the apices to 1 cm below the costophrenic angles. Coronal and sagittal reformats are submitted with axial MIP series. All CT scans at [facility] use at least one of these dose optimization techniques: automated exposure control; mA and/or kV adjustment per patient size (includes targeted exams where dose is matched to clinical indication); or iterativ e reconstruction. DLP: 75 DIvol: 1.6 COMPARISON: 04/23/2022 Diagnostic quality: Satisfactory Lung Nodules: No pulmonary mass, nodule or endobronchial lesions. There are areas of linear scarring and atelectasis bilaterally. Lungs: Mild pulmonary hyperexpansion. Heart: Normal size heart. No pericardial effusion. Other findings: No adenopathy. Normal size aorta. Normal pulmonary artery. Negative adrenal glands. F usion hardware, lumbar region. CT/CT lung screening [id number] IMPRESSION: LUNG-RADS: 1-Negative FOLLOW UP: 12 Month: Continue annual screening with LDCT OTHER FINDINGS (S MODIFIER): None.
== END 2022-06-28 13:38 | disposition home or self-care (01) ==
LOC: RAD 13:39
PROVIDERS: PCP Family Medicine; Visit Provider Family Medicine
DX: Z12.2 Encounter for screening for malignant neoplasm of respiratory organs (principal); F17.210 Nicotine dependence, cigarettes, uncomplicated
CPT/HCPCS: 71271

== ENCOUNTER 2022-07-12 15:44 | Outpatient (CLI) | payer MEDICAID, SELFPAY ==
[2022-03-29 16:49] VITALS: BP 140/84; BMI 39.2
--- NOTE | 2022-07-12 16:30 | US_ITS ---
WS: [id number] THYROID ULTRASOUND HISTORY: Lymphadenopathy COMPARISON: 02/08/2022 Right lobe: 1.3 cm x 1.4 cm x 4.7 cm (w x ap x l). Volume: 4.4 cm3. Normal size thyroid. Very mild coarsened echotexture. Very tiny colloid nodule along the surface of t he thyroid. No suspicious masses or increased vascularity. Reidentified cervical chain lymph nodes. T he largest is in the RIGHT submandibular region. There is thickening of the cortex which is asymmetri c. Very similar to the prior study. Could be a reactive lymph node. Left lobe: 1.3 cm x 1.4 cm x 4.9 cm (w x ap x l). Volume: 4.7 cm3. Normal size and echotexture. No significant or dominant nodules are present. Mildly prominent lymph n odes along the cervical chain. Similar to the prior study. Isthmus: 0.4 cm. US/US thyroid [id number] IMPRESSION: 1. No suspicious thyroid nodules or masses. 2. Indeterminate but stable RIGHT submandibular lymph node. Asymmetric thicken ing of the cortex. Very similar in appearance to the prior ultrasound from 02/08.
== END 2022-07-12 15:45 | disposition home or self-care (01) ==
LOC: RAD 15:44
PROVIDERS: PCP Family Medicine; Visit Provider Internal Medicine
DX: R59.1 Generalized enlarged lymph nodes (principal)
CPT/HCPCS: 76536

== ENCOUNTER → 2022-08-23 10:51 | Outpatient (BNVA) | payer MEDICAID, SELFPAY ==
[2022-03-29 16:49] VITALS: BP 140/84; BMI 39.2
== END ==
PROVIDERS: PCP Family Medicine; Visit Provider Podiatrist Foot & Ankle Surgery
DX: E11.8 Type 2 diabetes mellitus with unspecified complications (principal); B35.3 Tinea pedis; L84 Corns and callosities; L60.3 Nail dystrophy; E11.42 Type 2 diabetes mellitus with diabetic polyneuropathy; M20.41 Other hammer toe(s) (acquired), right foot; M20.42 Other hammer toe(s) (acquired), left foot; M21.41 Flat foot [pes planus] (acquired), right foot; M21.42 Flat foot [pes planus] (acquired), left foot
CPT/HCPCS: 11056; 11721; 99213

== ENCOUNTER → 2022-11-05 13:20 | Outpatient (BNVA) | payer MEDICAID, SELFPAY ==
[2022-03-29 16:49] VITALS: BP 140/84; BMI 39.2
== END ==
PROVIDERS: PCP Family Medicine; Referring Provider Family Medicine; Visit Provider Internal Medicine
DX: E11.65 Type 2 diabetes mellitus with hyperglycemia (principal); Z79.84 Long term (current) use of oral hypoglycemic drugs; D3A.8 Other benign neuroendocrine tumors; I89.9 Noninfective disorder of lymphatic vessels and lymph nodes, unspecified
CPT/HCPCS: 99214

== ENCOUNTER → 2022-11-07 10:51 | Outpatient (BNVA) | payer MEDICAID, SELFPAY ==
[2022-03-29 16:49] VITALS: BP 140/84; BMI 39.2
== END ==
PROVIDERS: PCP Family Medicine; Visit Provider Otolaryngology
DX: I89.9 Noninfective disorder of lymphatic vessels and lymph nodes, unspecified (principal); K08.9 Disorder of teeth and supporting structures, unspecified; K05.10 Chronic gingivitis, plaque induced; Z68.38 Body mass index [BMI] 38.0-38.9, adult
CPT/HCPCS: 99204

== ENCOUNTER → 2022-11-15 13:26 | Outpatient (BNVA) | payer MEDICAID, SELFPAY ==
[2022-03-29 16:49] VITALS: BP 140/84; BMI 39.2
== END ==
PROVIDERS: PCP Family Medicine; Visit Provider Podiatrist Foot & Ankle Surgery
DX: E11.42 Type 2 diabetes mellitus with diabetic polyneuropathy (principal); B35.3 Tinea pedis; L84 Corns and callosities; L60.3 Nail dystrophy; M20.41 Other hammer toe(s) (acquired), right foot; M20.42 Other hammer toe(s) (acquired), left foot; M21.41 Flat foot [pes planus] (acquired), right foot; M21.42 Flat foot [pes planus] (acquired), left foot; Z79.84 Long term (current) use of oral hypoglycemic drugs
CPT/HCPCS: 11056; 11721

== ENCOUNTER 2022-11-20 13:20 | Outpatient (CLI) | payer MEDICAID, SELFPAY ==
[2022-03-29 16:49] VITALS: BP 140/84; BMI 39.2
[2022-11-20 11:57] VITALS: BP 140/84; BMI 39.2
--- NOTE | 2022-11-20 14:00 | CT_ITS ---
WS: [id number] CT NECK TECHNIQUE: Noncontrast CT of the neck with coronal and sagittal reformatted images. CLINICAL INFORMATION: enlarged lymph node COMPARISON: None. DLP: 265.[address] scans at [facility] use at least one of these dose optimization techniques: automated e xposure control; mA and/or kV adjustment per patient size (includes targeted exams where dose is matc hed to clinical indication); or iterative reconstruction. FINDINGS: Normal posterior nasopharynx. Normal parapharyngeal fat. Parotid glands are normal. Normal submandibu lar glands. Intracranial vascular calcification. Paranasal sinuses and mastoid air cells well aerated . RIGHT tonsillar calcifications. No evidence of supraglottic or glottic mass. Normal subglottic airw ay. Lung apices are well aerated. Prominent bilateral submental and submandibular lymph nodes. Prominent bilateral jugulodigastric and cervical chain lymph nodes. Largest on the RIGHT submandibular measuring 1.5 cm and level 3 adjacent to the sternocleidomastoid measuring 1.1 CM in short axis dimension. These are nonspecific but may be reactive. A few prominent posterior triangle lymph nodes RIGHT greater than LEFT. Lung apices are well aerated. Mild spondylitic changes cervical spine. Mild central canal stenosis C5 -C6. CT/CT neck wo con [id number] IMPRESSION: 1. Normal salivary glands. 2. Paranasal sinuses and mastoid air cells well aerated. 3. No evidence of supraglottic or glottic mass. Normal posterior nasopharynx. 4. A few slightly enlarged submental, submandibular and cervical chain lymph n odes largest on the RIGHT submandibular measuring 1.5 cm and adjacent and deep to the sternocleidomastoid measuring up to 1.1 cm in short axis dimension. Thes e are nonspecific but may be reactive. Considering history of neoplasm consider further evaluation with PET/CT or short-term interval follow-up in 3 months to assess for change. 5. No other suspicious findings.
== END 2022-11-20 13:21 | disposition home or self-care (01) ==
LOC: RAD 13:21
PROVIDERS: PCP Family Medicine; Visit Provider Otolaryngology
DX: R59.0 Localized enlarged lymph nodes (principal); Z85.9 Personal history of malignant neoplasm, unspecified
CPT/HCPCS: 70490

== ENCOUNTER 2023-01-01 12:41 | Outpatient (CLI) | payer MEDICAID, SELFPAY ==
--- NOTE | 2023-01-01 13:15 | XR_ITS ---
WS: [id number] Exam: XR ribs RT 2V* [id number] Date/Time of Exam: 01/01/2023 1:22 PM Reason For Exam: R SIDED RIB PAIN Comparison 06/02/2021. Numerous old right-sided rib fractures are noted. No acute right rib fracture or pneumothorax is seen . Old right clavicle fracture noted. Fusion hardware noted in the lower thoracic and upper lumbar spi ne. Cardiomediastinal silhouette is unremarkable. No pleural effusions. Chronic tenting of the right diaphragm. Incidentally noted are 2 faceted calcifications in the right abdomen most likely gallstone s. XR/XR ribs RT 2V* [id number] IMPRESSION: 1. No acute right rib fracture or pneumothorax. Numerous old right rib fracture s. 2. No acute cardiopulmonary process. 3. Probable gallstones.
== END 2023-01-01 12:42 | disposition home or self-care (01) ==
PROVIDERS: PCP Family Medicine; Visit Provider Family Medicine
DX: R07.81 Pleurodynia (principal); Z87.81 Personal history of (healed) traumatic fracture
CPT/HCPCS: 71100

== ENCOUNTER → 2023-02-11 08:17 | Outpatient (BNVA) | payer MEDICAID, SELFPAY | PROVIDERS: PCP Family Medicine; Visit Provider Internal Medicine | DX: D3A.8 Other benign neuroendocrine tumors (principal); I89.9 Noninfective disorder of lymphatic vessels and lymph nodes, unspecified; E11.9 Type 2 diabetes mellitus without complications; Z79.84 Long term (current) use of oral hypoglycemic drugs | CPT/HCPCS: 99214 ==

== ENCOUNTER → 2023-02-27 07:44 | Outpatient (BNVA) | payer MEDICAID, SELFPAY | PROVIDERS: PCP Family Medicine; Visit Provider Otolaryngology | DX: R59.0 Localized enlarged lymph nodes (principal); K08.9 Disorder of teeth and supporting structures, unspecified; K05.10 Chronic gingivitis, plaque induced; C25.9 Malignant neoplasm of pancreas, unspecified | CPT/HCPCS: 99213 ==

== ENCOUNTER 2023-04-02 16:17 | Outpatient (CLI) | payer MEDICAID, SELFPAY ==
--- NOTE | 2023-04-02 13:00 | PETR_ITS ---
PROCEDURE INFORMATION: Exam: PET/CT Skull Base to Mid-thigh Exam date and time: 04/02/2023 2:15 PM Age: 57 years old Clinical indication: Symptoms: Cervical lymphadenopathy with HX of pancreatic cancer; Prior surgery; Surgery date: 6+ months; Surgery type: Port. Aaa endograft, subclavian stent LABS AND CLINICAL REPORTS: Glucose: 113 mg/dl Treatment strategy for malignancy (PET staging): Restaging (PS) TECHNIQUE: Imaging protocol: Following at least four-hour fasting and following the injection of radiopharmaceutical, low dose CT images were obtained. Then, PET images were obtained. Attenuation corrected images were constructed using the CT scan. Fused images of PET and CT were reviewed. The standardized uptake values (SUV) reported below are maximum values within a region of interest, expressed in gm/ml. Exam includes orbital meatal line to mid-thigh. Radiopharmaceutical: 12.92 mCi F-18 FDG (Fluorodeoxyglucose), IV. Time of imaging post radiopharmaceutical administration: 1 hour Injection site: site COMPARISON: 1. CT neck wo con [id number] 11/20/2022 2:[address] chest abd pel w con* 11/15/2020 12:[address] lung screening [id number] 06/28/2022 2:00 PM FINDINGS: Brain: Visualized brain has normal physiologic uptake. Pharynx: There is uptake in the palatine tonsils and lingual tonsil which is nonspecific and may be reactive. SUV maximum measures 3.5. Larynx: No abnormal uptake. Lungs, pleura and trachea: Peripheral lung scarring is unchanged. No abnormal uptake. Heart: Normal physiologic uptake. Mediastinal space: No abnormal uptake. Liver: No abnormal uptake. Gallbladder and bile ducts: Gallstones are unchanged. Pancreas: There are postsurgical changes in the distal aspect of the pancreas. No abnormal uptake is seen on PET. Spleen: Stable splenectomy changes. Adrenal glands: No abnormal uptake. Kidneys and ureters: Normal physiologic uptake. Stomach and bowel: The stomach is decompressed or it is thickened. Correlate for possible gastritis. Intraperitoneal and retroperitoneal spaces: Mild mistiness of the central mesentery is nonspecific and unchanged. No abnormal uptake. Vasculature: No abnormal uptake. Lymph nodes: Mildly enlarged bilateral level 2 lymph nodes are again seen measuring up to 9 mm short axis for example in the left side on series 3, image 45 smaller than previous. The left-sided node has a SUV maximum of 3.1. There is a right level 3 lymph node measuring 5 mm short axis on series 3, image 49 which is similar with SUV maximum of 3.0. Bones/joints: Old right-sided rib fractures are unchanged. Old right clavicular fracture is unchanged. Thoracolumbar spinal fusion changes are again present. Uptake is seen in the T12 vertebrae at the level of the disc spacer with SUV maximum of 3.7. Soft tissues: There is soft tissue uptake in the patient's nose without CT correlate. SUV maximum measures 4.1. Asymmetric uptake right pelvic floor musculature without CT correlate may be related to muscular use. SUV maximum measures 4.3. [facility] [id number] IMPRESSION: 1. Stable distal pancreatectomy and splenectomy changes. No abnormal pancreatic uptake. No definite metastatic disease identified. 2. Decreasing mildly prominent upper cervical chain lymph nodes with mild uptake on PET. This is nonspecific and may be reactive. There is also symmetric mild uptake in the palatine and lingual tonsils which may also be reactive/inflammatory. Recommend correlation with history. 3. There is soft tissue uptake in the patient's nose without CT correlate. Correlate with exam findings. 4. Mild uptake is also seen in the lumbar spine at the level of the cage fusion device. This may be degenerative. If infection/inflammation suspected clinically suggest MRI for follow-up. 5. There is asymmetric uptake in the right perianal region which may be muscular. Correlate with exam findings.
== END 2023-04-02 16:18 | disposition home or self-care (01) ==
LOC: RAD 16:17
PROVIDERS: PCP Family Medicine; Visit Provider Otolaryngology
DX: Z85.07 Personal history of malignant neoplasm of pancreas (principal); R59.0 Localized enlarged lymph nodes; R93.7 Abnormal findings on diagnostic imaging of other parts of musculoskeletal system; Z90.411 Acquired partial absence of pancreas; Z90.81 Acquired absence of spleen; Z98.1 Arthrodesis status
CPT/HCPCS: 78815; A9552

== ENCOUNTER 2023-04-26 23:05 | Inpatient (IN) | payer MEDICAID, SELFPAY ==
[2023-04-26 23:11] VITALS: BP 176/86; PULSE 117; RESP 20; TEMP 37.6; O2SAT 90
--- NOTE | 2023-04-26 23:17 | CTR_ITS ---
PROCEDURE INFORMATION: Exam: CT Abdomen And Pelvis With Contrast Exam date and time: 04/26/2023 11:32 PM Age: 57 years old Clinical indication: Abdominal pain; Prior surgery; Surgery date: 6+ months; Surgery type: Splenectomy. Pancreas. Hernia repair. Thoracolumbar fusion. Patient HX: C/O epigastric pain with diarrhea. History of panceatic tumor with resection. ; Additional info: Abd pain, HX pancreatic tumor TECHNIQUE: Imaging protocol: Computed tomography of the abdomen and pelvis with contrast. Radiation optimization: All CT scans at this facility use at least one of these dose optimization techniques: automated exposure control; mA and/or kV adjustment per patient size (includes targeted exams where dose is matched to clinical indication); or iterative reconstruction. Contrast material: OMNI 350; Contrast volume: 100 ml; Contrast route: INTRAVENOUS (IV); REPORTING DATA: Count of CT and Cardiac NM exams in prior 12 months: This patient has received 3 known CTs and 0 known cardiac nuclear medicine studies in the 12 months prior to the current study. COMPARISON: 1. PT PET [facility] SUBSEQ [id number] 04/02/2023 2:[address] abdomen and pelvis October 15, 2020 2. . RADIATION DOSE METRICS: Total DLP (mGy-cm): 1136.39 FINDINGS: Lungs: Mild scarring versus linear atelectasis both lung bases. Liver: Normal. No mass. Gallbladder and bile ducts: There are 2 gallstones in 1 of which situated gallbladder necrotic 2nd lies situated near the origin of the cystic duct. Gallbladder is mildly distended with ill-defined thickening of the gallbladder wall as well as a small amount of pericholecystic fluid and surrounding fat stranding highly suspicious for acute cholecystitis. Bile ducts are not dilated. Pancreas: Tail the pancreas is been resected. Remainder the pancreas is unremarkable. Spleen: Normal. No splenomegaly. Adrenal glands: Normal. No mass. Kidneys and ureters: Normal. No hydronephrosis. Stomach and bowel: There are multiple diverticuli throughout the distal portion of the large bowel without evidence of diverticulitis. Colonic diverticulosis. No evidence of acute diverticulitis. Appendix: No evidence of acute appendicitis. Intraperitoneal space: There is increased mesenteric attenuation within the left mid abdomen along the root of the small bowel mesentery (kobe mesentery) unchanged from previous exam likely secondary to mesenteric panniculitis. Small amount of fluid within the right paracolic gutter presumed secondary to acute cholecystitis. Vasculature: Unremarkable. No abdominal aortic aneurysm. Lymph nodes: Mild retrocrural and retroperitoneal lymphadenopathy, stable, nonspecific. Urinary bladder: Unremarkable as visualized. Reproductive: Unremarkable as visualized. Bones/joints: Extensive spinal instrumentation upper and mid lumbar spine consisting of pedicle screw fixation and interbody spacer at T12-L1. Soft tissues: Unremarkable. CT/CT abdomen pelvis w con* [id number] IMPRESSION: 1. Cholelithiasis with additional findings highly suspicious for acute cholecystitis. Neck 2. 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 3. Additional nonemergent findings as above.
--- NOTE | 2023-04-26 23:17 | XRR_ITS ---
PROCEDURE INFORMATION: Exam: XR Chest Exam date and time: 04/26/2023 11:22 PM Age: 57 years old Clinical indication: Prior surgery; Surgery date: 6+ months; Surgery type: Thoracolumbar fusion; Patient HX: Cough with epigastric pain TECHNIQUE: Imaging protocol: Radiologic exam of the chest. Views: 1 view. COMPARISON: CT lung screening [id number] 06/28/2022 2:00 PM FINDINGS: Lungs: Lung volumes are decreased. No consolidating infiltrates or overt CHF. Pleural spaces: Unremarkable. No pleural effusion. No pneumothorax. Heart/Mediastinum: Heart is mildly enlarged. Bones/joints: Spinal instrumentation of the thoracolumbar junction. No acute bony abnormalities. XR/XR chest 1V portable [id number] IMPRESSION: Stable chest. No active disease.
[2023-04-26 23:18] VITALS: O2SAT 90
[2023-04-26 23:28] LABS: Basophils # 0.1 10^3/uL (0.0-0.1); Basophils % 0.4 %; Eosinophils # 0.1 10^3/uL (0.0-0.8); Eosinophils % 0.6 %; Hematocrit 46.1 % (37-53); Lymphocytes # 2.4 10^3/uL (0.8-4.8); Lymphocytes % 17.1 %; Mean Corpuscular HGB Conc 31.9 g/dL (30-55); Mean Corpuscular Hemoglobin 27.8 pg (27-33); Mean Corpuscular Volume 87.1 fl (82-101); Mean Platelet Volume 9.6 fL (7.4-10.4); Monocytes # 0.9 10^3/uL (0.2-0.9); Monocytes % 6.6 %; Neutrophils # 10.56 10^3/uL (1.8-7.7); Neutrophils % 74.8 %; Nucleated Red Blood Cells % 0 %; Platelet Count 564 10^3/cmm (157-399); Red Blood Count 5.29 10^6/uL (3.85-5.65); White Blood Count 14.12 10^3/uL (3.29-11.43)
[2023-04-26 23:44] LABS: Alanine Aminotransferase 51 U/L (0-41); Albumin Level 3.4 g/dL (3.5-5.2); Alkaline Phosphatase 165 U/L (40-130); Anion Gap 12.9 (5-19); Aspartate Amino Transferase 28 U/L (0-40); Blood Urea Nitrogen 12 mg/dL (6-20); C Reactive Protein 230.4 mg/L (0.0-4.9); Calcium 9.1 mg/dL (8.5-10.5); Carbon Dioxide 32 mmol/L (22-29); Chloride 95 mmol/L (98-107); Globulin 4.5 g/dL (1.3-4.6); Glomerular Filtration Rate 116.2 mL/min (90-130); Glucose 187 mg/dL (65-115); Lipase 16 U/L (13-60); Osmolality Calculated 287 mOsm/kg (285-295); Potassium 3.9 mmol/L (3.5-5.1); Sodium 136 mmol/L (136-145); Total Bilirubin 0.5 mg/dL (0.15-1.2); Total Protein 7.9 g/dL (6.6-8.7)
[2023-04-26] MEDS: iohexol 350 mg/mL 500 mL Btl (per mL) IV (23:44)
[2023-04-26 23:45] LABS: Lactic Sepsis W/Reflex 1.5 mmol/L (0.5-2.2)
[2023-04-26] MEDS: ondansetron 2 mg/ML SDV 2 mL 4 MG IVP (23:46)
[2023-04-26 23:48] VITALS: BP 193/101; PULSE 120; RESP 26; O2SAT 89
[2023-04-26 23:49] VITALS: RESP 26; O2SAT 89
[2023-04-26] MEDS: HYDROmorphone 1 mg/mL INJ 1 mL IVP (23:49)
[2023-04-27] VITALS (21 sets, daily range): BP systolic 106–152; BP diastolic 56–76; PULSE 102–129; RESP 15–24; TEMP 36.7–37.8; O2SAT 92–99
--- NOTE | 2023-04-27 | W.ED.ABDPA2 ---
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 He presents with abdominal pain, mainly epigastric radiating to his back, nausea, small amounts of vomiting starting a couple hours ago. He has had some diarrhea its been ongoing for a month on and off. He says that he ate liver and onions this evening for dinner. MD elicited complaint: abdominal pain Associated Symptoms: Reports nausea and vomiting; Denies diarrhea and fever(s) Review of Systems Const: Denies: fever(s) Card: Denies: chest pain Resp: Reports: dyspnea and productive cough GI: Reports: abdominal pain, nausea and vomiting; Denies: diarrhea PFSH ED PFSH: Medical History Cellulitis and abscess of left leg Chronic SI joint pain COPD (chronic obstructive pulmonary disease) Depression Encounter for long-term opiate analgesic use History of pancreatic cancer Lumbar back pain with radiculopathy affecting right lower extremity Major depressive disorder, recurrent severe without psychotic features Nicotine dependence with current use Not interested in smoking cessation. Obesity Pancreas (digestive gland) works poorly Smoking Spermatocele Spleen absent Surgical History History of back surgery (~2013) 12/2013 T12 REMOVAL POST WORK ACCIDENT History of pancreatic surgery History of spinal fusion History of splenectomy S/P hernia repair (~12/2013) UMBILICAL HERNIA REPAIR Family History Mother , IN HER 60'S Diabetes CAD (coronary artery disease) Psychiatric illness Stroke Cancer UTERINE CANCER Father , AT AGE 56 Cancer PROSTATE Other Family history of premature coronary artery disease Social History Smoking and tobacco/nicotine status: former use of tobacco/nicotine Quit status (tobacco/nicotine): has quit using Year quit tobacco: 2019 Former quit date comment: 2 ppd X 40 years Alcohol intake: current Alcohol intake frequency: holidays/special occasions only Alcohol type: beer Substance/Drug Use: never Marital status: Number of children: 2 Number of grandchildren: 3 Education level details: Phlebotomy Current occupational status: disabled Do you think of yourself as: Straight/Heterosexual Rosey/Spiritism: Other Physical Exam Const: GENERAL APPEARANCE: cooperative, in distress and ill appearing HENMT: COMMON NORMALS: normocephalic, atraumatic and Normal external nose present HEAD & SCALP: normocephalic and atraumatic FACE & SINUS: normal facial exam and face symmetric NOSE: Normal external nose present Eye: COMMON NORMALS: Equal, round and reactive pupils present and EOMs intact bilaterally PUPIL: Yes Equal, round and reactive pupils present Chest: CHEST: Yes Symmetrical chest wall rise Resp: COMMON NORMALS: clear to auscultation bilaterally EFFORT & INSPECTION: Yes tachypneic AUSCULTATION: clear to auscultation bilaterally Cardio: COMMON NORMALS: regular rhythm RATE: tachycardic RHYTHM: regular rhythm GI: INSPECTION: Yes abdominal distension PALPATION: Yes Firmness to palpation present (GI) and Yes Tenderness to palpation present (GI) Neuro: JOSEPH COMA SCALE: document GCS findings Joseph coma scale eye opening: Spontaneous [place] coma scale verbal response: Orientated Joseph coma scale motor response: Obey commands Joseph coma scale total score: 15 Course Vital Signs: Vital signs: Vital Signs Temperature 99.6 F 04/26/23 23:11 Pulse Rate 129 H 04/27/23 02:01 Respiratory Rate 24 H 04/27/23 02:01 Blood Pressure 106/56 04/27/23 02:01 Pulse Oximetry 98 04/27/23 02:01 Oxygen Delivery Me thod Non-Rebreather 04/27/23 02:01 Oxygen Flow Rate 15 04/27/23 02:01 MDM - Abdominal Pain Medical Decision Making Patient is tachycardic. He is splinting to breathe. He is mildly hypertensive. Temperature of 99.6. White blood cell count is 14. Lipase is normal. Liver enzymes are nonremarkable. Bilirubin is 0.5. Lactic acid is 1.5. CT is pending. CT shows cholelithiasis with findings suspicious for acute cholecystitis. Bile ducts are normal in caliber. Spoke with surgery. They are willing to consult. Recommend IV antibiotics for now. Will see later this morning. Spoke with hospitalist service. This patient has been somewhat hypoxic, worse with pain medication here in the ER. He does use a CPAP machine at night. We have ordered blood gases, respiratory panel, D-dimer, and a BiPAP for him for now. He will be admitted. Lab Data 04/26/23 23:15 04/26/23 23:15 Labs/Radiology: Radiology Impressions Abdomen/Pelvis CT 04/26/23 23:17 IMPRESSION: 1. Cholelithiasis with additional findings highly suspicious for acute cholecystitis. Neck 2. 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 3. Additional nonemergent findings as above. Chest X-Ray 04/26/23 23:17 IMPRESSION: Stable chest. No active disease. Laboratory Results WBC 14.12 10^3/uL (3.29-11.43) H 04/26/23 23:15 RBC 5.29 10^6/uL (3.85-5.65) 04/26/23 23:15 Hgb 14.70 g/dL (11.27-16.99) 04/26/23 23:15 Hct 46.1 % (37-53) 04/26/23 23:15 MCV 87.1 fl (82-101) 04/26/23 23:15 MCH 27.8 pg (27-33) 04/26/23 23:15 MCHC 31.9 g/dL (30-55) 04/26/23 23:15 RDW 15.0 % (12.1-15.1) 04/26/23 23:15 Plt Count 564 10^3/cmm (157-399) H 04/26/23 23:15 MPV 9.6 fL (7.4-10.4) 04/26/23 23:15 Neut % (Auto) 74.8 % 04/26/23 23:15 Lymph % (Auto) 17.1 % 04/26/23 23:15 [place] % (Auto) 6.6 % 04/26/23 23:15 Eos % (Auto) 0.6 % 04/26/23 23:15 Baso % (Auto) 0.4 % 04/26/23 23:15 Neut # (Auto) 10.56 10^3/uL (1.8-7.7) H 04/26/23 23:15 Lymph # (Auto) 2.4 10^3/uL (0.8-4.8) 04/26/23 23:15 [place] # (Auto) 0.9 10^3/uL (0.2-0.9) 04/26/23 23:15 Eos # (Auto) 0.1 10^3/uL (0.0-0.8) 04/26/23 23:15 Baso # (Auto) 0.1 10^3/uL (0.0-0.1) 04/26/23 23:15 Nucleated RBC % (auto) 0 % 04/26/23 23:15 Nucleated RBCs # 0.0 /100WBC 04/26/23 23:15 D-Dimer 2.40 ug/mLFEU (0-0.59) H 04/27/23 00:00 Sodium 136 mmol/L (136-145) 04/26/23 23:15 Potassium 3.9 mmol/L (3.5-5.1) 04/26/23 23:15 Chloride 95 mmol/L (98-107) L 04/26/23 23:15 Carbon Dioxide 32 mmol/L (22-29) H 04/26/23 23:15 Anion Gap 12.9 (5-19) 04/26/23 23:15 BUN 12 mg/dL (6-20) 04/26/23 23:15 Creatinine 0.7 mg/dL (0.7-1.2) 04/26/23 23:15 GFR Calculation 116.2 mL/min (90-130) 04/26/23 23:15 Glucose 187 mg/dL (65-115) H 04/26/23 23:15 Calculated Osmolality 287 mOsm/kg (285-295) 04/26/23 23:15 Lactic Acid 1.5 mmol/L (0.5-2.2) 04/26/23 23:15 Calcium 9.1 mg/dL (8.5-10.5) 04/26/23 23:15 Total Bilirubin 0.5 mg/dL (0.15-1.2) 04/26/23 23:15 AST 28 U/L (0-40) 04/26/23 23:15 ALT 51 U/L (0-41) H 04/26/23 23:15 Alkaline Phosphatase 165 U/L (40-130) H 04/26/23 23:15 C-Reactive Protein 230.4 mg/L (0.0-4.9) H 04/26/23 23:15 NT-Pro-B Natriuret Pep 89 pg/mL (0-125) 04/27/23 00:00 Total Protein 7.9 g/dL (6.6-8.7) 04/26/23 23:15 Albumin 3.4 g/dL (3.5-5.2) L 04/26/23 23:15 Globulin 4.5 g/dL (1.3-4.6) 04/26/23 23:15 Lipase 16 U/L (13-60) 04/26/23 23:15 Urine Color Yellow (Yellow) 04/27/23 00:04 Urine Appearance Clear (CLEAR) 04/27/23 00:04 Urine pH 5 (5-7) 04/27/23 00:04 Ur Specific [place] 1.005 (1.005-1.030) 04/27/23 00:04 Urine Protein 1+ (Negative) H 04/27/23 00:04 Urine Glucose (UA) Norm (Normal) 04/27/23 00:04 Urine Ketones 1+ (Negative) H 04/27/23 00:04 Urine Blood Trace (Negative) H 04/27/23 00:04 Urine Nitrate Negative (Negative) 04/27/23 00:04 Urine Bilirubin 1+ (Negative) H 04/27/23 00:04 Urine Urobilinogen 4 mg/dL (Negative) H 04/27/23 00:04 Ur Leukocyte Esterase Trace (Negative) H 04/27/23 00:04 Urine RBC Rare /hpf (0-2) 04/27/23 00:04 Urine WBC Rare /hpf (0-5) 04/27/23 00:04 Ur Squamous Epith Cells Rare /hpf (0-5) 04/27/23 00:04 Amorphous Sediment Trace /hpf 04/27/23 00:04 Urine Bacteria None /hpf (NONE) 04/27/23 00:04 Urine Mucus 1+ /hpf 04/27/23 00:04 All radiology interpretation(s) finalized by discharge Discharge Plan Discharge Patient Disposition: Admitted As Inpatient Admit Provider: Eldon Alberto Clinical Impression: Acute hypoxic respiratory failure, Cholecystitis, acute Condition: Stable Coding Level of Care Code ED 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
[2023-04-27 00:19] LABS: Bilirubin Urine 1+ (Negative); Blood Urine Trace (Negative); Glucose Urine UA Norm (Normal); Ketones Urine 1+ (Negative); Nitrate Urine Negative (Negative); Protein Urine 1+ (Negative); Specific Gravity, Urine 1.005 (1.005-1.030); Urine Appearance Clear (CLEAR); Urine Color Yellow (Yellow); pH Urine 5 (5-7)
[2023-04-27 00:20] LABS: Add Urine Microscopic? YES; Leukocyte Esterase Urine Trace (Negative); Urobilinogen Urine 4 mg/dL (Negative)
[2023-04-27 00:32] LABS: Add Urine Culture? No; Amorphous Sediment Urine TRACE /hpf; Mucus Urine 1+ /hpf; RBC Urine RARE /hpf (0-2); Squamous Epithelial Cell Urine RARE /hpf (0-5); WBC Urine RARE /hpf (0-5)
[2023-04-27] MEDS: piperacillin-tazobactam 3.375 GM in sodium chloride 0.9% (plus) 50 ML IV ×3 (00:52→17:08)
[2023-04-27] MEDS: FUROsemide 10 mg/mL SDV 4mL 40 MG IVP (02:02)
[2023-04-27 02:12] LABS: NT Pro B Type Natriuretic Pept 89 pg/mL (0-125)
--- NOTE | 2023-04-27 02:23 | CTR_ITS ---
PROCEDURE INFORMATION: Exam: CTA Chest With Contrast Exam date and time: 04/27/2023 3:01 AM Age: 57 years old Clinical indication: Abnormal findings; Abnormal diagnostic tests; Elevated d-dimer; Prior surgery; Surgery date: 6+ months; Surgery type: Splenectomy. Thoracolumbar fusion. Patient HX: Tachycardia with dimer of 2.40. ; Additional info: Tachycardia with elevated d-dimer. History of pancreatic cancer. TECHNIQUE: Imaging protocol: Computed tomographic angiography of the chest with contrast. Exam focused on the arteries. 3D rendering (Not supervised by radiologist): MIP and/or 3D reconstructed images were created by the technologist. Radiation optimization: All CT scans at this facility use at least one of these dose optimization techniques: automated exposure control; mA and/or kV adjustment per patient size (includes targeted exams where dose is matched to clinical indication); or iterative reconstruction. Contrast material: OMNI 350; Contrast volume: 66 ml; Contrast route: INTRAVENOUS (IV); REPORTING DATA: Count of CT and Cardiac NM exams in prior 12 months: This patient has received 4 known CTs and 0 known cardiac nuclear medicine studies in the 12 months prior to the current study. COMPARISON: 1. CT angio chest PE protcl [id number] 01/19/2021 12:[address] abdomen pelvis w con* 04/26/2023 11:32 PM 3. PT PET skulltothigh 04/02/2023 2:[address] lung screening 06/28/2022 2:00 PM RADIATION DOSE METRICS: Total DLP (mGy-cm): 496.06 FINDINGS: Pulmonary arteries: No pulmonary emboli identified. Aorta: No thoracic aortic aneurysm or dissection. Lungs: No consolidation or obvious pulmonary edema. Minimal subsegmental atelectasis at the lung bases. Pleural spaces: No pleural effusion. No pneumothorax. Heart: No cardiomegaly. No pericardial effusion. Coronary arteries: Mild coronary artery calcifications. Lymph nodes: No adenopathy. Bones/joints: No acute osseous abnormality or evidence of osseous metastatic disease. Old healed sternal fracture and several old healed rib fractures. Stable old mild T8 compression fracture. Status post thoracolumbar fusion, extending from T9 into the lumbar spine. Visualized portions of the hardware appear grossly intact. Soft tissues: Mild bilateral gynecomastia. CT/CT angio chest PE protcl [id number] IMPRESSION: 1. No pulmonary emboli identified. 2. Minimal subsegmental atelectasis at the lung bases.
--- NOTE | 2023-04-27 02:32 | P.HP_ITS ---
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 Mesenteric pancolitis left mid abdomen unchanged. Additional nonemergent findings. In ER he is noted transiently requiring up to 15 L nonrebreather oxygen. Review of Systems Const: Denies: fever(s), chills, body aches or malaise ENMT: Denies: throat pain Card: Denies: chest pain, edema, pre-syncope or dyspnea on exertion Resp: Reports: dyspnea, productive cough and change in phlegm color; Denies: hemoptysis GI: Reports: abdominal pain; Denies: nausea, vomiting, diarrhea, constipation, hematochezia or melena : Reports: flank pain; Denies: difficulty urinating, urinary frequency or hematuria Musc: Reports: back pain; Denies: joint swelling or joint redness Skin/Breast: Denies: rash or new lesions Medications/Allergies Home Medications Medication Instructions Recorded Confirmed Last Taken Type acetaminophen 500 mg tablet 1,000 mg PO PRN 01/19/21 03/18/23 Unknown History (Tylenol Extra Strength) meloxicam 15 mg tablet 15 mg PO QAM 01/19/21 03/18/23 12/06/21 History atorvastatin 10 mg tablet 10 mg PO DAILY 03/17/21 03/18/23 12/06/21 History gabapentin 300 mg capsule 300 mg PO BID #60 caps 03/17/21 03/18/23 12/06/21 Rx lisinopril 2.5 mg tablet 2.5 mg PO DAILY 10/07/0703/18/23 12/06/21 History hydrocodone 5 mg-acetaminophen 325 1 tab PO TID PRN pain 30 days #90 05/09/21 03/18/23 Unknown Rx mg tablet tabs hydrocodone 5 mg-acetaminophen 325 1 tab PO TID PRN pain 30 days #90 05/09/21 03/18/23 12/06/21 Rx mg tablet tabs methocarbamol 500 mg tablet 500 mg PO TID PRN muscle 05/09/21 03/18/23 12/06/21 Rx spasticity #90 tabs Diabetic shoes with 3 sets of #1 ea 01/09/22 03/18/23 Unknown Rx inserts albuterol sulfate 90 mcg/actuation 2 puff inhalation Q6H PRN 08/29/22 03/18/23 Unknown Rx aerosol inhaler (ProAir HFA) Shortness Of Breath #8.5 grams glimepiride 4 mg tablet 4 mg PO DAILY #90 tabs 02/11/23 03/18/23 Unknown Rx tamsulosin 0.4 mg capsule 0.4 mg PO DAILY 02/11/23 03/18/23 Unknown History [id number]-nlriytodf-[id number] 3.5 2 drp ophthalmic (eye) Q2H #5 mL 03/18/23 03/18/23 Unknown Rx mg/mL-10,000 unit/mL-0.1% eye drops (Maxitrol) bupropion HCl 100 mg tablet 100 mg PO DAILY #30 tabs 04/01/23 Unknown Rx trazodone 150 mg tablet 150 mg PO BEDTIME PRN insomnia #30 04/01/23 Unknown Rx tabs metformin 500 mg tablet,extended 1,000 mg PO BID 90 days #360 tabs 04/08/23 Unknown Rx release 24 hr Allergies Allergy/AdvReac Type Severity Reaction Status Date / Time adhesive Allergy ALGY-Hives Verified 04/26/23 23:19 PFSH Acute PFSH: Medical History Cellulitis and abscess of left leg Chronic SI joint pain COPD (chronic obstructive pulmonary disease) Depression Encounter for long-term opiate analgesic use History of pancreatic cancer Lumbar back pain with radiculopathy affecting right lower extremity Major depressive disorder, recurrent severe without psychotic features Nicotine dependence with current use Not interested in smoking cessation. Obesity Pancreas (digestive gland) works poorly Smoking Spermatocele Spleen absent Surgical History History of back surgery (~2013) 12/2013 T12 REMOVAL POST WORK ACCIDENT History of pancreatic surgery History of spinal fusion History of splenectomy S/P hernia repair (~12/2013) UMBILICAL HERNIA REPAIR Family History Mother , IN HER 60'S Diabetes CAD (coronary artery disease) Psychiatric illness Stroke Cancer UTERINE CANCER Father , AT AGE 56 Cancer PROSTATE Other Family history of premature coronary artery disease Social History Smoking and tobacco/nicotine status: former use of tobacco/nicotine Quit status (tobacco/nicotine): has quit using Year quit tobacco: 2019 Former quit date comment: 2 ppd X 40 years Alcohol intake: current Alcohol intake frequency: holidays/special occasions only Alcohol type: beer Substance/Drug Use: never Marital status: Number of children: 2 Number of grandchildren: 3 Education level details: Phlebotomy Current occupational status: disabled Do you think of yourself as: Straight/Heterosexual Rosey/Islam: Other Vitals/I&O/Wt Last Vital Signs Temp 99.6 F 04/26/23 23:11 Pulse 129 H 04/27/23 02:01 Resp 24 H 04/27/23 02:01 BP 106/56 04/27/23 02:01 Pulse Ox 98 04/27/23 02:01 O2 Del Method Non-Rebreather 04/27/23 02:01 O2 Flow Rate 15 04/27/23 02:01 04/26/23 04/26/23 04/27/23 14:59 22:59 06:59 Intake Total 50 / 50 Balance 50 / 50 Weight last 48 hrs Weight 124.738 kg Physical Exam Const: COMMON NORMALS: patient oriented x3 and alert GENERAL APPEARANCE: cooperative NUTRITIONAL APPEARANCE: obese ORIENTATION/CONSCIOUSNESS: Yes awake HENMT: COMMON NORMALS: oropharynx normal Neck/C-Spine: COMMON NORMALS: no JVD Resp: COMMON NORMALS: normal respiratory effort and clear to auscultation bilaterally AUSCULTATION: diminished lung sounds Cardio: COMMON NORMALS: no JVD, regular rhythm, S1 normal heart sound present, S2 normal heart sound present and No murmurs present (Cardio) RHYTHM: regular rhythm HEART SOUNDS: S1 normal heart sound present and S2 normal heart sound present GI: COMMON NORMALS: Soft to palpation PALPATION: Yes Soft to palpation and Yes Tenderness to palpation present (GI) Details: RUQ Extremity: COMMON NORMALS: no joint enlargement and no pedal edema Neuro: COMMON NORMALS: patient oriented x3 and moves all extremities SENSORIUM/ORIENTATION: Yes alert Skin: COMMON NORMALS: no rashes or lesions noted GENERAL SKIN EXAM: no rashes or lesions noted Data 04/26/23 23:15 04/26/23 23:15 Micro: Microbiology 04/27/23 00:48 Blood Culture - Preliminary Blood SPECIMEN COLLECTED 04/27/23 00:45 Blood Culture - Preliminary Blood SPECIMEN COLLECTED A&P Assessment and plan (1) Cholecystitis, acute: Reviewed vitals, CBC, CMP, UA. With right leg pain, alk phos elevation, mild LFT elevation, although T. bili, AST WNL. Lipase WNL. Reviewed CT abdomen pelvis. Discussed with ER physician. Surgery has been consulted with high suspicion of cholecystitis on imaging, asymptomatic, also with leukocytosis, low-grade temp 99.6. Sinus tachycardia. However, also in respiratory failure, requiring as much as 15 L nonrebreather in ER. Continue antibiotic with Zosyn at current time. Blood cultures have been collected. Follow. NPO with sips, chips, meds for time being. (2) Acute hypoxic respiratory failure: Requiring up to 15 L nonrebreather oxygen. Reviewed labs as above. Reviewed chest x-ray. Unremarkable, though perhaps some mild congestive changes could not be excluded. Discussed with ER physician, ER documentation reviewed. He received a dose of Lasix. Hold off additional diuretics for now, reassess volume status, oxygenation. At current time able to turn down oxygen down to 5 L nasal cannula. Discussed with RT. He normally is not on any oxygen apart from 2 L at night./Sleep apnea, has not been wearing CPAP as he is supposed to due to his oropharynx, airway is feeling very dry. D-dimer obtained, noted abnormal. Proceeding with CT angiogram chest to assess for possible PE with noted sinus tachycardia, hypoxia cough. Does appear to have exacerbation of COPD as well with dyspnea, productive cough, diminished air entry, purulent appearing sputum. Given suspicion of acute infection with cholecystitis we will give inhaled steroids for now. Antibiotic coverage as above with Zosyn. Neb treatments. Oxygen support, wean down as tolerating. RT assess and treat. Plan COPD with exacerbation: As above. Normally not on oxygen during the day, 2 L at night. Remote history of neuroendocrine pancreatic tumor: Status post partial pancreatectomy of the tail of pancreas 3-4 years ago. PATRICIA: Has not been wearing CPAP every day recently due to nasopharynx, airway is feeling dry. Encouraged adherence. History of multiple traumas, chronic pain. Tylenol, [place] as needed for now. History of splenectomy Obesity Other medical problems Requested medications to be confirmed, please review and reconcile once available. Attestations Medical Necessity Statement*: Admission of over 2 midnights anticipated for assessment management of acute cholecystitis, hypoxic respiratory failure and gentleman with underlying coronary disease. Diagnoses Cholecystitis, acute K81.0 Acute hypoxic respiratory failure J96.01
[2023-04-27 02:33] LABS: ABG PCO2 44.1 mmHg (35-45); ABG PH Result 7.41 (7.35-7.45); Base Excess ABG 2.4 mmol/L (-2.0-2.0); Blood Gas Allen Test Pos; Blood Gas Sample Type Arterial; HCO3 ABG 27.7 mmol/L (22-26); PO2 ABG 83.5 mmHg (80.0-100.0)
[2023-04-27 02:34] LABS: Blood Gas Operator Identificat ED; Blood Gas Sample Site Radial, left; Oxygen Device NC; PO2 FiO2 Ratio Arterial Blood 0
[2023-04-27] MEDS: iohexol 350 mg/mL 500 mL Btl (per mL) IV (03:08)
[2023-04-27] MEDS: enoxaparin 40 mg/0.4 mL Syringe SUBCUT (03:36)
[2023-04-27] MEDS: pantoprazole 40 mg SDV IVP (03:36)
--- NOTE | 2023-04-27 03:38 | ECG_ITS ---
[facility] Test Date: 2023-04-27 Pat Name: Iqra Meredith Department: Room: 259 Gender: Male Internal Controls Manager: : 1965 Requested By: Eldon Alberto Order Number: [id number] Maria Guadalupe MD: Chante Andrews M.D. Measurements Intervals [place] Rate: 125 P: 60 NV: 141 QRS: -34 QRSD: 104 T: 41 QT: 308 QTc: 445 Interpretive Statements SINUS TACHYCARDIA LEFT AXIS DEVIATION [QRS AXIS < -30] Compared to ECG 08/14/2019 01:18:25 Left-axis deviation now present Sinus rhythm no longer present Electronically Signed On 04-29-2023 8:12:35 MAIL HANDLERS SUPERVISOR by Chante Andrews M.D. [id number]
[2023-04-27] MEDS: HYDROcodone-acetaminophen 5-325 mg Tablet 1 TAB PO ×2 (03:42→08:48)
[2023-04-27 04:15] LABS: Adenovirus Not Detected (NOT DETECT); Chlamydia Pneumoniae Not Detected (NOT DETECT); Coronavirus 229E,HKU1,NL63,OC4 Not Detected (NOT DETECT); Human Metapneumovirus Not Detected (NOT DETECT); Human Rhinovirus/Enterovirus Not Detected (NOT DETECT); Influenza A Not Detected (NOT DETECT); Influenza A H1 Not Detected (NOT DETECT); Influenza A H1-2009 Not Detected (NOT DETECT); Influenza A H3 Not Detected (NOT DETECT); Influenza B Not Detected (NOT DETECT); Mycoplasma Pneumoniae Not Detected (NOT DETECT); Parainfluenza Virus Type 1 Not Detected (NOT DETECT); Parainfluenza Virus Type 2 Not Detected (NOT DETECT); Parainfluenza Virus Type 3 Not Detected (NOT DETECT); Parainfluenza Virus Type 4 Not Detected (NOT DETECT); Respiratory Syncytial Virus A Not Detected (NOT DETECT); Respiratory Syncytial Virus B Not Detected (NOT DETECT); SARS-COV-2 Not Detected (NOT DETECT)
[2023-04-27 05:58] LABS: Basophils # 0.1 10^3/uL (0.0-0.1); Basophils % 0.5 %; Hematocrit 42.5 % (37-53); Lymphocytes # 1.4 10^3/uL (0.8-4.8); Lymphocytes % 5.2 %; Mean Corpuscular HGB Conc 32.5 g/dL (30-55); Mean Corpuscular Hemoglobin 28.6 pg (27-33); Mean Platelet Volume 9.4 fL (7.4-10.4); Monocytes % 3.6 %; Neutrophils # 24.85 10^3/uL (1.8-7.7); Neutrophils % 90.4 %; Nucleated Red Blood Cells % 0 %; Platelet Count 512 10^3/cmm (157-399); Red Blood Count 4.83 10^6/uL (3.85-5.65); Red Cell Distribution Width 15.4 % (12.1-15.1); White Blood Count 27.52 10^3/uL (3.29-11.43)
[2023-04-27 06:18] LABS: Alanine Aminotransferase 47 U/L (0-41); Albumin Level 2.9 g/dL (3.5-5.2); Alkaline Phosphatase 153 U/L (40-130); Anion Gap 17.7 (5-19); Aspartate Amino Transferase 30 U/L (0-40); Blood Urea Nitrogen 13 mg/dL (6-20); Calcium 8.2 mg/dL (8.5-10.5); Carbon Dioxide 24 mmol/L (22-29); Chloride 99 mmol/L (98-107); Globulin 3.9 g/dL (1.3-4.6); Glucose 140 mg/dL (65-115); Osmolality Calculated 286 mOsm/kg (285-295); Potassium 3.7 mmol/L (3.5-5.1); Sodium 137 mmol/L (136-145); Total Protein 6.8 g/dL (6.6-8.7)
[2023-04-27 06:57] LABS: Glucose Point of Care 126 mg/dL (70-110)
[2023-04-27] MEDS: budesonide 0.5 mg/2 mL Neb INHALATION ×2 (08:00→20:21)
[2023-04-27] MEDS: ipratropium-albuterol 3 mL Neb INHALATION ×3 (08:00→20:21)
--- NOTE | 2023-04-27 08:42 | ECG_ITS ---
[facility] Test Date: 2023-04-27 Pat Name: Iqra Meredith Department: Room: 259 Gender: Male Health Type Technician: : 1965 Requested By: Sukhjinder Galindo Order Number: [id number] Reading MD: Chante Andrews M.D. Measurements Intervals [place] Rate: 116 P: 60 OR: 145 QRS: -26 QRSD: 102 T: 34 QT: 319 QTc: 443 Interpretive Statements SINUS TACHYCARDIA POSSIBLE LEFT ATRIAL ENLARGEMENT [-0.1mV P-WAVE IN V1/V2] BORDERLINE LEFT AXIS DEVIATION [QRS AXIS < -20] Compared to ECG 04/27/2023 03:38:08 No significant changes Electronically Signed On 04-29-2023 18:45:12 CASTING MACHINE ADJUSTER by Chante Andrews M.D. [id number]
[2023-04-27 09:16] LABS: Troponin(5th) Baseline 21 ng/L (0-15)
[2023-04-27] MEDS: morphine 4 mg/mL SDV 1 mL 2 MG IVP (10:48)
[2023-04-27] MEDS: sodium chloride 0.9% 1,000 ML 75 ML IV (10:48)
[2023-04-27 11:21] LABS: Troponin 5 2HR 27.65 ng/L (0-15)
[2023-04-27 11:25] LABS: Troponin 5 2HR Delta 6.65 ABS# (0-10)
--- NOTE | 2023-04-27 11:29 | P.CONIM_ITS ---
Providers/Reason For Consult Consulting Physician/Specialty*: Dr. 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 He reports that the pain became more severe last night so he presented to the hospital. He does report that individuals in his household have had similar symptoms during that time. Palpation makes the pain worse. Eating usually does not make the pain worse. He has constant back pain so he is unsure if the pain radiates to his back. He denies any hematemesis, hematochezia and/or melena. He has had no recorded fevers at home. CT the abdomen pelvis is suspicious for acute calculus cholecystitis Review of Systems General: Reports: 10 or more systems reviewed and unremarkable except in HPI and below Medications/Allergies Home Medications Medication Instructions Recorded Confirmed Last Taken Type acetaminophen 500 mg tablet 1,000 mg PO PRN 01/19/21 04/27/23 Unknown History (Tylenol Extra Strength) meloxicam 15 mg tablet 15 mg PO QAM 01/19/21 04/27/23 1 Day Ago History ~04/26/23 gabapentin 300 mg capsule 300 mg PO BID #60 caps 03/17/21 04/27/23 1 Day Ago Rx ~04/26/23 lisinopril 2.5 mg tablet 2.5 mg PO DAILY 03/17/21 04/27/23 1 Day Ago History ~04/26/23 hydrocodone 5 mg-acetaminophen 325 1 tab PO TID PRN pain 30 days #90 05/09/21 04/27/23 1 Day Ago Rx mg tablet tabs ~04/26/23 methocarbamol 500 mg tablet 500 mg PO TID PRN muscle 05/09/21 04/27/23 12/06/21 Rx spasticity #90 tabs Diabetic shoes with 3 sets of #1 ea 01/09/22 04/27/23 Unknown Rx inserts albuterol sulfate 90 mcg/actuation 2 puff inhalation Q6H PRN 08/29/22 04/27/23 1 Day Ago Rx aerosol inhaler (ProAir HFA) Shortness Of Breath #8.5 grams ~04/26/23 tamsulosin 0.4 mg capsule 0.4 mg PO DAILY 02/11/23 04/27/23 Unknown History bupropion HCl 100 mg tablet 100 mg PO DAILY #30 tabs 04/01/23 04/27/23 1 Day Ago Rx ~04/26/23 trazodone 150 mg tablet 150 mg PO BEDTIME PRN insomnia #30 04/01/23 04/27/23 1 Day Ago Rx tabs ~04/26/23 metformin 500 mg tablet,extended 1,000 mg PO BID 90 days #360 tabs 04/08/23 04/27/23 1 Day Ago Rx release 24 hr ~04/26/23 atorvastatin 20 mg tablet 20 mg PO DAILY 04/27/23 04/27/23 Unknown History docusate sodium 50 mg capsule 50 mg PO BID 04/27/23 04/27/23 Unknown History (Stool Softener) glimepiride 4 mg tablet 4 mg PO DAILY 04/27/23 04/27/23 Unknown History Allergies Allergy/AdvReac Type Severity Reaction Status Date / Time adhesive Allergy ALGY-Hives Verified 04/27/23 03:20 Current Medications Generic Name Dose Route Start Last Admin Trade Name Freq PRN Reason Stop Dose Admin Hydrocodone Bitart/Acetaminophen 1 tab 04/27/23 02:56 04/27/23 08:48 Hydrocodone-Acetaminophen 5-325 Mg Tablet PO 1 tab Q4H PRN Administration MODERATE PAIN Albuterol/Ipratropium 3 ml 04/27/23 08:00 04/27/23 08:00 Ipratropium-Albuterol 3 Ml Neb INHALATION 3 ml Q6H.RESP RUPERT Administration Budesonide 0.5 mg 04/27/23 08:00 04/27/23 08:00 Budesonide 0.5 Mg/2 Ml Neb INHALATION 0.5 mg BID.RESPIRATORY RUPERT Administration Enoxaparin Sodium 40 mg 04/27/23 03:00 04/27/23 03:36 Enoxaparin 40 Mg/0.4 Ml Syringe SUBCUT 40 mg Q24H RUPERT Administration Piperacillin Sod/Tazobactam 50 mls @ 12.5 mls/hr 04/27/23 09:00 04/27/23 08:06 Sod 3.375 gm/ Sodium Chloride IV 12.5 mls/hr Q8H RUPERT Administration Protocol Sodium Chloride 1,000 mls @ 75 mls/hr 04/27/23 10:30 04/27/23 10:48 Sodium Chloride 0.9% IV 75 mls/hr .[id number] RUPERT Administration Morphine Sulfate 2 mg 04/27/23 10:28 04/27/23 10:48 Morphine 4 Mg/Ml Sdv 1 Ml IVP 2 mg Q8H PRN Administration SEVERE PAIN Pantoprazole Sodium 40 mg 04/27/23 02:55 04/27/23 03:36 Pantoprazole 40 Mg Sdv IVP 40 mg Q24H RUPERT Administration PFSH Acute PFSH: Medical History Cellulitis and abscess of left leg Chronic SI joint pain COPD (chronic obstructive pulmonary disease) Depression Encounter for long-term opiate analgesic use History of pancreatic cancer Lumbar back pain with radiculopathy affecting right lower extremity Major depressive disorder, recurrent severe without psychotic features Nicotine dependence with current use Not interested in smoking cessation. Obesity Pancreas (digestive gland) works poorly Smoking Spermatocele Spleen absent Surgical History History of back surgery (~2013) 12/2013 T12 REMOVAL POST WORK ACCIDENT History of pancreatic surgery History of spinal fusion History of splenectomy S/P hernia repair (~12/2013) UMBILICAL HERNIA REPAIR Family History Mother , IN HER 60'S Diabetes CAD (coronary artery disease) Psychiatric illness Stroke Cancer UTERINE CANCER Father , AT AGE 56 Cancer PROSTATE Other Family history of premature coronary artery disease Social History Smoking and tobacco/nicotine status: former use of tobacco/nicotine Quit status (tobacco/nicotine): has quit using Year quit tobacco: 2020 Former quit date comment: 2 ppd X 40 years Alcohol intake: current Alcohol intake frequency: holidays/special occasions only Alcohol type: beer Substance/Drug Use: never Marital status: Number of children: 2 Number of grandchildren: 3 Education level details: Phlebotomy Current occupational status: disabled Do you think of yourself as: Straight/Heterosexual Rosey/Confucianist: Other Vitals/I&O/Wt Last Vital Signs Temp 98.7 F 04/27/23 08:00 Pulse 112 H 04/27/23 08:08 Resp 18 04/27/23 10:48 BP 119/67 04/27/23 08:00 Pulse Ox 94 04/27/23 08:08 O2 Del Method Nasal Cannula 04/27/23 08:08 O2 Flow Rate 2 04/27/23 08:08 04/26/23 04/27/23 04/27/23 22:59 06:59 14:59 Intake Total 50 / 50 Output Total 300 / 300 Balance -250 / -250 Weight last 48 hrs Weight 275 lb Weight 275 lb Physical Exam Narrative: General : Patient is well developed , no acute distress, oriented x3 Head : Normal cephalic, a-traumatic. Ears : Pinnae and external canal are normal. Hearing is normal. Eyes : PERRLA, Sclera and injection are normal. No conjunctival discharge. Nose : Mucous membranes are without erythema. Throat : buccal mucosa is normal, gums are without significant recession or hypertrophy. Lungs : Equal chest rise bilaterally, no use of accessory muscles, trachea is midline. Cor : Rate and rhythm are normal. Abdomen : Soft, ND, tender to palpation over epigastrium, negative Magallanes's, also mildly tender in the right lower quadrant, no g/r/m Extremities : No edema, no cyanosis or clubbing, dorsalis pedis pulses are present bilaterally, non-tender to palpation of calves. Upper extremities are normal bilaterally. Back : non-tender to palpation, no CVA tenderness. Neuro : CN II - XII intact, Upper and lower extremities have equal and full s trength Urinary Catheter Management: Anderson: Cath Placed During This Visit: yes Urinary Catheter Date of Insertion: 04/27/23 Urinary Catheter Time of Insertion: 11:08 Data 04/27/23 05:49 04/27/23 05:49 Micro: Microbiology 04/27/23 00:48 Blood Culture - Preliminary Blood SPECIMEN COLLECTED 04/27/23 00:45 Blood Culture - Preliminary Blood SPECIMEN COLLECTED A&P Assessment and plan (1) Acute calculous cholecystitis: (2) Acute hypoxic respiratory failure: Plan He is well outside the 72-hour gonzalez window for cholecystectomy. We are going to treat with IV antibiotics for now and complete a 14-day course of antibiotics with Augmentin at home. I would then like to see him in my office in 2 weeks to schedule an interval cholecystectomy in 6 weeks from now. His leukocytosis worsened overnight, but this is likely due to inhaled corticosteroids to treat his respiratory failure. If he is not clinically improved by Saturday, we will proceed with cholecystectomy during this hospitalization Clear liquid diet Medical management per hospitalist Coding Level of Care Code 95180 Diagnoses Acute calculous cholecystitis K80.00 Acute hypoxic respiratory failure J96.01
--- NOTE | 2023-04-27 11:37 | PC.NURSE ---
Pt still complaining of pain 12/24 after morphine. Not time yet for Hydrocodone again. Text sent to Dr. Galindo.
[2023-04-27 12:03] LABS: Glucose Point of Care 200 mg/dL (70-110)
--- NOTE | 2023-04-27 13:08 | PM.PN ---
Subjective Subjective: Patient was seen this morning, he tells me he ambulated to the bathroom, he has not had a bowel movement, he feels like he needs to poop, his daughter is at bedside, he tells me that he has persistent abdominal pain, feeling nauseous, the hydrocodone and the morphine are not working, he asked me about the gallbladder surgery, if he will have any restrictions after the surgery, currently on 2 L, denies smoking, history of heart disease, no history of heart failure, history of DVTs or PEs, Vitals/I&O/Wt Last Vital Signs Temp 100.1 F H 04/27/23 12:00 Pulse 110 H 04/27/23 12:00 Resp 18 04/27/23 12:00 BP 117/74 04/27/23 12:00 Pulse Ox 92 04/27/23 12:00 O2 Del Method Nasal Cannula 04/27/23 08:08 O2 Flow Rate 2 04/27/23 08:08 04/26/23 04/27/23 04/27/23 22:59 06:59 14:59 Intake Total 50 / 50 110 / 110 Output Total 300 / 300 Balance -250 / -250 110 / 110 Weight last 48 hrs Weight 124.738 kg Weight 124.738 kg Physical Exam Const: COMMON NORMALS: no acute distress and patient oriented x3 HENMT: COMMON NORMALS: normocephalic HEAD & SCALP: normocephalic Neck/C-Spine: COMMON NORMALS: no JVD Resp: COMMON NORMALS: normal respiratory effort, No retractions, No use of accessory muscles and clear to auscultation bilaterally AUSCULTATION: clear to auscultation bilaterally Cardio: COMMON NORMALS: no JVD, regular rate, regular rhythm, S1 normal heart sound present and S2 normal heart sound present RATE: regular rate RHYTHM: regular rhythm HEART SOUNDS: S1 normal heart sound present and S2 normal heart sound present GI: OTHER: Abdomen soft, distended, has exquisite right upper quadrant tenderness, no rebound, no rigidity, has good bowel sounds in all 4 quadrants Extremity: COMMON NORMALS: no pedal edema Neuro: COMMON NORMALS: patient oriented x3 Psych: COMMON NORMALS: mental status grossly normal Urinary Catheter Management: Anderson: Cath Placed During This Visit: yes Urinary Catheter Date of Insertion: 04/27/23 Urinary Catheter Time of Insertion: 11:08 Data 04/27/23 05:49 04/27/23 05:49 Micro: Microbiology 04/27/23 00:48 Blood Culture - Preliminary Blood SPECIMEN COLLECTED 04/27/23 00:45 Blood Culture - Preliminary Blood SPECIMEN COLLECTED A&P Assessment and plan (1) Cholecystitis, acute: - Currently on Zosyn ? Continue IV fluids normal saline 75 cc an hour, ? Dilaudid 1 mg IV push every 4 hours as needed for pain, ? Zofran for nausea, ? Serial abdominal exams, ?, General surgery consulted (2) Acute hypoxic respiratory failure: -Currently on 2 L, resting comfortably, no wheezing or crackles on examination - CT angiogram negative for PE ? No focal pneumonia, ? Minimal troponin elevation, 21, no chest pain complaints, EKG no acute ST-T wave changes, will order cardiac echocardiogram ? Denies a history of smoking, history of COPD, ? Does have a history of sleep apnea, intermittently uses his CPAP, will order tonight, ? 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 PATRICIA: Has not been wearing CPAP every day recently due to nasopharynx, airway is feeling dry. Encouraged adherence. History of multiple traumas, chronic pain. Tylenol, [facility] [place] as needed for now. History of splenectomy Obesity Other medical problems Requested medications to be confirmed, please review and reconcile once available. Attestations Medical Necessity Statement*: Patient requires hospitalization for acute cholecystitis, respiratory failure, hypoxia Diagnoses Cholecystitis, acute K81.0 Acute hypoxic respiratory failure J96.01
--- NOTE | 2023-04-27 13:12 | USCV_ITS ---
Iqra Meredith Age: 57 Gender: M : 1965 Exam Date: 04/27/2023 18:00 Ordering Phys: Sukhjinder Galindo MD Technologist: AMBER Exam Location: [facility] [place] Indication: sob BP: 117 / 74 HR: 107 Rhythm: Sinus Technical Quality: Adequate MEASUREMENTS (Male / Female) Normal Values 2D ECHO LVOT Diameter 2.0 cm LV Ejection Fraction MOD 2C 67.1 % LV Ejection Fraction 2C AL 66.5 % LA Diameter 4.2 cm LA Width 3.6 cm LA Height 5.0 cm RA Width 3.3 cm RA Height 5.1 cm Aorta at Sinotubular Diameter 2.6 cm M-MODE Aortic Annulus Diameter 3.6 cm LA Ao Ratio MM 1.1 MV E Point Septal Separation 0.4 cm DOPPLER AV Peak Velocity 182.3 cm/s LVOT Peak Velocity 118.0 cm/s AV Area Cont Eq vti 2.1 cm squared AV Area Cont Eq pk 2.1 cm squared MV Peak Velocity 115.0 cm/s MV Area PHT 4.4 cm squared Mitral E to A Ratio 1.2 MV E' Velocity 39.6 cm/s Mitral E to MV E' Ratio 7.8 Mitral E to LV E' Lateral Ratio 7.3 Mitral E to LV E' Septal Ratio 8.3 TR Peak Velocity 217.9 cm/s TR Peak Gradient 19.0 mmHg TR Mean Velocity 178.8 cm/s TR Mean Gradient 13.1 mmHg TR Velocity Time Integral 48.4 cm Right Atrial Pressure 8.0 mmHg Pulmonary Artery Systolic Pressu 27.0 mmHg PV Peak Velocity 105.0 cm/s RV Acceleration Time 0.1 s RV Ejection Time 0.3 s RV AcT/ET 0.4 FINDINGS Left Ventricle Normal left ventricular size, systolic function and wall thickness, with no regional wall motion abnormalities. Normal left ventricular wall thickness. Normal diastolic filling pattern. Right Ventricle The right ventricle is normal in size and function. Right Atrium The right atrium is normal in size. Left Atrium The left atrium is normal in size. Mitral Valve Structurally normal mitral valve without significant stenosis or prolapse. There is trivial mitral regurgitation. Aortic Valve Structurally normal aortic valve without significant sclerosis or stenosis. There is no aortic regurgitation. Tricuspid Valve Structurally normal tricuspid valve without significant stenosis or regurgitation. Pulmonary artery systolic pressure is normal. Pulmonic Valve Structurally normal pulmonic valve without significant stenosis. There is no pulmonic regurgitation. Pericardium Normal pericardium without effusion. Aorta Normal ascending aorta dimension. IVC The inferior vena cava not seen. CONCLUSIONS Bulmaro Charles MD (Electronically Signed) Final Date: 28 April 2023 12:28 S
[2023-04-27] MEDS: ondansetron 2 mg/ML SDV 2 mL 4 MG IVP (13:39)
[2023-04-27] MEDS: HYDROmorphone 1 mg/mL INJ 1 mL IVP ×3 (13:39→22:16)
[2023-04-27] MEDS: polyethylene glycol 3350 Pkt 17 gm PO (14:13)
[2023-04-27 15:38] LABS: Troponin 5 6HR 22.68 ng/L (0-15)
[2023-04-27 15:39] LABS: Troponin 5 6HR Delta 1.68 ng/L (0-12)
[2023-04-27] MEDS: gabapentin 300 mg Capsule PO (17:09)
[2023-04-27 17:10] LABS: Glucose Point of Care 186 mg/dL (70-110)
[2023-04-27 20:58] LABS: Glucose Point of Care 214 mg/dL (70-110)
[2023-04-28] VITALS (17 sets, daily range): BP systolic 112–137; BP diastolic 68–77; PULSE 108–123; RESP 16–22; TEMP 36.3–37.7; O2SAT 87–94
[2023-04-28] MEDS: sodium chloride 0.9% 1,000 ML 75 ML IV ×2 (00:20→18:06)
[2023-04-28] MEDS: piperacillin-tazobactam 3.375 GM in sodium chloride 0.9% (plus) 50 ML IV ×3 (01:41→18:04)
[2023-04-28] MEDS: pantoprazole 40 mg SDV IVP (01:41)
[2023-04-28] MEDS: HYDROmorphone 1 mg/mL INJ 1 mL IVP ×5 (04:02→22:38)
[2023-04-28] MEDS: enoxaparin 40 mg/0.4 mL Syringe SUBCUT (04:02)
[2023-04-28 04:53] LABS: Basophils # 0.1 10^3/uL (0.0-0.1); Basophils % 0.3 %; Eosinophils # 0.1 10^3/uL (0.0-0.8); Eosinophils % 0.2 %; Lymphocytes # 1.6 10^3/uL (0.8-4.8); Lymphocytes % 5.1 %; Mean Corpuscular Hemoglobin 28.3 pg (27-33); Mean Corpuscular Volume 88.5 fl (82-101); Mean Platelet Volume 9.7 fL (7.4-10.4); Monocytes # 1.2 10^3/uL (0.2-0.9); Monocytes % 3.8 %; Neutrophils # 28.48 10^3/uL (1.8-7.7); Neutrophils % 89.8 %; Nucleated Red Blood Cells % 0 %; Platelet Count 501 10^3/cmm (157-399); Red Blood Count 4.52 10^6/uL (3.85-5.65); Red Cell Distribution Width 15.3 % (12.1-15.1)
[2023-04-28 05:10] LABS: White Blood Count 31.72 10^3/uL (3.29-11.43)
[2023-04-28 05:19] LABS: Alanine Aminotransferase 38 U/L (0-41); Albumin Level 2.7 g/dL (3.5-5.2); Alkaline Phosphatase 142 U/L (40-130); Anion Gap 10.7 (5-19); Aspartate Amino Transferase 21 U/L (0-40); Blood Urea Nitrogen 9 mg/dL (6-20); Calcium 8.3 mg/dL (8.5-10.5); Carbon Dioxide 31 mmol/L (22-29); Chloride 96 mmol/L (98-107); Globulin 4.1 g/dL (1.3-4.6); Glomerular Filtration Rate 116.2 mL/min (90-130); Glucose 145 mg/dL (65-115); Osmolality Calculated 279 mOsm/kg (285-295); Potassium 3.7 mmol/L (3.5-5.1); Sodium 134 mmol/L (136-145); Total Bilirubin 1.4 mg/dL (0.15-1.2); Total Protein 6.8 g/dL (6.6-8.7)
[2023-04-28 06:53] LABS: Glucose Point of Care 158 mg/dL (70-110)
[2023-04-28] MEDS: budesonide 0.5 mg/2 mL Neb INHALATION ×2 (08:16→19:58)
[2023-04-28] MEDS: ipratropium-albuterol 3 mL Neb INHALATION ×3 (08:16→20:00)
[2023-04-28] MEDS: ondansetron 2 mg/ML SDV 2 mL 4 MG IVP (08:50)
[2023-04-28] MEDS: tamsulosin 0.4 mg Capsule PO (08:51)
[2023-04-28] MEDS: atorvastatin 40 mg Tablet 20 MG PO (08:51)
[2023-04-28] MEDS: gabapentin 300 mg Capsule PO ×2 (08:51→18:12)
--- NOTE | 2023-04-28 12:42 | CTR_ITS ---
PROCEDURE INFORMATION: Exam: CT Abdomen And Pelvis With Contrast Exam date and time: 04/28/2023 4:26 PM Age: 57 years old Clinical indication: Abdominal pain; Generalized; Prior surgery; Surgery date: 6+ months; Surgery type: Lumbar; Additional info: Abd distention and pain TECHNIQUE: Imaging protocol: Computed tomography of the abdomen and pelvis with contrast. Radiation optimization: All CT scans at this facility use at least one of these dose optimization techniques: automated exposure control; mA and/or kV adjustment per patient size (includes targeted exams where dose is matched to clinical indication); or iterative reconstruction. Contrast material: OMNI 350; Contrast volume: 100 ml; Contrast route: INTRAVENOUS (IV); REPORTING DATA: Count of CT and Cardiac NM exams in prior 12 months: This patient has received 5 known CTs and 0 known cardiac nuclear medicine studies in the 12 months prior to the current study. COMPARISON: CT abdomen pelvis w con* [id number] 04/26/2023 11:32 PM RADIATION DOSE METRICS: Total DLP (mGy-cm): 1257.26 FINDINGS: Pleural spaces: Interval new small right posterior basilar effusion with subjacent atelectasis/mild infiltrate within the right lung base in relation to recent prior exam. Small amount of left basilar atelectasis. Liver: Suggestion of mild fatty liver without focal mass or dilated intrahepatic ducts. Liver is borderline in size, as well. Gallbladder and bile ducts: Gallstones or cholelithiasis along with mildly distended gallbladder with mild ill-defined gallbladder wall thickening with adjacent stranding/edema. Findings are similar to recent prior exam though with increased surrounding stranding of inflammation or edema around the gallbladder and liver. Findings suggest acute cholecystitis in addition to cholelithiasis. No significant biliary ductal dilatation. Pancreas: Previous resection of the tail of the pancreas, as noted with recent prior exam. Mildly dirty fat appearance of the mesentery adjacent to the pancreatic region. Pancreas is otherwise unremarkable. Correlate with serum amylase and lipase regarding inflammation or pancreatitis. Spleen: The spleen is surgically absent. Adrenal glands: Normal. No mass. Kidneys and ureters: No urinary tract stone or obstructive uropathy or perinephric stranding. Kidneys show no focal abnormality. Stomach and bowel: Mesenteric stranding is seen inferior aspect of the liver at the paracolic gutter there is secondary inability to exclude some inflammatory change in association with the ascending or right colon around this region. Note is made of small bowel thickening involving small bowel segments in the abdomen. Mild distal colonic diverticula without CT findings of focal diverticulitis. No bowel dilatation or obstruction Appendix: The appendix is definitely visualized. Intraperitoneal space: Small amount free fluid within the mesentery of the pelvis. No free air. Vasculature: Unremarkable. No abdominal aortic aneurysm. Lymph nodes: Unremarkable. No enlarged lymph nodes. Urinary bladder: Anderson catheter within the urinary bladder with suboptimal distention for evaluation. Reproductive: Prostate gland is mildly enlarged. Ill-defined hyperdensity is seen within the prostate, not identified with recent prior exam. This could indicate contrast collection or hemorrhage. Bones/joints: Postsurgical hardware of prior posterior fusion T10 through L3 along with postsurgical change of the disc space at the T12-L1 level. Soft tissues: Unremarkable. CT/CT abdomen pelvis w con* [id number] IMPRESSION: 1. Interval new small right posterior basilar effusion with subjacent atelectasis and/or mild infiltrate in relation to recent prior exam. 2. Cholelithiasis with findings suggesting associated acute cholecystitis. No biliary ductal dilatation. 3. 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 4. Mild dirty fat appearance of mesentery around the pancreas region, though also inferior liver and right paracolic gutter region, as well as mild free fluid in the pelvis. Correlate with serum amylase and lipase regarding inflammation of the pancreas which is otherwise unremarkable. With findings of small bowel thickening in the abdomen, suspect component of inflammation of the small bowel. Regarding inflammation or edema inferior aspect of the liver and right paracolic region, this may be associated with cholecystitis above this level though limits evaluation for inflammatory changes of the ascending colon at this level. 5. Anderson catheter within the urinary bladder. 6. Ill-defined hyperdensity within the prostate could reflect contrast collection or hemorrhage. 7. Borderline size mild fatty liver..
--- NOTE | 2023-04-28 12:42 | PM.PN ---
Subjective Subjective: Patient seen and examined. He reports that his pain is now controlled with pain medication. Positive bowel movement Vitals/I&O/Wt Last Vital Signs Temp 98.2 F 04/28/23 08:00 Pulse 111 H 04/28/23 08:26 Resp 18 04/28/23 08:50 BP 112/68 04/28/23 08:00 Pulse Ox 91 04/28/23 08:50 O2 Del Method Nasal Cannula 04/28/23 08:16 O2 Flow Rate 2 04/28/23 08:16 FiO2 21 04/27/23 20:31 04/27/23 04/28/23 04/28/23 22:59 06:59 14:59 Intake Total 650 / 760 1050 / 1810 420 / 420 Output Total 500 / 500 700 / 1200 Balance 150 / 260 350 / 610 420 / 420 Weight last 48 hrs Weight 274 lb 14.4 oz Weight 275 lb Weight 275 lb Physical Exam Narrative: General : Patient is well developed , no acute distress, oriented x3 Head : Normal cephalic, a-traumatic. Ears : Pinnae and external canal are normal. Hearing is normal. Eyes : PERRLA, Sclera and injection are normal. No conjunctival discharge. Nose : Mucous membranes are without erythema. Throat : buccal mucosa is normal, gums are without significant recession or hypertrophy. Lungs : Equal chest rise bilaterally, no use of accessory muscles, trachea is midline. Cor : Rate and rhythm are normal. Abdomen : Soft, Marked distention, diffuse tenderness, no g/r/m Extremities : No edema, no cyanosis or clubbing, dorsalis pedis pulses are present bilaterally, non-tender to palpation of calves. Upper extremities are normal bilaterally. Back : non-tender to palpation, no CVA tenderness. Neuro : CN II - XII intact, Upper and lower extremities have equal and full strength Urinary Catheter Management: Anderson: Cath Placed During This Visit: yes Reason for Continuing Indwelling Catheter: Accurate Measurement of Urinary Output in Critically Ill Patients Urinary Catheter Date of Insertion: 04/27/23 Urinary Catheter Time of Insertion: 11:08 Data 04/29/23 03:03 04/29/23 03:03 Micro: Microbiology 04/27/23 00:48 Blood Culture - Preliminary Blood NEGATIVE TO DATE 04/27/23 00:45 Blood Culture - Preliminary Blood NEGATIVE TO DATE A&P Assessment and plan (1) Acute calculous cholecystitis: (2) Acute hypoxic respiratory failure: Plan He is well outside the 72-hour gonzalez window for cholecystectomy. We are going to treat with IV antibiotics for now and complete a 14-day course of antibiotics with Augmentin at home. I would then like to see him in my office in 2 weeks to schedule an interval cholecystectomy in 6 weeks from now. His leukocytosis worsened overnight, but this is likely due to inhaled corticosteroids to treat his respiratory failure. If he is not clinically improved by Saturday, we will proceed with cholecystectomy during this hospitalization Clear liquid diet Repeat CT abdomen pelvis repeat Medical management per hospitalist Attestations Medical Necessity Statement*: per primary Coding Level of Care Code Acute Code for [facility] Diagnoses Acute calculous cholecystitis K80.00 Acute hypoxic respiratory failure J96.01
--- NOTE | 2023-04-28 15:17 | P.PN_ITS ---
Subjective Subjective: Patient was seen this morning, he continues to have abdominal pain, abdominal distention, is passing gas from below, has not had a bowel movement, no lightheadedness, dizziness, denies fevers, Vitals/I&O/Wt Last Vital Signs Temp 99.3 F 04/28/23 12:00 Pulse 120 H 04/28/23 14:07 Resp 22 H 04/28/23 14:07 BP 117/70 04/28/23 12:00 Pulse Ox 91 04/28/23 14:07 O2 Del Method Nasal Cannula 04/28/23 14:07 O2 Flow Rate 2 04/28/23 14:07 FiO2 21 04/27/23 20:31 04/28/23 04/28/23 04/28/23 06:59 14:59 22:59 Intake Total 1050 / 1810 710 / 710 Output Total 700 / 1200 Balance 350 / 610 710 / 710 Weight last 48 hrs Weight 124.693 kg Weight 124.738 kg Weight 124.738 kg Physical Exam Const: COMMON NORMALS: no acute distress and patient oriented x3 Resp: COMMON NORMALS: normal respiratory effort, No retractions, No use of accessory muscles and clear to auscultation bilaterally AUSCULTATION: clear to auscultation bilaterally Cardio: COMMON NORMALS: regular rate, regular rhythm, S1 normal heart sound present and S2 normal heart sound present RATE: regular rate RHYTHM: regular rhythm HEART SOUNDS: S1 normal heart sound present and S2 normal heart sound present GI: OTHER: Abdomen soft, distended, good bowel sounds, has exquisite right upper quadrant tenderness, no guarding, no rebound, no rigidity Extremity: COMMON NORMALS: no pedal edema Neuro: COMMON NORMALS: patient oriented x3 Psych: COMMON NORMALS: mental status grossly normal Urinary Catheter Management: Anderson: Cath Placed During This Visit: yes Reason for Continuing Indwelling Catheter: Accurate Measurement of Urinary Output in Critically Ill Patients Urinary Catheter Date of Insertion: 04/27/23 Urinary Catheter Time of Insertion: 11:08 Data 04/28/23 04:31 04/28/23 04:31 Micro: Microbiology 04/27/23 00:48 Blood Culture - Preliminary Blood NEGATIVE TO DATE 04/27/23 00:45 Blood Culture - Preliminary Blood NEGATIVE TO DATE A&P Assessment and plan (1) Cholecystitis, acute: -Continue clear liquids - Currently on Zosyn ? Continue IV fluids normal saline 75 cc an hour, ? Dilaudid 1 mg IV push every 4 hours as needed for pain, ? Zofran for nausea, Reglan for nausea ? Serial abdominal exams, ?, General surgery consulted (2) Acute hypoxic respiratory failure: -Currently on 2 L, resting comfortably, no wheezing or crackles on examination - CT angiogram negative for PE ? No focal pneumonia, ? Minimal troponin elevation, 21, no chest pain complaints, EKG no acute ST-T wave changes, cardiac echocardiogram within normal limits ? Denies a history of smoking, history of COPD, ? Does have a history of sleep apnea, intermittently uses his CPAP, CPAP ? 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 PATRICIA: Has not been wearing CPAP every day recently due to nasopharynx, airway is feeling dry. Encouraged adherence. History of multiple traumas, chronic pain. Tylenol, [place] as needed for now. History of splenectomy Obesity Other medical problems Requested medications to be confirmed, please review and reconcile once available. Attestations Medical Necessity Statement*: Patient requires hospitalization for acute cholecystitis, respiratory failure, on IV antibiotics, surgery consulted, possible plans on surgery due to worsening leukocytosis Diagnoses Cholecystitis, acute K81.0 Acute hypoxic respiratory failure J96.01
[2023-04-28] MEDS: barium sulfate 450 mL Oral Susp PO (16:38)
[2023-04-28] MEDS: iohexol 350 mg/mL 500 mL Btl (per mL) IV (16:39)
[2023-04-28 17:27] LABS: Glucose Point of Care 200 mg/dL (70-110)
[2023-04-28 20:47] LABS: Glucose Point of Care 161 mg/dL (70-110)
[2023-04-29] VITALS (18 sets, daily range): BP systolic 118–143; BP diastolic 70–76; PULSE 79–116; RESP 16–19; TEMP 36.6–37.2; O2SAT 90–95
[2023-04-29] MEDS: pantoprazole 40 mg SDV IVP (02:10)
[2023-04-29] MEDS: piperacillin-tazobactam 3.375 GM in sodium chloride 0.9% (plus) 50 ML IV ×3 (02:10→17:48)
[2023-04-29] MEDS: enoxaparin 40 mg/0.4 mL Syringe SUBCUT (02:10)
[2023-04-29 04:35] LABS: Basophils # 0.1 10^3/uL (0.0-0.1); Basophils % 0.2 %; Eosinophils # 0.1 10^3/uL (0.0-0.8); Eosinophils % 0.2 %; Hematocrit 39.1 % (37-53); Lymphocytes # 1.5 10^3/uL (0.8-4.8); Lymphocytes % 5.4 %; Mean Corpuscular HGB Conc 31.7 g/dL (30-55); Mean Corpuscular Hemoglobin 28.2 pg (27-33); Mean Corpuscular Volume 89.1 fl (82-101); Mean Platelet Volume 10.8 fL (7.4-10.4); Monocytes # 1.4 10^3/uL (0.2-0.9); Neutrophils # 25.16 10^3/uL (1.8-7.7); Neutrophils % 87.9 %; Nucleated Red Blood Cells % 0 %; Platelet Count 503 10^3/cmm (157-399); Red Blood Count 4.39 10^6/uL (3.85-5.65); Red Cell Distribution Width 15.5 % (12.1-15.1); White Blood Count 28.63 10^3/uL (3.29-11.43)
[2023-04-29] MEDS: HYDROmorphone 1 mg/mL INJ 1 mL IVP ×5 (04:38→22:07)
[2023-04-29] MEDS: ondansetron 2 mg/ML SDV 2 mL 4 MG IVP (04:42)
--- NOTE | 2023-04-29 04:52 | PC.NURSE ---
Patient has not c/o any abdominal pain throughout the night. Patient has only c/o back and leg pain, which patient states is chronic pain he has had for 10 years.
[2023-04-29 05:00] LABS: Alanine Aminotransferase 26 U/L (0-41); Albumin Level 2.4 g/dL (3.5-5.2); Alkaline Phosphatase 170 U/L (40-130); Anion Gap 12.6 (5-19); Aspartate Amino Transferase 14 U/L (0-40); Blood Urea Nitrogen 6 mg/dL (6-20); Carbon Dioxide 31 mmol/L (22-29); Chloride 96 mmol/L (98-107); Glomerular Filtration Rate 138.9 mL/min (90-130); Glucose 171 mg/dL (65-115); Osmolality Calculated 284 mOsm/kg (285-295); Potassium 3.6 mmol/L (3.5-5.1); Sodium 136 mmol/L (136-145); Total Protein 6.4 g/dL (6.6-8.7)
--- NOTE | 2023-04-29 05:48 | PC.NURSE ---
Addendum entered by Janel Baca RN 04/29/23 06:01: Dilaudid 1 mg x1 dose ordered now. Patient rates pain 03/26. Original Note: Patient c/o pain to legs. Patient states it's his chronic nerve pain. He was given 1 mg PRN Dialudid at 0438. Patient takes Hydrocodone at home, but it has been discontinued. Dr. Alberto notified.
[2023-04-29] MEDS: sodium chloride 0.9% 1,000 ML 75 ML IV ×2 (06:14→20:35)
[2023-04-29] MEDS: gabapentin 300 mg Capsule PO ×2 (06:16→17:48)
[2023-04-29 07:19] LABS: Glucose Point of Care 191 mg/dL (70-110)
[2023-04-29] MEDS: budesonide 0.5 mg/2 mL Neb INHALATION ×2 (07:44→20:51)
[2023-04-29] MEDS: ipratropium-albuterol 3 mL Neb INHALATION ×3 (07:44→20:51)
[2023-04-29] MEDS: atorvastatin 40 mg Tablet 20 MG PO (08:36)
[2023-04-29] MEDS: tamsulosin 0.4 mg Capsule PO (08:36)
--- NOTE | 2023-04-29 11:07 | PM.PN ---
Subjective Subjective: Patient seen and examined. Pain improved Vitals/I&O/Wt Last Vital Signs Temp 98.4 F 04/29/23 07:56 Pulse 98 04/29/23 07:56 Resp 17 04/29/23 07:56 BP 122/76 04/29/23 07:56 Pulse Ox 93 04/29/23 07:56 O2 Del Method Nasal Cannula 04/29/23 07:56 O2 Flow Rate 3 04/29/23 07:45 FiO2 21 04/27/23 20:31 04/28/23 04/29/23 04/29/23 22:59 06:59 14:59 Intake Total 530 / 2240 960 / 3200 Output Total 850 / 850 950 / 1800 Balance -320 / 1390 10 1399 Weight last 48 hrs Weight 276 lb Weight 274 lb 14.4 oz Physical Exam Narrative: General: No acute distress, awake alert and oriented x3 Abdomen: Soft, distended, mild diffuse tenderness to palpation, no guarding rebound or masses Urinary Catheter Management: Anderson: Cath Placed During This Visit: yes Reason for Continuing Indwelling Catheter: Other Urinary Catheter Date of Insertion: 04/27/23 Urinary Catheter Time of Insertion: 11:08 Data 04/29/23 03:03 04/29/23 03:03 A&P Assessment and plan (1) Acute calculous cholecystitis: (2) Acute hypoxic respiratory failure: Plan He is well outside the 72-hour gonzalez window for cholecystectomy. We are going to treat with IV antibiotics for now and complete a 14-day course of antibiotics with Augmentin at home. I would then like to see him in my office in 2 weeks to schedule an interval cholecystectomy in 6 weeks from now. His leukocytosis worsened overnight, but this is likely due to inhaled corticosteroids to treat his respiratory failure. If he is not clinically improved by Saturday, we will proceed with cholecystectomy during this hospitalization He has improved. We will continue to pursue interval cholecystectomy Regular diet Medical management per hospitalist Attestations Medical Necessity Statement*: per primary Coding Level of Care Code Acute Code for g [facility] Diagnoses Acute calculous cholecystitis K80.00 Acute hypoxic respiratory failure J96.01
[2023-04-29 11:31] LABS: Glucose Point of Care 131 mg/dL (70-110)
[2023-04-29 16:49] LABS: Glucose Point of Care 183 mg/dL (70-110)
--- NOTE | 2023-04-29 17:58 | PM.PN ---
Subjective Subjective: Patient was seen this morning, continues to have abdominal pain, feeling nauseous, he is able to keep down his clear liquids, he is passing gas from below he had a bowel movement, no fevers, no chills Vitals/I&O/Wt Last Vital Signs Temp 98.4 F 04/29/23 15:21 Pulse 111 H 04/29/23 15:21 Resp 18 04/29/23 17:48 BP 118/70 04/29/23 15:21 Pulse Ox 93 04/29/23 15:21 O2 Del Method Nasal Cannula 04/29/23 15:21 O2 Flow Rate 3 04/29/23 13:50 FiO2 21 04/27/23 20:31 04/29/23 04/29/23 04/29/23 06:59 14:59 22:59 Intake Total 960 / 3200 50 / 50 240 / 290 Output Total 950 / 1800 900 / 900 Balance 10 1399 -850 / -850 240 / -610 Weight last 48 hrs Weight 125.191 kg Weight 124.693 kg Physical Exam Const: COMMON NORMALS: no acute distress and patient oriented x3 Resp: COMMON NORMALS: normal respiratory effort, No retractions, No use of accessory muscles and clear to auscultation bilaterally AUSCULTATION: clear to auscultation bilaterally Cardio: COMMON NORMALS: regular rate, regular rhythm, S1 normal heart sound present and S2 normal heart sound present RATE: regular rate RHYTHM: regular rhythm HEART SOUNDS: S1 normal heart sound present and S2 normal heart sound present GI: OTHER: Abdomen soft, distended, no guarding, no rebound, rigidity does have diffuse tenderness, exquisite right upper quadrant tenderness Extremity: COMMON NORMALS: no pedal edema Neuro: COMMON NORMALS: patient oriented x3 Psych: COMMON NORMALS: mental status grossly normal Urinary Catheter Management: Anderson: Cath Placed During This Visit: yes Reason for Continuing Indwelling Catheter: Other Urinary Catheter Date of Insertion: 04/27/23 Urinary Catheter Time of Insertion: 11:08 Data 04/29/23 03:03 04/29/23 03:03 A&P Assessment and plan (1) Cholecystitis, acute: -Continue clear liquids, will keep n.p.o. over midnight just in case he needs surgery tomorrow - Currently on Zosyn ? Continue IV fluids normal saline 75 cc an hour, ? Dilaudid 1 mg IV push every 4 hours as needed for pain, ? Zofran for nausea, Reglan for nausea ? Serial abdominal exams, ?, General surgery consulted ? Repeat CT of the abdomen shows CT/CT abdomen pelvis w con* [id number] IMPRESSION: 1. Interval new small right posterior basilar effusion with subjacent atelectasis and/or mild infiltrate in relation to recent prior exam. 2. Cholelithiasis with findings suggesting associated acute cholecystitis.? No biliary ductal dilatation. 3. Previous splenectomy and tail of the pancreas resection, as well as thoracolumbar fusion.? 4. Mild dirty fat appearance of mesentery around the pancreas region, though also inferior liver and right paracolic gutter region, as well as mild free fluid in the pelvis.? Correlate with serum amylase and lipase regarding inflammation of the pancreas which is otherwise unremarkable.? With findings of small bowel thickening in the abdomen, suspect component of inflammation of the small bowel.? Regarding inflammation or edema inferior aspect of the liver and right paracolic region, this may be associated with cholecystitis above this level though limits evaluation for inflammatory changes of the ascending colon at this level. 5. Anderson catheter within the urinary bladder. 6. Ill-defined hyperdensity within the prostate could reflect contrast collection or hemorrhage. 7. Borderline size mild fatty liver..? ? (2) Acute hypoxic respiratory failure: -Currently on 2 L, resting comfortably, no wheezing or crackles on examination - CT angiogram negative for PE ? No focal pneumonia, ? Minimal troponin elevation, 21, no chest pain complaints, EKG no acute ST-T wave changes, cardiac echocardiogram within normal limits ? Denies a history of smoking, history of COPD, ? Does have a history of sleep apnea, intermittently uses his CPAP, CPAP ? 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 PATRICIA: Has not been wearing CPAP every day recently due to nasopharynx, airway is feeling dry. Encouraged adherence. History of multiple traumas, chronic pain. Tylenol, [place] as needed for now. History of splenectomy Obesity Other medical problems Requested medications to be confirmed, please review and reconcile once available. Attestations Medical Necessity Statement*: Patient requires hospitalization for abdominal pain, acute cholecystitis, white blood cell count 28,000, required IV antibiotics, continued clinical monitoring IV fluids Diagnoses Cholecystitis, acute K81.0 Acute hypoxic respiratory failure J96.01
[2023-04-29 20:54] LABS: Glucose Point of Care 217 mg/dL (70-110)
[2023-04-30] VITALS (15 sets, daily range): BP systolic 122–138; BP diastolic 72–83; PULSE 99–117; RESP 16–18; TEMP 36.6–37; O2SAT 86–94
[2023-04-30] MEDS: ipratropium-albuterol 3 mL Neb INHALATION ×2 (01:55→08:13)
[2023-04-30] MEDS: piperacillin-tazobactam 3.375 GM in sodium chloride 0.9% (plus) 50 ML IV ×2 (02:03→08:33)
[2023-04-30] MEDS: enoxaparin 40 mg/0.4 mL Syringe SUBCUT (02:04)
[2023-04-30] MEDS: pantoprazole 40 mg SDV IVP (02:04)
[2023-04-30] MEDS: HYDROmorphone 1 mg/mL INJ 1 mL IVP ×3 (02:08→12:53)
[2023-04-30 05:43] LABS: Basophils # 0.1 10^3/uL (0.0-0.1); Basophils % 0.2 %; Eosinophils # 0.1 10^3/uL (0.0-0.8); Eosinophils % 0.3 %; Hematocrit 38.2 % (37-53); Lymphocytes # 1.6 10^3/uL (0.8-4.8); Lymphocytes % 7.8 %; Mean Corpuscular HGB Conc 31.9 g/dL (30-55); Mean Corpuscular Hemoglobin 28.2 pg (27-33); Mean Corpuscular Volume 88.2 fl (82-101); Mean Platelet Volume 9.9 fL (7.4-10.4); Monocytes # 1.5 10^3/uL (0.2-0.9); Monocytes % 7.3 %; Neutrophils # 16.65 10^3/uL (1.8-7.7); Neutrophils % 82.2 %; Nucleated Red Blood Cells % 0 %; Platelet Count 616 10^3/cmm (157-399); Red Blood Count 4.33 10^6/uL (3.85-5.65); Red Cell Distribution Width 15.6 % (12.1-15.1); White Blood Count 20.28 10^3/uL (3.29-11.43)
[2023-04-30 06:12] LABS: Alanine Aminotransferase 20 U/L (0-41); Albumin Level 2.1 g/dL (3.5-5.2); Alkaline Phosphatase 124 U/L (40-130); Anion Gap 8.6 (5-19); Aspartate Amino Transferase 11 U/L (0-40); Blood Urea Nitrogen 6 mg/dL (6-20); Calcium 7.8 mg/dL (8.5-10.5); Carbon Dioxide 34 mmol/L (22-29); Chloride 97 mmol/L (98-107); Glomerular Filtration Rate 138.9 mL/min (90-130); Glucose 195 mg/dL (65-115); Osmolality Calculated 285 mOsm/kg (285-295); Potassium 3.6 mmol/L (3.5-5.1); Procalcitonin 1.98 ng/mL (0-0.5); Sodium 136 mmol/L (136-145); Total Bilirubin 0.7 mg/dL (0.15-1.2); Total Protein 6.1 g/dL (6.6-8.7)
[2023-04-30 06:45] LABS: Glucose Point of Care 151 mg/dL (70-110)
[2023-04-30] MEDS: budesonide 0.5 mg/2 mL Neb INHALATION (08:13)
[2023-04-30] MEDS: gabapentin 300 mg Capsule PO (08:32)
[2023-04-30] MEDS: atorvastatin 40 mg Tablet 20 MG PO (08:32)
[2023-04-30] MEDS: tamsulosin 0.4 mg Capsule PO (08:32)
[2023-04-30] MEDS: sodium chloride 0.9% 1,000 ML 75 ML IV (11:20)
[2023-04-30 12:01] LABS: Glucose Point of Care 140 mg/dL (70-110)
--- NOTE | 2023-04-30 14:06 | P.PN_ITS ---
Subjective Subjective: Patient seen and examined. He reports that his pain has improved and he is tolerating a diet. Positive bowel movement Vitals/I&O/Wt Last Vital Signs Temp 98.5 F 04/30/23 11:10 Pulse 104 H 04/30/23 11:10 Resp 18 04/30/23 12:53 BP 136/83 04/30/23 11:10 Pulse Ox 92 04/30/23 11:10 O2 Del Method CPAP 04/30/23 11:10 O2 Flow Rate 3 04/30/23 08:17 FiO2 21 04/27/23 20:31 04/29/23 04/30/23 04/30/23 22:59 06:59 14:59 Intake Total 1530 / 1580 290 / 1870 1050 / 1050 Output Total 800 / 1700 1100 / 2800 Balance 730 / -120 -810 / -930 1050 / 1050 Weight last 48 hrs Weight 174 lb Weight 276 lb Physical Exam Narrative: General: No acute distress, awake alert and oriented x3 Abdomen: Soft, distended, mild diffuse tenderness to palpation, no guarding rebound or masses Urinary Catheter Management: Anderson: Cath Placed During This Visit: yes Reason for Continuing Indwelling Catheter: Required Immobilization for Trauma or Surgery or Anesthesia Urinary Catheter Date of Insertion: 04/27/23 Urinary Catheter Time of Insertion: 11:08 Data 04/30/23 05:18 04/30/23 05:18 A&P Assessment and plan (1) Acute calculous cholecystitis: (2) Acute hypoxic respiratory failure: Plan He is well outside the 72-hour gonzalez window for cholecystectomy. We are going to treat with IV antibiotics for now and complete a 14-day course of antibiotics with Augmentin at home. I would then like to see him in my office in 2 weeks to schedule an interval cholecystectomy in 6 weeks from now. His leukocytosis worsened overnight, but this is likely due to inhaled corticosteroids to treat his respiratory failure. If he is not clinically improved by Saturday, we will proceed with cholecystectomy during this hospitalization He has improved. We will continue to pursue interval cholecystectomy Regular diet Medical management per hospitalist Attestations Medical Necessity Statement*: Per primary Coding Level of Care Code Acute Code for [facility] Diagnoses Acute calculous cholecystitis K80.00 Acute hypoxic respiratory failure J96.01
--- NOTE | 2023-04-30 14:19 | P.DS_ITS ---
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 Mesenteric pancolitis left mid abdomen unchanged.? Additional nonemergent findings. In ER he is noted transiently requiring up to 15 L nonrebreather oxygen. This is a 57-year-old male, who was admitted to [facility] for acute cholecystitis, general surgery consulted received broad-spectrum antibiotic therapy, clinically monitored, IV fluids, pain control, nausea control, overall patient's clinical condition improved, no fevers, cultures so far have been negative, discharged on 2 weeks of IV antibiotics, with follow-up general surgery in 2 weeks, if any recurrent nausea vomiting over the emergency room, For acute hypoxic respiratory failure, CT angiogram negative for PE, no focal pneumonia, cardiac echocardiogram within normal limits, likely, sleep apnea, likely component of COPD, Follow-up with primary care provider as outpatient Physical Exam Const: COMMON NORMALS: no acute distress and patient oriented x3 Resp: COMMON NORMALS: normal respiratory effort, No retractions, No use of accessory muscles and clear to auscultation bilaterally AUSCULTATION: clear to auscultation bilaterally Cardio: COMMON NORMALS: regular rate, regular rhythm, S1 normal heart sound present and S2 normal heart sound present RATE: regular rate RHYTHM: regular rhythm HEART SOUNDS: S1 normal heart sound present and S2 normal heart sound present Extremity: COMMON NORMALS: no pedal edema Neuro: COMMON NORMALS: patient oriented x3 Psych: COMMON NORMALS: mental status grossly normal Urinary Catheter Management: Anderson: Cath Placed During This Visit: yes Reason for Continuing Indwelling Catheter: Required Immobilization for Trauma or Surgery or Anesthesia Urinary Catheter Date of Insertion: 04/27/23 Urinary Catheter Time of Insertion: 11:08 Discharge Data Studies Completed and Pending Completed Studies During Hospitalization Category Date Time Status CT abdomen pelvis w con* [id number] Routine Cat Scan 04/28/23 12:[address] abdomen pelvis w con* [id number] Stat Cat Scan 04/26/23 23:17 Completed CTA chest [CT angio chest PE protcl [id number]] Stat Cat Scan 04/27/23 02:23 Completed XR chest 1V portable [id number] Stat Exams 04/26/23 23:17 Completed CV. echo complete* [id number] Routine Ultrasound 04/27/23 13:12 Completed Pending at discharge Category Date Time Status Blood Culture Stat Lab 04/27/23 00:48 Results C Reactive Protein AM LABS Lab 05/01/23 04:00 Ordered C Reactive Protein AM LABS Lab 05/02/23 04:00 Ordered Clostridium Difficile PCR Routine Lab 04/28/23 12:25 Ordered Immunochemical Fecal OCB Routine Lab 04/28/23 12:25 Ordered Lactoferrin Routine Lab 04/28/23 12:25 Ordered OVA and Parasites, Conc and PE Routine Lab 04/28/23 12:25 Ordered Procalcitonin AM LABS Lab 05/01/23 04:00 Ordered Procalcitonin AM LABS Lab 05/02/23 04:00 Ordered Salmonella / Shigella / Campy Routine Lab 04/28/23 12:25 Ordered Radiology Impressions Chest X-Ray 04/26/23 23:17 IMPRESSION: Stable chest. No active disease. Chest CTA 04/27/23 02:23 IMPRESSION: 1. No pulmonary emboli identified. 2. Minimal subsegmental atelectasis at the lung bases. Abdomen/Pelvis CT 04/28/23 12:42 IMPRESSION: 1. Interval new small right posterior basilar effusion with subjacent atelectasis and/or mild infiltrate in relation to recent prior exam. 2. Cholelithiasis with findings suggesting associated acute cholecystitis. No biliary ductal dilatation. 3. 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 4. Mild dirty fat appearance of mesentery around the pancreas region, though also inferior liver and right paracolic gutter region, as well as mild free fluid in the pelvis. Correlate with serum amylase and lipase regarding inflammation of the pancreas which is otherwise unremarkable. With findings of small bowel thickening in the abdomen, suspect component of inflammation of the small bowel. Regarding inflammation or edema inferior aspect of the liver and right paracolic region, this may be associated with cholecystitis above this level though limits evaluation for inflammatory changes of the ascending colon at this level. 5. Anderson catheter within the urinary bladder. 6. Ill-defined hyperdensity within the prostate could reflect contrast collection or hemorrhage. 7. Borderline size mild fatty liver.. Laboratory Results WBC 20.28 10^3/uL (3.29-11.43) H 04/30/23 05:18 RBC 4.33 10^6/uL (3.85-5.65) 04/30/23 05:18 Hgb 12.20 g/dL (11.27-16.99) 04/30/23 05:18 Hct 38.2 % (37-53) 04/30/23 05:18 MCV 88.2 fl (82-101) 04/30/23 05:18 MCH 28.2 pg (27-33) 04/30/23 05:18 MCHC 31.9 g/dL (30-55) 04/30/23 05:18 RDW 15.6 % (12.1-15.1) H 04/30/23 05:18 Plt Count 616 10^3/cmm (157-399) H 04/30/23 05:18 MPV 9.9 fL (7.4-10.4) 04/30/23 05:18 Neut % (Auto) 82.2 % 04/30/23 05:18 Lymph % (Auto) 7.8 % 04/30/23 05:18 [place] % (Auto) 7.3 % 04/30/23 05:18 Eos % (Auto) 0.3 % 04/30/23 05:18 Baso % (Auto) 0.2 % 04/30/23 05:18 Neut # (Auto) 16.65 10^3/uL (1.8-7.7) H 04/30/23 05:18 Lymph # (Auto) 1.6 10^3/uL (0.8-4.8) 04/30/23 05:18 [place] # (Auto) 1.5 10^3/uL (0.2-0.9) H 04/30/23 05:18 Eos # (Auto) 0.1 10^3/uL (0.0-0.8) 04/30/23 05:18 Baso # (Auto) 0.1 10^3/uL (0.0-0.1) 04/30/23 05:18 Nucleated RBC % (auto) 0 % 04/30/23 05:18 Nucleated RBCs # 0.0 /100WBC 04/30/23 05:18 D-Dimer 2.40 ug/mLFEU (0-0.59) H 04/27/23 00:00 Specimen Type Arterial 04/27/23 02:23 Sample Site Radial, left 04/27/23 02:23 ABG pH 7.41 (7.35-7.45) 04/27/23 02:23 ABG pCO2 44.1 mmHg (35-45) 04/27/23 02:23 ABG pO2 83.5 mmHg (80.0-100.0) 04/27/23 02:23 ABG PO2/FiO2 Ratio 0 04/27/23 02:23 ABG HCO3 27.7 mmol/L (22-26) H 04/27/23 02:23 ABG Base Excess 2.4 mmol/L (-2.0-2.0) H 04/27/23 02:23 Juan Antonio Test Pos 04/27/23 02:23 Hematocrit 45.0 % (42-52) 04/27/23 02:23 O2 Delivery Device Nc 04/27/23 02:23 O2 Liters/Min 5.0 % 04/27/23 02:23 FiO2 40.0 % 04/27/23 02:23 Slubber Machine Operator ID Ed 04/27/23 02:23 Sodium 136 mmol/L (136-145) 04/30/23 05:18 Potassium 3.6 mmol/L (3.5-5.1) 04/30/23 05:18 Chloride 97 mmol/L (98-107) L 04/30/23 05:18 Carbon Dioxide 34 mmol/L (22-29) H 04/30/23 05:18 Anion Gap 8.6 (5-19) 04/30/23 05:18 BUN 6 mg/dL (6-20) 04/30/23 05:18 Creatinine 0.6 mg/dL (0.7-1.2) L 04/30/23 05:18 GFR Calculation 138.9 mL/min (90-130) H 04/30/23 05:18 Glucose 195 mg/dL (65-115) H 04/30/23 05:18 POC Glucose 140 mg/dL (70-110) H 04/30/23 11:47 Calculated Osmolality 285 mOsm/kg (285-295) 04/30/23 05:18 Lactic Acid 1.5 mmol/L (0.5-2.2) 04/26/23 23:15 Calcium 7.8 mg/dL (8.5-10.5) L 04/30/23 05:18 Total Bilirubin 0.7 mg/dL (0.15-1.2) 04/30/23 05:18 AST 11 U/L (0-40) 04/30/23 05:18 ALT 20 U/L (0-41) 04/30/23 05:18 Alkaline Phosphatase 124 U/L (40-130) 04/30/23 05:18 Troponin T Baseline 21 ng/L (0-15) H 04/27/23 08:52 Troponin T 120 Minute 27.65 ng/L (0-15) H 04/27/23 10:33 Delta Troponin T 6.65 ABS# (0-10) 04/27/23 10:33 Troponin T Hi Sens 6Hr 22.68 ng/L (0-15) H 04/27/23 15:00 Troponin T Hi Sens 6Hr Delta 1.68 ng/L (0-12) 04/27/23 15:00 C-Reactive Protein 318.0 mg/L (0.0-4.9) H 04/30/23 05:18 NT-Pro-B Natriuret Pep 89 pg/mL (0-125) 04/27/23 00:00 Total Protein 6.1 g/dL (6.6-8.7) L 04/30/23 05:18 Albumin 2.1 g/dL (3.5-5.2) L 04/30/23 05:18 Globulin 4.0 g/dL (1.3-4.6) 04/30/23 05:18 Lipase 16 U/L (13-60) 04/26/23 23:15 Procalcitonin 1.98 ng/mL (0-0.5) H 04/30/23 05:18 Urine Color Yellow (Yellow) 04/27/23 00:04 Urine Appearance Clear (CLEAR) 04/27/23 00:04 Urine pH 5 (5-7) 04/27/23 00:04 Ur Specific [place] 1.005 (1.005-1.030) 04/27/23 00:04 Urine Protein 1+ (Negative) H 04/27/23 00:04 Urine Glucose (UA) Norm (Normal) 04/27/23 00:04 Urine Ketones 1+ (Negative) H 04/27/23 00:04 Urine Blood Trace (Negative) H 04/27/23 00:04 Urine Nitrate Negative (Negative) 04/27/23 00:04 Urine Bilirubin 1+ (Negative) H 04/27/23 00:04 Urine Urobilinogen 4 mg/dL (Negative) H 04/27/23 00:04 Ur Leukocyte Esterase Trace (Negative) H 04/27/23 00:04 Urine RBC Rare /hpf (0-2) 04/27/23 00:04 Urine WBC Rare /hpf (0-5) 04/27/23 00:04 Ur Squamous Epith Cells Rare /hpf (0-5) 04/27/23 00:04 Amorphous Sediment Trace /hpf 04/27/23 00:04 Urine Bacteria None /hpf (NONE) 04/27/23 00:04 Urine Mucus 1+ /hpf 04/27/23 00:04 Nasal Influ A H1 2009 PCR Not detected (NOT DETECT) 04/27/23 02:03 Adenovirus (PCR) Not detected (NOT DETECT) 04/27/23 02:03 C. pneumoniae DNA (PCR) Not detected (NOT DETECT) 04/27/23 02:03 Coronavirus 229E (PCR) Not detected (NOT DETECT) 04/27/23 02:03 Human Metapneumovir PCR Not detected (NOT DETECT) 04/27/23 02:03 Influenza A (H1) PCR Not detected (NOT DETECT) 04/27/23 02:03 Influenza A (H3) PCR Not detected (NOT DETECT) 04/27/23 02:03 Influenza Type A (PCR) Not detected (NOT DETECT) 04/27/23 02:03 Influenza Type B (PCR) Not detected (NOT DETECT) 04/27/23 02:03 M. pneumoniae (PCR) Not detected (NOT DETECT) 04/27/23 02:03 Parainfluenza 1 (PCR) Not detected (NOT DETECT) 04/27/23 02:03 Parainfluenza 2 (PCR) Not detected (NOT DETECT) 04/27/23 02:03 Parainfluenza 3 (PCR) Not detected (NOT DETECT) 04/27/23 02:03 Parainfluenza 4 (PCR) Not detected (NOT DETECT) 04/27/23 02:03 RSV Type A (PCR) Not detected (NOT DETECT) 04/27/23 02:03 RSV Type B (PCR) Not detected (NOT DETECT) 04/27/23 02:03 Entero/Rhino (PCR) Not detected (NOT DETECT) 04/27/23 02:03 SARS-CoV-2 (PCR) Not detected (NOT DETECT) 04/27/23 02:03 Vitals Last Vital Signs Temp 98.5 F 04/30/23 11:10 Pulse 104 H 04/30/23 11:10 Resp 18 04/30/23 12:53 BP 136/83 04/30/23 11:10 Pulse Ox 92 04/30/23 11:10 O2 Del Method CPAP 04/30/23 11:10 O2 Flow Rate 3 04/30/23 08:17 FiO2 21 04/27/23 20:31 Discharge Plan Discharge Patient Disposition: Home Condition: Stable Prescriptions: New hydrocodone-acetaminophen 5-325 mg tablet 1 tab PO Q6H PRN (Reason: pain) 7 Days Qty: 28 0RF amoxicillin-pot clavulanate 875-125 mg tablet 1 tab PO BID 14 Days Qty: 28 0RF Continued lisinopril 2.5 mg tablet 2.5 mg PO DAILY gabapentin 300 mg capsule 300 mg PO BID Qty: 60 1RF methocarbamol 500 mg tablet 500 mg PO TID PRN (Reason: muscle spasticity) Qty: 90 1RF (DME) Diabetic shoes with 3 sets of inserts See Rx Instructions .Route .MEDSUPPLY Qty: 1 0RF Rx Instructions: As directed by HOME tamsulosin 0.4 mg capsule 0.4 mg PO DAILY Rx Instructions: patient states he only takes if he needs it albuterol sulfate [ProAir HFA] 90 mcg/actuation HFA aerosol inhaler 2 puff inhalation Q6H PRN (Reason: Shortness Of Breath) Qty: 8.5 4RF bupropion HCl 100 mg tablet 100 mg PO DAILY Qty: 30 0RF Rx Instructions: Take one tablet by mouth once every morning trazodone 150 mg tablet 150 mg PO BEDTIME PRN (Reason: insomnia) Qty: 30 0RF Rx Instructions: Take 1/2 to 1 tablet daily at bedtime, if needed for insomnia metformin 500 mg tablet extended release 24 hr 1,000 mg PO BID 90 Days Qty: 360 0RF acetaminophen [Tylenol Extra Strength] 500 mg Tablet 1,000 mg PO PRN atorvastatin 20 mg tablet 20 mg PO DAILY glimepiride 4 mg tablet 4 mg PO DAILY Stool Softener 50 mg Capsule 50 mg PO BID Discontinued hydrocodone-acetaminophen 5-325 mg tablet 1 tab PO TID PRN (Reason: pain) 30 Days Qty: 90 0RF Rx Instructions: Fill on or after 06/18/21 meloxicam 15 mg tablet 15 mg PO QAM Discharge Orders: Discharge Order (Routine); Ordered 04/30/23 Ordered By: Sukhjinder Galindo Referrals: Shreyas Pagan DO [Physician] - 2 weeks Solitario Porter MD [Primary Care Provider] - Discharge Diet: GI Soft Discharge Activity: Resume usual activity Patient Instructions: Cholecystitis (DC), Low Fat Diet (DC), Opioid Safety Activity Restrictions/Additional Instructions: - If any recurrent abdominal pain, fevers, please go to emergency room, follow- up with general surgery 2 weeks -Avoid fatty meals, avoid sugar, GI soft diet, ? Discharge Attestations Time Spent in Discharge Care*: greater than 30 min Quality Metrics Clinical Quality Measures [ No reported AMI, CVA or VTE this stay] Coding Level of Care Code 29363 Total time (in minutes) for Discharge: 45 Diagnoses Acute calculous cholecystitis K80.00 Acute hypoxic respiratory failure J96.01
== END 2023-04-30 16:55 | disposition home or self-care (01) | DRG 444 ==
LOC: ER 04-27 01:40 → MEDSURG 04-27 01:55
PROVIDERS: Admitting Provider Internal Medicine; Emergency Provider Emergency Medicine; PCP Family Medicine; Visit Provider Family Medicine
DX: K80.00 Calculus of gallbladder with acute cholecystitis without obstruction (principal); J96.01 Acute respiratory failure with hypoxia; J44.1 Chronic obstructive pulmonary disease with (acute) exacerbation; F32.A Depression, unspecified; Z87.891 Personal history of nicotine dependence; G47.33 Obstructive sleep apnea (adult) (pediatric); Z99.89 Dependence on other enabling machines and devices; G89.29 Other chronic pain; M54.9 Dorsalgia, unspecified; E66.9 Obesity, unspecified
CPT/HCPCS: 36415; 36416; 36600; 51702; 71045; 71275; 74177; 80053; 81001; 82803; 82962; 83605; 83690; 83880; 84145; 84484; 85025; 85378; 86140; 87040; 87486; 87581; 87633; 93005; 93306; 94640; 94660; 94664; 94760; 96365; 96372; 96375; 99285; C9113; J1170; J1650; J1940; J2270; J2405; J2543; J7030; J7626; Q9967

== ENCOUNTER 2023-05-03 01:02 | Emergency (ER) | payer MEDICAID, SELFPAY ==
[2023-05-02 10:55] VITALS: BP 140/84; BMI 39.2
[2023-05-03] VITALS (21 sets, daily range): BP systolic 92–166; BP diastolic 48–87; PULSE 85–129; RESP 10–27; TEMP 39.6; O2SAT 91–100; BMI 37.8
--- NOTE | 2023-05-03 01:07 | XRR_ITS ---
PROCEDURE INFORMATION: Exam: XR Chest Exam date and time: 05/03/2023 1:21 AM Age: 57 years old Clinical indication: Shortness of breath; Patient HX: Nausea, SOB, upper abd pain TECHNIQUE: Imaging protocol: Radiologic exam of the chest. Views: 1 view. COMPARISON: 1. CT angio chest PE protcl [id number] 04/27/2023 3:[address] abdomen pelvis w con* [id number] 04/28/2023 4:26 PM FINDINGS: Lungs: Left lung appears well aerated. Pleural spaces: Blunting of the right costophrenic angle, may represent pleural fluid and/or atelectasis or consolidation. No visible pneumothorax. Heart/Mediastinum: Unremarkable cardiomediastinal silhouette. Bones/joints: Thoracolumbar spinal fusion hardware partially imaged. XR/XR chest 1V portable [id number] IMPRESSION: Blunting of the right costophrenic angle, may represent pleural fluid and/or atelectasis or consolidation.
--- NOTE | 2023-05-03 01:07 | USR_ITS ---
PROCEDURE INFORMATION: Exam: US Abdomen, Limited; Right Upper Quadrant Exam date and time: 05/03/2023 1:35 AM Age: 57 years old Clinical indication: Abdominal pain; Epigastric; Patient HX: Intermittent ruq pain x 1 month TECHNIQUE: Imaging protocol: Real time ultrasound of the abdomen with image documentation. Limited exam focused on the right upper quadrant. COMPARISON: CT abdomen pelvis w con* [id number] 04/28/2023 4:26 PM FINDINGS: Liver: Increased hepatic parenchymal echogenicity, which is associated with intrinsic liver disease, most commonly hepatic steatosis. Small septated cystic lesion in the right inferior hepatic lobe along the gallbladder fossa. Patent main portal vein. Gallbladder: Distended gallbladder containing sludge as well as a few echogenic gallstones which appear lodged in the gallbladder neck. Gallbladder wall thickening. Small pericholecystic fluid. Positive sonographic Magallanes's sign. Biliary ducts: No common bile duct dilation. Pancreas: Not visualized due to obscuration from bowel gas. Right kidney: No hydronephrosis. Intraperitoneal space: Small volume ascites. US/US gall bladder [id number] IMPRESSION: 1. Sonographic findings of acute cholecystitis, as above. 2. Hepatic steatosis.
--- NOTE | 2023-05-03 01:08 | ECG_ITS ---
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 Measurements Intervals [place] Rate: 126 P: 69 MD: 141 QRS: -29 QRSD: 104 T: 47 QT: 323 QTc: 468 Interpretive Statements SINUS TACHYCARDIA BORDERLINE LEFT AXIS DEVIATION [QRS AXIS < -20] ABNORMAL RHYTHM ECG Compared to ECG 04/27/2023 09:27:18 No significant changes Electronically Signed On 05-03-2023 14:13:42 [employer]IT[employer] WORK[employer]ACHINERY by Salvador Hinkle M.D. [email or web address]
[2023-05-03 01:12] LABS: Basophils # 0.1 10^3/uL (0.0-0.1); Basophils % 0.3 %; Eosinophils # 0.1 10^3/uL (0.0-0.8); Eosinophils % 0.4 %; Hematocrit 39.6 % (37-53); Lymphocytes # 1.8 10^3/uL (0.8-4.8); Lymphocytes % 8.1 %; Mean Corpuscular HGB Conc 32.8 g/dL (30-55); Mean Corpuscular Hemoglobin 28.3 pg (27-33); Mean Corpuscular Volume 86.1 fl (82-101); Mean Platelet Volume 9.8 fL (7.4-10.4); Monocytes # 0.6 10^3/uL (0.2-0.9); Monocytes % 2.8 %; Neutrophils % 86.7 %; Nucleated Red Blood Cells % 0.1 %; Platelet Count 805 10^3/cmm (157-399); Red Cell Distribution Width 15.4 % (12.1-15.1); White Blood Count 22.24 10^3/uL (3.29-11.43)
--- NOTE | 2023-05-03 01:25 | W.ED.ABDPA2 ---
HPI - Abdominal Pain General: Chief Complaint: Abdominal Pain Stated Complaint: SOB Time Seen by Provider: 05/03/23 01:03 Source: patient and EMS Mode of arrival: EMS Limitations: no limitations History of Present Illness: 57-year-old male who had been admitted here last week and was discharged on the for acute cholecystitis. He received IV antibiotics patient seen by surgeon while here and plan was to continue antibiotics at home and do surgery in 6 weeks. He states that today has been having worsening abdominal pain he does have a fever as well 103 here. He was sent home on oxygen he is feeling more short of breath as well. Denies any cough he had no vomiting or diarrhea. He rates his abdominal pain a 6 out of 10 Associated Symptoms: Reports fever(s); Denies chills, diarrhea, dysuria, nausea and vomiting Review of Systems Const: Reports: fever(s); Denies: chills, body aches or change in appetite ENMT: Denies: throat pain or dental pain Card: Denies: chest pain Resp: Reports: dyspnea GI: Reports: abdominal pain; Denies: nausea, vomiting or diarrhea : Denies: dysuria Musc: Denies: neck pain or back pain Skin/Breast: Denies: rash Neuro: Denies: headache(s) Psych: Denies: depression Emiliano/Lymph: Denies: easy bruising All/Imm: Denies: urticaria PFSH ED PFSH: Medical History Cellulitis and abscess of left leg Chronic SI joint pain COPD (chronic obstructive pulmonary disease) Depression Encounter for long-term opiate analgesic use History of pancreatic cancer Lumbar back pain with radiculopathy affecting right lower extremity Major depressive disorder, recurrent severe without psychotic features Nicotine dependence with current use Not interested in smoking cessation. Obesity Pancreas (digestive gland) works poorly Smoking Spermatocele Spleen absent Surgical History History of back surgery (~2013) 12/2013 T12 REMOVAL POST WORK ACCIDENT History of pancreatic surgery History of spinal fusion History of splenectomy S/P hernia repair (~12/2013) UMBILICAL HERNIA REPAIR Family History Mother , IN HER 60'S Diabetes CAD (coronary artery disease) Psychiatric illness Stroke Cancer UTERINE CANCER Father , AT AGE 56 Cancer PROSTATE Other Family history of premature coronary artery disease Social History Smoking and tobacco/nicotine status: former use of tobacco/nicotine Quit status (tobacco/nicotine): has quit using Year quit tobacco: 2019 Former quit date comment: 2 ppd X 40 years Alcohol intake: current Alcohol intake frequency: holidays/special occasions only Alcohol type: beer Substance/Drug Use: never Marital status: Number of children: 2 Number of grandchildren: 3 Education level details: Phlebotomy Current occupational status: disabled Do you think of yourself as: Straight/Heterosexual Rosey/Latter-Day: Other Physical Exam Const: COMMON NORMALS: patient oriented x3 GENERAL APPEARANCE: ill appearing HENMT: COMMON NORMALS: normocephalic and atraumatic HEAD & SCALP: normocephalic and atraumatic Eye: COMMON NORMALS: Equal, round and reactive pupils present and EOMs intact bilaterally PUPIL: Yes Equal, round and reactive pupils present Neck/C-Spine: COMMON NORMALS: full ROM and supple Chest: COMMONS NORMALS: normal inspection of the chest and normal palpation of entire chest wall Resp: COMMON NORMALS: No retractions and No use of accessory muscles EFFORT & INSPECTION: Yes tachypneic Cardio: COMMON NORMALS: regular rhythm and No murmurs present (Cardio) RATE: tachycardic RHYTHM: regular rhythm GI: COMMON NORMALS: Normal to inspection, nondistended, normoactive bowel sounds present, Soft to palpation and no masses PALPATION: Yes Soft to palpation and Yes Tenderness to palpation present (GI) Details: RUQ Extremity: COMMON NORMALS: normal to inspection and full ROM Neuro: COMMON NORMALS: patient oriented x3, moves all extremities and no focal motor deficits Psych: COMMON NORMALS: mental status grossly normal, Normal thought process present and cooperative THOUGHT PROCESS: Normal thought process present Skin: COMMON NORMALS: no rashes or lesions noted and no wounds GENERAL SKIN EXAM: no rashes or lesions noted Course Vital Signs: Vital signs: Vital Signs Temperature 103.2 F H 05/03/23 01:08 Pulse Rate 99 05/03/23 04:00 Respiratory Rate 15 05/03/23 04:00 Blood Pressure 101/49 05/03/23 04:00 Pulse Oximetry 94 05/03/23 04:00 Oxygen Delivery Me thod Nasal Cannula 05/03/23 02:11 Oxygen Flow Rate 6 05/03/23 01:08 MDM - Abdominal Pain Medical Decision Making Patient presents with cholecystitis patient given fluid resuscitation his BMI is over 30 he was giving fluid resuscitation his ideal body weight his heart rate improved to 92 his blood pressures been normal lactate is normal he did give IV antibiotics here. Patient was seen by surgeon Dr. Squires who placed a note in the chart as well and recommended transfer for higher level of care I did speak to [facility] and will transfer there. Medical Records I reviewed the patient's medical records. Lab Data I reviewed the patient's lab results. 05/03/23 01:04 05/03/23 01:04 Labs/Radiology: Radiology Impressions Chest X-Ray 05/03/23 01:07 IMPRESSION: Blunting of the right costophrenic angle, may represent pleural fluid and/or atelectasis or consolidation. Gallbladder Ultrasound 05/03/23 01:07 IMPRESSION: 1. Sonographic findings of acute cholecystitis, as above. 2. Hepatic steatosis. Laboratory Results WBC 22.24 10^3/uL (3.29-11.43) H 05/03/23 01:04 RBC 4.60 10^6/uL (3.85-5.65) 05/03/23 01:04 Hgb 13.00 g/dL (11.27-16.99) 05/03/23 01:04 Hct 39.6 % (37-53) 05/03/23 01:04 MCV 86.1 fl (82-101) 05/03/23 01:04 MCH 28.3 pg (27-33) 05/03/23 01:04 MCHC 32.8 g/dL (30-55) 05/03/23 01:04 RDW 15.4 % (12.1-15.1) H 05/03/23 01:04 Plt Count 805 10^3/cmm (157-399) H 05/03/23 01:04 MPV 9.8 fL (7.4-10.4) 05/03/23 01:04 Neut % (Auto) 86.7 % 05/03/23 01:04 Lymph % (Auto) 8.1 % 05/03/23 01:04 [place] % (Auto) 2.8 % 05/03/23 01:04 Eos % (Auto) 0.4 % 05/03/23 01:04 Baso % (Auto) 0.3 % 05/03/23 01:04 Neut # (Auto) 19.30 10^3/uL (1.8-7.7) H 05/03/23 01:04 Lymph # (Auto) 1.8 10^3/uL (0.8-4.8) 05/03/23 01:04 [place] # (Auto) 0.6 10^3/uL (0.2-0.9) 05/03/23 01:04 Eos # (Auto) 0.1 10^3/uL (0.0-0.8) 05/03/23 01:04 Baso # (Auto) 0.1 10^3/uL (0.0-0.1) 05/03/23 01:04 Nucleated RBC % (auto) 0.1 % 05/03/23 01:04 Nucleated RBCs # 0.0 /100WBC 05/03/23 01:04 Specimen Type Arterial 05/03/23 02:21 Sample Site Brachial, right 05/03/23 02:21 ABG pH 7.43 (7.35-7.45) 05/03/23 02:21 ABG pCO2 46.0 mmHg (35-45) H 05/03/23 02:21 ABG pO2 63.3 mmHg (80.0-100.0) L 05/03/23 02:21 ABG HCO3 30.8 mmol/L (22-26) H 05/03/23 02:21 ABG Base Excess 5.7 mmol/L (-2.0-2.0) H 05/03/23 02:21 Juan Antonio Test N/a 05/03/23 02:21 Hematocrit 37.3 % (42-52) L 05/03/23 02:21 O2 Delivery Device Nc 05/03/23 02:21 O2 Liters/Min 6.0 % 05/03/23 02:21 Medical Historian ID [email or web address] 05/03/23 02:21 Sodium 138 mmol/L (136-145) 05/03/23 01:04 Potassium 3.5 mmol/L (3.5-5.1) 05/03/23 01:04 Chloride 97 mmol/L (98-107) L 05/03/23 01:04 Carbon Dioxide 30 mmol/L (22-29) H 05/03/23 01:04 Anion Gap 14.5 (5-19) 05/03/23 01:04 BUN 6 mg/dL (6-20) 05/03/23 01:04 Creatinine 0.7 mg/dL (0.7-1.2) 05/03/23 01:04 GFR Calculation 116.2 mL/min (90-130) 05/03/23 01:04 Glucose 101 mg/dL (65-115) 05/03/23 01:04 Calculated Osmolality 284 mOsm/kg (285-295) L 05/03/23 01:04 Lactic Acid 1.1 mmol/L (0.5-2.2) 05/03/23 01:10 Calcium 8.4 mg/dL (8.5-10.5) L 05/03/23 01:04 Total Bilirubin 0.6 mg/dL (0.15-1.2) 05/03/23 01:04 AST 18 U/L (0-40) 05/03/23 01:04 ALT 18 U/L (0-41) 05/03/23 01:04 Alkaline Phosphatase 162 U/L (40-130) H 05/03/23 01:04 NT-Pro-B Natriuret Pep 161 pg/mL (0-125) H 05/03/23 01:04 Total Protein 7.0 g/dL (6.6-8.7) 05/03/23 01:04 Albumin 2.5 g/dL (3.5-5.2) L 05/03/23 01:04 Globulin 4.5 g/dL (1.3-4.6) 05/03/23 01:04 Lipase 15 U/L (13-60) 05/03/23 01:04 Urine Color Dark yellow (Yellow) 05/03/23 04:12 Urine Appearance Sl hazy (CLEAR) A 05/03/23 04:12 Urine pH 6 (5-7) 05/03/23 04:12 Ur Specific [place] 1.010 (1.005-1.030) 05/03/23 04:12 Urine Protein Trace (Negative) 05/03/23 04:12 Urine Glucose (UA) Norm (Normal) 05/03/23 04:12 Urine Ketones Negative (Negative) 05/03/23 04:12 Urine Blood Trace (Negative) H 05/03/23 04:12 Urine Nitrate Negative (Negative) 05/03/23 04:12 Urine Bilirubin Neg (Negative) 05/03/23 04:12 Urine Urobilinogen Neg mg/dL (Negative) 05/03/23 04:12 Ur Leukocyte Esterase Trace (Negative) H 05/03/23 04:12 Urine RBC 0-4 /hpf (0-2) H 05/03/23 04:12 Urine WBC 0-4 /hpf (0-5) H 05/03/23 04:12 Ur Squamous Epith Cells 0-4 /hpf (0-5) H 05/03/23 04:12 Amorphous Sediment Not Reportable 05/03/23 04:12 Urine Bacteria Trace /hpf (NONE) 05/03/23 04:12 Urine Mucus 2+ /hpf 05/03/23 04:12 All radiology interpretation(s) finalized by discharge Discharge Plan Discharge Condition: Stable Prescriptions: No Action lisinopril 2.5 mg tablet 2.5 mg PO DAILY gabapentin 300 mg capsule 300 mg PO BID Qty: 60 1RF methocarbamol 500 mg tablet 500 mg PO TID PRN (Reason: muscle spasticity) Qty: 90 1RF (DME) Diabetic shoes with 3 sets of inserts See Rx Instructions .Route .MEDSUPPLY Qty: 1 0RF Rx Instructions: As directed by HOME tamsulosin 0.4 mg capsule 0.4 mg PO DAILY Rx Instructions: patient states he only takes if he needs it albuterol sulfate [ProAir HFA] 90 mcg/actuation HFA aerosol inhaler 2 puff inhalation Q6H PRN (Reason: Shortness Of Breath) Qty: 8.5 4RF bupropion HCl 100 mg tablet 100 mg PO DAILY Qty: 30 0RF Rx Instructions: Take one tablet by mouth once every morning trazodone 150 mg tablet 150 mg PO BEDTIME PRN (Reason: insomnia) Qty: 30 0RF Rx Instructions: Take 1/2 to 1 tablet daily at bedtime, if needed for insomnia metformin 500 mg tablet extended release 24 hr 1,000 mg PO BID 90 Days Qty: 360 0RF acetaminophen [Tylenol Extra Strength] 500 mg Tablet 1,000 mg PO PRN atorvastatin 20 mg tablet 20 mg PO DAILY glimepiride 4 mg tablet 4 mg PO DAILY Stool Softener 50 mg Capsule 50 mg PO BID hydrocodone-acetaminophen 5-325 mg tablet 1 tab PO Q6H PRN (Reason: pain) 7 Days Qty: 28 0RF amoxicillin-pot clavulanate 875-125 mg tablet 1 tab PO BID 14 Days Qty: 28 0RF Referrals: Solitario Porter MD [Primary Care Provider] - Coding Level of Care Code ED Field Administrative Assistant for Dilshad Bowens
[2023-05-03] MEDS: acetaminophen 500 mg Tablet 1000 MG PO (01:30)
[2023-05-03] MEDS: sodium chloride 0.9% 1,000 ML 999 ML IV ×3 (01:31→03:23)
[2023-05-03 01:33] LABS: Lactic Sepsis W/Reflex 1.1 mmol/L (0.5-2.2)
[2023-05-03 01:44] LABS: Alanine Aminotransferase 18 U/L (0-41); Albumin Level 2.5 g/dL (3.5-5.2); Alkaline Phosphatase 162 U/L (40-130); Anion Gap 14.5 (5-19); Aspartate Amino Transferase 18 U/L (0-40); Blood Urea Nitrogen 6 mg/dL (6-20); Calcium 8.4 mg/dL (8.5-10.5); Carbon Dioxide 30 mmol/L (22-29); Chloride 97 mmol/L (98-107); Creatinine Clr Calc Pharmacy 151.0126; Globulin 4.5 g/dL (1.3-4.6); Glomerular Filtration Rate 116.2 mL/min (90-130); Glucose 101 mg/dL (65-115); Lipase 15 U/L (13-60); NT Pro B Type Natriuretic Pept 161 pg/mL (0-125); Osmolality Calculated 284 mOsm/kg (285-295); Potassium 3.5 mmol/L (3.5-5.1); Sodium 138 mmol/L (136-145); Total Bilirubin 0.6 mg/dL (0.15-1.2)
[2023-05-03] MEDS: morphine 4 mg/mL SDV 1 mL IVP ×4 (02:13→14:19)
[2023-05-03] MEDS: piperacillin-tazobactam 3.375 GM in sodium chloride 0.9% (plus) 50 ML IV ×2 (02:23→11:28)
[2023-05-03 02:33] LABS: ABG PH Result 7.43 (7.35-7.45); Arterial Blood Gas Hematocrit 37.3 % (42-52); Base Excess ABG 5.7 mmol/L (-2.0-2.0); Blood Gas Sample Site Brachial, right; Blood Gas Sample Type Arterial; HCO3 ABG 30.8 mmol/L (22-26); Oxygen Device NC; PO2 ABG 63.3 mmHg (80.0-100.0)
--- NOTE | 2023-05-03 02:50 | P.CONIM_ITS ---
Providers/Reason For Consult Consulting Physician/Specialty*: general surgery Reason for Consult*: acute cholecystits Primary Care Provider: Solitario Porter MD History of Present Illness History of Present Illness Iqra Meredith is a 57 year old male who was recentlly admitted with acute cholecystitis and non operative management was attempted. patient was discharged on 04/30/2023 and at the time transitioned to PO antibiotics. since leaving the hospital patient has continue to have significant pain and fever and therefore he decided to return to the hospital. Medications/Allergies Home Medications Medication Instructions Recorded Confirmed Last Taken Type acetaminophen 500 mg tablet 1,000 mg PO PRN 01/19/21 04/27/23 Unknown History (Tylenol Extra Strength) gabapentin 300 mg capsule 300 mg PO BID #60 caps 03/17/21 04/27/23 1 Day Ago Rx ~04/26/23 lisinopril 2.5 mg tablet 2.5 mg PO DAILY 03/17/21 04/27/23 1 Day Ago History ~04/26/23 methocarbamol 500 mg tablet 500 mg PO TID PRN muscle 05/09/21 04/27/23 12/06/21 Rx spasticity #90 tabs Diabetic shoes with 3 sets of #1 ea 01/09/22 04/27/23 Unknown Rx inserts albuterol sulfate 90 mcg/actuation 2 puff inhalation Q6H PRN 08/29/22 04/27/23 1 Day Ago Rx aerosol inhaler (ProAir HFA) Shortness Of Breath #8.5 grams ~04/26/23 tamsulosin 0.4 mg capsule 0.4 mg PO DAILY 02/11/23 04/27/23 Unknown History bupropion HCl 100 mg tablet 100 mg PO DAILY #30 tabs 04/01/23 04/27/23 1 Day Ago Rx ~04/26/23 trazodone 150 mg tablet 150 mg PO BEDTIME PRN insomnia #30 04/01/23 04/27/23 1 Day Ago Rx tabs ~04/26/23 metformin 500 mg tablet,extended 1,000 mg PO BID 90 days #360 tabs 04/08/23 04/27/23 1 Day Ago Rx release 24 hr ~04/26/23 atorvastatin 20 mg tablet 20 mg PO DAILY 04/27/23 04/27/23 Unknown History docusate sodium 50 mg capsule 50 mg PO BID 04/27/23 04/27/23 Unknown History (Stool Softener) glimepiride 4 mg tablet 4 mg PO DAILY 04/27/23 04/27/23 Unknown History amoxicillin 875 mg-potassium 1 tab PO BID 14 days #28 tabs 04/30/23 Unknown Rx clavulanate 125 mg tablet hydrocodone 5 mg-acetaminophen 325 1 tab PO Q6H PRN pain 7 days #28 04/30/23 Unknown Rx mg tablet tabs Allergies Allergy/AdvReac Type Severity Reaction Status Date / Time adhesive Allergy ALGY-Hives Verified 04/27/23 03:20 PFSH Acute PFSH: Medical History Cellulitis and abscess of left leg Chronic SI joint pain COPD (chronic obstructive pulmonary disease) Depression Encounter for long-term opiate analgesic use History of pancreatic cancer Lumbar back pain with radiculopathy affecting right lower extremity Major depressive disorder, recurrent severe without psychotic features Nicotine dependence with current use Not interested in smoking cessation. Obesity Pancreas (digestive gland) works poorly Smoking Spermatocele Spleen absent Surgical History History of back surgery (~2013) 12/2013 T12 REMOVAL POST WORK ACCIDENT History of pancreatic surgery History of spinal fusion History of splenectomy S/P hernia repair (~12/2013) UMBILICAL HERNIA REPAIR Family History Mother , IN HER 60'S Diabetes CAD (coronary artery disease) Psychiatric illness Stroke Cancer UTERINE CANCER Father , AT AGE 56 Cancer PROSTATE Other Family history of premature coronary artery disease Social History Smoking and tobacco/nicotine status: former use of tobacco/nicotine Quit status (tobacco/nicotine): has quit using Year quit tobacco: 2020 Former quit date comment: 2 ppd X 40 years Alcohol intake: current Alcohol intake frequency: holidays/special occasions only Alcohol type: beer Substance/Drug Use: never Marital status: Number of children: 2 Number of grandchildren: 3 Education level details: Phlebotomy Current occupational status: disabled Do you think of yourself as: Straight/Heterosexual Rosey/Uatsdin: Other Vitals/I&O/Wt Last Vital Signs Temp 103.2 F H 05/03/23 01:08 Pulse 129 H 05/03/23 01:08 Resp 18 05/03/23 02:13 BP 130/72 05/03/23 01:08 Pulse Ox 92 05/03/23 02:13 O2 Del Method Nasal Cannula 05/03/23 01:08 O2 Flow Rate 6 05/03/23 01:08 Weight last 48 hrs Weight 264 lb Data 05/03/23 01:04 05/03/23 01:04 A&P Assessment and plan (1) Acute calculous cholecystitis: This is a 57 year old man admitted to the hospital one week ago with acute cholecystitis. during last hospital admission initial CT of the abdomen showed intense inflamatory reaction in the gallblader region with a initial wbs of 14K, at the time patient was managed with antibiotics and noted to have an initial uptrend of the WBC to 30K, at this point a CT was repeated showing worsenening of his clinical picture with extensive inflamation on the RUQ now extending to the adjacent colon and right paracolic gutter. per chart report, patient was decided to continue non operative management as he showed symptomatic improvement. he was discharged on 04/30, at the time his WBC was 22K. he returns today to the hospital with persistent pain, tachycardia and fever. I was made aware of his case by ER Physician. At this point during the clinical course after more than 7 days of symptoms the best option for the patient would be either to undergo cholecystostomy tube placement with interval cholecystectomy once the intense operative process or alternatively attempt a laparoscopic cholecystectomy by a hepatobiliary team, as it this point this would be considered a hostile abdomen wich would require high level of expertise to be p reformed. My recommendation after extensive review of the case if for urgent transfer to higher level of care for possible cholecystostomy tube vs surgery. patient in the meantime should be resucitated with IV fluids and initiated on broad spectrum antibiotics (Meropemen) due to extremelly high risk of developing ascending colangitis. (2) Sepsis: Coding Level of Care Code Acute Code for [facility] Diagnoses Acute calculous cholecystitis K80.00 Sepsis A41.9
--- NOTE | 2023-05-03 04:24 | PC.NURSE ---
Called tele pharmacy to have meds verified.
[2023-05-03 04:26] LABS: Add Urine Culture? No; Add Urine Microscopic? YES; Bacteria Urine TRACE /hpf; Bilirubin Urine Neg (Negative); Blood Urine Trace (Negative); Glucose Urine UA Norm (Normal); Ketones Urine Negative (Negative); Leukocyte Esterase Urine Trace (Negative); Mucus Urine 2+ /hpf; Nitrate Urine Negative (Negative); Protein Urine Trace (Negative); RBC Urine 0-4 /hpf (0-2); Squamous Epithelial Cell Urine 0-4 /hpf (0-5); Urine Appearance SL Hazy (CLEAR); Urine Color Dark Yellow (Yellow); Urobilinogen Urine Neg (Negative); WBC Urine 0-4 /hpf (0-5); pH Urine 6 (5-7)
[2023-05-03] MEDS: sodium chloride 0.9% 1,000 ML 100 ML IV (04:38)
[2023-05-03] MEDS: ondansetron 2 mg/ML SDV 2 mL 4 MG IVP ×2 (06:38→14:19)
--- NOTE | 2023-05-03 07:38 | PC.PHAR ---
pt and pts family verified pts medications-pt and pts family states the pt has still been taking mobic 15mg daily pts discharge papers from 04/30/23 has mobic as dced-pt states he takes flomax prn ext shows last filled 04/05/23 30d/s 0.4mg daily-notes are made in the pharmacy comments
--- NOTE | 2023-05-03 09:13 | PC.NURSE ---
report called to Renata Yan RN at [facility], unit: [facility] Room# 3121-1
== END 2023-05-03 15:09 ==
PROVIDERS: Emergency Provider Emergency Medicine; PCP Family Medicine
DX: K81.0 Acute cholecystitis (principal); Z79.84 Long term (current) use of oral hypoglycemic drugs; K76.0 Fatty (change of) liver, not elsewhere classified; Z87.891 Personal history of nicotine dependence; J44.9 Chronic obstructive pulmonary disease, unspecified; Z85.07 Personal history of malignant neoplasm of pancreas
CPT/HCPCS: 36415; 36600; 71045; 76705; 80053; 81001; 82803; 83605; 83690; 83880; 85025; 87040; 93005; 96365; 96366; 96375; 96376; 99285; J2270; J2405; J2543; J7030

== ENCOUNTER → 2023-05-13 08:38 | Outpatient (BNVA) | payer MEDICAID, SELFPAY ==
[2023-05-02 10:55] VITALS: BP 140/84; BMI 39.2
== END ==
PROVIDERS: PCP Family Medicine; Visit Provider Internal Medicine Pulmonary Disease
DX: J44.9 Chronic obstructive pulmonary disease, unspecified (principal); Z71.6 Tobacco abuse counseling; U09.9 Post COVID-19 condition, unspecified; Z99.81 Dependence on supplemental oxygen; F17.210 Nicotine dependence, cigarettes, uncomplicated; Z90.411 Acquired partial absence of pancreas; Z90.81 Acquired absence of spleen; Z85.07 Personal history of malignant neoplasm of pancreas
CPT/HCPCS: 99214

== ENCOUNTER → 2023-06-25 10:00 | Outpatient (BNVA) | payer MEDICAID, SELFPAY ==
[2023-05-02 10:55] VITALS: BP 140/84; BMI 39.2
== END ==
PROVIDERS: PCP Family Medicine; Visit Provider Internal Medicine
DX: E11.9 Type 2 diabetes mellitus without complications (principal); D3A.8 Other benign neuroendocrine tumors; I89.9 Noninfective disorder of lymphatic vessels and lymph nodes, unspecified; Z79.84 Long term (current) use of oral hypoglycemic drugs
CPT/HCPCS: 80053; 80061; 82044; 82306; 82310; 83036; 83970; 84146; 99214

== ENCOUNTER 2023-07-06 14:58 | Emergency (ER) | payer MEDICAID, SELFPAY ==
[2023-05-02 10:55] VITALS: BP 140/84; BMI 39.2
[2023-07-06 15:22] VITALS: BP 136/80; PULSE 99; RESP 18; TEMP 36.7; O2SAT 92
--- NOTE | 2023-07-06 15:35 | W.ED.GENADLT ---
HPI - General Adult General: Chief complaint: General Medical Stated complaint: Basilia sent, Bile bag issue Time Seen by Provider: 07/06/23 15:29 Source: patient Mode of arrival: ambulatory History of Present Illness: 57-year-old male presents to the emergency room with complaints of cholecystectomy bag that has been leaking. He has had the same bag for an extended period of time he has placed a piece of tape over it which is preventative leaking. 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 Encounter for long-term opiate analgesic use Obesity COPD (chronic obstructive pulmonary disease) Cellulitis and abscess of left leg Depression Smoking Lumbar back pain with radiculopathy affecting right lower extremity Surgical History History of splenectomy History of pancreatic surgery History of spinal fusion S/P hernia repair (~12/2013) UMBILICAL HERNIA REPAIR History of back surgery (~2013) 12/2013 T12 REMOVAL POST WORK ACCIDENT Family History Mother , IN HER 60'S Diabetes CAD (coronary artery disease) Psychiatric illness Stroke Cancer UTERINE CANCER Father , AT AGE 56 Cancer PROSTATE Other Family history of premature coronary artery disease Social History Smoking and tobacco/nicotine status: former use of tobacco/nicotine Quit status (tobacco/nicotine): has quit using Year quit tobacco: 2019 Former quit date comment: 2 ppd X 40 years Alcohol intake: current Alcohol intake frequency: holidays/special occasions only Alcohol type: beer Substance/Drug Use: never Marital status: Number of children: 2 Number of grandchildren: 3 Education level details: Phlebotomy Current occupational status: disabled Do you think of yourself as: Straight/Heterosexual Rosey/Presybeterian: Other Physical Exam Narrative: EXAM NARRATIVE: Patient awake alert oriented no significant abnormalities cholecystectomy bag has a piece of tape over it to prevent it from draining no active drainage at this time Course Vital Signs: Vital signs: Vital Signs Temperature 98.0 F 07/06/23 15:22 Pulse Rate 99 07/06/23 15:22 Respiratory Rate 18 07/06/23 15:22 Blood Pressure 136/80 07/06/23 15:22 Pulse Oximetry 92 07/06/23 15:22 Oxygen Delivery Me thod Room Air 07/06/23 15:22 MDM - General Adult Medical Decision Making We have checked there are none available in-house and home could not find any in their supplies. Given a prescription to get another drainage bag contact the surgeon or the home health store to order some next week. Medical Records I reviewed the patient's medical records. Lab Data I reviewed the patient's lab results. No radiology studies performed this visit Discharge Plan Discharge Patient Disposition: Home Clinical Impression: Obstruction of percutaneous transhepatic biliary drainage catheter Condition: Stable Prescriptions: No Action lisinopril 2.5 mg tablet 2.5 mg PO DAILY gabapentin 300 mg capsule 300 mg PO BID Qty: 60 1RF methocarbamol 500 mg tablet 500 mg PO TID PRN (Reason: muscle spasticity) Qty: 90 1RF (DME) Diabetic shoes with 3 sets of inserts See Rx Instructions .Route .MEDSUPPLY Qty: 1 0RF Rx Instructions: As directed by HOME metronidazole 500 mg tablet 500 mg PO Q8H levofloxacin 750 mg tablet 750 mg PO DAILY tamsulosin 0.4 mg capsule 0.4 mg PO DAILY PRN (Reason: unknown) albuterol sulfate [ProAir HFA] 90 mcg/actuation HFA aerosol inhaler 2 puff inhalation Q6H PRN (Reason: Shortness Of Breath) Qty: 8.5 4RF metformin 500 mg tablet extended release 24 hr 1,000 mg PO BID 90 Days Qty: 360 0RF acetaminophen [Tylenol Extra Strength] 500 mg Tablet 1,000 mg PO Q6H PRN (Reason: Pain) atorvastatin 20 mg tablet 20 mg PO BEDTIME glimepiride 4 mg tablet 4 mg PO DAILY hydrocodone-acetaminophen 5-325 mg tablet 1 tab PO .EVERY 4-6 HOURS MDD 3 tabs PRN (Reason: Pain) meloxicam 15 mg tablet 15 mg PO DAILY Stool Softener 100 mg Capsule 100 mg PO BID PRN (Reason: Constipation) bupropion HCl 100 mg tablet 100 mg PO BEDTIME trazodone 150 mg tablet 75 - 150 mg PO BEDTIME PRN (Reason: insomnia) Discharge Orders: Discharge ED (Routine); Ordered 07/06/23 Ordered By: Liam Hooker Other Ambulatory Orders: DME: Miscellaneous (Order) Location: None Selected Ordered By: Liam Hooker Referrals: Sloitario Porter MD [Primary Care Provider] - Patient Instructions: Opioid Safety, Pain Management Activity Restrictions/Additional Instructions: Thank you for choosing [facility] for your healthcare needs today. Please realize this is an emergency room and that we are providing you with a medical screening exam and this may not be complete and all inclusive of all the testing and or work up that you may need to determine your ailment or severity of your illness. It is very important that you follow up as instructed or that you return to the Emergency Department should you have concerns or if your condition changes or worsens in any way. Prescription written to 4 replacement cholecystectomy tube drain bag. We do not have any in the hospital and home health care did not have any available. Contact the surgeon who placed the tube or home health on Saturday and they can see if they can order another bag for you. Coding Level of Care Code ED Configuration Management Architect for Dilshad Bowens
== END 2023-07-06 14:59 | disposition home or self-care (01) ==
PROVIDERS: Emergency Provider Family Medicine; PCP Family Medicine
DX: T83.098A Other mechanical complication of other urinary catheter, initial encounter (principal); Y82.8 Other medical devices associated with adverse incidents; Z79.84 Long term (current) use of oral hypoglycemic drugs; Z90.49 Acquired absence of other specified parts of digestive tract; Z87.891 Personal history of nicotine dependence; Z85.07 Personal history of malignant neoplasm of pancreas; J44.9 Chronic obstructive pulmonary disease, unspecified
CPT/HCPCS: 99281

== ENCOUNTER → 2023-09-03 11:49 | Outpatient (BNVA) | payer MEDICAID, SELFPAY ==
[2023-05-02 10:55] VITALS: BP 140/84; BMI 39.2
== END ==
PROVIDERS: PCP Family Medicine; Visit Provider Internal Medicine Pulmonary Disease
DX: J44.9 Chronic obstructive pulmonary disease, unspecified (principal); C25.2 Malignant neoplasm of tail of pancreas; Z71.6 Tobacco abuse counseling; U09.9 Post COVID-19 condition, unspecified; Z99.81 Dependence on supplemental oxygen; Z90.49 Acquired absence of other specified parts of digestive tract
CPT/HCPCS: 99214

== ENCOUNTER → 2024-01-06 10:00 | Outpatient (BNVA) | payer MEDICAID, SELFPAY ==
[2023-05-02 10:55] VITALS: BP 140/84; BMI 39.2
== END ==
PROVIDERS: PCP Family Medicine; Visit Provider Internal Medicine
DX: E11.9 Type 2 diabetes mellitus without complications (principal); D3A.8 Other benign neuroendocrine tumors; I89.9 Noninfective disorder of lymphatic vessels and lymph nodes, unspecified; Z79.84 Long term (current) use of oral hypoglycemic drugs
CPT/HCPCS: 99214

== ENCOUNTER → 2024-01-27 08:37 | Outpatient (BNVA) | payer MEDICAID, SELFPAY ==
[2023-05-02 10:55] VITALS: BP 140/84; BMI 39.2
== END ==
PROVIDERS: PCP Family Medicine; Visit Provider Internal Medicine Critical Care Medicine
DX: R06.09 Other forms of dyspnea (principal); J43.2 Centrilobular emphysema; J98.4 Other disorders of lung; G47.33 Obstructive sleep apnea (adult) (pediatric); E66.01 Morbid (severe) obesity due to excess calories; F17.211 Nicotine dependence, cigarettes, in remission; Z68.41 Body mass index [BMI] 40.0-44.9, adult; Z71.82 Exercise counseling; Z71.89 Other specified counseling
CPT/HCPCS: 99214

== ENCOUNTER 2024-01-30 10:55 | Outpatient (CLI) | payer MEDICAID, SELFPAY ==
[2023-05-02 10:55] VITALS: BP 140/84; BMI 39.2
--- NOTE | 2024-01-30 12:45 | US_ITS ---
WS: [id number] THYROID ULTRASOUND HISTORY: lymph node disorder COMPARISON: None available. Right lobe: 1.4 cm x 2.1 cm x 5.7 cm (w x ap x l). Volume: 8.3 cm3. Normal sized gland. Subcentimeter thyroid nodules are identified. These nodules are most consistent w ith colloid cyst. There is no dominant mass. Left lobe: 1.6 cm x 2.0 cm x 5.2 cm (w x ap x l). Volume: 7.9 cm3. Normal sized thyroid with a few colloid cyst. No dominant mass. Isthmus: 0.5 cm. Cervical chain lymph nodes are reidentified. These lymph nodes have been noted on prior studies also. US/US thyroid [id number] IMPRESSION: 1. No suspicious thyroid nodules. There are bilateral colloid cysts which are less than a centimeter. 2. Reidentified are small cervical chain lymph nodes.
== END 2024-01-30 10:56 | disposition home or self-care (01) ==
LOC: RAD 10:55
PROVIDERS: PCP Family Medicine; Visit Provider Internal Medicine
DX: I89.9 Noninfective disorder of lymphatic vessels and lymph nodes, unspecified (principal); D3A.8 Other benign neuroendocrine tumors
CPT/HCPCS: 76536

== ENCOUNTER 2024-05-12 09:58 | Outpatient (CLI) | payer MEDICAID, SELFPAY ==
[2023-05-02 10:55] VITALS: BP 140/84; BMI 39.2
--- NOTE | 2024-05-12 10:00 | CT_ITS ---
WS: [id number] LDCT LUNG CANCER SCREENING TECHNIQUE: Noncontrast CT of the chest with coronal and sagittal reformatted images. CLINICAL INFORMATION: screening COMPARISON: 06/28/2022 DLP: 158.69 mGy.cm DIvol: Mean CTDIvol: 4.00 (mGy) All CT scans at use at least one of these dose optimization techniques: automat ed exposure control; mA and/or kV adjustment per patient size (includes targeted exams where dose is matched to clinical indication); or iterative reconstruction. FINDINGS: No new suspicious pulmonary parenchymal abnormalities. Hyperinflation. Small noncalcified n odule LEFT fissure measuring 4 mm. Normal caliber thoracic aorta. No mediastinal or hilar lymphadenop athy. No axillary lymphadenopathy. Adrenal glands are normal. Tiny esophageal hiatal hernia. Scattered areas of subsegmental atelectasis and parenchymal scarring similar to previous. Partially visualized distal pancreatectomy and splenectomy. Prior postoperative changes pedicle screw fixation in the thoracic spine with interbody fusion. Moderate thoracic kyphosis. CT/CT lung screening [id number] IMPRESSION: LUNG-RADS: 2-Benign Appearance or Behavior FOLLOW UP: 12 Month: Continue annual screening with LDCT
== END 2024-05-12 09:59 | disposition home or self-care (01) ==
LOC: RAD 09:59
PROVIDERS: PCP Family Medicine; Visit Provider Internal Medicine Critical Care Medicine
DX: Z12.2 Encounter for screening for malignant neoplasm of respiratory organs (principal); F17.211 Nicotine dependence, cigarettes, in remission; J43.2 Centrilobular emphysema; J98.4 Other disorders of lung; R91.1 Solitary pulmonary nodule; J98.11 Atelectasis; M40.204 Unspecified kyphosis, thoracic region
CPT/HCPCS: 71271

== ENCOUNTER → 2024-07-08 10:12 | Outpatient (BNVA) | payer MEDICAID, SELFPAY ==
[2023-05-02 10:55] VITALS: BP 140/84; BMI 39.2
== END ==
PROVIDERS: PCP Family Medicine; Visit Provider Internal Medicine
DX: E11.9 Type 2 diabetes mellitus without complications (principal); D3A.8 Other benign neuroendocrine tumors; E55.9 Vitamin D deficiency, unspecified; I89.9 Noninfective disorder of lymphatic vessels and lymph nodes, unspecified
CPT/HCPCS: 99214

== ENCOUNTER → 2024-07-09 09:33 | Outpatient (BNVA) | payer MEDICAID, SELFPAY ==
[2023-05-02 10:55] VITALS: BP 140/84; BMI 39.2
== END ==
PROVIDERS: PCP Family Medicine; Referring Provider Family Medicine; Visit Provider Surgery
DX: K43.2 Incisional hernia without obstruction or gangrene (principal)
CPT/HCPCS: 99204

== ENCOUNTER 2024-07-17 14:32 | Outpatient (CLI) | payer MEDICAID, SELFPAY ==
[2023-05-02 10:55] VITALS: BP 140/84; BMI 39.2
[2024-07-17] MEDS: iohexol 350 mg/mL 500 mL Btl (per mL) IV (14:41)
--- NOTE | 2024-07-17 15:00 | CT_ITS ---
WS: [id number] CT ABDOMEN AND PELVIS WITH CONTRAST HISTORY: history of extensive abdominal surgeries and hernias, history of pancreatic cancer. TECHNIQUE: Imaging performed of the abdomen and pelvis with IV contrast. Single phase imaging of the abdomen. Coronal and sagittal reformats are submitted. All CT scans at [facility] use at [address]se st one of these dose optimization techniques: automated exposure control; mA and/or kV adjustment per patient size (includes targeted exams where dose is matched to clinical indication); or iterative re construction. IV CONTRAST: Omnipaque 350; 100 mL IV. Oral contrast: No DLP: 1155.63 mGy.cm COMPARISON: 04/28/2023 Lower thorax: Lung bases are clear. Heart is normal size. No hiatal hernia. Liver/biliary system: Mildly enlarged liver. No intrahepatic duct dilatation or mass. Normal portal v ein. Gallbladder: Prior cholecystectomy. Pancreas: Partial resection of the distal pancreatic tail. No recurrent mass identified or interval c hange since 2022 at the surgical site. Spleen: Prior splenectomy. Adrenal glands: Normal. Right kidney: Normal. Left kidney: Normal. Aorta: Normal. Lymphadenopathy: Central mesenteric stranding with several mesenteric lymph nodes which are increased in size and number but also similar to the prior study. Largest lymph node measures 10 mm. Consisten t with sclerosing mesenteritis. Free fluid: None. GI tract: No GI tract obstruction. Stomach is markedly distended with food products. No small bowel o bstruction. Normal appendix. Mild sigmoid diverticulosis. Abdominal wall: Marked thinning of the ventral abdominal wall musculature. There is slight bulging of the supra umbilical abdominal wall but the rectus sheath is intact. LEFT lateral abdominal wall nicole ia contains fat. This is a small hernia with an orifice of 2.9 cm which is also noted on the prior [facility]. No additional abdominal wall hernias. Pelvis: No free fluid or adenopathy within the pelvis. Well distended urinary bladder. No free fluid or adenopathy. Bones: Extensive thoracolumbar spine hardware causing artifact through portions of the abdomen. CT/CT abdomen pelvis w con* [id number] IMPRESSION: 1. Marked diastases recti of the abdominal wall. 2. Single small LEFT lateral abdominal wall hernia contains fat only. 3. Partial resection of the pancreatic tail with no recurrent mass. 4. 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 Similar pattern to 04/28/2023. 5. No ascites or additional adenopathy. 6. Prior cholecystectomy. 7. Prior splenectomy. 8. Mild hepatomegaly.
== END 2024-07-17 14:33 | disposition home or self-care (01) ==
LOC: RAD 14:33
PROVIDERS: PCP Family Medicine; Visit Provider Surgery
DX: Z98.890 Other specified postprocedural states (principal); K43.2 Incisional hernia without obstruction or gangrene; R93.5 Abnormal findings on diagnostic imaging of other abdominal regions, including retroperitoneum; K46.9 Unspecified abdominal hernia without obstruction or gangrene; M62.08 Separation of muscle (nontraumatic), other site; R93.3 Abnormal findings on diagnostic imaging of other parts of digestive tract; K65.4 Sclerosing mesenteritis; R59.0 Localized enlarged lymph nodes; Z90.49 Acquired absence of other specified parts of digestive tract; R16.0 Hepatomegaly, not elsewhere classified
CPT/HCPCS: 74177

== ENCOUNTER → 2024-07-20 09:16 | Outpatient (BNVA) | payer MEDICAID, SELFPAY ==
[2023-05-02 10:55] VITALS: BP 140/84; BMI 39.2
== END ==
PROVIDERS: PCP Family Medicine; Visit Provider Surgery
DX: K43.2 Incisional hernia without obstruction or gangrene (principal); R03.0 Elevated blood-pressure reading, without diagnosis of hypertension
CPT/HCPCS: 99214

== ENCOUNTER → 2024-07-21 08:13 | Outpatient (BNVA) | payer MEDICAID, SELFPAY ==
[2023-05-02 10:55] VITALS: BP 140/84; BMI 39.2
== END ==
PROVIDERS: PCP Family Medicine; Visit Provider Family Medicine
DX: Z01.818 Encounter for other preprocedural examination (principal); R94.31 Abnormal electrocardiogram [ECG] [EKG]
CPT/HCPCS: 80053; 85025; 93005

== ENCOUNTER 2024-08-18 06:56 | Day surgery (SDC) | payer MEDICAID, SELFPAY ==
[2023-05-02 10:55] VITALS: BP 140/84; BMI 39.2
--- NOTE | 2024-07-27 11:40 | SUR.PREOP ---
1135 called to do a phone pre-op and stated that pt is not having surgery tomorrow due to being sick,stated that they had called the office to cancel and reschedule for August 18, informed Irais ARREDONDO of this and verbalized understanding
[2024-08-18] VITALS (15 sets, daily range): BP systolic 137–167; BP diastolic 84–98; PULSE 89–102; RESP 14–18; TEMP 36.1–36.6; O2SAT 90–95; BMI 41.1
--- NOTE | 2024-08-18 07:07 | W.PM.OPSUD ---
Surgery/Procedure H&P Update DATE OF PROCEDURE: August 18, 2024 DATE H&P PERFORMED: 07/20/24 H&P UPDATE INFORMATION: I have reviewed H&P completed within last 30 days, I have examined patient prior to procedure and No changes to prior documentation PLANNED PROCEDURE: Operation Date: 08/18/24 08:30 Proposed Procedures p Laparoscopic Incisional Hernia Repair with mesh [id number], K43.2(Not Applicable) - Shreyas Pagan,
--- NOTE | 2024-08-18 07:41 | ANES.PREANE2 ---
Pre-Anesthetic Assessment Height/Weight: Height 5 ft 10 in Weight 287 lb Preop Diagnosis: Inguinal hernia Operation Date: 08/18/24 08:30 Proposed Procedures p Laparoscopic Incisional Hernia Repair with mesh [id number], K43.2(Not Applicable) - Shreyas Pagan, DO Was Beta Pillo taken within 24 hours: N/A Was Clonidine taken within 24 hours: N/A Last intake: Intake Last Liquid Date 08/17/24 Last Liquid Time 23:00 Last Solid Date 08/17/24 Last Solid Time 22:00 Social No alcohol and No tobacco Exam alert, oriented x 3, clear to auscultation bilaterally and regular rate & rhythm Airway Submandibular: within normal limits Cervical ROM: within normal limits Mallampati: Class II Comments: Comments: Poor dentition, few bottom teeth left. Denies any loose Anesthetic Plan ASA status: 3 Anesthesia: General Other: No prior issues with anesthesia NPO since yesterday evening History of hypertension on lisinopril Type 2 diabetes, not on insulin. BS 266 today. Will give some insulin prior to surgery BMI 41 COPD PATRICIA. Wears 2 L O2 with CPAP Labs 07/21/2024 reviewed acceptable for procedure EKG sinus rhythm Plan for GETA Medications/Allergies Home Medications ?Medication ?Instructions ?Recorded ?Confirmed ?Last Taken ?Type gabapentin 300 mg capsule 300 mg PO BID #60 caps 03/17/21 08/17/24 08/16/24 Rx methocarbamol 500 mg tablet 500 mg PO TID PRN muscle 05/09/21 08/17/24 12/06/21 Rx spasticity #90 tabs Diabetic shoes with 3 sets of #1 ea 01/09/22 07/27/24 Unknown Rx inserts albuterol sulfate 90 mcg/actuation 2 puff inhalation Q6H PRN 08/29/22 08/17/24 08/16/24 Rx aerosol inhaler (ProAir HFA) Shortness Of Breath #8.5 grams docusate sodium 100 mg capsule 100 mg PO BID PRN Constipation 05/03/23 08/17/24 Unknown History (Stool Softener) hydrocodone 5 mg-acetaminophen 325 1 tab PO .EVERY 4-6 HOURS PRN Pain 05/03/23 08/17/24 08/17/24 History mg tablet meloxicam 15 mg tablet 15 mg PO DAILY 05/03/23 08/17/24 08/13/24 History tamsulosin 0.4 mg capsule 0.4 mg PO DAILY unknown 09/03/23 08/17/24 08/16/24 History metformin 500 mg tablet,extended 1,000 mg (2 x 500 mg) PO BID 90 11/27/23 08/17/24 08/16/24 Rx release 24 hr days #360 tabs trazodone 150 mg tablet 75 - 150 mg (0.5 - 1 x 150 mg) PO 12/05/23 08/17/24 08/16/24 Rx BEDTIME PRN insomnia #30 tabs atorvastatin 20 mg tablet 20 mg PO DAILY 01/27/24 08/17/24 08/15/24 History lisinopril 2.5 mg tablet 10 mg PO DAILY 01/27/24 08/17/24 08/16/24 History naloxone 4 mg/actuation nasal 1 spray intranasal Q3M 01/27/24 08/17/24 Unknown History spray (Narcan) umeclidinium 62.5 mcg-vilanterol 1 inh inhalation DAILY #60 ea 01/29/24 08/17/24 08/17/24 Rx 25 mcg/actuation powdr for inhalation (Anoro Ellipta) bupropion HCl 100 mg tablet 100 mg PO .q am #90 tabs 03/05/24 08/17/24 08/16/24 Rx glimepiride 4 mg tablet 4 mg PO DAILY 08/17/24 08/17/24 08/16/24 History Allergies Allergy/AdvReac Type Severity Reaction Status Date / Time adhesive Allergy ALGY-Hives Verified 07/27/24 12:46 [facility] Anesthesia Medical History Major depressive disorder, 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 History of spinal fusion Family History Mother , IN HER 60'S Diabetes CAD (coronary artery disease) Psychiatric illness Stroke Cancer UTERINE CANCER Father , AT AGE 56 Cancer PROSTATE Other Family history of premature coronary artery disease Social History Smoking and tobacco/nicotine status: never used tobacco/nicotine Quit status (tobacco/nicotine): has quit using Year quit tobacco: 2019 Former quit date comment: 2 ppd X 40 years Alcohol intake: current Alcohol intake frequency: holidays/special occasions only Alcohol type: beer Substance/Drug Use: never Marital status: Number of children: 2 Number of grandchildren: 3 Education level details: Phlebotomy Current occupational status: disabled Do you think of yourself as: Straight/Heterosexual Rosey/Yarsani: Other Data Anesthesia Cardiac Studies: Echocardiogram 04/27/23
[2024-08-18 07:53] LABS: Glucose Point of Care 266 mg/dL (70-110)
[2024-08-18] MEDS: sodium chloride 0.9% 1,000 ML 30 ML IV (08:14)
[2024-08-18] MEDS: insulin regular-human 100 units/1 mL 3 UNIT IVP (08:14)
[2024-08-18] MEDS: ceFAZolin 3,000 MG in sodium chloride 0.9% (100 ml) 100 ML 200 MG IV (08:44)
[2024-08-18] MEDS: lidocaine-epi 2% PF 1:200,000 20 mL SDV XX (09:45)
--- NOTE | 2024-08-18 09:54 | P.OP_ITS ---
Operative Report Date of procedure: August 18, 2024 Pre-op diagnosis: Central hernias x 2 Post-op diagnosis: same Procedure done: Laparoscopic repair of incisional hernia with mesh Laparoscopic repair of (second) incisional hernia with mesh Implants: 11 cm round Ventralight mesh x 2 Specimens removed/disposition: Hernia sacs Surgeon: Shreyas Pagan DO Anesthesia: General and Local Estimated blood loss (mL): 5 Complications: . Brief History: This is a very pleasant 58-year-old gentleman with a history of multiple abdominal surgeries including colostomy creation and reversal, that presented my office with 2 incisional hernias. They are causing him pain and he desired repair. Risks and benefits were explained and documented. Procedure: Patient was wheeled into the operative room and placed on the OR table in a supine position. Abdomen was inspected prepped and draped in usual sterile fashion. Time-out was performed and all present were in agreement. A 15 blade scalp was used to make a 5 millimeter incision left upper quadrant. A Veress needle was placed into the incision and intra-abdominal insufflation was brought to 15 millimeters of mercury. A second 5 mm trocar was placed into the right upper quadrant under direct visualization. A 12 millimeter trocar was placed into the right lower quadrant. Similar intra-abdominal adhesions of omental fat to anterior abdominal wall. These. Lysed with laparoscopic LigaSure. A 1.5 cm hernia was identified the previous colostomy site. The energy but device was then used to cut out the hernia sac. A second incisional hernia was identified in the epigastrium measuring 1.5 cm in diameter. An 11 cm round to light mesh was then placed into the 12 mm trocar and brought up through the center of the colostomy site hernia using a Lam-Belen. The mesh was then tacked in place in a double crown fashion. The skeleton of the mesh was removed via the left lower quadrant. An 11 cm round to light mesh was then placed into the 12 mm trocar and brought up through the center of the epigastric incisional hernia using a Lam-Belen. The mesh was then tacked in place in a double crown fashion. The skeleton of the mesh was removed via the left lower quadrant. The hernia sacs were then removed from the abdomen via the left lower quadrant. The right lower quadrant port site was closed with an 0 Vicryl suture in a Lam- Belen in a [id number] fashion. Incisions were closed with 4 O Vicryl in a subcuticular interrupted fashion. Skin glue was applied. Patient tolerated the procedure well.
[2024-08-18] MEDS: fentaNYL 50 mcg/mL INJ 2mL IVP (10:13)
--- NOTE | 2024-08-18 10:23 | ANE.PACU2 ---
Inpatient post-anesthesia follow up: Airway intact: Yes Vital signs: Temperature 97.8 F Pulse Rate 95 Respiratory Rate 18 Blood Pressure 157/90 Pulse Oximetry 92 Oxygen Delivery Me thod Room Air Oxygen Flow Rate 3 Fraction of Inspir ed Oxygen Hydration adequate: Yes Nausea and vomiting: No Pain level: 1 Mental status: Baseline
[2024-08-18] MEDS: oxyCODONE-APAP 5-325 mg Tablet 1 TAB PO (11:37)
== END 2024-08-18 12:35 | disposition home or self-care (01) ==
PROVIDERS: PCP Family Medicine; Visit Provider Surgery
PROC: 0WQF4ZZ Repair Abdominal Wall, Percutaneous Endoscopic Approach (ICD-10-PCS; CPT 49593; principal; 2024-08-18 08:30)
DX: K43.2 Incisional hernia without obstruction or gangrene (principal); J44.9 Chronic obstructive pulmonary disease, unspecified; E66.9 Obesity, unspecified; Z90.81 Acquired absence of spleen; F17.210 Nicotine dependence, cigarettes, uncomplicated; K08.409 Partial loss of teeth, unspecified cause, unspecified class; I10 Essential (primary) hypertension; Z79.899 Other long term (current) drug therapy; G47.33 Obstructive sleep apnea (adult) (pediatric); Z68.41 Body mass index [BMI] 40.0-44.9, adult; Z85.07 Personal history of malignant neoplasm of pancreas; Z79.4 Long term (current) use of insulin; Z98.1 Arthrodesis status
CPT/HCPCS: 49593; 36416; 82962; 88302; A7015; C1781; J0131; J0690; J1100; J1815; J2250; J2371; J2405; J2704; J3010; J3490; J7030; P9045

== ENCOUNTER → 2024-08-31 08:57 | Outpatient (BNVA) | payer SELFPAY ==
[2023-05-02 10:55] VITALS: BP 140/84; BMI 39.2
== END ==
PROVIDERS: PCP Family Medicine; Visit Provider Student in an Organized Health Care Education/Training Program
DX: K46.9 Unspecified abdominal hernia without obstruction or gangrene (principal)
CPT/HCPCS: 99024

== ENCOUNTER 2024-11-04 18:25 | Emergency (ER) | payer MEDICAID, SELFPAY ==
[2023-05-02 10:55] VITALS: BP 140/84; BMI 39.2
[2024-11-04 18:26] VITALS: BP 128/76; PULSE 116; RESP 22; TEMP 36.8; O2SAT 91
--- NOTE | 2024-11-04 18:33 | ECG_ITS ---
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 Measurements Intervals [place] Rate: 109 P: 59 SD: 159 QRS: -68 QRSD: 102 T: 65 QT: 316 QTc: 426 Interpretive Statements SINUS TACHYCARDIA PATTERN CONSISTENT WITH PULMONARY DISEASE LEFT ANTERIOR FASCICULAR BLOCK [QRS AXIS <= -45, QR IN I, RS IN II] Compared to ECG 07/21/2024 08:20:16 Left anterior fascicular block now present Sinus rhythm no longer present Left-axis deviation no longer present Electronically Signed On 11-05-2024 18:22:49 CDT by Sofi Anderson M.D. [email or web address]
[2024-11-04 20:31] LABS: Bilirubin Urine Negative (Negative); Blood Urine Negative (Negative); Glucose Urine UA 3+ (Normal); Ketones Urine Negative (Negative); Leukocyte Esterase Urine Negative (Negative); Nitrate Urine Negative (Negative); Protein Urine Negative (Negative); Urine Appearance Clear (CLEAR); Urine Color Yellow (Yellow); Urobilinogen Urine 0.2 mg/dL (Negative)
[2024-11-04 20:36] VITALS: BP 125/92; PULSE 91; RESP 20; O2SAT 95
[2024-11-04 20:36] LABS: Bacteria Urine None Seen /hpf; Hyaline Casts Urine 0-4 /lpf; RBC Urine 0-2 /hpf (0-2); Squamous Epithelial Cell Urine 0-5 /hpf (0-5); WBC Urine 0-5 /hpf (0-5)
[2024-11-04 20:43] LABS: Specific Gravity, Urine 1.036 (1.005-1.030)
[2024-11-04 20:52] LABS: Basophils # 0.1 10^3/uL (0.0-0.1); Basophils % 0.8 %; Eosinophils # 0.2 10^3/uL (0.0-0.8); Eosinophils % 1.6 %; Hematocrit 51.8 % (37-53); Lymphocytes % 25.8 %; Mean Corpuscular Hemoglobin 28.7 pg (27-33); Mean Corpuscular Volume 86.9 fl (82-101); Mean Platelet Volume 10.3 fL (7.4-10.4); Monocytes # 0.9 10^3/uL (0.2-0.9); Monocytes % 7.9 %; Neutrophils # 7.26 10^3/uL (1.8-7.7); Neutrophils % 63.3 %; Nucleated Red Blood Cells % 0 %; Platelet Count 402 10^3/cmm (157-399); Red Blood Count 5.96 10^6/uL (3.85-5.65); Red Cell Distribution Width 14.6 % (12.1-15.1); White Blood Count 11.45 10^3/uL (3.29-11.43)
--- NOTE | 2024-11-04 20:58 | CTR_ITS ---
PROCEDURE INFORMATION: Exam: CT Abdomen And Pelvis With Contrast Exam date and time: 11/04/2024 9:14 PM Age: 58 years old Clinical indication: Abdominal pain; Localized; Left lower quadrant (llq); Prior surgery; Surgery date: 6+ months; Surgery type: Pancreatic surgery for pancreatic CA, splenectomy, spinal fusion, hernia repair; HX pancreatic CA; Additional info: Llq abd pain TECHNIQUE: Imaging protocol: Computed tomography of the abdomen and pelvis with contrast. Radiation optimization: All CT scans at this facility use at least one of these dose optimization techniques: automated exposure control; mA and/or kV adjustment per patient size (includes targeted exams where dose is matched to clinical indication); or iterative reconstruction. Contrast material: OMNI 350; Contrast volume: 100 ml; Contrast route: INTRAVENOUS (IV); COMPARISON: CT abdomen pelvis w con* [id number] 07/17/2024 2:47 PM RADIATION DOSE METRICS: Total DLP (mGy-cm): 1111 FINDINGS: Lungs: Unremarkable. Liver: Mild hepatomegaly. Gallbladder and biliary ducts: Status post cholecystectomy. Pancreas: Partial resection of the distal pancreatic tail. No soft tissue density to suggest recurrent mass identified. Spleen: Spleen is surgically absent. Adrenal glands: Normal. No mass. Kidneys and ureters: Normal. No hydronephrosis. Stomach and bowel: Unremarkable. No obstruction. No mucosal thickening. Appendix: No evidence of appendicitis. Intraperitoneal space: Unremarkable. No free air. No significant fluid collection. Vasculature: Unremarkable. No abdominal aortic aneurysm. Lymph nodes: Redemonstrated central mesenteric fat stranding with several prominent mesenteric lymph nodes, which has decreased from prior study. Urinary bladder: Unremarkable as visualized. Reproductive: Unremarkable as visualized. Bones/joints: Extensive thoracolumbar spine hardware causing artifact throughout portions of the abdomen. No definite acute fracture identified. Soft tissues: Redemonstrated thinning of ventral abdominal wall with bulging of supraumbilical abdominal wall. Rectus sheath is intact. Previously described left lateral fat containing abdominal wall hernia is less pronounced on today's study. CT/CT abdomen pelvis w con* [id number] IMPRESSION: 1. Status post partial resection of pancreatic tail. No definite soft tissue mass identified to suggest recurrence. 2. Redemonstrated sclerosing mesenteritis, improved from prior study. 3. Status post splenectomy and cholecystectomy. 4. Mild hepatomegaly. 5. Redemonstrated marked diastasis recti of the abdominal wall.
[2024-11-04 21:09] LABS: Alanine Aminotransferase 49 U/L (0-41); Alkaline Phosphatase 166 U/L (40-130); Anion Gap 16.8 (5-19); Aspartate Amino Transferase 27 U/L (0-40); Blood Urea Nitrogen 20 mg/dL (6-20); C Reactive Protein 23.4 mg/L (0.0-4.9); Calcium 9.4 mg/dL (8.5-10.5); Carbon Dioxide 23 mmol/L (22-29); Chloride 96 mmol/L (98-107); Creatinine Clr Calc Pharmacy 126.4635; Globulin 4.4 g/dL (1.3-4.6); Glomerular Filtration Rate 115.8 mL/min (90-130); Glucose 280 mg/dL (65-115); Osmolality Calculated 285 mOsm/kg (285-295); Potassium 4.8 mmol/L (3.5-5.1); Sodium 131 mmol/L (136-145); Total Bilirubin 0.4 mg/dL (0.15-1.2); Total Protein 8.4 g/dL (6.6-8.7)
[2024-11-04] MEDS: iohexol 350 mg/mL 500 mL Btl (per mL) IV (21:16)
[2024-11-04 21:20] LABS: Lactic Sepsis W/Reflex 1.8 mmol/L (0.5-2.2)
--- NOTE | 2024-11-04 21:31 | W.ED.ABDPA2 ---
HPI - Abdominal Pain General: Chief Complaint: Abdominal Pain Stated Complaint: left abd pain Time Seen by Provider: 11/04/24 20:36 Source: patient Mode of arrival: ambulatory Limitations: no limitations History of Present Illness: 58yo male presents with family for evaluation of left lower quadrant abdominal pain. Patient reports it started approximately 1 month ago with an orgasm, but the pain has worsened over the past week and become progressively severe in the past 3 days. Patient reports that the pain intermittently goes into the right lower quadrant. Patient states the pain worsens with walking as well as with laying back. States that he does take hydrocodone at home, but it has not been helping. Patient reports a history of previous hernia repair. He denies fever, constipation, difficulty passing stool, difficulty passing urine, vomiting, diarrhea, any other concerns at this time. Associated Symptoms: Denies chills, constipation, GI cramping, diarrhea, dysuria, fever(s), nausea and vomiting Related Data Home Medications ?Medication ?Instructions ?Recorded ?Confirmed docusate sodium 100 mg capsule 100 mg PO BID PRN Constipation 05/03/23 09/17/24 (Stool Softener) hydrocodone 5 mg-acetaminophen 325 1 tab PO .EVERY 4-6 HOURS PRN Pain 05/03/23 09/17/24 mg tablet Held on 08/18/24. Instructions: Resume on 08/23/24. meloxicam 15 mg tablet 15 mg PO DAILY 05/03/23 09/17/24 Held on 08/18/24. Instructions: Resume on 08/20/24. tamsulosin 0.4 mg capsule 0.4 mg PO DAILY unknown 09/03/23 09/17/24 atorvastatin 20 mg tablet 20 mg PO DAILY 01/27/24 09/17/24 lisinopril 2.5 mg tablet 10 mg PO DAILY 01/27/24 09/17/24 naloxone 4 mg/actuation nasal 1 spray intranasal Q3M 01/27/24 09/17/24 spray (Narcan) glimepiride 4 mg tablet 4 mg PO DAILY 08/17/24 09/17/24 Previous Rx's ?Medication ?Instructions ?Recorded gabapentin 300 mg capsule 300 mg PO BID #60 caps 03/17/21 methocarbamol 500 mg tablet 500 mg PO TID PRN muscle 05/09/21 spasticity #90 tabs Diabetic shoes with 3 sets of #1 ea 07/26/22 inserts albuterol sulfate 90 mcg/actuation 2 puff inhalation Q6H PRN 08/29/22 aerosol inhaler (ProAir HFA) Shortness Of Breath #8.5 grams metformin 500 mg tablet,extended 1,000 mg (2 x 500 mg) PO BID 90 11/27/23 release 24 hr days #360 tabs umeclidinium 62.5 mcg-vilanterol 1 inh inhalation DAILY #60 ea 01/29/24 25 mcg/actuation powdr for inhalation (Anoro Ellipta) oxycodone-acetaminophen 7.5 mg-325 1 tab PO Q6H PRN pain #20 tabs 08/18/24 mg tablet duloxetine 30 mg capsule,delayed 30 mg PO .q am #30 caps 09/17/24 release trazodone 150 mg tablet 75 - 150 mg (0.5 - 1 x 150 mg) PO 09/17/24 BEDTIME PRN insomnia #30 tabs Allergies Allergy/AdvReac Type Severity Reaction Status Date / Time adhesive Allergy ALGY-Hives Verified 09/17/24 13:38 Review of Systems Const: Denies: fever(s), chills or body aches Card: Denies: chest pain Resp: Denies: dyspnea GI: Reports: abdominal pain; Denies: nausea, vomiting, dysphagia, diarrhea, constipation or GI cramping : Denies: difficulty urinating or dysuria Musc: Denies: neck pain or back pain Neuro: Denies: headache(s) [facility] ED PFSH: Medical History Major depressive disorder, 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 History of spinal fusion Family History Mother , IN HER 60'S Diabetes CAD (coronary artery disease) Psychiatric illness Stroke Cancer UTERINE CANCER Father , AT AGE 56 Cancer PROSTATE Other Family history of premature coronary artery disease Social History Smoking and tobacco/nicotine status: never used tobacco/nicotine Quit status (tobacco/nicotine): has quit using Year quit tobacco: 2019 Former quit date comment: 2 ppd X 40 years Alcohol intake: current Alcohol intake frequency: holidays/special occasions only Alcohol type: beer Substance/Drug Use: never Marital status: Number of children: 2 Number of grandchildren: 3 Education level details: Phlebotomy Current occupational status: disabled Do you think of yourself as: Straight/Heterosexual Rosey/Orthodoxy: Other Physical Exam Const: COMMON NORMALS: no acute distress, patient oriented x3 and alert GENERAL APPEARANCE: cooperative ORIENTATION/CONSCIOUSNESS: Yes awake OTHER: Patient is ambulatory to the exam room unassisted. He is sitting upright on the side of the stretcher in no acute distress. He is able to give history with no difficulty. He is interactive with exam appropriately. Family is at bedside HENMT: COMMON NORMALS: normocephalic, atraumatic and Normal external nose present HEAD & SCALP: normocephalic and atraumatic NOSE: Normal external nose present Eye: GENERAL EYE: appearance normal, both eyes and all related structures Neck/C-Spine: COMMON NORMALS: full ROM Chest: CHEST: Yes Symmetrical chest wall rise Resp: COMMON NORMALS: normal respiratory effort and clear to auscultation bilaterally EFFORT & INSPECTION: Yes able to speak in complete sentences and No respiratory distress AUSCULTATION: clear to auscultation bilaterally Cardio: COMMON NORMALS: regular rate RATE: regular rate GI: COMMON NORMALS: Soft to palpation PALPATION: Yes Soft to palpation, Yes Tenderness to palpation present (GI) Details: LLQ, No Guarding due to palpation present (GI) and No Rigid due to palpation Back/Pelvis: COMMON NORMALS: thoraco-lumbar ROM normal Extremity: COMMON NORMALS: full ROM and capillary refill normal Neuro: COMMON NORMALS: patient oriented x3 SENSORIUM/ORIENTATION: Yes alert Psych: COMMON NORMALS: cooperative Course Vital Signs: Vital signs: Vital Signs Temperature 98.2 F 05/21/25 18:26 Pulse Rate 85 11/04/24 23:39 Respiratory Rate 20 H 11/04/24 23:39 Blood Pressure 115/78 11/04/24 23:39 Pulse Oximetry 96 11/04/24 23:39 Oxygen Delivery Me thod Room Air 11/04/24 20:36 MDM - Abdominal Pain Medical Decision Making 58yo male presents with family for evaluation of left lower quadrant abdominal pain. Patient reports it started approximately 1 month ago with an orgasm, but the pain has worsened over the past week and become progressively severe in the past 3 days. Patient reports that the pain intermittently goes into the right lower quadrant. Patient states the pain worsens with walking as well as with laying back. States that he does take hydrocodone at home, but it has not been helping. Patient reports a history of previous hernia repair. He denies fever, constipation, difficulty passing stool, difficulty passing urine, vomiting, diarrhea, any other concerns at this time. Patient is nontoxic in appearance. Vital signs are stable. Mild leukocytosis with a white blood cell count of 11.45, Comparable to the patient's previous of 11.29 on 07/21/2024. Sodium is very mildly low at 131. Glucose is elevated at 220. ALT is mildly elevated at 49. Alkaline phosphatase is elevated at 166. No renal abnormalities noted. CRP is elevated at 23.4. UA with 3+ glucose. Contrasted CTAP reveals a partial resection of the pancreatic tail with no definite soft tissue mass identified to suggest recurrence, sclerosing mesenteritis, improved from prior study, mild hepatomegaly, marked diastasis recti of abdominal wall. Discussed these findings with patient. Encouraged patient to continue with his home hydrocodone. He did receive ketorolac while in the emergency department. A referral was placed to general surgery for follow-up of the persistent left lower quadrant abdominal pain as well as the sclerosing mesenteritis. Recommend he follow-up with primary care, call Saturday with an update of symptoms and to discuss a recheck. Return precautions provided. Patient states understanding and has no further questions or concerns at this time. Differential Diagnosis Likely abdominal pain, calculus of kidney, constipation, diverticulitis and small bowel obstruction Medical Records I reviewed the patient's medical records. Lab Data I reviewed the patient's lab results. 11/04/24 20:36 11/04/24 20:36 Labs/Radiology: Radiology Impressions Abdomen/Pelvis CT 11/04/24 20:58 IMPRESSION: 1. Status post partial resection of pancreatic tail. No definite soft tissue mass identified to suggest recurrence. 2. Redemonstrated sclerosing mesenteritis, improved from prior study. 3. Status post splenectomy and cholecystectomy. 4. Mild hepatomegaly. 5. Redemonstrated marked diastasis recti of the abdominal wall. Laboratory Results WBC 11.45 10^3/uL (3.29-11.43) H 11/04/24 20:36 RBC 5.96 10^6/uL (3.85-5.65) H 11/04/24 20:36 Hgb 17.10 g/dL (11.27-16.99) H 11/04/24 20:36 Hct 51.8 % (37-53) 11/04/24 20:36 MCV 86.9 fl (82-101) 11/04/24 20:36 MCH 28.7 pg (27-33) 11/04/24 20:36 MCHC 33.0 g/dL (30-55) 11/04/24 20:36 RDW 14.6 % (12.1-15.1) 11/04/24 20:36 Plt Count 402 10^3/cmm (157-399) H 11/04/24 20:36 MPV 10.3 fL (7.4-10.4) 11/04/24 20:36 Neut % (Auto) 63.3 % 11/04/24 20:36 Lymph % (Auto) 25.8 % 11/04/24 20:36 [place] % (Auto) 7.9 % 11/04/24 20:36 Eos % (Auto) 1.6 % 11/04/24 20:36 Baso % (Auto) 0.8 % 11/04/24 20:36 Neut # (Auto) 7.26 10^3/uL (1.8-7.7) 11/04/24 20:36 Lymph # (Auto) 3.0 10^3/uL (0.8-4.8) 11/04/24 20:36 [place] # (Auto) 0.9 10^3/uL (0.2-0.9) 11/04/24 20:36 Eos # (Auto) 0.2 10^3/uL (0.0-0.8) 11/04/24 20:36 Baso # (Auto) 0.1 10^3/uL (0.0-0.1) 11/04/24 20:36 Nucleated RBC % (auto) 0 % 11/04/24 20:36 Nucleated RBCs # 0.0 /100WBC 11/04/24 20:36 Sodium 131 mmol/L (136-145) L 11/04/24 20:36 Potassium 4.8 mmol/L (3.5-5.1) 11/04/24 20:36 Chloride 96 mmol/L (98-107) L 11/04/24 20:36 Carbon Dioxide 23 mmol/L (22-29) 11/04/24 20:36 Anion Gap 16.8 (5-19) 11/04/24 20:36 BUN 20 mg/dL (6-20) 11/04/24 20:36 Creatinine 0.7 mg/dL (0.7-1.2) 11/04/24 20:36 GFR Calculation 115.8 mL/min (90-130) 11/04/24 20:36 Glucose 280 mg/dL (65-115) H 11/04/24 20:36 Calculated Osmolality 285 mOsm/kg (285-295) 11/04/24 20:36 Lactic Acid 1.8 mmol/L (0.5-2.2) 11/04/24 20:36 Calcium 9.4 mg/dL (8.5-10.5) 11/04/24 20:36 Total Bilirubin 0.4 mg/dL (0.15-1.2) 11/04/24 20:36 AST 27 U/L (0-40) 11/04/24 20:36 ALT 49 U/L (0-41) H 11/04/24 20:36 Alkaline Phosphatase 166 U/L (40-130) H 11/04/24 20:36 C-Reactive Protein 23.4 mg/L (0.0-4.9) H 11/04/24 20:36 Total Protein 8.4 g/dL (6.6-8.7) 11/04/24 20:36 Albumin 4.0 g/dL (3.5-5.2) 11/04/24 20:36 Globulin 4.4 g/dL (1.3-4.6) 11/04/24 20:36 Urine Color Yellow (Yellow) 11/04/24 20:24 Urine Appearance Clear (CLEAR) 11/04/24 20:24 Urine pH 5.0 (5-7) 11/04/24 20:24 Ur Specific [place] 1.036 (1.005-1.030) H 11/04/24 20:24 Urine Protein Negative (Negative) 11/04/24 20:24 Urine Glucose (UA) 3+ (Normal) H 11/04/24 20:24 Urine Ketones Negative (Negative) 11/04/24 20:24 Urine Blood Negative (Negative) 11/04/24 20:24 Urine Nitrate Negative (Negative) 11/04/24 20:24 Urine Bilirubin Negative (Negative) 11/04/24 20:24 Urine Urobilinogen 0.2 mg/dL (Negative) 11/04/24 20:24 Ur Leukocyte Esterase Negative (Negative) 11/04/24 20:24 Urine RBC 0-2 /hpf (0-2) 11/04/24 20:24 Urine WBC 0-5 /hpf (0-5) 11/04/24 20:24 Ur Squamous Epith Cells 0-5 /hpf (0-5) 11/04/24 20:24 Amorphous Sediment Not Reportable 11/04/24 20:24 Urine Bacteria None seen /hpf (NONE) 11/04/24 20:24 Hyaline Casts 0-4 /lpf H 11/04/24 20:24 All radiology interpretation(s) finalized by discharge Discharge Plan Discharge Patient Disposition: Home Clinical Impression: Abdominal pain, Sclerosing mesenteritis Condition: Stable Prescriptions: No Action gabapentin 300 mg capsule 300 mg PO BID Qty: 60 1RF lisinopril 2.5 mg tablet 10 mg PO DAILY methocarbamol 500 mg tablet 500 mg PO TID PRN (Reason: muscle spasticity) Qty: 90 1RF duloxetine 30 mg capsule,delayed release(DR/EC) 30 mg PO .q am Qty: 30 2RF Rx Instructions: Take one capsule by mouth every morning trazodone 150 mg tablet 75 - 150 mg PO BEDTIME PRN (Reason: insomnia) Qty: 30 2RF Rx Instructions: Take one-half to one tablet at bedtime, if needed for insomnia (DME) Diabetic shoes with 3 sets of inserts See Rx Instructions .Route .MEDSUPPLY Qty: 1 0RF Rx Instructions: As directed by HOME tamsulosin 0.4 mg capsule 0.4 mg PO DAILY naloxone [Narcan] 4 mg/actuation spray,non-aerosol 1 spray intranasal Q3M Rx Instructions: spray 1 dose into ONE nostril; alternate nostrils w each dose until help arrives albuterol sulfate [ProAir HFA] 90 mcg/actuation HFA aerosol inhaler 2 puff inhalation Q6H PRN (Reason: Shortness Of Breath) Qty: 8.5 4RF metformin 500 mg tablet extended release 24 hr 1,000 mg PO BID 90 Days Qty: 360 0RF Anoro Ellipta 62.5-25 mcg/actuation blister with device 1 inh inhalation DAILY Qty: 60 3RF atorvastatin 20 mg tablet 20 mg PO DAILY hydrocodone-acetaminophen 5-325 mg tablet 1 tab PO .EVERY 4-6 HOURS MDD 3 tabs PRN (Reason: Pain) meloxicam 15 mg tablet 15 mg PO DAILY docusate sodium [Stool Softener] 100 mg Capsule 100 mg PO BID PRN (Reason: Constipation) glimepiride 4 mg tablet 4 mg PO DAILY Rx Instructions: TAKE 1 TABLET BY MOUTH EVERY DAY oxycodone-acetaminophen 7.5-325 mg tablet 1 tab PO Q6H PRN (Reason: pain) Qty: 20 0RF Discharge Orders: Discharge ED (Routine); Ordered 11/04/24 Ordered By: Zay Ro Referrals: Solitario Porter MD [Primary Care Provider, [facility]] Discharge Diet: Usual diet Discharge Activity: Increase activity as tolerated Patient Instructions: Abdominal Pain (ED), Opioid Safety, Pain Management Activity Restrictions/Additional Instructions: There were no acute abnormalities noted on your CT scan today. There was again noted sclerosing mesenteritis Continue with your home pain medications A referral has been placed to general surgery for follow-up of the abdominal pain Your glucose was elevated at 280 today Please follow-up with your primary care, call in the next 1 to 2 days with an update of symptoms, to discuss elevated blood glucose, and to discuss a recheck Return to the emergency department if any rapid worsening symptoms, onset of fever with worsening, and as needed Print Language: Kazakh Coding Level of Care Code ED Will Call Order Clerk for Dilshad Bowens
[2024-11-04] MEDS: ketorolac 30 mg/mL INJ 15 MG IVP (23:32)
[2024-11-04] MEDS: HYDROcodone-acetaminophen 5-325 mg Tablet 1 TAB PO (23:32)
[2024-11-04 23:39] VITALS: BP 115/78; PULSE 85; RESP 20; O2SAT 96
--- NOTE | 2024-11-05 07:30 | PC.NURSE ---
Note sent to General Surgery for follow up.
== END 2024-11-04 23:41 | disposition home or self-care (01) ==
PROVIDERS: Emergency Medicine; Emergency Provider Nurse Practitioner; PCP Family Medicine
DX: R10.9 Unspecified abdominal pain (principal); K65.4 Sclerosing mesenteritis; Z79.84 Long term (current) use of oral hypoglycemic drugs; Z87.891 Personal history of nicotine dependence; J44.9 Chronic obstructive pulmonary disease, unspecified
CPT/HCPCS: 36415; 74177; 80053; 81001; 83605; 85025; 86140; 87040; 93005; 96374; 99285; J1885; J9999

== ENCOUNTER → 2024-11-23 12:40 | Outpatient (BNVA) | payer MEDICAID, SELFPAY ==
[2023-05-02 10:55] VITALS: BP 140/84; BMI 39.2
== END ==
PROVIDERS: PCP Family Medicine; Visit Provider Student in an Organized Health Care Education/Training Program
DX: R10.12 Left upper quadrant pain (principal)
CPT/HCPCS: 99213

== ENCOUNTER 2024-11-27 08:46 | Inpatient (IN) | payer MEDICAID, SELFPAY ==
[2023-05-02 10:55] VITALS: BP 140/84; BMI 39.2
[2024-11-27] VITALS (74 sets, daily range): BP systolic 97–181; BP diastolic 58–121; PULSE 60–98; RESP 12–27; TEMP 36.7–37.5; O2SAT 83–98; BMI 40.1
[2024-11-27 09:02] LABS: Basophils # 0.1 10^3/uL (0.0-0.1); Basophils % 0.5 %; Eosinophils # 0.1 10^3/uL (0.0-0.8); Eosinophils % 1.2 %; Hematocrit 46.8 % (37-53); Lymphocytes # 3.5 10^3/uL (0.8-4.8); Lymphocytes % 29.6 %; Mean Corpuscular HGB Conc 32.3 g/dL (30-55); Mean Corpuscular Hemoglobin 28.8 pg (27-33); Mean Corpuscular Volume 89.1 fl (82-101); Mean Platelet Volume 10.4 fL (7.4-10.4); Monocytes # 1.3 10^3/uL (0.2-0.9); Neutrophils # 6.66 10^3/uL (1.8-7.7); Neutrophils % 57.1 %; Nucleated Red Blood Cells % 0 %; Platelet Count 382 10^3/cmm (157-399); Red Blood Count 5.25 10^6/uL (3.85-5.65); Red Cell Distribution Width 15.2 % (12.1-15.1); White Blood Count 11.66 10^3/uL (3.29-11.43)
--- NOTE | 2024-11-27 09:02 | W.ED.FALL ---
HPI - Fall General: Chief Complaint: Fall Stated Complaint: syncope - neck/back pain Time Seen by Provider: 11/27/24 08:53 Related Data Home Medications ?Medication ?Instructions ?Recorded ?Confirmed docusate sodium 100 mg capsule 100 mg PO BID PRN Constipation 05/03/23 11/23/24 (Stool Softener) hydrocodone 5 mg-acetaminophen 325 1 tab PO .EVERY 4-6 HOURS PRN Pain 05/03/23 11/23/24 mg tablet Held on 08/18/24. Instructions: Resume on 08/23/24. meloxicam 15 mg tablet 15 mg PO DAILY 05/03/23 11/23/24 Held on 08/18/24. Instructions: Resume on 08/20/24. tamsulosin 0.4 mg capsule 0.4 mg PO DAILY unknown 09/03/23 11/23/24 atorvastatin 20 mg tablet 20 mg PO DAILY 01/27/24 11/23/24 lisinopril 2.5 mg tablet 10 mg PO DAILY 01/27/24 11/23/24 naloxone 4 mg/actuation nasal 1 spray intranasal Q3M 01/27/24 11/23/24 spray (Narcan) glimepiride 4 mg tablet 4 mg PO DAILY 08/17/24 11/23/24 Previous Rx's ?Medication ?Instructions ?Recorded gabapentin 300 mg capsule 300 mg PO BID #60 caps 03/17/21 methocarbamol 500 mg tablet 500 mg PO TID PRN muscle 05/09/21 spasticity #90 tabs Diabetic shoes with 3 sets of #1 ea 01/09/22 inserts albuterol sulfate 90 mcg/actuation 2 puff inhalation Q6H PRN 08/29/22 aerosol inhaler (ProAir HFA) Shortness Of Breath #8.5 grams metformin 500 mg tablet,extended 1,000 mg (2 x 500 mg) PO BID 90 11/27/23 release 24 hr days #360 tabs umeclidinium 62.5 mcg-vilanterol 1 inh inhalation DAILY #60 ea 01/29/24 25 mcg/actuation powdr for inhalation (Anoro Ellipta) oxycodone-acetaminophen 7.5 mg-325 1 tab PO Q6H PRN pain #20 tabs 08/18/24 mg tablet duloxetine 30 mg capsule,delayed 30 mg PO .q am #30 caps 09/17/24 release trazodone 150 mg tablet 75 - 150 mg (0.5 - 1 x 150 mg) PO 09/17/24 BEDTIME PRN insomnia #30 tabs Allergies Allergy/AdvReac Type Severity Reaction Status Date / Time adhesive Allergy ALGY-Hives Verified 11/23/24 13:01 [facility] ED PFSH: Medical History Major depressive disorder, 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 History of spinal fusion Family History Mother , IN HER 60'S Diabetes CAD (coronary artery disease) Psychiatric illness Stroke Cancer UTERINE CANCER Father , AT AGE 56 Cancer PROSTATE Other Family history of premature coronary artery disease Social History Smoking and tobacco/nicotine status: never used tobacco/nicotine Quit status (tobacco/nicotine): has quit using Year quit tobacco: 2019 Former quit date comment: 2 ppd X 40 years Alcohol intake: current Alcohol intake frequency: holidays/special occasions only Alcohol type: beer Substance/Drug Use: never Marital status: Number of children: 2 Number of grandchildren: 3 Education level details: Phlebotomy Current occupational status: disabled Do you think of yourself as: Straight/Heterosexual Rosey/Protestant: Other Course Vital Signs: Vital signs: Vital Signs Temperature 98.0 F 11/27/24 08:47 Pulse Rate 76 11/27/24 08:47 Respiratory Rate 19 H 11/27/24 08:47 Blood Pressure 132/79 11/27/24 08:47 Pulse Oximetry 92 11/27/24 08:47 Oxygen Delivery Me thod Room Air 11/27/24 08:47 MDM - Fall Lab Data 11/27/24 08:20 11/27/24 08:20 Discharge Plan Discharge Condition: Stable Prescriptions: No Action gabapentin 300 mg capsule 300 mg PO BID Qty: 60 1RF lisinopril 2.5 mg tablet 10 mg PO DAILY methocarbamol 500 mg tablet 500 mg PO TID PRN (Reason: muscle spasticity) Qty: 90 1RF duloxetine 30 mg capsule,delayed release(DR/EC) 30 mg PO .q am Qty: 30 2RF Rx Instructions: Take one capsule by mouth every morning trazodone 150 mg tablet 75 - 150 mg PO BEDTIME PRN (Reason: insomnia) Qty: 30 2RF Rx Instructions: Take one-half to one tablet at bedtime, if needed for insomnia (DME) Diabetic shoes with 3 sets of inserts See Rx Instructions .Route .MEDSUPPLY Qty: 1 0RF Rx Instructions: As directed by HOME tamsulosin 0.4 mg capsule 0.4 mg PO DAILY naloxone [Narcan] 4 mg/actuation spray,non-aerosol 1 spray intranasal Q3M Rx Instructions: spray 1 dose into ONE nostril; alternate nostrils w each dose until help arrives albuterol sulfate [ProAir HFA] 90 mcg/actuation HFA aerosol inhaler 2 puff inhalation Q6H PRN (Reason: Shortness Of Breath) Qty: 8.5 4RF metformin 500 mg tablet extended release 24 hr 1,000 mg PO BID 90 Days Qty: 360 0RF Anoro Ellipta 62.5-25 mcg/actuation blister with device 1 inh inhalation DAILY Qty: 60 3RF atorvastatin 20 mg tablet 20 mg PO DAILY hydrocodone-acetaminophen 5-325 mg tablet 1 tab PO .EVERY 4-6 HOURS MDD 3 tabs PRN (Reason: Pain) meloxicam 15 mg tablet 15 mg PO DAILY docusate sodium [Stool Softener] 100 mg Capsule 100 mg PO BID PRN (Reason: Constipation) glimepiride 4 mg tablet 4 mg PO DAILY Rx Instructions: TAKE 1 TABLET BY MOUTH EVERY DAY oxycodone-acetaminophen 7.5-325 mg tablet 1 tab PO Q6H PRN (Reason: pain) Qty: 20 0RF Referrals: Solitario Porter MD [Primary Care Provider, Family Practice] Print Language: Romansh Coding Level of Care Code ED Leave Coordinator for Dilshad Bowens
--- NOTE | 2024-11-27 09:09 | CTR_ITS ---
PROCEDURE INFORMATION: Exam: CT Head Without Contrast Exam date and time: 11/27/2024 9:14 AM Age: 58 years old Clinical indication: Stroke-like symptoms; Visual disturbance; Additional info: Symptoms of acute stroke TECHNIQUE: Imaging protocol: Computed tomography of the head without contrast. Radiation optimization: All CT scans at this facility use at least one of these dose optimization techniques: automated exposure control; mA and/or kV adjustment per patient size (includes targeted exams where dose is matched to clinical indication); or iterative reconstruction. Other technique: STROKE PROTOCOL was implemented. COMPARISON: MR head wo con* [id number] 06/19/2021 8:30 AM RADIATION DOSE METRICS: Total DLP (mGy-cm): 1182.98 FINDINGS: Brain: Normal. No hemorrhage. Unremarkable white matter. No mass effect. Ventricles: No hydrocephalus or evidence of increased intracranial pressure. Paranasal sinuses: Visualized sinuses are unremarkable. No fluid levels. Mastoid air cells: Visualized mastoid air cells are well aerated. Bones: Unremarkable. No acute fracture. Soft tissues: Unremarkable. Vasculature: Atherosclerotic calcifications are present involving the carotid artery siphons bilaterally. CT/CT head thrombolytic [id number] IMPRESSION: No acute intracranial abnormality identified. ASSESSMENT: ASPECTS ([place] Stroke Program Early CT Score) is 10.
--- NOTE | 2024-11-27 09:12 | W.ED.NEUROSD ---
HPI - Neuro Symptoms/Deficit General: Chief Complaint: Fall Stated Complaint: syncope - neck/back pain Time Seen by Provider: 11/27/24 08:53 History of Present Illness: 58-year-old male presents to the emergency room after having fallen down. He is very difficult historian. Initially told me when he got up this morning he was fine and then when he got out of his recliner he got dizzy lightheaded and fell backwards. Later when I was trying to get a specific last known well time he gave the fall at around 7:00 but states that is when he first woke up and tried to get out of his recliner. Nursing staff had screened him for CVA however when I went in to evaluate him he had very subtle deficits see notes below. He denies any chest pain. He is not on any anticoagulants. Associated symptoms: Deny chest pain Related Data Home Medications ?Medication ?Instructions ?Recorded ?Confirmed docusate sodium 100 mg capsule 100 mg PO BID PRN Constipation 05/03/23 11/27/24 (Stool Softener) hydrocodone 5 mg-acetaminophen 325 1 tab PO .EVERY 4-6 HOURS PRN Pain 05/03/23 11/27/24 mg tablet Held on 08/18/24. Instructions: Resume on 08/23/24. meloxicam 15 mg tablet 15 mg PO DAILY 05/03/23 11/27/24 Held on 08/18/24. Instructions: Resume on 08/20/24. tamsulosin 0.4 mg capsule 0.4 mg PO DAILY unknown 09/03/23 11/27/24 atorvastatin 20 mg tablet 20 mg PO DAILY 01/27/24 11/27/24 naloxone 4 mg/actuation nasal 1 spray intranasal Q3M 01/27/24 11/27/24 spray (Narcan) glimepiride 4 mg tablet 4 mg PO DAILY 08/17/24 11/27/24 albuterol sulfate 90 mcg/actuation 2 puff inhalation Q4H PRN Wheezing 11/27/24 11/27/24 aerosol inhaler (Ventolin HFA) clonidine HCl 0.1 mg tablet See Rx Instructions .Route .COMPLEX 11/27/24 11/27/24 empagliflozin 25 mg tablet 25 mg PO DAILY 11/27/24 11/27/24 (Jardiance) hydrochlorothiazide 25 mg tablet 25 mg PO QAM blood pressure 11/27/24 11/27/24 lisinopril 30 mg tablet 30 mg PO DAILY 11/27/24 11/27/24 prednisone 20 mg tablet 20 mg PO BID 11/27/24 11/27/24 umeclidinium 62.5 mcg-vilanterol 1 inh inhalation DAILY PRN 11/27/24 11/27/24 25 mcg/actuation powdr for Shortness Of Breath inhalation (Anoro Ellipta) Previous Rx's ?Medication ?Instructions ?Recorded gabapentin 300 mg capsule 300 mg PO BID #60 caps 03/17/21 methocarbamol 500 mg tablet 500 mg PO TID PRN muscle 05/09/21 spasticity #90 tabs Diabetic shoes with 3 sets of #1 ea 01/09/22 inserts metformin 500 mg tablet,extended 1,000 mg (2 x 500 mg) PO BID 90 11/27/23 release 24 hr days #360 tabs duloxetine 30 mg capsule,delayed 30 mg PO .q am #30 caps 09/17/24 release trazodone 150 mg tablet 75 - 150 mg (0.5 - 1 x 150 mg) PO 09/17/24 BEDTIME PRN insomnia #30 tabs Allergies Allergy/AdvReac Type Severity Reaction Status Date / Time adhesive Allergy ALGY-Hives Verified 11/23/24 13:01 Review of Systems Const: Denies: fever(s) or chills Card: Denies: chest pain Resp: Denies: dyspnea GI: Denies: abdominal pain : Denies: dysuria, urinary frequency or urinary urgency Musc: Denies: neck pain or back pain Skin/Breast: Denies: rash PFSH ED PFSH: Medical History Major depressive disorder, 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 History of spinal fusion Family History Mother , IN HER 60'S Diabetes CAD (coronary artery disease) Psychiatric illness Stroke Cancer UTERINE CANCER Father , AT AGE 56 Cancer PROSTATE Other Family history of premature coronary artery disease Social History Smoking and tobacco/nicotine status: never used tobacco/nicotine Quit status (tobacco/nicotine): has quit using Year quit tobacco: 2019 Former quit date comment: 2 ppd X 40 years Alcohol intake: current Alcohol intake frequency: holidays/special occasions only Alcohol type: beer Substance/Drug Use: never Marital status: Number of children: 2 Number of grandchildren: 3 Education level details: Phlebotomy Current occupational status: disabled Do you think of yourself as: Straight/Heterosexual Rosey/Evangelical: Other NIH stroke score NIHSS: Level Of Consciousness - 1a: 0 Level Of Consciousness Questions - 1b: Both Correct Level Of Consciousness Commands - 1c: Both Correct Best Gaze - 2: Partial Gaze Palsy Visual Azul - 3: Complete Hemianopia Facial Palsy - 4: Normal Motor Arm Right - 5: No Drift Motor Arm Left - 5: No Drift Motor Leg Right - 6: No Drift Motor Leg Left - 6: No Drift Limb Ataxia - 7: Absent Sensory - 8: Mild To Moderate Loss Best Language - 9: No Aphasia Dysarthia - 10: Normal Extinction And Inattention - 11: 0 Score: Total Score: 4 Physical Exam Const: GENERAL APPEARANCE: cooperative ORIENTATION/CONSCIOUSNESS: Yes awake, Yes oriented to person, Yes oriented to place and Yes oriented to time HENMT: COMMON NORMALS: normocephalic, atraumatic and hearing grossly normal bilaterally HEAD & SCALP: normocephalic and atraumatic Resp: COMMON NORMALS: normal respiratory effort, No retractions, No use of accessory muscles and clear to auscultation bilaterally AUSCULTATION: clear to auscultation bilaterally Cardio: COMMON NORMALS: regular rate, regular rhythm and No murmurs present (Cardio) RATE: regular rate RHYTHM: regular rhythm GI: COMMON NORMALS: Soft to palpation and No hepatosplenomegaly present AUSCULTATION: Yes normoactive bowel sounds PALPATION: Yes Soft to palpation, No Tenderness to palpation present (GI), No Guarding due to palpation present (GI) and Yes No hepatosplenomegaly present Extremity: COMMON NORMALS: normal to inspection, capillary refill normal, no clubbing, cyanosis or edema, no calf tenderness and no pedal edema Neuro: SENSORIUM/ORIENTATION: Yes oriented to person, Yes oriented to place and Yes oriented to time OTHER: NIH of 4 with a complete hemianopsia Skin: COMMON NORMALS: no rashes or lesions noted GENERAL SKIN EXAM: no rashes or lesions noted Course Vital Signs: Vital signs: Vital Signs Temperature 98.0 F 11/27/24 08:47 Pulse Rate 63 11/27/24 14:35 Respiratory Rate 16 11/27/24 14:35 Blood Pressure 159/104 11/27/24 14:35 Pulse Oximetry 92 11/27/24 14:35 Oxygen Delivery Me thod Room Air 11/27/24 13:30 MDM - Neuro Symptoms/Deficit Medical Decision Making Patient reports that he got out of bed and went from bed to his recliner and did well he is in the recliner for a time then when he went to get out of the recliner was very dizzy and fell. Eventually was able to get his grandson's attention who called to give his and EMS was called. Best as we can tell based on the story his last known well was around [address] Rivera who is available to assist. She conferenced in on the phone with the patient she is recommending to give TNKase based on posterior symptoms NIH score at this time is 4. Patient agrees. Dr. Rivera explained risks to him he still wishes to proceed. Multiple follow-up exams patient's hemianopsia is unchanged. Repeat exams on his arms and legs there is no weakness in the left arm or leg by comparison he is moving well. He still is complaining of some dizziness and headache. Discussed with Dr. Rivera there is an error in administration of the medications and he received 50 mg rather than 25 of TNKase she recommends a follow-up CT head. Patient has not developed any signs of decompensation at this point. Incidental finding of right middle cerebral artery aneurysm no deficits in that field at this time Repeat CT shows a developing area of subacute stroke in the distribution of the right middle cerebral artery. At this time he has almost no symptoms related to that area. I have repeated an NIH and will find any symptoms suggestive that he still has his hemianopsia but he does not have any arm drift or leg drift slight decrease sensation in the left arm compared to the right and on the left side of the face compared to the right. Admit to ICU discussed the case with Dr. Rivera and with Dr. Alberto. CTA did not show any large vessel occlusion Lab Data 11/27/24 08:20 11/27/24 08:20 Radiology Impressions Head/Neck CTA 11/27/24 09:48 IMPRESSION: 1. Right MCA bifurcation aneurysm. 2. No acute intracranial vascular abnormality identified. IMPRESSION: No acute extracranial vascular abnormality identified. REFERENCES: NASCET CRITERIA. The degree of stenosis in the cervical segment of the internal carotid artery is based on NASCET criteria. Normal is no stenosis. Mild is less than 50% stenosis. Moderate is 50-69% stenosis. Severe is 70% to 99% stenosis. Total occlusion is no detectable patent lumen. ADDENDUM: 11/27/24 1122 THIS REPORT CONTAINS FINDINGS THAT MAY BE CRITICAL TO PATIENT CARE. The findings were verbally communicated by me to DR. LIAM HOOKER via telephone conference at 11:21 AM CDT on 11/27/2024. The findings were acknowledged and understood. Ribs X-Ray 11/27/24 12:34 Impression: 1. Old right lateral rib fractures and right midclavicular fracture. 2. Negative for new right rib fractures. 3. Atherosclerosis and blunting of the right costophrenic angle unchanged. Shoulder X-Ray 11/27/24 12:34 Impression: Negative right shoulder. Head CT 11/27/24 13:10 IMPRESSION: 1. Acute right MCA infarction. 2. No acute intracranial abnormality identified. ASSESSMENT: ASPECTS ([place] Stroke Program Early CT Score) is 8. ADDENDUM: 11/27/24 1344 THIS REPORT CONTAINS FINDINGS THAT MAY BE CRITICAL TO PATIENT CARE. The findings were verbally communicated by me to DR. LIAM HOOKER via telephone conference at 1:43 PM CDT on 11/27/2024. The findings were acknowledged and understood. Laboratory Results WBC 11.66 10^3/uL (3.29-11.43) H 11/27/24 08:20 RBC 5.25 10^6/uL (3.85-5.65) 11/27/24 08:20 Hgb 15.10 g/dL (11.27-16.99) 11/27/24 08:20 Hct 46.8 % (37-53) 11/27/24 08:20 MCV 89.1 fl (82-101) 11/27/24 08:20 MCH 28.8 pg (27-33) 11/27/24 08:20 MCHC 32.3 g/dL (30-55) 11/27/24 08:20 RDW 15.2 % (12.1-15.1) H 11/27/24 08:20 Plt Count 382 10^3/cmm (157-399) 11/27/24 08:20 MPV 10.4 fL (7.4-10.4) 11/27/24 08:20 Neut % (Auto) 57.1 % 11/27/24 08:20 Lymph % (Auto) 29.6 % 11/27/24 08:20 Glynn % (Auto) 11.0 % 11/27/24 08:20 Eos % (Auto) 1.2 % 11/27/24 08:20 Baso % (Auto) 0.5 % 11/27/24 08:20 Neut # (Auto) 6.66 10^3/uL (1.8-7.7) 11/27/24 08:20 Lymph # (Auto) 3.5 10^3/uL (0.8-4.8) 11/27/24 08:20 Glynn # (Auto) 1.3 10^3/uL (0.2-0.9) H 11/27/24 08:20 Eos # (Auto) 0.1 10^3/uL (0.0-0.8) 11/27/24 08:20 Baso # (Auto) 0.1 10^3/uL (0.0-0.1) 11/27/24 08:20 Nucleated RBC % (auto) 0 % 11/27/24 08:20 Nucleated RBCs # 0.0 /100WBC 11/27/24 08:20 PT 12.90 SECONDS (12.1-14.9) 11/27/24 08:20 INR 0.91 (0.8-1.2) 11/27/24 08:20 APTT 26.0 SECONDS (23.9-36.7) 11/27/24 08:20 Sodium 136 mmol/L (136-145) 11/27/24 08:20 Potassium 4.5 mmol/L (3.5-5.1) 11/27/24 08:20 Chloride 103 mmol/L (98-107) 11/27/24 08:20 Carbon Dioxide 22 mmol/L (22-29) 11/27/24 08:20 Anion Gap 15.5 (5-19) 11/27/24 08:20 BUN 17 mg/dL (6-20) 11/27/24 08:20 Creatinine 0.7 mg/dL (0.7-1.2) 11/27/24 08:20 GFR Calculation 115.8 mL/min (90-130) 11/27/24 08:20 Glucose 194 mg/dL (65-115) H 11/27/24 08:20 POC Glucose 186 mg/dL (70-110) H 11/27/24 09:34 Calculated Osmolality 289 mOsm/kg (285-295) 11/27/24 08:20 Calcium 8.5 mg/dL (8.5-10.5) 11/27/24 08:20 Total Bilirubin 0.4 mg/dL (0.15-1.2) 11/27/24 08:20 AST 18 U/L (0-40) 11/27/24 08:20 ALT 31 U/L (0-41) 11/27/24 08:20 Alkaline Phosphatase 138 U/L (40-130) H 11/27/24 08:20 Total Protein 7.1 g/dL (6.6-8.7) 11/27/24 08:20 Albumin 3.8 g/dL (3.5-5.2) 11/27/24 08:20 Globulin 3.3 g/dL (1.3-4.6) 11/27/24 08:20 All radiology interpretation(s) finalized by discharge Discharge Plan Discharge Patient Disposition: Admitted As Inpatient Admit Provider: Eldon Alberto Clinical Impression: Posterior circulation stroke, Aneurysm of middle cerebral artery, Right middle cerebral artery stroke Condition: Stable Coding Level of Care Code ED [employer] for Dilshad Bowens
[2024-11-27 09:26] LABS: INR 0.91 (0.8-1.2)
[2024-11-27 09:30] LABS: Alanine Aminotransferase 31 U/L (0-41); Albumin Level 3.8 g/dL (3.5-5.2); Alkaline Phosphatase 138 U/L (40-130); Anion Gap 15.5 (5-19); Aspartate Amino Transferase 18 U/L (0-40); Blood Urea Nitrogen 17 mg/dL (6-20); Calcium 8.5 mg/dL (8.5-10.5); Carbon Dioxide 22 mmol/L (22-29); Chloride 103 mmol/L (98-107); Creatinine Clr Calc Pharmacy 153.9166; Globulin 3.3 g/dL (1.3-4.6); Glomerular Filtration Rate 115.8 mL/min (90-130); Glucose 194 mg/dL (65-115); Osmolality Calculated 289 mOsm/kg (285-295); Potassium 4.5 mmol/L (3.5-5.1); Sodium 136 mmol/L (136-145); Total Bilirubin 0.4 mg/dL (0.15-1.2); Total Protein 7.1 g/dL (6.6-8.7)
--- NOTE | 2024-11-27 09:32 | P.PNCC_ITS ---
Stroke Alert Activation ED Arrival Date: 11/27/24 ED Arrival Time: 08:47 ED Physican at Bedside: 09:02 Last Known Normal/at Baseline: 1-2 hours ago Other Last Known Well Infomation: Dr. Hooker called me for telestroke to assist with the care of this 58 year old man who was normal on waking at 0700 when he walked 40 yards to his recliner and took a nap. When he tried to stand up he fell over and was very dizzy. He presented here with somewhat nonspecific complaints but on screening neuro exam by Dr. Hooker was found to have dense hemianopsia and left neglec t. Dr. Hooker called me to assure rapid response to TNK because the patient had no contra indications. I reviewed his CT scan on the chart and reviewed his chart while he was in CT. I reviewed his exam with Dr. Hooker and on tele (speaker phone) reviewed risks and benefits for TNK with the patient. He gave informed consent. There was an error in TNK administration and the nursing staff have reported this and Dr. Hooker discussed with the patient. He had repeat CT head 4 hours after TNK and no signs of bleeding. He has an unrelated and nonsymptomatic small MCA aneurysm. Stroke Alert Activated by: Dr. Hooker Stroke Alert Activation Date: 11/27/24 Stroke Alert Activation Time: 09:02 Stroke MD @ Bedside Time: 09:05 NIH stroke score NIHSS: Level Of Consciousness - 1a: 0 Level Of Consciousness Questions - 1b: Both Correct Level Of Consciousness Commands - 1c: Both Correct Best Gaze - 2: Partial Gaze Palsy Visual Azul - 3: Complete Hemianopia Facial Palsy - 4: Minor Paralysis Motor Arm Right - 5: No Drift Motor Arm Left - 5: Drift Motor Leg Right - 6: No Drift Motor Leg Left - 6: No Drift Limb Ataxia - 7: Absent Sensory - 8: Normal Best Language - 9: No Aphasia Dysarthia - 10: Mild/Moderate Dysarthia Extinction And Inattention - 11: 1 (sensory) Score: Total Score: 7 Stroke Alert Data/Treatment CT Results Time: 09:09 CT Impression: normal Stroke Risk Factors: hypertension, obesity, diabetes mellitus, smoker (80 pack years) and sleep apnea Patient & Family Educated on: Treament Plan and tPA Risks/Benefits Critical Care Time Critical Care Time: 30 - 74 mins Additional information a bout critical care time: 30 minutes A&P Assessment and plan (1) Acute right arterial ischemic stroke, middle cerebral artery (MCA): 58 year old man with multiple risk factors presents with symptoms and signs of an acute right middle cerebral artery stroke with last known normal time of 0700, a little over [address] head does not show any signs of subltle watt white differentiation loss or any other signs that the stroke is older than indicated by the patient. He has no contraindication to TNK and was able to give informed consent. Risks and benefits covered carefully and TNK bolus was given by nursing, inadvertantly more than indicated so repeat CT oerfoirmed 4 hours later. No bleed but evolving rmca posterior branch stroke present. CTA did not show LVO but does show a small rmca aneurysm, unlikely to be significant to current episode. (2) PATRICIA (obstructive sleep apnea): PDMP PDMP Reviewed: Not Reviewed Coding Level of Care Code Acute Code for [facility] Diagnoses Acute right arterial ischemic stroke, middle cerebral artery (MCA) I63.511 PATIRCIA (obstructive sleep apnea) G47.33
--- NOTE | 2024-11-27 09:39 | ECG_ITS ---
[facility] Test Date: 2024-11-27 Pat Name: Iqra Meredith Department: Room: Gender: Male [employer]: : 1965 Requested By: Liam Babin Order Number: [id number] Maria Guadalupe MD: Vinnie Simms M.D. Measurements Intervals [place] Rate: 67 P: 66 MN: 155 QRS: -26 QRSD: 101 T: 40 QT: 357 QTc: 377 Interpretive Statements SINUS RHYTHM BORDERLINE LEFT AXIS DEVIATION [QRS AXIS < -20] Compared to ECG 11/04/2024 18:33:22 Sinus tachycardia no longer present Left anterior fascicular block no longer present Electronically Signed On 11-27-2024 14:47:07 CDT by Vinnie Simms M.D. [email or web address]
[2024-11-27] MEDS: tenecteplase 50mg Kit (STROKE) 25 MG IVP (09:43)
[2024-11-27 09:48] LABS: Glucose Point of Care 186 mg/dL (70-110)
--- NOTE | 2024-11-27 09:48 | CTR_ITS ---
PROCEDURE INFORMATION: Exam: CTA Head With Contrast, Arteriography Exam date and time: 11/27/2024 10:22 AM Age: 58 years old Clinical indication: Visual disturbance and weakness; Additional info: Acute posterior CVA TECHNIQUE: Imaging protocol: Computed tomographic angiography of the head with contrast. Exam focused on the arteries. 3D rendering (Not supervised by radiologist): MIP reconstructed images were created by the technologist. Radiation optimization: All CT scans at this facility use at least one of these dose optimization techniques: automated exposure control; mA and/or kV adjustment per patient size (includes targeted exams where dose is matched to clinical indication); or iterative reconstruction. Contrast material: OMNI 300; Contrast volume: 100 ml; Contrast route: INTRAVENOUS (IV); COMPARISON: CT head thrombolytic [id number] 11/27/2024 9:14 AM RADIATION DOSE METRICS: Total DLP (mGy-cm): 608.25 FINDINGS: ANTERIOR CIRCULATION: Right internal carotid artery: Right internal carotid artery paraclinoid segment intimal calcification, no stenosis. Right middle cerebral artery: Right MCA bifurcation aneurysm projecting anteriorly and slightly inferiorly, measuring 2.4 x 1.9 x 2.2 mm (series 7, image 127; series 4, image 290; series 6, images 131-132), no evidence of rupture or leakage. No stenosis/occlusion. Right anterior cerebral artery: No occlusion or significant stenosis. No aneurysm. Left internal carotid artery: Left internal carotid artery paraclinoid segment mild calcified smooth plaque with less than 10% stenosis. Left middle cerebral artery: No occlusion or significant stenosis. No aneurysm. Left anterior cerebral artery: No occlusion or significant stenosis. No aneurysm. POSTERIOR CIRCULATION: Right vertebral artery: No occlusion or significant stenosis. No aneurysm. Left vertebral artery: No occlusion or significant stenosis. No aneurysm. Basilar artery: No occlusion or significant stenosis. No aneurysm. Right posterior cerebral artery: Predominately embryonic origin of the right posterior cerebral artery, normal variant. No stenosis/occlusion. Left posterior cerebral artery: No occlusion or significant stenosis. No aneurysm. Brain: No definite mass, mass effect, or midline shift. Ventricles: No hydrocephalus. Bones/joints: No acute abnormality. No acute fracture. Soft tissues: Unremarkable. PROCEDURE INFORMATION: Exam: CTA Neck With Contrast Exam date and time: 11/27/2024 10:22 AM Age: 58 years old Clinical indication: Visual disturbance and weakness; Additional info: Acute posterior CVA TECHNIQUE: Imaging protocol: Computed tomographic angiography of the neck with contrast. Exam focused on the cervical segments of the vasculature. 3D rendering (Not supervised by radiologist): MIP reconstructed images were created by the technologist. Radiation optimization: All CT scans at this facility use at least one of these dose optimization techniques: automated exposure control; mA and/or kV adjustment per patient size (includes targeted exams where dose is matched to clinical indication); or iterative reconstruction. Contrast material: OMNI 300; Contrast volume: 100 ml; Contrast route: INTRAVENOUS (IV); COMPARISON: PT PET skull to thigh SUBS [id number] 04/02/2023 2:15 PM RADIATION DOSE METRICS: Total DLP (mGy-cm): 608.25 FINDINGS: Right common carotid artery: No stenosis. No dissection or occlusion. Right internal carotid artery: No stenosis of the extracranial segment. No dissection or occlusion. Right external carotid artery: No occlusion or stenosis of the origin. Left common carotid artery: No stenosis. No dissection or occlusion. Left internal carotid artery: No stenosis of the extracranial segment. No dissection or occlusion. Left external carotid artery: No occlusion or stenosis of the origin. Right vertebral artery: No stenosis. No dissection or occlusion. Left vertebral artery: No stenosis. No dissection or occlusion. Teeth: Edentulous maxilla. Soft tissues: Normal. No significant soft tissue swelling. Bones/joints: Healed right clavicular fracture. Moderate atlantodental osteoarthritis. C5-6 degenerative disc disease with moderate spondylosis. CT/CT angio headneck* [id number] IMPRESSION: 1. Right MCA bifurcation aneurysm. 2. No acute intracranial vascular abnormality identified. IMPRESSION: No acute extracranial vascular abnormality identified. REFERENCES: NASCET CRITERIA. The degree of stenosis in the cervical segment of the internal carotid artery is based on NASCET criteria. Normal is no stenosis. Mild is less than 50% stenosis. Moderate is 50-69% stenosis. Severe is 70% to 99% stenosis. Total occlusion is no detectable patent lumen.
[2024-11-27] MEDS: iohexol 350 mg/mL 500 mL Btl (per mL) IV (10:32)
[2024-11-27] MEDS: morphine 4 mg/mL SDV 1 mL 2 MG IVP (10:39)
[2024-11-27] MEDS: morphine 4 mg/mL SDV 1 mL IVP (11:17)
--- NOTE | 2024-11-27 12:34 | XR_ITS ---
WS: [id number] Right shoulder, 2 views, 11/27/2024 Clinical Data: trauma Comparison: None. Findings: No fractures or dislocations are seen. The AC joint is normal. The adjacent right clavicle, right scapula and ribs show only a healed mid clavicular fracture. The soft tissues are unremarkable. There is a monitor lead on the chest wall. XR/XR shoulder RT min 2V* [id number] Impression: Negative right shoulder.
--- NOTE | 2024-11-27 12:34 | XR_ITS ---
WS: [id number] Chest with right rib detail, 4 views, 11/27/2024 Clinical Data: trauma Comparison: Portable chest, 05/03/2023 Findings: The lungs show no nodules, masses, or effusions. The heart is enlarged. No pneumonia or pneumothorax is seen. There is slight elevation of the right diaphragm with blunting of the right costophrenic angle. The aortic arch and descending thoracic aorta mild tortuosity. Monitor leads are on the chest wall. There are old right lateral rib fractures and healed midshaft fracture of the right clavicle. Right lateral rib fractures, probably 3 through 7. No new rib fractures are seen. There is no pneumothorax or subcutaneous emphysema. There is a posterior thoracolumbar fusion. There may be right upper quadrant cholecystectomy sutures. XR/XR ribs RT mn 3V w CXR1V [id number] Impression: 1. Old right lateral rib fractures and right midclavicular fracture. 2. Negative for new right rib fractures. 3. Atherosclerosis and blunting of the right costophrenic angle unchanged.
[2024-11-27 12:35] LABS: Bilirubin Urine Negative (Negative); Blood Urine Negative (Negative); Glucose Urine UA 3+ (Normal); Ketones Urine Negative (Negative); Leukocyte Esterase Urine Negative (Negative); Nitrate Urine Negative (Negative); Protein Urine Negative (Negative); Urine Appearance Clear (CLEAR); Urine Color Yellow (Yellow); Urobilinogen Urine 0.2 mg/dL (Negative)
--- NOTE | 2024-11-27 12:35 | PC.NURSE ---
pt family bedside requesting pt have an oral sponge for pt's mouth, this nurse verified with pt's nurse Johanne BARRIENTOS that pt could have, okayed, pt given oral sponge for mouth.
[2024-11-27 12:40] LABS: Add Urine Microscopic? YES; Bacteria Urine None Seen /hpf; Hyaline Casts Urine 0-4 /lpf; RBC Urine 0-2 /hpf (0-2); Squamous Epithelial Cell Urine 0-5 /hpf (0-5); WBC Urine 0-5 /hpf (0-5)
[2024-11-27 12:42] LABS: Amphetamines Screen Urine Negative (Negative); Barbiturates Screen Urine Negative (Negative); Benzodiazepines Screen Urine Negative (Negative); Cocaine Screen Urine Negative (Negative); Opiate Screen Urine Positive (Negative); PCP Screen Urine Negative (Negative); THC Screen Urine Negative (Negative)
[2024-11-27 12:45] LABS: Specific Gravity, Urine 1.049 (1.005-1.030)
--- NOTE | 2024-11-27 13:10 | CTR_ITS ---
PROCEDURE INFORMATION: Exam: CT Head Without Contrast Exam date and time: 11/27/2024 1:10 PM Age: 58 years old Clinical indication: Visual disturbance and weakness, extremity; Left; Additional info: Acute cva/tx tnkase TECHNIQUE: Imaging protocol: Computed tomography of the head without contrast. Radiation optimization: All CT scans at this facility use at least one of these dose optimization techniques: automated exposure control; mA and/or kV adjustment per patient size (includes targeted exams where dose is matched to clinical indication); or iterative reconstruction. COMPARISON: CT angio headneck* [id number] 11/27/2024 10:22 AM RADIATION DOSE METRICS: Total DLP (mGy-cm): 1150.89 FINDINGS: Brain: Developing cytotoxic edema in the inferolateral right temporal lobe. No hemorrhage identified, sparing the frontal operculum, insula, capsular white matter and deep nuclear structures. Ventricles: No hydrocephalus or evidence of increased intracranial pressure. Paranasal sinuses: Visualized sinuses are unremarkable. No fluid levels. Mastoid air cells: Visualized mastoid air cells are well aerated. Bones: Unremarkable. No acute fracture. Soft tissues: Unremarkable. CT/CT head wo con* [id number] IMPRESSION: 1. Acute right MCA infarction. 2. No acute intracranial abnormality identified. ASSESSMENT: ASPECTS ([facility] Stroke Program Early CT Score) is 8.
[2024-11-27] MEDS: LORazepam 1 MG/0.5 ML injection 2 MG IVP (13:26)
--- NOTE | 2024-11-27 14:01 | PC.NURSE ---
Arrived from ED, moved all extremities left hand slightly weaker
--- NOTE | 2024-11-27 14:27 | PM.HP ---
Providers/Chief Complaint Admitting Physician: Eldon Alberto Primary Care Provider: Solitario Porter MD Chief Complaint: syncope - neck/back pain History of Present Illness Iqra Meredith is a 58 year old male with a history of depression, splenectomy, pancreatic insufficiency, pancreatic cancer (diagnosed [id number]), smoking, obesity, COPD, and lumbar back pain with radiculopathy, who presented after falling at home around 7 a.m. The patient initially woke up, ambulated from bed to chair without issue (he frequently transfers between bed and chair due to back issues), then dozed off in the chair. Upon standing, the patient lost balance and fell backward. The patient was unable to get back into the chair. In the emergency room, the patient was found to have new left-sided vision loss (homonymous hemianopsia) and mild left-sided sensory loss. Imaging (CT head) showed no acute bleeding, and a CT angiogram incidentally revealed a right MCA bifurcation aneurysm. The patient received TNK (tenecteplase) for presumed acute stroke, with an inadvertent higher dose than planned, but has not had symptomatic bleeding. The patient reports a new right-sided headache, onset unclear, and denies prior similar headaches. There is no clear recollection of head trauma during the fall. A repeat CT was obtained which did not show bleeding. The patient reports chronic pain and is usually on hydrocodone. There is a history of hernia surgery with mesh placement. The patient has Hx of occasional alcohol intake (beer) and continues to smoke cigarettes. No history of diabetes was reported. Review of Systems Const: Denies: fever(s), chills, body aches or malaise ENMT: Denies: throat pain Card: Denies: chest pain, edema, pre-syncope or dyspnea on exertion Resp: Denies: dyspnea, productive cough, change in phlegm color or hemoptysis GI: Denies: abdominal pain, nausea, vomiting, diarrhea, constipation, hematochezia or melena : Denies: flank pain, difficulty urinating, urinary frequency or hematuria Musc: Denies: back pain, joint swelling or joint redness Skin/Breast: Denies: rash or new lesions Neuro: Reports: sensory changes and other (fall. L hemianopsia); Denies: confusion Medications/Allergies Home Medications ?Medication ?Instructions ?Recorded ?Confirmed ?Last Taken ?Type gabapentin 300 mg capsule 300 mg PO BID #60 caps 03/17/21 11/27/24 11/27/24 Rx methocarbamol 500 mg tablet 500 mg PO TID PRN muscle 05/09/21 11/27/24 12/06/21 Rx spasticity #90 tabs Diabetic shoes with 3 sets of #1 ea 01/09/22 11/27/24 Unknown Rx inserts docusate sodium 100 mg capsule 100 mg PO BID PRN Constipation 05/03/23 11/27/24 Unknown History (Stool Softener) hydrocodone 5 mg-acetaminophen 325 1 tab PO .EVERY 4-6 HOURS PRN Pain 05/03/23 11/27/24 11/27/24 History mg tablet Held on 08/18/24. Instructions: Resume on 08/23/24. meloxicam 15 mg tablet 15 mg PO DAILY 05/03/23 11/27/24 11/27/24 History Held on 08/18/24. Instructions: Resume on 08/20/24. tamsulosin 0.4 mg capsule 0.4 mg PO DAILY unknown 09/03/23 11/27/24 11/27/24 History metformin 500 mg tablet,extended 1,000 mg (2 x 500 mg) PO BID 90 11/27/23 11/27/24 11/27/24 Rx release 24 hr days #360 tabs atorvastatin 20 mg tablet 20 mg PO DAILY 01/27/24 11/27/24 11/27/24 History naloxone 4 mg/actuation nasal 1 spray intranasal Q3M 01/27/24 11/27/24 Unknown History spray (Narcan) glimepiride 4 mg tablet 4 mg PO DAILY 08/17/24 11/27/24 11/27/24 History duloxetine 30 mg capsule,delayed 30 mg PO .q am #30 caps 09/17/24 11/27/24 11/27/24 Rx release trazodone 150 mg tablet 75 - 150 mg (0.5 - 1 x 150 mg) PO 09/17/24 11/27/24 11/26/24 Rx BEDTIME PRN insomnia #30 tabs albuterol sulfate 90 mcg/actuation 2 puff inhalation Q4H PRN Wheezing 11/27/24 11/27/24 Unknown History aerosol inhaler (Ventolin HFA) clonidine HCl 0.1 mg tablet See Rx Instructions .Route .COMPLEX 11/27/24 11/27/24 Unknown History empagliflozin 25 mg tablet 25 mg PO DAILY 11/27/24 11/27/24 11/27/24 History (Jardiance) hydrochlorothiazide 25 mg tablet 25 mg PO QAM blood pressure 11/27/24 11/27/24 11/27/24 History lisinopril 30 mg tablet 30 mg PO DAILY 11/27/24 11/27/24 11/27/24 History prednisone 20 mg tablet 20 mg PO BID 11/27/24 11/27/24 11/27/24 History umeclidinium 62.5 mcg-vilanterol 1 inh inhalation DAILY PRN 11/27/24 11/27/24 11/26/24 History 25 mcg/actuation powdr for Shortness Of Breath inhalation (Anoro Ellipta) Allergies Allergy/AdvReac Type Severity Reaction Status Date / Time adhesive Allergy ALGY-Hives Verified 11/23/24 13:01 PFSH Acute PFSH: Medical History (Updated 11/27/24 @ 17:48 by Eldon Alberto MD) Major depressive disorder, 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 History of spinal fusion Family History Mother , IN HER 60'S Diabetes CAD (coronary artery disease) Psychiatric illness Stroke Cancer UTERINE CANCER Father , AT AGE 56 Cancer PROSTATE Other Family history of premature coronary artery disease Social History Smoking and tobacco/nicotine status: never used tobacco/nicotine Quit status (tobacco/nicotine): has quit using Year quit tobacco: 2020 Former quit date comment: 2 ppd X 40 years Alcohol intake: current Alcohol intake frequency: holidays/special occasions only Alcohol type: beer Substance/Drug Use: never Marital status: Number of children: 2 Number of grandchildren: 3 Education level details: Phlebotomy Current occupational status: disabled Do you think of yourself as: Straight/Heterosexual Rosey/Presybeterian: Other Vitals/I&O/Wt Last Vital Signs Temp 98.0 F 11/27/24 08:47 Pulse 79 11/27/24 14:12 Resp 16 11/27/24 14:12 BP 147/92 11/27/24 14:12 Pulse Ox 90 11/27/24 14:12 O2 Del Method Room Air 11/27/24 13:30 Weight last 48 hrs Weight 127.006 kg Physical Exam Narrative: On first visit patient awake and alert, however, being taken away for repeat CT due to developing headache. Const: COMMON NORMALS: patient oriented x3 and alert GENERAL APPEARANCE: cooperative ORIENTATION/CONSCIOUSNESS: Yes awake HENMT: COMMON NORMALS: oropharynx normal Neck/C-Spine: COMMON NORMALS: no JVD Resp: COMMON NORMALS: normal respiratory effort and clear to auscultation bilaterally AUSCULTATION: clear to auscultation bilaterally Cardio: COMMON NORMALS: no JVD, regular rhythm, S1 normal heart sound present, S2 normal heart sound present and No murmurs present (Cardio) RHYTHM: regular rhythm HEART SOUNDS: S1 normal heart sound present and S2 normal heart sound present GI: COMMON NORMALS: Normal to inspection, nondistended, normoactive bowel sounds present, Soft to palpation and non-tender PALPATION: Yes Soft to palpation Extremity: COMMON NORMALS: no joint enlargement and no pedal edema Neuro: COMMON NORMALS: patient oriented x3 and moves all extremities SENSORIUM/ORIENTATION: Yes alert OTHER: On repeat visit patient somnolent after receiving Ativan with CT head. Wakes up to voice. Does follow directions, but falls asleep easily. Able to track horizontally. Noted left-sided homonymous hemianopsia. No difficulty with FNF on the right. Patient falls asleep for the remainder of the exam. Skin: COMMON NORMALS: no rashes or lesions noted GENERAL SKIN EXAM: no rashes or lesions noted Data 11/27/24 08:20 11/27/24 08:20 A&P Assessment and plan (1) Right middle cerebral artery stroke: Patient presented with acute left-sided homonymous hemianopsia, left-sided sensory loss, and right gaze preference. NIHSS 4. Imaging confirmed right MCA territory stroke without acute bleeding. Stroke code was called, neurology consulted, and patient received TNK (tenecteplase), though at a higher dose than intended. No symptomatic bleeding observed. Plan includes close monitoring, repeat CT scan to rule out hemorrhage, and standard post-thrombolytic care. Reviewed vitals, CBC, INR, PTT, CMP, UA, UDS, CT head, head and neck CTA, repeat head CT. ED provider note, discussed with ER provider, - Monitor neurological status closely - Repeat CT scan of the head to assess for hemorrhage 24h after TNK - Monitor blood pressure. Permissive hypertension per parameters. - Continue standard post-thrombolytic protocol - monitor on telemetry. TTE bubble study. Lipid profile, A1c. Increase statin to high intensity. 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 No other intra- or extracranial vascular abnormalities noted. No acute intervention planned at this time; long-term risk factor modification discussed. - Monitor blood pressure closely - Long-term risk factor modification (smoking cessation, cholesterol management) - Neurosurgery or vascular neurology follow-up as outpatient Plan Headache (new onset, post-TNK) : Patient developed a new right-sided headache after TNK administration. No prior similar headaches. No evidence of acute bleeding on initial CT. Repeat CT without bleeding. Headache may be related to fall. - Repeat CT scan of the head to rule out hemorrhage 24h after TNK - If headache persists, consider reassessment of aneurysm - Monitor for worsening symptoms or new neurological deficits - Symptomatic management as needed History of pancreatic cancer : History of pancreatic cancer diagnosed between 2011 and 2016. No active management discussed in this encounter. Chronic pain (lumbar radiculopathy) : History of lumbar back pain with radiculopathy. Patient reports chronic pain and is usually on hydrocodone. Pain management to be resumed during hospitalization. - Resume hydrocodone for pain control as per prior regimen Obesity : Obesity noted as a chronic condition. No specific management discussed in this encounter. COPD : History of COPD. No acute exacerbation or management discussed in this encounter. Depression : History of depression. No acute psychiatric symptoms or management discussed in this encounter. PDMP PDMP Reviewed: Not Reviewed Attestations Medical Necessity Statement*: Admission, with 2 midnights anticipated for assessment management of right middle cerebral artery stroke status post treatment with TNK. Coding Level of Care Code Critical Care >/= 30 minutes Critical care time (in minutes): 35 The high probability of a clinically significant, sudden or life threatening deterioration, as referenced in this documentation, required my full and direct attention, intervention and personal management. The critical care time shown is in addition to time spent performing any reported separately billable procedures and includes the following: [x] Data and vital sign review and interpretation [x] Patient assessment, examination and intervention [x] Medication orders and management [x] Patient/Family updates as able [x] Care Coordination and Documentation. Diagnoses Right middle cerebral artery stroke I63.511 Aneurysm of middle cerebral artery I67.1
[2024-11-27 18:47] LABS: Glucose Point of Care 162 mg/dL (70-110)
[2024-11-27] MEDS: gabapentin 300 mg Capsule PO (18:55)
[2024-11-27] MEDS: insulin lispro 100 unit/1 mL SUBCUT ×2 (18:55→20:22)
[2024-11-27] MEDS: predniSONE 20 mg Tablet PO (18:56)
[2024-11-27] MEDS: pantoprazole 40 mg SDV IVP (18:56)
[2024-11-27] MEDS: HYDROcodone-acetaminophen 5-325 mg Tablet 1 TAB PO (19:04)
[2024-11-27] MEDS: ondansetron 2 mg/ML SDV 2 mL 4 MG IVP (19:56)
[2024-11-27 20:05] LABS: Glucose Point of Care 159 mg/dL (70-110)
[2024-11-27] MEDS: atorvastatin 40 mg Tablet PO (20:21)
[2024-11-28] VITALS (59 sets, daily range): BP systolic 102–160; BP diastolic 50–84; PULSE 54–94; RESP 12–22; TEMP 36.8–37.7; O2SAT 89–97
[2024-11-28] MEDS: HYDROcodone-acetaminophen 5-325 mg Tablet 1 TAB PO ×4 (00:27→20:51)
[2024-11-28 04:50] LABS: Basophils % 0.2 %; Eosinophils % 0.1 %; Hematocrit 47.1 % (37-53); Lymphocytes # 1.7 10^3/uL (0.8-4.8); Lymphocytes % 12.5 %; Mean Corpuscular HGB Conc 32.3 g/dL (30-55); Mean Corpuscular Hemoglobin 29.3 pg (27-33); Mean Corpuscular Volume 90.8 fl (82-101); Mean Platelet Volume 10.5 fL (7.4-10.4); Monocytes # 0.5 10^3/uL (0.2-0.9); Monocytes % 3.9 %; Neutrophils # 11.17 10^3/uL (1.8-7.7); Neutrophils % 82.8 %; Nucleated Red Blood Cells % 0 %; Platelet Count 374 10^3/cmm (157-399); Red Blood Count 5.19 10^6/uL (3.85-5.65); Red Cell Distribution Width 15.4 % (12.1-15.1); White Blood Count 13.48 10^3/uL (3.29-11.43)
[2024-11-28 05:06] LABS: Estmated Average Glucose 275; Hemoglobin A1C 11.2 % (4.0-6.0)
[2024-11-28 05:08] LABS: Alanine Aminotransferase 36 U/L (0-41); Albumin Level 3.7 g/dL (3.5-5.2); Alkaline Phosphatase 132 U/L (40-130); Blood Urea Nitrogen 14 mg/dL (6-20); Calcium 8.6 mg/dL (8.5-10.5); Carbon Dioxide 22 mmol/L (22-29); Chloride 101 mmol/L (98-107); Globulin 2.9 g/dL (1.3-4.6); Glomerular Filtration Rate 138.4 mL/min (90-130); Glucose 178 mg/dL (65-115); Osmolality Calculated 285 mOsm/kg (285-295); Sodium 135 mmol/L (136-145); Total Bilirubin 0.5 mg/dL (0.15-1.2); Total Protein 6.6 g/dL (6.6-8.7)
[2024-11-28 05:10] LABS: Chol HDL Ratio 2.95 mg/dL (1.0-5.00); Cholesterol 121 mg/dL (0-200); HDL Cholesterol 41 mg/dL (60-100); LDL Cholesterol Calculated 56 mg/dL (50-129); LDL HDL Ratio 1.37 RATIO (0.00-3.22); Triglycerides 120 mg/dL (0-150)
[2024-11-28 05:27] LABS: Anion Gap 17.3 (5-19); Aspartate Amino Transferase 27 U/L (0-40); Potassium 5.3 mmol/L (3.5-5.1)
[2024-11-28 08:05] LABS: Glucose Point of Care 170 mg/dL (70-110)
[2024-11-28] MEDS: pantoprazole 40 mg SDV IVP ×2 (09:02→17:23)
[2024-11-28] MEDS: gabapentin 300 mg Capsule PO ×2 (09:03→17:22)
[2024-11-28] MEDS: predniSONE 20 mg Tablet PO ×2 (09:03→17:22)
[2024-11-28] MEDS: insulin lispro 100 unit/1 mL SUBCUT ×4 (09:03→21:02)
[2024-11-28] MEDS: tamsulosin 0.4 mg Capsule PO (09:03)
--- NOTE | 2024-11-28 09:30 | CTR_ITS ---
PROCEDURE INFORMATION: Exam: CT Head Without Contrast Exam date and time: 11/28/2024 9:37 AM Age: 58 years old Clinical indication: Visual disturbance; Additional info: Acute stroke TECHNIQUE: Imaging protocol: Computed tomography of the head without contrast. Radiation optimization: All CT scans at this facility use at least one of these dose optimization techniques: automated exposure control; mA and/or kV adjustment per patient size (includes targeted exams where dose is matched to clinical indication); or iterative reconstruction. COMPARISON: CT head wo con* [id number] 11/27/2024 1:10 PM RADIATION DOSE METRICS: Total DLP (mGy-cm): 1129.18 FINDINGS: Brain: There has been continued evolution of a right middle cerebral artery territory infarct with increasing hypodensity in areas of petechial change involving primarily the right temporal lobe. There is no midline shift or extra-axial fluid collection. Patchy white matter hypodensity likely represents chronic microvascular ischemic change. Cerebral ventricles: No ventriculomegaly. Paranasal sinuses: Visualized sinuses are unremarkable. No fluid levels. Mastoid air cells: Visualized mastoid air cells are well aerated. Bones: Unremarkable. No acute fracture. Soft tissues: Unremarkable. CT/CT head wo con* [id number] IMPRESSION: Revolving acute right middle cerebral artery territory infarct again noted.
[2024-11-28] MEDS: ondansetron 2 mg/ML SDV 2 mL 4 MG IVP (09:55)
[2024-11-28 10:16] LABS: Iron 49 ug/dL (59-158); Percent Saturation 15.7 % (20-50); Thyroid Stimulating Hormone 0.67 uIU/mL (0.27-4.20); Total Iron Binding Capacity 311 mcg/dl; Unsaturated Iron Binding 262 ug/dL (112-347); Vitamin B12 429 pg/mL (232-1245)
[2024-11-28] MEDS: acetaminophen 325 mg Tablet 650 MG PO (10:51)
[2024-11-28] MEDS: scopolamine 1 mg PATCH 1 PATCH TRANSDERMA (10:51)
[2024-11-28] MEDS: duloxetine 30 mg Capsule PO (11:55)
[2024-11-28 12:37] LABS: Glucose Point of Care 168 mg/dL (70-110)
[2024-11-28] MEDS: nicotine 14 mg Patch 1 PATCH TRANSDERMA (13:21)
[2024-11-28] MEDS: aspirin 81 mg EC Tablet PO (13:21)
--- NOTE | 2024-11-28 13:49 | P.PN_ITS ---
Subjective 2 Subjective: Hospital course, labs appreciated. Patient seen with spouse at bedside. States he is feeling better but complaining of terrible right-sided headache. States headache has been persistent since last night. Denies any nausea, vomiting, headache. Did have vomiting on laying down for CT head. Was able to ambulate well with physical therapy. Vitals/I&O/Wt Last Vital Signs Temp 98.5 F 11/28/24 06:43 Pulse 69 11/28/24 10:51 Resp 16 11/28/24 07:45 BP 116/71 11/28/24 10:51 Pulse Ox 94 11/28/24 07:45 O2 Del Method Nasal Cannula 11/28/24 07:45 O2 Flow Rate 2 11/28/24 07:45 11/27/24 11/28/24 11/28/24 22:59 06:59 14:59 Intake Total 180 / 180 180 / 360 Output Total 800 / 800 1000 / 1800 Balance -620 / -620 -820 / -1440 Weight last 48 hrs Weight 124 kg Weight 125.645 kg Weight 127.006 kg Physical Exam 2 Narrative: On first visit patient awake and alert, however, being taken away for repeat CT for 24 hours post tPA check Const: COMMON NORMALS: patient oriented x3 and alert GENERAL APPEARANCE: c ooperative ORIENTATION/CONSCIOUSNESS: Yes awake HENMT: COMMON NORMALS: oropharynx normal Neck/C-Spine: COMMON NORMALS: no JVD Resp: COMMON NORMALS: normal respiratory effort and clear to auscultation bilaterally AUSCULTATION: clear to auscultation bilaterally Cardio: COMMON NORMALS: no JVD, regular rhythm, S1 normal heart sound present, S2 normal heart sound present and No murmurs present (Cardio) RHYTHM: regular rhythm HEART SOUNDS: S1 normal heart sound present and S2 normal heart sound present GI: COMMON NORMALS: Normal to inspection, nondistended, normoactive bowel sounds present, Soft to palpation and non-tender PALPATION: Yes Soft to palpation Extremity: COMMON NORMALS: no joint enlargement and no pedal edema Neuro: COMMON NORMALS: patient oriented x3 and moves all extremities S ENSORIUM/ORIENTATION: Yes alert Skin: COMMON NORMALS: no rashes or lesions noted GENERAL SKIN EXAM: no rashes or lesions noted Data 11/28/24 04:22 11/28/24 04:22 A&P Assessment and plan (1) Right middle cerebral artery stroke: Post tenecteplase. PT/OT/speech evaluation. Repeat CT 24 hours post tenecteplase negative for acute bleed. Consistent with evolving stroke. Continue with aspirin, statin. Appreciate A1c, lipid panel. Goal blood pressure less than 140/90 mmHg. Uptitrate as per goal blood pressure. 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 No other intra- or extracranial vascular abnormalities noted. No acute intervention planned at this time; long-term risk factor modification discussed. - Monitor blood pressure closely - Long-term risk factor modification (smoking cessation, cholesterol management) - Neurosurgery or vascular neurology follow-up as outpatient (3) Depression: Medical reconciliation appreciated. Restart home dose of duloxetine, trazodone. (4) Type 2 diabetes mellitus: A1c of more than 11. Continue with insulin sliding scale. Depending on insulin requirement in next 24 hours we will plan for Lantus. (5) MEN 1 syndrome: (6) COPD (chronic obstructive pulmonary disease): No active exacerbation. DuoNeb as needed. Oxygen supplementation keeping saturation over 90%. (7) Restrictive lung disease: (8) PATRICIA (obstructive sleep apnea): Plan Headache (new onset, post-TNK) : Patient developed a new right-sided headache after TNK administration. No prior similar headaches. No history of migraines. No evidence of acute bleeding on initial CT. Repeat CT without bleeding. Headache may be related to fall. - Monitor for worsening symptoms or new neurological deficits - Symptomatic management as needed History of pancreatic cancer : History of pancreatic cancer diagnosed between 2011 and 2016. No active management discussed in this encounter. Chronic pain (lumbar radiculopathy) : History of lumbar back pain with radiculopathy. Patient reports chronic pain and is usually on hydrocodone. Pain management to be resumed during hospitalization. - Resume hydrocodone for pain control as per prior regimen. Add tramadol 50 mg every 4 hours as needed. Obesity : Obesity noted as a chronic condition. No specific management discussed in this encounter. COPD : History of COPD. No acute exacerbation or management discussed in this encounter. Depression : History of depression. No acute psychiatric symptoms or management discussed in this encounter. Full code Carb consistent cardiac diet Protonix for PUD prophylaxis SCD for DVT prophylaxis. PDMP PDMP Reviewed: Not Reviewed Attestations 2 Medical Necessity Statement*: Requires further hospitalization for management of acute CVA, post tenecteplase care, aneurysm of MCA, poststroke headache Diagnoses Right middle cerebral artery stroke I63.511 Aneurysm of middle cerebral artery I67.1 Depression F32.9 Type 2 diabetes mellitus E11.9 MEN 1 syndrome E31.21 Centrilobular emphysema J43.2 COPD type: emphysema Emphysema type: centrilobular Restrictive lung disease J98.4 PATRICIA (obstructive sleep apnea) G47.33
--- NOTE | 2024-11-28 14:02 | USCV_ITS ---
Iqra Meredith Age: 58 Gender: M : 1965 Exam Date: 11/28/2024 06:32 Ordering Phys: Eldon Alberto MD Technologist: Kalin Rodriguez [place] [facility] [place]: cva BP: 143 / 73 HR: 56 Rhythm: Sinus Technical Quality: Adequate MEASUREMENTS (Male / Female) Normal Values 2D ECHO LV Diastolic Diameter PLAX 5.3 cm 4.2 - 5.9 / 3.9 - 5.3 cm IVS Diastolic Thickness 1.7 cm 0.6 - 1.0 / 0.6 - 0.9 cm IVS Systolic Thickness 1.6 cm LVPW Diastolic Thickness 1.4 cm 0.6 - 1.0 / 0.6 - 0.9 cm LVPW Systolic Thickness 2.1 cm LVOT Diameter 2.0 cm LV Ejection Fraction 2D Teich 80.0 % LV Ejection Fraction MOD 4C 68.2 % LV Ejection Fraction MOD 2C 64.8 % LV Ejection Fraction 2C AL 63.5 % LA Diameter 4.2 cm RA Systolic Volume 4C AL 39.9 ml RA Systolic Volume 4C MOD 39.8 ml LA Sys Volume AL 69.2 cm cubed LA Sys Volume Index AL 28.3 cm cubed/m squared Aorta at Sinotubular Diameter 2.7 cm M-MODE LA Ao Ratio MM 1.1 AV Cusp Separation MM 2.5 cm DOPPLER AV Peak Velocity 178.0 cm/s LVOT Peak Velocity 147.0 cm/s AV Area Cont Eq vti 2.8 cm squared AV Area Cont Eq pk 2.7 cm squared MV Peak Velocity 97.0 cm/s MV Area PHT 4.3 cm squared Mitral E to A Ratio 1.1 TV Peak Velocity 349.5 cm/s TR Peak Velocity 363.0 cm/s TR Peak Gradient 52.7 mmHg TR Mean Velocity 293.0 cm/s TR Mean Gradient 36.0 mmHg TR Velocity Time Integral 86.9 cm PV Peak Velocity 121.7 cm/s RV Ejection Time 0.3 s FINDINGS Left Ventricle Normal left ventricular size and systolic function, EF 65% . No regional wall motion abnormalities. Right Ventricle The right ventricle is normal in size and function. Right Atrium The right atrium is normal in size. Left Atrium The left atrium is normal in size. Mitral Valve Mild mitral annular calcification. Aortic Valve No gross abnormalities noted Tricuspid Valve Trace tricuspid valve regurgitation. Pulmonic Valve No gross abnormalities noted Pericardium No pericardial effusion. Aorta Normal aortic annulus size. IVC The inferior vena cava appears normal. CONCLUSIONS Normal left ventricular size and systolic function, EF 65% . No regional wall motion abnormalities. Mild mitral annular calcification. Trace tricuspid valve regurgitation. Estimated pulmonary artery peak systolic pressure 30 mmHg There is no pericardial effusion. Could not evaluate for any intracardiac masses, due to poor ultrasonic window Technically somewhat difficult study Dr Sofi Anderson MD FACC (Electronically Signed) Final Date: 28 November 2024 13:23 S
[2024-11-28] MEDS: valproic acid inj 500 MG in sodium chloride 0.9% 50 ML 55 MG IV (16:15)
[2024-11-28] MEDS: TRAMadol 50 mg Tablet PO (17:22)
[2024-11-28 17:30] LABS: Glucose Point of Care 165 mg/dL (70-110)
[2024-11-28] MEDS: atorvastatin 40 mg Tablet PO (20:51)
[2024-11-28 21:00] LABS: Glucose Point of Care 183 mg/dL (70-110)
[2024-11-29] VITALS (29 sets, daily range): BP systolic 102–129; BP diastolic 57–70; PULSE 50–78; RESP 12–29; TEMP 36.7–37.2; O2SAT 91–98
[2024-11-29] MEDS: TRAMadol 50 mg Tablet PO ×3 (00:51→12:09)
[2024-11-29 05:17] LABS: Basophils # 0.1 10^3/uL (0.0-0.1); Basophils % 0.4 %; Eosinophils % 0.1 %; Hematocrit 45.4 % (37-53); Lymphocytes # 2.5 10^3/uL (0.8-4.8); Lymphocytes % 15.7 %; Mean Corpuscular HGB Conc 32.8 g/dL (30-55); Mean Corpuscular Hemoglobin 29.1 pg (27-33); Mean Corpuscular Volume 88.7 fl (82-101); Mean Platelet Volume 10.1 fL (7.4-10.4); Monocytes # 1.4 10^3/uL (0.2-0.9); Neutrophils # 11.63 10^3/uL (1.8-7.7); Neutrophils % 74.4 %; Nucleated Red Blood Cells % 0 %; Platelet Count 351 10^3/cmm (157-399); Red Blood Count 5.12 10^6/uL (3.85-5.65); Red Cell Distribution Width 14.7 % (12.1-15.1); White Blood Count 15.62 10^3/uL (3.29-11.43)
[2024-11-29] MEDS: duloxetine 30 mg Capsule PO (05:32)
[2024-11-29] MEDS: HYDROcodone-acetaminophen 5-325 mg Tablet 1 TAB PO ×2 (05:33→09:33)
[2024-11-29 05:43] LABS: Alanine Aminotransferase 25 U/L (0-41); Albumin Level 3.4 g/dL (3.5-5.2); Alkaline Phosphatase 130 U/L (40-130); Anion Gap 15.7 (5-19); Aspartate Amino Transferase 13 U/L (0-40); Blood Urea Nitrogen 16 mg/dL (6-20); Calcium 8.4 mg/dL (8.5-10.5); Carbon Dioxide 23 mmol/L (22-29); Chloride 98 mmol/L (98-107); Creatinine Clr Calc Pharmacy 151.9603; Globulin 3.5 g/dL (1.3-4.6); Glomerular Filtration Rate 115.8 mL/min (90-130); Glucose 190 mg/dL (65-115); Osmolality Calculated 280 mOsm/kg (285-295); Potassium 4.7 mmol/L (3.5-5.1); Sodium 132 mmol/L (136-145); Total Bilirubin 0.6 mg/dL (0.15-1.2); Total Protein 6.9 g/dL (6.6-8.7)
[2024-11-29 05:50] LABS: Magnesium 2.2 mg/dL (1.7-2.3)
[2024-11-29 05:54] LABS: Folate Level 18.3 ng/mL (4.5-32.2)
[2024-11-29] MEDS: ipratropium-albuterol 3 mL Neb INHALATION (06:37)
[2024-11-29] MEDS: pantoprazole 40 mg SDV IVP (07:34)
[2024-11-29 08:01] LABS: Glucose Point of Care 220 mg/dL (70-110)
[2024-11-29] MEDS: predniSONE 20 mg Tablet PO (08:48)
[2024-11-29] MEDS: aspirin 81 mg EC Tablet PO (08:48)
[2024-11-29] MEDS: tamsulosin 0.4 mg Capsule PO (08:48)
[2024-11-29] MEDS: gabapentin 300 mg Capsule PO (08:48)
[2024-11-29] MEDS: nicotine 14 mg Patch 1 PATCH TRANSDERMA (08:48)
[2024-11-29] MEDS: insulin lispro 100 unit/1 mL SUBCUT ×2 (08:49→12:09)
[2024-11-29] MEDS: ondansetron 2 mg/ML SDV 2 mL 4 MG IVP (09:33)
[2024-11-29 12:02] LABS: Glucose Point of Care 278 mg/dL (70-110)
--- NOTE | 2024-11-29 12:18 | PM.DCS ---
Discharge Providers Date of Admission: 11/27/24 11:56 Date of Discharge: November 29, 2024 Attending Provider at Admission: Eldon Alberto Attending Provider at Discharge: Dash Price MD Consults: Neurology: Dr. Rivera Primary Care Provider: Solitario Porter MD Diagnoses at Discharge Discharge Diagnosis (1) Acute right arterial ischemic stroke, middle cerebral artery (MCA): Status: Acute (2) PATRICIA (obstructive sleep apnea): Status: Acute (3) Major depression: Status: Chronic Qualifiers: Major depression recurrence: recurrent Active/Remission status: currently active Major depression episode severity: mild Qualified Code(s): F33.0 - Major depressive disorder, recurrent, mild (4) Type 2 diabetes mellitus: Status: Acute (5) MEN 1 syndrome: Status: Acute (6) Obesity, Class III, BMI 40-49.9 (morbid obesity): Status: Acute (7) Aneurysm of middle cerebral artery: Status: Acute (8) COPD (chronic obstructive pulmonary disease): Status: Acute Qualifiers: COPD type: emphysema Emphysema type: centrilobular Qualified Code(s): J43.2 - Centrilobular emphysema (9) 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 The patient initially woke up, ambulated from bed to chair without issue (he frequently transfers between bed and chair due to back issues), then dozed off in the chair. Upon standing, the patient lost balance and fell backward. The patient was unable to get back into the chair. In the emergency room, the patient was found to have new left-sided vision loss (homonymous hemianopsia) and mild left-sided sensory loss. Imaging (CT head) showed no acute bleeding, and a CT angiogram incidentally revealed a right MCA bifurcation aneurysm. The patient received TNK (tenecteplase) for presumed acute stroke, with an inadvertent higher dose than planned, but has not had symptomatic bleeding. The patient reports a new right-sided headache, onset unclear, and denies prior similar headaches. There is no clear recollection of head trauma during the fall. A repeat CT was obtained which did not show bleeding. The patient reports chronic pain and is usually on hydrocodone. There is a history of hernia surgery with mesh placement. The patient has Hx of occasional alcohol intake (beer) and continues to smoke cigarettes. No history of diabetes was reported. Patient was admitted to the ICU further evaluation and management and monitoring of tenecteplase for acute right MCA stroke. Repeat CT head was negative for intracranial hemorrhage. During hospitalization he was found to have uncontrolled type 2 diabetes mellitus for which he was started on insulin. He has been discharged in uniquely stable condition with advised to take insulin for diabetes, strict blood sugar and blood pressure control at home with advised for smoking cessation. Patient is agreeable to cut down on smoking and would be sent home on nicotine gums. He is to follow-up with his primary care provider within next 1 week and neurology in 2 weeks. Physical Exam Const: COMMON NORMALS: patient oriented x3 and alert GENERAL APPEARANCE: cooperative ORIENTATION/CONSCIOUSNESS: Yes awake HENMT: COMMON NORMALS: oropharynx normal Neck/C-Spine: COMMON NORMALS: no JVD Resp: COMMON NORMALS: normal respiratory effort and clear to auscultation bilaterally AUSCULTATION: clear to auscultation bilaterally Cardio: COMMON NORMALS: no JVD, regular rhythm, S1 normal heart sound present, S2 normal heart sound present and No murmurs present (Cardio) RHYTHM: regular rhythm HEART SOUNDS: S1 normal heart sound present and S2 normal heart sound present GI: COMMON NORMALS: Normal to inspection, nondistended, normoactive bowel sounds present, Soft to palpation and non-tender PALPATION: Yes Soft to palpation Extremity: COMMON NORMALS: no joint enlargement and no pedal edema Neuro: COMMON NORMALS: patient oriented x3 and moves all extremities SENSORIUM/ORIENTATION: Yes alert Skin: COMMON NORMALS: no rashes or lesions noted GENERAL SKIN EXAM: no rashes or lesions noted Discharge Data Studies Completed and Pending Completed Studies During Hospitalization Category Date Time Status CT angio head neck [CT angio headneck* [id number]] Cat Scan 11/27/24 09:[address] head thrombolytic [id number] Stat Cat Scan 11/27/24 09:[address] head wo con* [id number] Routine Cat Scan 11/27/24 13:[address] head wo con* [id number] Routine Cat Scan 11/28/24 09:30 Completed XR ribs RT mn 3V w CXR1V [id number] Routine Exams 11/27/24 12:34 Completed XR shoulder RT min 2V* [id number] Routine Exams 11/27/24 12:34 Completed CV. echo w/w bubble cont [id number] Routine Ultrasound 11/28/24 14:02 Completed Pending at discharge Category Date Time Status XR chest 1V portable [id number] Routine Exams 11/29/24 11:00 Ordered Complete Blood Count w/Auto AM LABS Lab 11/30/24 04:00 Ordered Comprehensive Metabolic Panel AM LABS Lab 11/30/24 04:00 Ordered MAG [Magnesium] AM LABS Lab 11/30/24 04:00 Ordered MAG [Magnesium] AM LABS Lab 12/01/24 04:00 Ordered Radiology Impressions Head/Neck CTA 11/27/24 09:48 IMPRESSION: 1. Right MCA bifurcation aneurysm. 2. No acute intracranial vascular abnormality identified. IMPRESSION: No acute extracranial vascular abnormality identified. REFERENCES: NASCET CRITERIA. The degree of stenosis in the cervical segment of the internal carotid artery is based on NASCET criteria. Normal is no stenosis. Mild is less than 50% stenosis. Moderate is 50-69% stenosis. Severe is 70% to 99% stenosis. Total occlusion is no detectable patent lumen. ADDENDUM: 11/27/24 1122 THIS REPORT CONTAINS FINDINGS THAT MAY BE CRITICAL TO PATIENT CARE. The findings were verbally communicated by me to DR. SONIA REYES via telephone conference at 11:21 AM CDT on 11/27/2024. The findings were acknowledged and understood. Ribs X-Ray 11/27/24 12:34 Impression: 1. Old right lateral rib fractures and right midclavicular fracture. 2. Negative for new right rib fractures. 3. Atherosclerosis and blunting of the right costophrenic angle unchanged. Shoulder X-Ray 11/27/24 12:34 Impression: Negative right shoulder. Head CT 11/28/24 09:30 IMPRESSION: Revolving acute right middle cerebral artery territory infarct again noted. Echocardiogram: CONCLUSIONS Normal left ventricular size and systolic function, EF 65% . No regional wall motion abnormalities. Mild mitral annular calcification. Trace tricuspid valve regurgitation. Estimated pulmonary artery peak systolic pressure 30 mmHg There is no pericardial effusion. Could not evaluate for any intracardiac masses, due to poor ultrasonic window Technically somewhat difficult study Dr Sofi Anderson MD [facility] (Electronically Signed) Final Date: 28 November 2024 Laboratory Results WBC 15.62 10^3/uL (3.29-11.43) H 11/29/24 04:54 RBC 5.12 10^6/uL (3.85-5.65) 11/29/24 04:54 Hgb 14.90 g/dL (11.27-16.99) 11/29/24 04:54 Hct 45.4 % (37-53) 11/29/24 04:54 MCV 88.7 fl (82-101) 11/29/24 04:54 MCH 29.1 pg (27-33) 11/29/24 04:54 MCHC 32.8 g/dL (30-55) 11/29/24 04:54 RDW 14.7 % (12.1-15.1) 11/29/24 04:54 Plt Count 351 10^3/cmm (157-399) 11/29/24 04:54 MPV 10.1 fL (7.4-10.4) 11/29/24 04:54 Neut % (Auto) 74.4 % 11/29/24 04:54 Lymph % (Auto) 15.7 % 11/29/24 04:54 [place] % (Auto) 9.0 % 11/29/24 04:54 Eos % (Auto) 0.1 % 11/29/24 04:54 Baso % (Auto) 0.4 % 11/29/24 04:54 Neut # (Auto) 11.63 10^3/uL (1.8-7.7) H 11/29/24 04:54 Lymph # (Auto) 2.5 10^3/uL (0.8-4.8) 11/29/24 04:54 [place] # (Auto) 1.4 10^3/uL (0.2-0.9) H 11/29/24 04:54 Eos # (Auto) 0.0 10^3/uL (0.0-0.8) 11/29/24 04:54 Baso # (Auto) 0.1 10^3/uL (0.0-0.1) 11/29/24 04:54 Nucleated RBC % (auto) 0 % 11/29/24 04:54 Nucleated RBCs # 0.0 /100WBC 11/29/24 04:54 PT 12.90 SECONDS (12.1-14.9) 11/27/24 08:20 INR 0.91 (0.8-1.2) 11/27/24 08:20 APTT 26.0 SECONDS (23.9-36.7) 11/27/24 08:20 Sodium 132 mmol/L (136-145) L 11/29/24 04:54 Potassium 4.7 mmol/L (3.5-5.1) 11/29/24 04:54 Chloride 98 mmol/L (98-107) 11/29/24 04:54 Carbon Dioxide 23 mmol/L (22-29) 11/29/24 04:54 Anion Gap 15.7 (5-19) 11/29/24 04:54 BUN 16 mg/dL (6-20) 11/29/24 04:54 Creatinine 0.7 mg/dL (0.7-1.2) 11/29/24 04:54 GFR Calculation 115.8 mL/min (90-130) 11/29/24 04:54 Glucose 190 mg/dL (65-115) H 11/29/24 04:54 POC Glucose 278 mg/dL (70-110) H 11/29/24 11:59 Estimat Average Glucose 275 11/28/24 04:22 Hemoglobin A1c 11.2 % (4.0-6.0) H 11/28/24 04:22 Calculated Osmolality 280 mOsm/kg (285-295) L 11/29/24 04:54 Calcium 8.4 mg/dL (8.5-10.5) L 11/29/24 04:54 Magnesium 2.2 mg/dL (1.7-2.3) 11/29/24 04:54 Iron 49 ug/dL (59-158) L 11/28/24 04:22 TIBC 311 mcg/dl 11/28/24 04:22 % Saturation 15.7 % (20-50) L 11/28/24 04:22 Unsat Iron Binding 262 ug/dL (112-347) 11/28/24 04:22 Total Bilirubin 0.6 mg/dL (0.15-1.2) 11/29/24 04:54 AST 13 U/L (0-40) 11/29/24 04:54 ALT 25 U/L (0-41) 11/29/24 04:54 Alkaline Phosphatase 130 U/L (40-130) 11/29/24 04:54 Total Protein 6.9 g/dL (6.6-8.7) 11/29/24 04:54 Albumin 3.4 g/dL (3.5-5.2) L 11/29/24 04:54 Globulin 3.5 g/dL (1.3-4.6) 11/29/24 04:54 Triglycerides 120 mg/dL (0-150) 11/28/24 04:22 Cholesterol 121 mg/dL (0-200) 11/28/24 04:22 LDL Cholesterol, Calc 56 mg/dL (50-129) 11/28/24 04:22 HDL Cholesterol 41 mg/dL (60-100) L 11/28/24 04:22 LDL/HDL Ratio 1.37 RATIO (0.00-3.22) 11/28/24 04:22 Cholesterol/HDL Ratio 2.95 mg/dL (1.0-5.00) 11/28/24 04:22 Vitamin B12 429 pg/mL (232-1245) 11/28/24 04:22 Folate 18.3 ng/mL (4.5-32.2) 11/29/24 04:54 TSH 0.67 uIU/mL (0.27-4.20) 11/28/24 04:22 Urine Color Yellow (Yellow) 11/27/24 12:07 Urine Appearance Clear (CLEAR) 11/27/24 12:07 Urine pH 5.0 (5-7) 11/27/24 12:07 Ur Specific [place] 1.049 (1.005-1.030) H 11/27/24 12:07 Urine Protein Negative (Negative) 11/27/24 12:07 Urine Glucose (UA) 3+ (Normal) H 11/27/24 12:07 Urine Ketones Negative (Negative) 11/27/24 12:07 Urine Blood Negative (Negative) 11/27/24 12:07 Urine Nitrate Negative (Negative) 11/27/24 12:07 Urine Bilirubin Negative (Negative) 11/27/24 12:07 Urine Urobilinogen 0.2 mg/dL (Negative) 11/27/24 12:07 Ur Leukocyte Esterase Negative (Negative) 11/27/24 12:07 Urine RBC 0-2 /hpf (0-2) 11/27/24 12:07 Urine WBC 0-5 /hpf (0-5) 11/27/24 12:07 Ur Squamous Epith Cells 0-5 /hpf (0-5) 11/27/24 12:07 Amorphous Sediment Not Reportable 11/27/24 12:07 Urine Bacteria None seen /hpf (NONE) 11/27/24 12:07 Hyaline Casts 0-4 /lpf H 11/27/24 12:07 Urine Opiates Screen Positive ng/mL (Negative) H 11/27/24 12:07 Ur Barbiturates Screen Negative ng/mL (Negative) 11/27/24 12:07 Ur Phencyclidine Scrn Negative ng/mL (Negative) 11/27/24 12:07 Ur Amphetamines Screen Negative ng/mL (Negative) 11/27/24 12:07 U Benzodiazepines Scrn Negative ng/mL (Negative) 11/27/24 12:07 Urine Cocaine Screen Negative ng/mL (Negative) 11/27/24 12:07 U Marijuana (THC) Screen Negative ng/mL (Negative) 11/27/24 12:07 Vitals Last Vital Signs Temp 98.1 F 11/29/24 09:23 Pulse 58 L 11/29/24 09:23 Resp 18 11/29/24 09:23 BP 108/66 11/29/24 09:23 Pulse Ox 91 11/29/24 09:00 O2 Del Method Nasal Cannula 11/29/24 09:00 O2 Flow Rate 2 11/29/24 07:44 Discharge Plan Discharge Patient Disposition: Home Condition: Stable Prescriptions: New insulin lispro [Humalog KwikPen Insulin] 100 unit/mL insulin pen See Protocol SUBCUT QPM Qty: 15 0RF Protocol: Insulin Corrective High-Dose Regimen Condition: Fingerstick Blood Glucose Dose/Route: Insulin Units Condition: 141-180 mg/dl Dose/Route: 2 units/SQ Condition: 181-220 mg/dl Dose/Route: 4 units/SQ Condition: 221-260 mg/dl Dose/Route: 4 units/SQ Condition: 261-300 mg/dl Dose/Route: 8 units/SQ Condition: 301-350 mg/dl Dose/Route: 10 units/SQ Condition: 351-400 mg/dl Dose/Route: 12 units/SQ Condition: greater than 400 mg/dl Dose/Route: 14 units/SQ nicotine (polacrilex) 4 mg lozenge 4 mg buccal Q6H PRN (Reason: nicotine cravings) Qty: 72 0RF Continued gabapentin 300 mg capsule 300 mg PO BID Qty: 60 1RF methocarbamol 500 mg tablet 500 mg PO TID PRN (Reason: muscle spasticity) Qty: 90 1RF duloxetine 30 mg capsule,delayed release(DR/EC) 30 mg PO .q am Qty: 30 2RF trazodone 150 mg tablet 75 - 150 mg PO BEDTIME PRN (Reason: insomnia) Qty: 30 2RF (DME) Diabetic shoes with 3 sets of inserts See Rx Instructions .Route .MEDSUPPLY Qty: 1 0RF Rx Instructions: As directed by HOME tamsulosin 0.4 mg capsule 0.4 mg PO DAILY naloxone [Narcan] 4 mg/actuation spray,non-aerosol 1 spray intranasal Q3M Rx Instructions: spray 1 dose into ONE nostril; alternate nostrils w each dose until help arrives lisinopril 30 mg tablet 30 mg PO DAILY albuterol sulfate [Ventolin HFA] 90 mcg/actuation HFA aerosol inhaler 2 puff INHALATION Q4H PRN (Reason: Wheezing) umeclidinium-vilanterol [Anoro Ellipta] 62.5-25 mcg/actuation blister with device 1 inh inhalation DAILY PRN (Reason: Shortness Of Breath) clonidine HCl 0.1 mg tablet See Rx Instructions .ROUTE .COMPLEX Rx Instructions: TAKE 1 TABLET BY MOUTH EVERY 6 HOURS NEEDED FOR sbp greater THAN 170. Jardiance 25 mg tablet 25 mg PO DAILY hydrocodone-acetaminophen 5-325 mg tablet 1 tab PO .EVERY 4-6 HOURS MDD 3 tabs PRN (Reason: Pain) meloxicam 15 mg tablet 15 mg PO DAILY docusate sodium [Stool Softener] 100 mg Capsule 100 mg PO BID PRN (Reason: Constipation) Changed atorvastatin 20 mg tablet 40 mg PO DAILY Qty: 60 0RF Discontinued metformin 500 mg tablet extended release 24 hr 1,000 mg PO BID 90 Days Qty: 360 0RF prednisone 20 mg tablet 20 mg PO BID hydrochlorothiazide 25 mg tablet 25 mg PO QAM glimepiride 4 mg tablet 4 mg PO DAILY Discharge Orders: Discharge Order (Routine); Ordered 11/29/24 Ordered By: Dash Price Referrals: Virginie Rivera MD [Physician, Neurology] - 2 weeks Solitario Porter MD [Primary Care Provider, Family Practice] - 7-10 days Patient Instructions: Opioid Safety Activity Restrictions/Additional Instructions: Please check your blood sugar and blood pressure daily at home. Maintain a blood sugar and blood pressure diary. Goal blood pressure is less than 140/90 MAG. Goal fasting blood sugar is less than 120, Premeal's less than 140. Please follow-up with your primary care provider within next 2 weeks with a blood pressure and sugar diary further adjustment of your medications. Your dose of lisinopril has been continued at 30 mg daily. Dose of metformin, hydrochlorothiazide, prednisone and glimepiride have been discontinued. Take NovoLog Premeal insulin as per sliding scale provided to you before each meal. Please try to continue to stop smoking. You can use nicotine gum for the same. Please follow-up with neurology in 2 weeks. Discharge Attestations Time Spent in Discharge Care*: greater than 30 min Specific Discharge Activities: educating patient, educating and/or supporting family/caregiver, discussing with pcp/other providers, discussing with medical case worker/social workers/dc planners, documenting/other paperwork and evaluating patient/reviewing data Time Spent in Smoking Cessation: more than 10 minutes Status at Discharge: Cognitive status at discharge: cognitively intact, Behavioral status at discharge: cooperative, Functional status at discharge: independent ambulation, Overall status at discharge: patient is back to baseline Quality Metrics Clinical Quality Measures [ Cerebrovascular Accident { Contraindication to Antithrombotic: None; antithrombotic prescribed; Contraindication to Anticoagulation: Overlap treatment not indicated; Contraindication to Statin: None; Statin prescribed; Contraindication to tPA: None; TPA given; Reason stroke education not provided: Stroke education provided to patient; Rehab services assessed: Activities of daily living assessment, Rehabilitation assessment, Physical therapy, Occupational therapy, Speech therapy, Stroke rehabilitation, Other;}] Coding Level of Care Code 49972 Total time (in minutes) for Discharge: 65 Diagnoses Acute right arterial ischemic stroke, middle cerebral artery (MCA) I63.511 PATRICIA (obstructive sleep apnea) G47.33 Mild episode of recurrent major depressive disorder F33.0 Major depression recurrence: recurrent Active/Remission status: currently active Major depression episode severity: mild Type 2 diabetes mellitus E11.9 MEN 1 syndrome E31.21 Obesity, Class III, BMI 40-49.9 (morbid obesity) E66.01 Aneurysm of middle cerebral artery I67.1 Centrilobular emphysema J43.2 COPD type: emphysema Emphysema type: centrilobular 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
--- NOTE | 2024-11-29 13:20 | PC.NURSE ---
Patient ambulated albrecht several times with walker, ambulating in room without walker.
--- NOTE | 2024-11-29 13:21 | PC.NURSE ---
Patient and several family members at bedside educated verbally on medication changes, new medications, and continued medications. Written education also provided. Verbal and written education provided on post stroke instructions, follow up appointments, stop smoking, and S/S to call dr or to call 911. Medications sent to [facility] pharmacy. Patient and family had no questions or complaints at the time of discharge. All belongings with patient, family and this nurse conducted a search of room to ensure this.
--- NOTE | 2024-11-29 14:54 | PC.NURSE ---
[facility] pharmacy called requesting a max daily dose for sliding scale insulin order. Sliding scale from patients discharge orders faxed to [facility] pharmacy, pharmacy called and requested to speak with ordering provider. Dr. Price contacted and he suggested to follow sliding scale. Pharmacy then agreed to follow sliding scale provided.
== END 2024-11-29 13:24 | disposition home or self-care (01) | DRG 62 ==
LOC: ER 10:49 → ICU 11:56
PROVIDERS: Student in an Organized Health Care Education/Training Program; Admitting Provider Internal Medicine; Emergency Provider Family Medicine; PCP Family Medicine; Visit Provider Student in an Organized Health Care Education/Training Program
DX: I63.511 Cerebral infarction due to unspecified occlusion or stenosis of right middle cerebral artery (principal); F33.0 Major depressive disorder, recurrent, mild; I63.9 Cerebral infarction, unspecified; H53.462 Homonymous bilateral field defects, left side; R29.707 NIHSS score 7; G47.33 Obstructive sleep apnea (adult) (pediatric); E11.9 Type 2 diabetes mellitus without complications; E31.21 Multiple endocrine neoplasia [MEN] type I; E66.813 Obesity, class 3; Z68.39 Body mass index [BMI] 39.0-39.9, adult; J43.2 Centrilobular emphysema; I67.1 Cerebral aneurysm, nonruptured; R51.9 Headache, unspecified; M54.16 Radiculopathy, lumbar region; F17.210 Nicotine dependence, cigarettes, uncomplicated; Z85.07 Personal history of malignant neoplasm of pancreas; Z79.84 Long term (current) use of oral hypoglycemic drugs
CPT/HCPCS: 36415; 36416; 70450; 70496; 70498; 71101; 73030; 80053; 80061; 80306; 81001; 82607; 82746; 82962; 83036; 83540; 83550; 83735; 84443; 85025; 85610; 85730; 92610; 93005; 94640; 96372; 96374; 96375; 96376; 97116; 97162; 97167; 97530; 99285; 99291; C8929; J1815; J2060; J2270; J2405; J2470; J3101; J3490; J7512; J9999

== ENCOUNTER 2024-11-30 12:29 | Emergency (ER) | payer MEDICAID, SELFPAY ==
[2023-05-02 10:55] VITALS: BP 140/84; BMI 39.2
[2024-11-30 12:30] VITALS: BP 135/58; PULSE 64; RESP 18; TEMP 36.5; O2SAT 91
--- NOTE | 2024-11-30 12:39 | ECG_ITS ---
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 Measurements Intervals [place] Rate: 62 P: 60 MO: 143 QRS: -36 QRSD: 105 T: 19 QT: 392 QTc: 400 Interpretive Statements SINUS RHYTHM LEFT AXIS DEVIATION [QRS AXIS < -30] Compared to ECG 11/27/2024 09:39:57 No significant changes Electronically Signed On 11-30-2024 21:55:20 CDT by Sofi Anderson M.D. [email or web address]
--- NOTE | 2024-11-30 12:39 | XRR_ITS ---
PROCEDURE INFORMATION: Exam: XR Chest Exam date and time: 11/30/2024 12:46 PM Age: 58 years old Clinical indication: Pain; Chest pressure; Prior surgery; Surgery date: 6+ months; Surgery type: Pancreatic; Additional info: Cp TECHNIQUE: Imaging protocol: Radiologic exam of the chest. Views: 1 view. COMPARISON: CR XR ribs RT mn 3V w CXR1V [id number] 11/27/2024 12:49 PM FINDINGS: Lungs: Pulmonary vessels are within normal limits. Left basilar linear density. Right lung is clear. Pleural spaces: No pneumothorax. Heart/Mediastinum: Cardiomegaly is seen. Bones/joints: Multiple chronic bilateral rib fractures are seen. Postsurgical changes in the lower thoracic spine. Chronic right clavicular fracture. XR/XR chest 1V portable [id number] IMPRESSION: 1. Cardiomegaly. 2. Left basilar linear density. Finding could represent scarring or atelectasis.
--- NOTE | 2024-11-30 12:39 | CT_ITS ---
WS: [id number] CT HEAD TECHNIQUE: Noncontrast CT of the head obtained from the skullbase to the vertex. CLINICAL INFORMATION: mckenna COMPARISON: 11/27/2024 DLP: 1799.[address] scans at [facility] use at least one of these dose optimization techniques: automated exposure control; mA and/or kV adjustment per patient size (includes targeted exams where dose is matched to clinical indication); or iterative reconstruction. FINDINGS: Again seen is the evolving RIGHT MCA territory infarct with edema in the RIGHT MCA territory. This is similar in appearance to 11/28/2024. Minimal mass effect on the RIGHT lateral ventricle. No significant midline shift. No hydrocephalus. Mild mass effect on RIGHT temporal horn. Third ventricle remains patent. No acute hemorrhage. Mild cerebellar tonsillar ectopia unchanged. CT/CT head wo con* [id number] IMPRESSION: 1. Expected evolution of the RIGHT MCA territory infarct with diffuse associat ed edema similar to previous. 2. Minimal mass effect on the RIGHT lateral ventricle. No significant midline shift. 3. No acute hemorrhage. 4. No hydrocephalus.
--- NOTE | 2024-11-30 12:40 | CT_ITS ---
WS: [id number] CTA HEAD AND NECK TECHNIQUE: Contrast enhanced CTA of the head and neck with coronal and sagittal reformatted images and maximum intensity projection (MIP) images. NASCET criteria utilized. CLINICAL INFORMATION: mckenna COMPARISON: None. DLP: 1799.[address] scans at [facility] use at least one of these dose optimization techniques: automated exposure control; mA and/or kV adjustment per patient size (includes targeted exams where dose is matched to clinical indication); or iterative reconstruction. FINDINGS: RIGHT: No significant RIGHT ICA stenosis. RIGHT ICA is patent to the skull base. LEFT: No significant LEFT ICA stenosis. LEFT ICA is patent to the skull base. Codominant and patent vertebral arteries bilaterally. INTRACRANIAL CTA: Small basilar artery is patent. Anterior dominant circulation. Patent posterior communicating arteries bilaterally. 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 Both ICAs are patent at the skull base. Normal vascularity to the IVÁN and LEFT MCA territory. RIGHT M1 segment appears patent. Diffuse decreased vascularity to the area of RIGHT MCA infarct in particular in the RIGHT temporal lobe. CT/CT angio headneck* [id number] IMPRESSION: 1. Both ICAs are patent to the skull base. 2. No proximal flow-limiting intracranial stenosis. 3. Decreased cortical vascularity to the RIGHT MCA territory infarct worse inv olving the RIGHT temporal lobe. 4. RIGHT M1 segment appears patent.
--- NOTE | 2024-11-30 12:43 | ED_ITS ---
HPI - Chest Pain 2 General: Chief Complaint: Chest Pain Stated Complaint: chest pain - headache Time Seen by Provider: 11/30/24 12:38 Source: patient and EMS Mode of arrival: EMS Limitations: no limitations History of Present Illness: 58-year-old male who had recently had a stroke he is seen here on the did get TNKase. Ever since then he has been having headaches he had multiple CTs here while he was admitted did not show any hemorrhage discharged yesterday states his headache is worse and rates it an 8 out of 10. States he had some slight chest pain earlier today that is since resolved. He denies any additional complaints Associated symptoms: Deny abdominal pain, dyspnea, fever(s), nausea or vomiting Related Data Home Medications ?Medication ?Instructions ?Recorded ?Confirmed docusate sodium 100 mg capsule 100 mg PO BID PRN Const ipation 05/03/23 11/27/24 (Stool Softener) hydrocodone 5 mg-acetaminophen 325 1 tab PO .EVERY 4-6 HOURS PRN Pain 05/03/23 11/27/24 mg tablet meloxicam 15 mg tablet 15 mg PO DAILY 05/03/2311/15 tamsulosin 0.4 mg capsule 0.4 mg PO DAILY unknown 08/1511/27/24 naloxone 4 mg/actuation nasal 1 spray intranasal Q3M 0 01/27/24 11/27/24 spray (Narcan) albuterol sulfate 90 mcg/actuation 2 puff inhalation Q 4H PRN Wheezing 11/27/24 11/27/24 aerosol inhaler (Ventolin HFA) clonidine HCl 0.1 mg tablet See Rx Instructions .Route .COMPLEX 11/27/24 11/27/24 empagliflozin 25 mg tablet 25 mg PO DAILY 11/27/24 (Jardiance) lisinopril 30 mg tablet 30 mg PO DAILY 11/27/2411/15 umeclidinium 62.5 mcg-vilanterol 1 inh inhalation ROXANA Y PRN 11/27/24 11/27/24 25 mcg/actuation powdr for Shortness Of Breath inhalation (Anoro Ellipta) Previous Rx's ?Medication ?Instructions ?Recorded gabapentin 300 mg capsule 300 mg PO BID #60 caps 03/17 methocarbamol 500 mg tablet 500 mg PO TID PRN muscle 1 07/09/20 spasticity #90 tabs Diabetic shoes with 3 sets of #1 ea 01/09/22 inserts duloxetine 30 mg capsule,delayed 30 mg PO .q am #30 ca ps 09/17/24 release trazodone 150 mg tablet 75 - 150 mg (0.5 - 1 x 150 m g) PO 09/17/24 BEDTIME PRN insomnia #30 tabs aspirin 81 mg tablet,delayed 81 mg PO DAILY #30 tabs 0 11/29/24 release atorvastatin 20 mg tablet 40 mg (2 x 20 mg) PO DAILY # 60 tabs 11/29/24 insulin lispro 100 unit/mL See Protocol SUBCUT QPM #15 mL 11/29/24 subcutaneous pen (Humalog KwikPen (U-100) Insulin) nicotine (polacrilex) 4 mg buccal 4 mg buccal Q6H PRN nicotine 11/29/24 lozenge cravings #72 ea Allergies Allergy/AdvReac Type Severity Reaction Status Date / Time adhesive Allergy ALGY-Hives Verified 11/23/24 13:01 Review of Systems 2 Const: Denies: fever(s), chills, body aches or change in appetite Eyes: Denies: blurry vision or eye discomfort ENMT: Denies: throat pain or dental pain Card: Reports: chest pain Resp: Denies: dyspnea GI: Denies: abdominal pain, nausea, vomiting or diarrhea Musc: Denies: neck pain or back pain Skin/Breast: Denies: rash Neuro: Reports: headache(s) PFSH ED 2 PFSH: Medical History Neuroendocrine tumor Pancreatic cancer Mass of pancreas Incidentally noted on CTA of the chest done in the ED 08/11/2019 Acute calculous cholecystitis Cholecystitis, acute Type 2 diabetes mellitus MEN 1 syndrome Major depressive disorder, 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 History of spinal fusion Family History Mother , IN HER 60'S Diabetes CAD (coronary artery disease) Psychiatric illness Stroke Cancer UTERINE CANCER Father , AT AGE 56 Cancer PROSTATE Other Family history of premature coronary artery disease Social History Smoking and tobacco/nicotine status: never used tobacco/nicotine Quit status (tobacco/nicotine): has quit using Year quit tobacco: 2020 Former quit date comment: 2 ppd X 40 years Alcohol intake: current Alcohol intake frequency: holidays/special occasions only Alcohol type: beer Substance/Drug Use: never Marital status: Number of children: 2 Number of grandchildren: 3 Education level details: Phlebotomy Current occupational status: disabled Do you think of yourself as: Straight/Heterosexual Rosey/Pentecostalism: Other Physical Exam 2 Const: COMMON NORMALS: no acute distress, patient oriented x3 and healthy appearing HENMT: COMMON NORMALS: normocephalic and atraumatic HEAD & SCALP: n ormocephalic and atraumatic Eye: COMMON NORMALS: Equal, round and reactive pupils present, EOMs intact bilaterally and conjunctivae normal CONJUNCTIVA: Yes conjunctivae normal P UPIL: Yes Equal, round and reactive pupils present Neck/C-Spine: COMMON NORMALS: full ROM and supple Chest: COMMONS NORMALS: normal inspection of the chest and normal palpation of entire chest wall Resp: COMMON NORMALS: normal respiratory effort, No retractions, No use of accessory muscles and clear to auscultation bilaterally AUSCULTATION: clear to auscultation bilaterally Cardio: COMMON NORMALS: regular rate, regular rhythm and No murmurs present (Cardio) RATE: regular rate RHYTHM: regular rhythm GI: COMMON NORMALS: Normal to inspection, nondistended, normoactive bowel sounds present, Soft to palpation, non-tender and no masses PALPATION: Yes Soft to palpation Extremity: COMMON NORMALS: normal to inspection and full ROM Neuro: COMMON NORMALS: patient oriented x3, moves all extremities and no focal motor deficits Psych: COMMON NORMALS: mental status grossly normal, Normal thought process present and cooperative THOUGHT PROCESS: Normal thought process present Skin: COMMON NORMALS: no rashes or lesions noted and no wounds GENERAL SKIN EXAM: no rashes or lesions noted Course 2 Vital Signs: Vital signs: Vital Signs Temperature 97.7 F 11/30/24 12:30 Pulse Rate 73 11/30/24 14:27 Respiratory Rate 16 11/30/24 14:27 Blood Pressure 121/63 11/30/24 14:27 Pulse Oximetry 91 11/30/24 13:51 Oxygen Delivery Me thod Room Air 11/30/24 13:51 Oxygen Flow Rate 3 11/30/24 12:30 MDM - Chest Pain Medical Decision Making Patient presents here with headache has been having headaches since he had a stroke imaging here shows no signs of bleeding and had some slight chest pain that was atypical troponins are negative he stable for discharge follow-up PCP return if worsening. Medical Records I reviewed the patient's medical records. Lab Data I reviewed the patient's lab results. 11/30/24 12:05 11/30/24 12:05 Radiology Impressions Chest X-Ray 11/30/24 12:39 IMPRESSION: 1. Cardiomegaly. 2. Left basilar linear density. Finding could represent scarring or atelectasis. Head CT 11/30/24 12:39 IMPRESSION: 1. Expected evolution of the RIGHT MCA territory infarct with diffuse associated edema similar to previous. 2. Minimal mass effect on the RIGHT lateral ventricle. No significant midline shift. 3. No acute hemorrhage. 4. No hydrocephalus. Head/Neck CTA 11/30/24 12:40 IMPRESSION: 1. Both ICAs are patent to the skull base. 2. No proximal flow-limiting intracranial stenosis. 3. Decreased cortical vascularity to the RIGHT MCA territory infarct worse involving the RIGHT temporal lobe. 4. RIGHT M1 segment appears patent. Laboratory Results WBC 12.67 10^3/uL (3.29-11.43) H 11/30/24 12:05 RBC 5.31 10^6/uL (3.85-5.65) 11/30/24 12:05 Hgb 15.60 g/dL (11.27-16.99) 11/30/24 12:05 Hct 46.9 % (37-53) 11/30/24 12:05 MCV 88.3 fl (82-101) 11/30/24 12:05 MCH 29.4 pg (27-33) 11/30/24 12:05 MCHC 33.3 g/dL (30-55) 11/30/24 12:05 RDW 14.6 % (12.1-15.1) 11/30/24 12:05 Plt Count 389 10^3/cmm (157-399) 11/30/24 12:05 MPV 10.7 fL (7.4-10.4) H 11/30/24 12:05 Neut % (Auto) 63.9 % 11/30/24 12:05 Lymph % (Auto) 23.2 % 11/30/24 12:05 [place] % (Auto) 11.8 % 11/30/24 12:05 Eos % (Auto) 0.3 % 11/30/24 12:05 Baso % (Auto) 0.5 % 11/30/24 12:05 Neut # (Auto) 8.10 10^3/uL (1.8-7.7) H 11/30/24 12:05 Lymph # (Auto) 2.9 10^3/uL (0.8-4.8) 11/30/24 12:05 [place] # (Auto) 1.5 10^3/uL (0.2-0.9) H 11/30/24 12:05 Eos # (Auto) 0.0 10^3/uL (0.0-0.8) 11/30/24 12:05 Baso # (Auto) 0.1 10^3/uL (0.0-0.1) 11/30/24 12:05 Nucleated RBC % (auto) 0 % 11/30/24 12:05 Nucleated RBCs # 0.0 /100WBC 11/30/24 12:05 PT 13.10 SECONDS (12.1-14.9) 11/30/24 12:05 INR 0.93 (0.8-1.2) 11/30/24 12:05 Sodium 133 mmol/L (136-145) L 11/30/24 12:05 Potassium 4.0 mmol/L (3.5-5.1) 11/30/24 12:05 Chloride 95 mmol/L (98-107) L 11/30/24 12:05 Carbon Dioxide 26 mmol/L (22-29) 11/30/24 12:05 Anion Gap 16.0 (5-19) 11/30/24 12:05 BUN 14 mg/dL (6-20) 11/30/24 12:05 Creatinine 0.7 mg/dL (0.7-1.2) 11/30/24 12:05 GFR Calculation 115.8 mL/min (90-130) 11/30/24 12:05 Glucose 199 mg/dL (65-115) H 11/30/24 12:05 Calculated Osmolality 282 mOsm/kg (285-295) L 11/30/24 12:05 Calcium 8.7 mg/dL (8.5-10.5) 11/30/24 12:05 Total Bilirubin 0.6 mg/dL (0.15-1.2) 11/30/24 12:05 AST 25 U/L (0-40) 11/30/24 12:05 ALT 31 U/L (0-41) 11/30/24 12:05 Alkaline Phosphatase 127 U/L (40-130) 11/30/24 12:05 Troponin T Baseline 16 ng/L (0-15) H 11/30/24 12:05 Troponin T 120 Minute 12.62 ng/L (0-15) 11/30/24 14:14 Delta Troponin T -3.38 ABS# (0-10) L 11/30/24 14:14 Total Protein 7.2 g/dL (6.6-8.7) 11/30/24 12:05 Albumin 3.7 g/dL (3.5-5.2) 11/30/24 12:05 Globulin 3.5 g/dL (1.3-4.6) 11/30/24 12:05 Lipase 19 U/L (13-60) 11/30/24 12:05 All radiology interpretation(s) finalized by discharge EKG Data EKG 1: I personally reviewed and interpreted this EKG as follows: EKG interpretation date: 11/30/24 EKG interpretation time: 12:36 Interpretation: nsr hr [address] elevation qrs 105 qtc 398 EKG 2: I personally reviewed and interpreted this EKG as follows: EKG interpretation date: 11/30/24 EKG interpretation time: 14:27 Interpretation: nsr hr [address] elevation qrs 108 qtc 408 Discharge Plan Discharge Patient Disposition: Home Clinical Impression: Headache, Chest pain Condition: Stable Prescriptions: No Action gabapentin 300 mg capsule 300 mg PO BID Qty: 60 1RF methocarbamol 500 mg tablet 500 mg PO TID PRN (Reason: muscle spasticity) Qty: 90 1RF duloxetine 30 mg capsule,delayed release(DR/EC) 30 mg PO .q am Qty: 30 2RF trazodone 150 mg tablet 75 - 150 mg PO BEDTIME PRN (Reason: insomnia) Qty: 30 2RF (DME) Diabetic shoes with 3 sets of inserts See Rx Instructions .Route .MEDSUPPLY Qty: 1 0RF Rx Instructions: As directed by HOME tamsulosin 0.4 mg capsule 0.4 mg PO DAILY naloxone [Narcan] 4 mg/actuation spray,non-aerosol 1 spray intranasal Q3M Rx Instructions: spray 1 dose into ONE nostril; alternate nostrils w each dose until help arrives lisinopril 30 mg tablet 30 mg PO DAILY albuterol sulfate [Ventolin HFA] 90 mcg/actuation HFA aerosol inhaler 2 puff INHALATION Q4H PRN (Reason: Wheezing) umeclidinium-vilanterol [Anoro Ellipta] 62.5-25 mcg/actuation blister with device 1 inh inhalation DAILY PRN (Reason: Shortness Of Breath) clonidine HCl 0.1 mg tablet See Rx Instructions .ROUTE .COMPLEX Rx Instructions: TAKE 1 TABLET BY MOUTH EVERY 6 HOURS NEEDED FOR sbp greater THAN 170. Jardiance 25 mg tablet 25 mg PO DAILY aspirin 81 mg Tablet,Delayed Release (Dr/Ec) 81 mg PO DAILY Qty: 30 0RF insulin lispro [Humalog KwikPen Insulin] 100 unit/mL insulin pen See Protocol SUBCUT QPM Qty: 15 0RF Protocol: Insulin Corrective High-Dose Regimen Condition: Fingerstick Blood Glucose Dose/Route: Insulin Units Condition: 141-180 mg/dl Dose/Route: 2 units/SQ Condition: 181-220 mg/dl Dose/Route: 4 units/SQ Condition: 221-260 mg/dl Dose/Route: 4 units/SQ Condition: 261-300 mg/dl Dose/Route: 8 units/SQ Condition: 301-350 mg/dl Dose/Route: 10 units/SQ Condition: 351-400 mg/dl Dose/Route: 12 units/SQ Condition: greater than 400 mg/dl Dose/Route: 14 units/SQ atorvastatin 20 mg tablet 40 mg PO DAILY Qty: 60 0RF nicotine (polacrilex) 4 mg lozenge 4 mg buccal Q6H PRN (Reason: nicotine cravings) Qty: 72 0RF hydrocodone-acetaminophen 5-325 mg tablet 1 tab PO .EVERY 4-6 HOURS MDD 3 tabs PRN (Reason: Pain) meloxicam 15 mg tablet 15 mg PO DAILY docusate sodium [Stool Softener] 100 mg Capsule 100 mg PO BID PRN (Reason: Constipation) Discharge Orders: Discharge ED (Routine); Ordered 11/30/24 Ordered By: Renetta Latif Referrals: Solitario Porter MD [Primary Care Provider, Family Practice] Discharge Diet: Advance as tolerated Discharge Activity: Resume usual activity Patient Instructions: Chest Pain (ED), General Headache (ED) Print Language: Turkmen Coding Level of Care Code ED 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
[2024-11-30 12:45] LABS: Basophils # 0.1 10^3/uL (0.0-0.1); Basophils % 0.5 %; Eosinophils % 0.3 %; Hematocrit 46.9 % (37-53); Lymphocytes # 2.9 10^3/uL (0.8-4.8); Lymphocytes % 23.2 %; Mean Corpuscular HGB Conc 33.3 g/dL (30-55); Mean Corpuscular Hemoglobin 29.4 pg (27-33); Mean Corpuscular Volume 88.3 fl (82-101); Mean Platelet Volume 10.7 fL (7.4-10.4); Monocytes # 1.5 10^3/uL (0.2-0.9); Monocytes % 11.8 %; Neutrophils % 63.9 %; Nucleated Red Blood Cells % 0 %; Platelet Count 389 10^3/cmm (157-399); Red Blood Count 5.31 10^6/uL (3.85-5.65); Red Cell Distribution Width 14.6 % (12.1-15.1); White Blood Count 12.67 10^3/uL (3.29-11.43)
[2024-11-30 12:50] VITALS: RESP 18; O2SAT 92
[2024-11-30] MEDS: morphine 4 mg/mL SDV 1 mL IVP (12:50)
[2024-11-30] MEDS: ondansetron 2 mg/ML SDV 2 mL 4 MG IVP (12:50)
[2024-11-30 12:54] LABS: INR 0.93 (0.8-1.2)
[2024-11-30] MEDS: iohexol 350 mg/mL 500 mL Btl (per mL) IV (13:03)
[2024-11-30 13:10] LABS: Troponin(5th) Baseline 16 ng/L (0-15)
[2024-11-30 13:12] LABS: Alanine Aminotransferase 31 U/L (0-41); Albumin Level 3.7 g/dL (3.5-5.2); Alkaline Phosphatase 127 U/L (40-130); Aspartate Amino Transferase 25 U/L (0-40); Blood Urea Nitrogen 14 mg/dL (6-20); Calcium 8.7 mg/dL (8.5-10.5); Carbon Dioxide 26 mmol/L (22-29); Chloride 95 mmol/L (98-107); Creatinine Clr Calc Pharmacy 151.2601; Globulin 3.5 g/dL (1.3-4.6); Glomerular Filtration Rate 115.8 mL/min (90-130); Glucose 199 mg/dL (65-115); Lipase 19 U/L (13-60); Osmolality Calculated 282 mOsm/kg (285-295); Sodium 133 mmol/L (136-145); Total Bilirubin 0.6 mg/dL (0.15-1.2); Total Protein 7.2 g/dL (6.6-8.7)
[2024-11-30 13:15] VITALS: BP 116/59; PULSE 69; RESP 16; O2SAT 93
[2024-11-30 13:51] VITALS: BP 130/67; PULSE 83; RESP 16; O2SAT 91
[2024-11-30 14:27] VITALS: BP 121/63; PULSE 73; RESP 16
--- NOTE | 2024-11-30 14:39 | ECG_ITS ---
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 Measurements Intervals [place] Rate: 66 P: 29 VT: 156 QRS: -36 QRSD: 108 T: 18 QT: 394 QTc: 414 Interpretive Statements SINUS RHYTHM LEFT AXIS DEVIATION [QRS AXIS < -30] Compared to ECG 11/30/2024 12:36:29 No significant changes Electronically Signed On 11-30-2024 22:04:13 CDT by Sofi Anderson M.D. [email or web address]
[2024-11-30 14:49] LABS: Troponin 5 2HR 12.62 ng/L (0-15); Troponin 5 2HR Delta -3.38 ABS# (0-10)
[2024-11-30 15:44] VITALS: BP 135/68; PULSE 63; RESP 16; O2SAT 93
--- NOTE | 2024-12-02 08:11 | DCPLANNER ---
Message sent to Neurology -Patient presents here with headache has been having headaches since he had a stroke imaging here shows no signs of bleeding and had some slight chest pain that was atypical troponins are negative he stable for discharge follow-up PCP return if wors
== END 2024-11-30 15:10 | disposition home or self-care (01) ==
PROVIDERS: Emergency Provider Emergency Medicine; PCP Family Medicine
DX: R51.9 Headache, unspecified (principal); R07.9 Chest pain, unspecified; Z79.82 Long term (current) use of aspirin; Z79.4 Long term (current) use of insulin; Z87.891 Personal history of nicotine dependence; J44.9 Chronic obstructive pulmonary disease, unspecified; E11.9 Type 2 diabetes mellitus without complications
CPT/HCPCS: 36415; 70450; 70496; 70498; 71045; 80053; 83690; 84484; 85025; 85610; 93005; 96374; 96375; 99285; J2270; J2405

== ENCOUNTER 2024-12-02 14:47 | Emergency (ER) | payer MEDICAID, SELFPAY ==
[2023-05-02 10:55] VITALS: BP 140/84; BMI 39.2
[2024-12-02 14:55] VITALS: BP 119/71; PULSE 92; RESP 20; TEMP 36.6; O2SAT 94
--- NOTE | 2024-12-02 15:47 | W.ED.HA ---
HPI - Headache General: Chief Complaint: Headache Stated Complaint: STEELE, dizzy Time Seen by Provider: 12/02/24 15:43 Source: patient Mode of arrival: ambulatory Limitations: no limitations History of Present Illness: 58-year-old male who received TNKase for stroke on the has had a headache since then he was seen here 2 days ago had normal imaging then states he still the headaches and 8 out of 10. He denies any other focal deficits currently denies any fevers. Associated symptoms: Deny chest pain, fever(s), nausea, rash or vomiting Related Data Home Medications ?Medication ?Instructions ?Recorded ?Confirmed docusate sodium 100 mg capsule 100 mg PO BID PRN Constipation 05/03/23 11/27/24 (Stool Softener) hydrocodone 5 mg-acetaminophen 325 1 tab PO .EVERY 4-6 HOURS PRN Pain 05/03/23 11/27/24 mg tablet meloxicam 15 mg tablet 15 mg PO DAILY 05/03/23 11/27/24 tamsulosin 0.4 mg capsule 0.4 mg PO DAILY unknown 09/03/23 11/27/24 naloxone 4 mg/actuation nasal 1 spray intranasal Q3M 01/27/24 11/27/24 spray (Narcan) albuterol sulfate 90 mcg/actuation 2 puff inhalation Q4H PRN Wheezing 11/27/24 11/27/24 aerosol inhaler (Ventolin HFA) clonidine HCl 0.1 mg tablet See Rx Instructions .Route .COMPLEX 11/27/24 11/27/24 empagliflozin 25 mg tablet 25 mg PO DAILY 11/27/24 11/27/24 (Jardiance) lisinopril 30 mg tablet 30 mg PO DAILY 11/27/24 11/27/24 umeclidinium 62.5 mcg-vilanterol 1 inh inhalation DAILY PRN 11/27/24 11/27/24 25 mcg/actuation powdr for Shortness Of Breath inhalation (Anoro Ellipta) Previous Rx's ?Medication ?Instructions ?Recorded gabapentin 300 mg capsule 300 mg PO BID #60 caps 03/17/21 methocarbamol 500 mg tablet 500 mg PO TID PRN muscle 05/09/21 spasticity #90 tabs Diabetic shoes with 3 sets of #1 ea 01/09/22 inserts duloxetine 30 mg capsule,delayed 30 mg PO .q am #30 caps 09/17/24 release trazodone 150 mg tablet 75 - 150 mg (0.5 - 1 x 150 mg) PO 09/17/24 BEDTIME PRN insomnia #30 tabs aspirin 81 mg tablet,delayed 81 mg PO DAILY #30 tabs 11/29/24 release atorvastatin 20 mg tablet 40 mg (2 x 20 mg) PO DAILY #60 tabs 11/29/24 insulin lispro 100 unit/mL See Protocol SUBCUT QPM #15 mL 11/29/24 subcutaneous pen (Humalog KwikPen (U-100) Insulin) nicotine (polacrilex) 4 mg buccal 4 mg buccal Q6H PRN nicotine 11/29/24 lozenge cravings #72 ea hydrocodone 5 mg-acetaminophen 325 1 tab PO Q6H PRN pain #14 tabs 12/02/24 mg tablet Allergies Allergy/AdvReac Type Severity Reaction Status Date / Time adhesive Allergy ALGY-Hives Verified 12/02/24 15:01 Review of Systems Const: Denies: fever(s), chills, body aches or change in appetite ENMT: Denies: throat pain or dental pain Card: Denies: chest pain Resp: Denies: dyspnea GI: Denies: abdominal pain, nausea, vomiting or diarrhea Musc: Denies: neck pain or back pain Skin/Breast: Denies: rash Neuro: Reports: headache(s) [facility] ED PFSH: Medical History Neuroendocrine tumor Pancreatic cancer Mass of pancreas Incidentally noted on CTA of the chest done in the ED 08/11/2019 Acute calculous cholecystitis Cholecystitis, acute Type 2 diabetes mellitus MEN 1 syndrome Major depressive disorder, 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 History of spinal fusion Family History Mother , IN HER 60'S Diabetes CAD (coronary artery disease) Psychiatric illness Stroke Cancer UTERINE CANCER Father , AT AGE 56 Cancer PROSTATE Other Family history of premature coronary artery disease Social History Smoking and tobacco/nicotine status: never used tobacco/nicotine Quit status (tobacco/nicotine): has quit using Year quit tobacco: 2019 Former quit date comment: 2 ppd X 40 years Alcohol intake: current Alcohol intake frequency: holidays/special occasions only Alcohol type: beer Substance/Drug Use: never Marital status: Number of children: 2 Number of grandchildren: 3 Education level details: Phlebotomy Current occupational status: disabled Do you think of yourself as: Straight/Heterosexual Rosey/Hoahaoism: Other Physical Exam Const: COMMON NORMALS: no acute distress, patient oriented x3 and healthy appearing HENMT: COMMON NORMALS: normocephalic and atraumatic HEAD & SCALP: normocephalic and atraumatic Eye: COMMON NORMALS: Equal, round and reactive pupils present, EOMs intact bilaterally and conjunctivae normal CONJUNCTIVA: Yes conjunctivae normal PUPIL: Yes Equal, round and reactive pupils present Neck/C-Spine: COMMON NORMALS: full ROM and supple Chest: COMMONS NORMALS: normal inspection of the chest Resp: COMMON NORMALS: normal respiratory effort Cardio: COMMON NORMALS: regular rate, regular rhythm and No murmurs present (Cardio) RATE: regular rate RHYTHM: regular rhythm Extremity: COMMON NORMALS: normal to inspection and full ROM Neuro: COMMON NORMALS: patient oriented x3, moves all extremities and no focal motor deficits Psych: COMMON NORMALS: mental status grossly normal, Normal thought process present and cooperative THOUGHT PROCESS: Normal thought process present Skin: COMMON NORMALS: no rashes or lesions noted and no wounds GENERAL SKIN EXAM: no rashes or lesions noted Course Vital Signs: Vital signs: Vital Signs Temperature 97.8 F 12/02/24 14:55 Pulse Rate 87 12/02/24 16:03 Respiratory Rate 16 12/02/24 16:03 Blood Pressure 143/73 12/02/24 15:48 Pulse Oximetry 93 12/02/24 16:03 Oxygen Delivery Me thod Room Air 12/02/24 14:55 MDM - Headache Medical Decision Making Patient presents with headaches likely from his stroke he has had multiple head CTs he has no signs of a bleed here he stable for discharge follow-up PCP return if worsening Medical Records I reviewed the patient's medical records. No radiology studies performed this visit Discharge Plan Discharge Patient Disposition: Home Clinical Impression: Headache Condition: Stable Prescriptions: New hydrocodone-acetaminophen 5-325 mg tablet 1 tab PO Q6H PRN (Reason: pain) Qty: 14 0RF No Action gabapentin 300 mg capsule 300 mg PO BID Qty: 60 1RF methocarbamol 500 mg tablet 500 mg PO TID PRN (Reason: muscle spasticity) Qty: 90 1RF duloxetine 30 mg capsule,delayed release(DR/EC) 30 mg PO .q am Qty: 30 2RF trazodone 150 mg tablet 75 - 150 mg PO BEDTIME PRN (Reason: insomnia) Qty: 30 2RF (DME) Diabetic shoes with 3 sets of inserts See Rx Instructions .Route .MEDSUPPLY Qty: 1 0RF Rx Instructions: As directed by HOME tamsulosin 0.4 mg capsule 0.4 mg PO DAILY naloxone [Narcan] 4 mg/actuation spray,non-aerosol 1 spray intranasal Q3M Rx Instructions: spray 1 dose into ONE nostril; alternate nostrils w each dose until help arrives lisinopril 30 mg tablet 30 mg PO DAILY albuterol sulfate [Ventolin HFA] 90 mcg/actuation HFA aerosol inhaler 2 puff INHALATION Q4H PRN (Reason: Wheezing) umeclidinium-vilanterol [Anoro Ellipta] 62.5-25 mcg/actuation blister with device 1 inh inhalation DAILY PRN (Reason: Shortness Of Breath) clonidine HCl 0.1 mg tablet See Rx Instructions .ROUTE .COMPLEX Rx Instructions: TAKE 1 TABLET BY MOUTH EVERY 6 HOURS NEEDED FOR sbp greater THAN 170. Jardiance 25 mg tablet 25 mg PO DAILY aspirin 81 mg Tablet,Delayed Release (Dr/Ec) 81 mg PO DAILY Qty: 30 0RF insulin lispro [Humalog KwikPen Insulin] 100 unit/mL insulin pen See Protocol SUBCUT QPM Qty: 15 0RF Protocol: Insulin Corrective High-Dose Regimen Condition: Fingerstick Blood Glucose Dose/Route: Insulin Units Condition: 141-180 mg/dl Dose/Route: 2 units/SQ Condition: 181-220 mg/dl Dose/Route: 4 units/SQ Condition: 221-260 mg/dl Dose/Route: 4 units/SQ Condition: 261-300 mg/dl Dose/Route: 8 units/SQ Condition: 301-350 mg/dl Dose/Route: 10 units/SQ Condition: 351-400 mg/dl Dose/Route: 12 units/SQ Condition: greater than 400 mg/dl Dose/Route: 14 units/SQ atorvastatin 20 mg tablet 40 mg PO DAILY Qty: 60 0RF nicotine (polacrilex) 4 mg lozenge 4 mg buccal Q6H PRN (Reason: nicotine cravings) Qty: 72 0RF hydrocodone-acetaminophen 5-325 mg tablet 1 tab PO .EVERY 4-6 HOURS MDD 3 tabs PRN (Reason: Pain) meloxicam 15 mg tablet 15 mg PO DAILY docusate sodium [Stool Softener] 100 mg Capsule 100 mg PO BID PRN (Reason: Constipation) Discharge Orders: Discharge ED (Routine); Ordered 12/02/24 Ordered By: Renetta Latif Referrals: Solitario Porter MD [Primary Care Provider, Family Practice] - 4-7 days Discharge Diet: Advance as tolerated Discharge Activity: Resume usual activity Patient Instructions: Headache Print Language: Djiboutian Coding Level of Care Code ED 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
[2024-12-02 15:48] VITALS: BP 143/73; O2SAT 91
[2024-12-02] MEDS: diphenhydrAMINE 50 mg/mL SDV 1mL IVP (15:58)
[2024-12-02] MEDS: metoclopramide 5 mg/mL SDV 2 mL 10 MG IVP (15:58)
[2024-12-02 15:59] VITALS: RESP 16
[2024-12-02] MEDS: meclizine 25 mg tablet 50 MG PO (15:59)
[2024-12-02] MEDS: morphine 4 mg/mL SDV 1 mL IVP (15:59)
[2024-12-02 16:03] VITALS: PULSE 87; RESP 16; O2SAT 93
== END 2024-12-02 16:27 | disposition home or self-care (01) ==
PROVIDERS: Emergency Provider Emergency Medicine; PCP Family Medicine
DX: R51.9 Headache, unspecified (principal); Z79.82 Long term (current) use of aspirin; Z79.4 Long term (current) use of insulin; Z87.891 Personal history of nicotine dependence; E11.9 Type 2 diabetes mellitus without complications; J44.9 Chronic obstructive pulmonary disease, unspecified; Z85.07 Personal history of malignant neoplasm of pancreas
CPT/HCPCS: 96374; 96375; 99284; J1200; J2270; J2765; J8597

== ENCOUNTER 2024-12-11 18:17 | Emergency (ER) | payer MEDICAID, SELFPAY ==
[2023-05-02 10:55] VITALS: BP 140/84; BMI 39.2
[2024-12-11 18:23] VITALS: BP 92/63; PULSE 105; RESP 18; TEMP 37.2; O2SAT 91; BMI 37.3
== END 2024-12-11 19:35 | disposition left against medical advice (07) ==
PROVIDERS: Emergency Provider Family Medicine; PCP Family Medicine
DX: Z53.21 Procedure and treatment not carried out due to patient leaving prior to being seen by health care provider (principal)

== ENCOUNTER 2024-12-28 10:23 | Outpatient (CLI) | payer OTHER, MEDICAID, SELFPAY ==
[2023-05-02 10:55] VITALS: BP 140/84; BMI 39.2
[2024-12-28 11:55] LABS: Estmated Average Glucose 243; Hemoglobin A1C 10.1 % (4.0-6.0)
[2024-12-28 12:04] LABS: Alanine Aminotransferase 40 U/L (0-41); Albumin Level 3.4 g/dL (3.5-5.2); Alkaline Phosphatase 138 U/L (40-130); Anion Gap 16.4 (5-19); Aspartate Amino Transferase 29 U/L (0-40); Blood Urea Nitrogen 10 mg/dL (6-20); Calcium 8.3 mg/dL (8.5-10.5); Carbon Dioxide 23 mmol/L (22-29); Chloride 104 mmol/L (98-107); Cholesterol 126 mg/dL (0-200); Globulin 3.3 g/dL (1.3-4.6); Glucose 231 mg/dL (65-115); HDL Cholesterol 39 mg/dL (60-100); Osmolality Calculated 294 mOsm/kg (285-295); Potassium 4.4 mmol/L (3.5-5.1); Sodium 139 mmol/L (136-145); Total Protein 6.7 g/dL (6.6-8.7); Triglycerides 160 mg/dL (0-150)
[2024-12-28 12:04] LABS: Creatinine Urine, Random 43 mg/dL (39-259); Microalbum Creatinine Ratio Ur 23 mg/dL (0-20)
== END 2024-12-28 10:24 | disposition home or self-care (01) ==
LOC: LAB 10:26
PROVIDERS: PCP Family Medicine; Visit Provider Internal Medicine
DX: E11.9 Type 2 diabetes mellitus without complications (principal); D3A.8 Other benign neuroendocrine tumors; E55.9 Vitamin D deficiency, unspecified; I89.9 Noninfective disorder of lymphatic vessels and lymph nodes, unspecified
CPT/HCPCS: 36415; 80053; 80061; 82044; 82306; 83036

== ENCOUNTER → 2025-01-05 09:28 | Outpatient (BNVA) | payer MEDICAID, SELFPAY ==
[2023-05-02 10:55] VITALS: BP 140/84; BMI 39.2
== END ==
PROVIDERS: PCP Family Medicine; Visit Provider Internal Medicine
DX: E11.9 Type 2 diabetes mellitus without complications (principal); D3A.8 Other benign neuroendocrine tumors; E55.9 Vitamin D deficiency, unspecified
CPT/HCPCS: 99214

== ENCOUNTER 2025-01-05 12:04 | Outpatient (CLI) | payer MEDICAID, SELFPAY ==
[2023-05-02 10:55] VITALS: BP 140/84; BMI 39.2
--- NOTE | 2025-01-05 12:25 | XR_ITS ---
WS: [id number] Lumbar spine, 6 views including obliques and lateral views in flexion, extension and neutral position, 01/05/2025. Clinical Data: LUMBOSACRAL SPONDYLOSIS Comparison: Lumbar spine, 10/30/2021 Findings: No compression fractures or subluxation is seen. There is a posterior thoracolumbar fusion T10-L3 with bilateral pedicle screws and connecting rods. There is an artificial disc at T12-L1. There are small bridging osteophytes from L1-L5. No disc space narrowing is seen. The transverse processes and SI joints are normal. The oblique images show no spondylolysis. No instability occurs on flexion or extension. There are right upper quadrant cholecystectomy clips. XR/XR lumbar spine 6V w [id number] Impression: 1. Stable T10-L3 posterior lumbar fusion. 2. No spondylolysis. 3. No instability on flexion or extension.
== END 2025-01-05 12:05 | disposition home or self-care (01) ==
PROVIDERS: PCP Family Medicine; Visit Provider Student in an Organized Health Care Education/Training Program
DX: E11.9 Type 2 diabetes mellitus without complications (principal); E55.9 Vitamin D deficiency, unspecified; D3A.8 Other benign neuroendocrine tumors; I89.9 Noninfective disorder of lymphatic vessels and lymph nodes, unspecified; Z97.8 Presence of other specified devices; M51.369 Other intervertebral disc degeneration, lumbar region without mention of lumbar back pain or lower extremity pain; Z90.49 Acquired absence of other specified parts of digestive tract; Z98.1 Arthrodesis status; I63.511 Cerebral infarction due to unspecified occlusion or stenosis of right middle cerebral artery; E31.21 Multiple endocrine neoplasia [MEN] type I; E66.9 Obesity, unspecified; G47.33 Obstructive sleep apnea (adult) (pediatric); F17.200 Nicotine dependence, unspecified, uncomplicated; Z94.6 Bone transplant status
CPT/HCPCS: 36415; 72114; 80053; 84681; 86337; 86341; 99205

== ENCOUNTER 2025-01-11 17:04 | Emergency (ER) | payer MEDICAID, SELFPAY ==
--- OUTSIDE RECORDS SUMMARY | 2005-10-19 04:32 | XMS_ITS | Continuity of Care Document ---
Author Organization [facility] Address [address] (Phys -- [address]) [place] [address] Phone Care Team Providers Care Mold Car Pusher Name Role Phone Lam Bladimir CHA Unavailable Unavaila ble Procedures Procedure Date Voided Encounter Advance Directives Directive Yes / No Effective Date File Name Resuscitation Not Answered N/A N/A Life Support Not Answered N/A N/A Intubation Not Answered N/A N/A Antibiotics Not Answered N/A N/A IV Fluid Support Not Answered N/A N/A Tube Feed Not Answered N/A N/A Other Directive N/A N/A WARNING:The information contained in this section is historical and is provided for information only and does not constitute a legal document or any assurance that the information is still accurate. Please verify the information with the hensley of the legal document before using it for clinical purposes. Encounters Encounter Description Practice Location Reason(s) For Visit Diagnoses Date Provider Providers Copied on Encounter [facility], [address](Phys -- [address]), [place], [place], [id number], tel:[phone] [facility] No Information [address] Lam Garrison. [address], [place], [address], [place]. tel:[phone] Referring Provider: Bladimir Watson [address], [place], [address]. tel:[phone] Family History Family Member Type Diagnosis Age At Onset No Information Payers Payer name Insurance type Covered green party ID Authoriza tion(s) [facility] [id number] Social History Type Description Quantity Date Captured Comments Alcohol Use Details Unknown Caffeine Use Details Unknown Tobacco Use Status No Information Smoking Status No Information Sex Male Vital Signs Date / Time: Height Weight BMI Pulse Rate Blood Pressure Temperature Respiratory Rate Body Surface Area Head Circumference Head Circ. Percentile Wt./Dorian. Percentile BMI percentile Pulse Ox Inhaled Ox 9:48 AM 71.00 in 107.000 kg (238.00 lbs) 33.1 9 kg/m eter (2) 94 /min 122/70 mm[Hg] 97.80 F 18 /min 96 % Chief Complaint And Reason For Visit No Information Reason For Referral Reason For Referral No Information History Of Present Illness Encounter Date Complaint History Of Prese nt Illness No Information Functional Status Date Functional Assessmen t No Information Instructions Date Instruction Additional Infor mation No Information Assessments Type Assessment Date No Information Patient Care Teams Name Effective Dates (start - stop) Status Members No Information
[2023-05-02 10:55] VITALS: BP 140/84; BMI 39.2
[2025-01-11 17:08] VITALS: BP 111/72; PULSE 112; RESP 18; O2SAT 87; BMI 35.2
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
--- NOTE | 2025-01-11 17:14 | ED_ITS ---
Documented by User: Liam Hooker, 01/16/25 14:58 HPI - Chest Pain 2 General: Chief Complaint: Chest Pain Stated Complaint: chest pain, R arm tingling, sob Time Seen by Provider: 01/11/25 17:07 History of Present Illness: 59-year-old male presents emergency room complaining of chest pain has had for the last 4 days. It is worse when he takes a deep breath worse when he repositions at times he can reposition it where it will get better for a bit and then worsens again. He normally is on oxygen at 2 L/min but is using it only at night and occasionally during the day instead of continuously. On arrival here he is mildly hypoxic he is complaining some shortness of breath he chronically has orthopnea that has not significantly changed. No fever sweats chills or hemoptysis. No history of DVT or PE he is not on any anticoagulants. Chest pain relieved by repositioning in the room exacerbated by deep inspiration. He has some numbness in his left arm. Associated symptoms: Deny abdominal pain, dyspnea or fever(s) Related Data Home Medications ?Medication ?Instructions ?Recorded ?Confirmed docusate sodium 100 mg capsule 100 mg PO BID PRN Const ipation 05/03/23 01/14/25 (Stool Softener) hydrocodone 5 mg-acetaminophen 325 1 tab PO .EVERY 4-6 HOURS PRN Pain 05/03/23 01/14/25 mg tablet meloxicam 15 mg tablet 15 mg PO DAILY 05/03/2312/17 tamsulosin 0.4 mg capsule 0.4 mg PO DAILY unknown 08/1501/14/25 naloxone 4 mg/actuation nasal 1 spray intranasal Q3M 0 01/27/24 01/14/25 spray (Narcan) albuterol sulfate 90 mcg/actuation 2 puff inhalation Q 4H PRN Wheezing 11/27/24 01/14/25 aerosol inhaler (Ventolin HFA) clonidine HCl 0.1 mg tablet See Rx Instructions .Route .COMPLEX 11/27/24 01/14/25 empagliflozin 25 mg tablet 25 mg PO DAILY 11/27/24 (Jardiance) umeclidinium 62.5 mcg-vilanterol 1 inh inhalation ROXANA Y PRN 11/27/24 01/14/25 25 mcg/actuation powdr for Shortness Of Breath inhalation (Anoro Ellipta) oxygen-air delivery systems 01/14/25 01/14/25 Previous Rx's ?Medication ?Instructions ?Recorded gabapentin 300 mg capsule 300 mg PO BID #60 caps 03/17 methocarbamol 500 mg tablet 500 mg PO TID PRN muscle 1 07/09/20 spasticity #90 tabs Diabetic shoes with 3 sets of #1 ea 01/09/22 inserts aspirin 81 mg tablet,delayed 81 mg PO DAILY #30 tabs 0 11/29/24 release atorvastatin 20 mg tablet 40 mg (2 x 20 mg) PO DAILY # 60 tabs 11/29/24 insulin lispro 100 unit/mL See Protocol SUBCUT QPM #15 mL 11/29/24 subcutaneous pen (Humalog KwikPen (U-100) Insulin) hydrocodone 5 mg-acetaminophen 325 1 tab PO Q6H PRN pa in #14 tabs 12/02/24 mg tablet trazodone 150 mg tablet See Rx Instructions PO BEDTI ME PRN 12/14/24 insomnia #30 tabs duloxetine 30 mg capsule,delayed 30 mg PO .q am #30 ca ps 12/31/24 release blood-glucose sensor (Dexcom G7 #9 ea 01/05/25 Sensor device) blood-glucose,dumper,cont #1 ea 01/05/25 (Dexcom G7 Bridge Expert) pen needle, diabetic 31 gauge x #100 ea 01/05/25 5/ (Comfort EZ Pen [place]) lisinopril 20 mg tablet 20 mg PO DAILY #90 tabs 12/17 07/11 Allergies Allergy/AdvReac Type Severity Reaction Status Date / Time adhesive Allergy ALGY-Hives Verified 01/14/25 08:24 Review of Systems 2 Const: Denies: fever(s) or chills Card: Denies: chest pain Resp: Denies: dyspnea GI: Denies: abdominal pain : Denies: dysuria, urinary frequency or urinary urgency Musc: Denies: neck pain or back pain Skin/Breast: Denies: rash PFSH ED 2 PFSH: Medical History Neuroendocrine tumor Pancreatic cancer Mass of pancreas Incidentally noted on CTA of the chest done in the ED 08/11/2019 Acute calculous cholecystitis Cholecystitis, acute Type 2 diabetes mellitus MEN 1 syndrome Major depressive disorder, 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 History of spinal fusion Family History Mother , IN HER 60'S Diabetes CAD (coronary artery disease) Psychiatric illness Stroke Cancer UTERINE CANCER Father , AT AGE 56 Cancer PROSTATE Other Family history of premature coronary artery disease Social History Smoking and tobacco/nicotine status: former use of tobacco/nicotine (quit 3 days ago) Quit status (tobacco/nicotine): has quit using Year quit tobacco: 2020 Former quit date comment: 2 ppd X 40 years Alcohol intake: current Alcohol intake frequency: holidays/special occasions only Alcohol type: beer Substance/Drug Use: never Marital status: Number of children: 2 Number of grandchildren: 3 Education level details: Phlebotomy Current occupational status: disabled Do you think of yourself as: Straight/Heterosexual Rosey/Synagogue: Other Physical Exam 2 Const: GENERAL APPEARANCE: cooperative ORIENTATION/CONSCIOUSNESS: Yes awake, Yes oriented to person, Yes oriented to place and Yes oriented to time HENMT: COMMON NORMALS: normocephalic, atraumatic and hearing grossly normal bilaterally HEAD & SCALP: normocephalic and atraumatic Resp: COMMON NORMALS: normal respiratory effort, No retractions, No use of accessory muscles and clear to auscultation bilaterally AUSCULTATION: clear to auscultation bilaterally Cardio: COMMON NORMALS: regular rate, regular rhythm and No murmurs present (Cardio) RATE: regular rate RHYTHM: regular rhythm GI: COMMON NORMALS: Soft to palpation and No hepatosplenomegaly present A USCULTATION: Yes normoactive bowel sounds PALPATION: Yes Soft to palpation, No Tenderness to palpation present (GI), No Guarding due to palpation present (GI) and Yes No hepatosplenomegaly present Extremity: COMMON NORMALS: normal to inspection, capillary refill normal, no clubbing, cyanosis or edema, no calf tenderness and no pedal edema Neuro: SENSORIUM/ORIENTATION: Yes oriented to person, Yes oriented to place and Yes oriented to time OTHER: No facial asymmetry. Sustainability Analyst strength equal bilaterally no arm drift or leg drift. Skin: COMMON NORMALS: no rashes or lesions noted GENERAL SKIN EXAM: no rashes or lesions noted Course 2 Vital Signs: Vital signs: Vital Signs Pulse Rate 88 01/11/25 20:01 Respiratory Rate 16 01/11/25 20:01 Blood Pressure 101/55 01/11/25 20:01 Pulse Oximetry 95 01/11/25 20:01 Oxygen Delivery Me thod Room Air 01/11/25 19:00 MDM - Chest Pain Medical Decision Making CT head pending. Stroke alert not called patient but with a right chest pain he has had symptoms for 3-4 days now making last known well outside of the window care signed out to Dr. Reynoso at change of shift. See final notes for diagnosis and disposition. CT of the head without contrast: Evolving MCA stroke with some mild petechial hemorrhage. I discussed this with his neurologist Dr. Rivera and says this is just the evolution of the stroke and if he is on Plavix he should stop it. Patient care transitioned at shift change awaiting serial cardiac markers. These are negative. Medical Records I reviewed the patient's medical records. Lab Data I reviewed the patient's lab results. 01/11/25 17:18 01/11/25 17:18 Radiology Impressions Chest X-Ray 01/11/25 17:15 IMPRESSION: No acute thoracic abnormality. Head CT 01/11/25 17:41 IMPRESSION: 1. Evolving right MCA territory infarct with petechial hemorrhage but no jeni hemorrhagic transformation. 2. No evidence of new infarct or other acute abnormality. Laboratory Results WBC 11.10 10^3/uL (3.29-11.43) 01/11/25 17:18 RBC 5.59 10^6/uL (3.85-5.65) 01/11/25 17:18 Hgb 16.30 g/dL (11.27-16.99) 01/11/25 17:18 Hct 49.8 % (37-53) 01/11/25 17:18 MCV 89.1 fl (82-101) 01/11/25 17:18 MCH 29.2 pg (27-33) 01/11/25 17:18 MCHC 32.7 g/dL (30-55) 01/11/25 17:18 RDW 15.0 % (12.1-15.1) 01/11/25 17:18 Plt Count 451 10^3/cmm (157-399) H 01/11/25 17:18 MPV 10.0 fL (7.4-10.4) 01/11/25 17:18 Neut % (Auto) 62.6 % 01/11/25 17:18 Lymph % (Auto) 26.1 % 01/11/25 17:18 Josephine % (Auto) 7.7 % 01/11/25 17:18 Eos % (Auto) 2.6 % 01/11/25 17:18 Baso % (Auto) 0.6 % 01/11/25 17:18 Neut # (Auto) 6.95 10^3/uL (1.8-7.7) 01/11/25 17:18 Lymph # (Auto) 2.9 10^3/uL (0.8-4.8) 01/11/25 17:18 Josephine # (Auto) 0.9 10^3/uL (0.2-0.9) 01/11/25 17:18 Eos # (Auto) 0.3 10^3/uL (0.0-0.8) 01/11/25 17:18 Baso # (Auto) 0.1 10^3/uL (0.0-0.1) 01/11/25 17:18 Nucleated RBC % (auto) 0 % 01/11/25 17:18 Nucleated RBCs # 0.0 /100WBC 01/11/25 17:18 Specimen Type Arterial 01/11/25 18:31 Sample Site Radial, right 01/11/25 18:31 ABG pH 7.43 (7.35-7.45) 01/11/25 18:31 ABG pCO2 43.3 mmHg (35-45) 01/11/25 18:31 ABG pO2 68.3 mmHg (80.0-100.0) L 01/11/25 18:31 ABG PO2/FiO2 Ratio 243 01/11/25 18:31 ABG HCO3 28.4 mmol/L (22-26) H 01/11/25 18:31 ABG O2 Saturation 95.1 01/11/25 18:31 ABG Base Excess 3.4 mmol/L (-2.0-2.0) H 01/11/25 18:31 Juan Antonio Test Pos 01/11/25 18:31 A-a O2 Gradient 10.2 mmHg (5-10) H 01/11/25 18:31 Hematocrit 51.6 % (42-52) 01/11/25 18:31 Hgb O2 Saturation 89.9 % (95-100) L 01/11/25 18:31 Carboxyhemoglobin 4.5 %THgb (0.4-20.1) 01/11/25 18:31 Methemoglobin 1.0 % (0.4-1.5) 01/11/25 18:31 Total Hemoglobin 16.8 g/dL (14-18) 01/11/25 18:31 Sodium 142.0 mmol/L (131-143) 01/11/25 18:31 Potassium 4.3 mmol/L (3.5-5.0) 01/11/25 18:31 Glucose 247.0 mg/dL (70-115) H 01/11/25 18:31 Ionized Calcium 1.2 mmol/L (1.1-1.4) 01/11/25 18:31 O2 Delivery Device Nc 01/11/25 18:31 O2 Liters/Min 2.0 % 01/11/25 18:31 FiO2 28.0 % 01/11/25 18:31 Application Technician ID [email or web address] 01/11/25 18:31 Sodium 138 mmol/L (136-145) 01/11/25 17:18 Potassium 4.8 mmol/L (3.5-5.1) 01/11/25 17:18 Chloride 101 mmol/L (98-107) 01/11/25 17:18 Carbon Dioxide 26 mmol/L (22-29) 01/11/25 17:18 Anion Gap 15.8 (5-19) 01/11/25 17:18 BUN 13 mg/dL (6-20) 01/11/25 17:18 Creatinine 0.6 mg/dL (0.7-1.2) L 01/11/25 17:18 GFR Calculation 137.9 mL/min (90-130) H 01/11/25 17:18 Glucose 290 mg/dL (65-115) H 01/11/25 17:18 Calculated Osmolality 297 mOsm/kg (285-295) H 01/11/25 17:18 Calcium 9.2 mg/dL (8.5-10.5) 01/11/25 17:18 Total Bilirubin 0.4 mg/dL (0.15-1.2) 01/11/25 17:18 AST 20 U/L (0-40) 01/11/25 17:18 ALT 26 U/L (0-41) 01/11/25 17:18 Alkaline Phosphatase 156 U/L (40-130) H 01/11/25 17:18 Troponin T Baseline 14 ng/L (0-15) 01/11/25 17:18 Troponin T 120 Minute 11.61 ng/L (0-15) 01/11/25 19:12 Delta Troponin T -2.39 ABS# (0-10) L 01/11/25 19:12 Total Protein 6.6 g/dL (6.6-8.7) 01/11/25 17:18 Albumin 3.8 g/dL (3.5-5.2) 01/11/25 17:18 Globulin 2.8 g/dL (1.3-4.6) 01/11/25 17:18 Influenza A (PCR) Negative (Negative) 01/11/25 18:00 Influenza Type B (PCR) Negative (Negative) 01/11/25 18:00 RSV (PCR) Negative (Negative) 01/11/25 18:00 SARS-CoV-2 (PCR) Negative (Negative) 01/11/25 18:00 Discharge Plan Discharge Patient Disposition: Home Clinical Impression: Non-cardiac chest pain Condition: Stable Prescriptions: No Action gabapentin 300 mg capsule 300 mg PO BID Qty: 60 1RF methocarbamol 500 mg tablet 500 mg PO TID PRN (Reason: muscle spasticity) Qty: 90 1RF (DME) pen needle, diabetic [Comfort EZ Pen [place]] 31 gauge x 5/16 needle See Rx Instructions .Route Qty: 100 3RF Rx Instructions: As directed (DME) Dexcom G7 Sensor Device See Rx Instructions .ROUTE .MEDSUPPLY Qty: 9 2RF Rx Instructions: change every 10 days (DME) Dexcom G7 Bridge Expert Misc See Rx Instructions .ROUTE .MEDSUPPLY Qty: 1 0RF Rx Instructions: As directed (DME) Diabetic shoes with 3 sets of inserts See Rx Instructions .Route .MEDSUPPLY Qty: 1 0RF Rx Instructions: As directed by HOME tamsulosin 0.4 mg capsule 0.4 mg PO DAILY naloxone [Narcan] 4 mg/actuation spray,non-aerosol 1 spray intranasal Q3M Rx Instructions: spray 1 dose into ONE nostril; alternate nostrils w each dose until help arrives duloxetine 30 mg capsule,delayed release(DR/EC) 30 mg PO .q am Qty: 30 1RF Rx Instructions: Take one capsule by mouth every morning (DME) oxygen-air delivery systems Device See Rx Instructions .ROUTE Rx Instructions: As directed lisinopril 20 mg tablet 20 mg PO DAILY Qty: 90 3RF trazodone 150 mg tablet See Rx Instructions PO BEDTIME PRN (Reason: insomnia) Qty: 30 0RF Rx Instructions: Take one-half to one tablet at bedtime, if needed for insomnia albuterol sulfate [Ventolin HFA] 90 mcg/actuation HFA aerosol inhaler 2 puff INHALATION Q4H PRN (Reason: Wheezing) umeclidinium-vilanterol [Anoro Ellipta] 62.5-25 mcg/actuation blister with device 1 inh inhalation DAILY PRN (Reason: Shortness Of Breath) clonidine HCl 0.1 mg tablet See Rx Instructions .ROUTE .COMPLEX Rx Instructions: TAKE 1 TABLET BY MOUTH EVERY 6 HOURS NEEDED FOR sbp greater THAN 170. Jardiance 25 mg tablet 25 mg PO DAILY aspirin 81 mg Tablet,Delayed Release (Dr/Ec) 81 mg PO DAILY Qty: 30 0RF insulin lispro [Humalog KwikPen Insulin] 100 unit/mL insulin pen See Protocol SUBCUT QPM Qty: 15 0RF Protocol: Insulin Corrective High-Dose Regimen Condition: Fingerstick Blood Glucose Dose/Route: Insulin Units Condition: 141-180 mg/dl Dose/Route: 2 units/SQ Condition: 181-220 mg/dl Dose/Route: 4 units/SQ Condition: 221-260 mg/dl Dose/Route: 4 units/SQ Condition: 261-300 mg/dl Dose/Route: 8 units/SQ Condition: 301-350 mg/dl Dose/Route: 10 units/SQ Condition: 351-400 mg/dl Dose/Route: 12 units/SQ Condition: greater than 400 mg/dl Dose/Route: 14 units/SQ atorvastatin 20 mg tablet 40 mg PO DAILY Qty: 60 0RF hydrocodone-acetaminophen 5-325 mg tablet 1 tab PO .EVERY 4-6 HOURS MDD 3 tabs PRN (Reason: Pain) meloxicam 15 mg tablet 15 mg PO DAILY docusate sodium [Stool Softener] 100 mg Capsule 100 mg PO BID PRN (Reason: Constipation) hydrocodone-acetaminophen 5-325 mg tablet 1 tab PO Q6H PRN (Reason: pain) Qty: 14 0RF Discharge Orders: Discharge ED (Routine); Ordered 01/11/25 Ordered By: Kamila Reynoso Referrals: Solitario Porter MD [Primary Care Provider, [facility]] Discharge Diet: As Directed Discharge Activity: Increase activity as tolerated Patient Instructions: Noncardiac Chest Pain (ED), Opioid Safety, Pain Management, Patient Portal & Yulia Instructions Activity Restrictions/Additional Instructions: Thank you for choosing [facility] for your healthcare needs today. You have been screened and evaluated and felt safe for discharge. Health conditions do change or evolve sometimes and as such it is important that you follow up with your Primary Doctor to be re checked, 3-5 days is a general good time frame for follow up. You are always welcome to return to the ED for re assessment if your symptoms are worsening or you have new concerns Print Language: Bermudian Coding Level of Care Code ED Client Services Manager for Chg Fwd Documented by User: Kamila Reynoso MD 01/11/25 19:55 HPI - Chest Pain 2 General: Chief Complaint: Chest Pain Stated Complaint: chest pain, R arm tingling, sob Time Seen by Provider: 01/11/25 17:07 Related Data Home Medications ?Medication ?Instructions ?Recorded ?Confirmed docusate sodium 100 mg capsule 100 mg PO BID PRN Const ipation 05/03/23 01/14/25 (Stool Softener) hydrocodone 5 mg-acetaminophen 325 1 tab PO .EVERY 4-6 HOURS PRN Pain 05/03/23 01/14/25 mg tablet meloxicam 15 mg tablet 15 mg PO DAILY 05/03/2312/17 tamsulosin 0.4 mg capsule 0.4 mg PO DAILY unknown 08/1501/14/25 naloxone 4 mg/actuation nasal 1 spray intranasal Q3M 0 01/27/24 01/14/25 spray (Narcan) albuterol sulfate 90 mcg/actuation 2 puff inhalation Q 4H PRN Wheezing 11/27/24 01/14/25 aerosol inhaler (Ventolin HFA) clonidine HCl 0.1 mg tablet See Rx Instructions .Route .COMPLEX 11/27/24 01/14/25 empagliflozin 25 mg tablet 25 mg PO DAILY 11/27/24 (Jardiance) umeclidinium 62.5 mcg-vilanterol 1 inh inhalation ROXANA Y PRN 11/27/24 01/14/25 25 mcg/actuation powdr for Shortness Of Breath inhalation (Anoro Ellipta) oxygen-air delivery systems 01/14/25 01/14/25 Previous Rx's ?Medication ?Instructions ?Recorded gabapentin 300 mg capsule 300 mg PO BID #60 caps 03/17 methocarbamol 500 mg tablet 500 mg PO TID PRN muscle 1 07/09/20 spasticity #90 tabs Diabetic shoes with 3 sets of #1 ea 01/09/22 inserts aspirin 81 mg tablet,delayed 81 mg PO DAILY #30 tabs 0 11/29/24 release atorvastatin 20 mg tablet 40 mg (2 x 20 mg) PO DAILY # 60 tabs 11/29/24 insulin lispro 100 unit/mL See Protocol SUBCUT QPM #15 mL 11/29/24 subcutaneous pen (Humalog KwikPen (U-100) Insulin) hydrocodone 5 mg-acetaminophen 325 1 tab PO Q6H PRN pa in #14 tabs 12/02/24 mg tablet trazodone 150 mg tablet See Rx Instructions PO BEDTI ME PRN 12/14/24 insomnia #30 tabs duloxetine 30 mg capsule,delayed 30 mg PO .q am #30 ca ps 12/31/24 release blood-glucose sensor (Dexcom G7 #9 ea 01/05/25 Sensor device) blood-glucose,dumper,cont #1 ea 01/05/25 (Dexcom G7 Bridge Expert) pen needle, diabetic 31 gauge x #100 ea 01/05/25/ (Comfort EZ Pen [place]) lisinopril 20 mg tablet 20 mg PO DAILY #90 tabs 12/17 07/11 Allergies Allergy/AdvReac Type Severity Reaction Status Date / Time adhesive Allergy ALGY-Hives Verified 01/14/25 08:24 [facility] ED 2 [facility]: Medical History Neuroendocrine tumor Pancreatic cancer Mass of pancreas Incidentally noted on CTA of the chest done in the ED 08/11/2019 Acute calculous cholecystitis Cholecystitis, acute Type 2 diabetes mellitus MEN 1 syndrome Major depressive disorder, 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 History of spinal fusion Family History Mother , IN HER 60'S Diabetes CAD (coronary artery disease) Psychiatric illness Stroke Cancer UTERINE CANCER Father , AT AGE 56 Cancer PROSTATE Other Family history of premature coronary artery disease Social History Smoking and tobacco/nicotine status: former use of tobacco/nicotine (quit 3 days ago) Quit status (tobacco/nicotine): has quit using Year quit tobacco: 2019 Former quit date comment: 2 ppd X 40 years Alcohol intake: current Alcohol intake frequency: holidays/special occasions only Alcohol type: beer Substance/Drug Use: never Marital status: Number of children: 2 Number of grandchildren: 3 Education level details: Phlebotomy Current occupational status: disabled Do you think of yourself as: Straight/Heterosexual Rosey/Synagogue: Other Course 2 Vital Signs: Vital signs: Vital Signs Pulse Rate 88 01/11/25 20:01 Respiratory Rate 16 01/11/25 20:01 Blood Pressure 101/55 01/11/25 20:01 Pulse Oximetry 95 01/11/25 20:01 Oxygen Delivery Me thod Room Air 01/11/25 19:00 MDM - Chest Pain Medical Decision Making Care signed out to Dr. Reynoso at change of shift. See final notes for diagnosis and disposition. CT of the head without contrast: Evolving MCA stroke with some mild petechial hemorrhage. I discussed this with his neurologist Dr. Rivera and says this is just the evolution of the stroke and if he is on Plavix he should stop it. Patient care transitioned at shift change awaiting serial cardiac markers. These are negative. Lab Data 01/11/25 17:18 01/11/25 17:18 Radiology Impressions Chest X-Ray 01/11/25 17:15 IMPRESSION: No acute thoracic abnormality. Head CT 01/11/25 17:41 IMPRESSION: 1. Evolving right MCA territory infarct with petechial hemorrhage but no jeni hemorrhagic transformation. 2. No evidence of new infarct or other acute abnormality. Laboratory Results WBC 11.10 10^3/uL (3.29-11.43) 01/11/25 17:18 RBC 5.59 10^6/uL (3.85-5.65) 01/11/25 17:18 Hgb 16.30 g/dL (11.27-16.99) 01/11/25 17:18 Hct 49.8 % (37-53) 01/11/25 17:18 MCV 89.1 fl (82-101) 01/11/25 17:18 MCH 29.2 pg (27-33) 01/11/25 17:18 MCHC 32.7 g/dL (30-55) 01/11/25 17:18 RDW 15.0 % (12.1-15.1) 01/11/25 17:18 Plt Count 451 10^3/cmm (157-399) H 01/11/25 17:18 MPV 10.0 fL (7.4-10.4) 01/11/25 17:18 Neut % (Auto) 62.6 % 01/11/25 17:18 Lymph % (Auto) 26.1 % 01/11/25 17:18 Josephine % (Auto) 7.7 % 01/11/25 17:18 Eos % (Auto) 2.6 % 01/11/25 17:18 Baso % (Auto) 0.6 % 01/11/25 17:18 Neut # (Auto) 6.95 10^3/uL (1.8-7.7) 01/11/25 17:18 Lymph # (Auto) 2.9 10^3/uL (0.8-4.8) 01/11/25 17:18 Josephine # (Auto) 0.9 10^3/uL (0.2-0.9) 01/11/25 17:18 Eos # (Auto) 0.3 10^3/uL (0.0-0.8) 01/11/25 17:18 Baso # (Auto) 0.1 10^3/uL (0.0-0.1) 01/11/25 17:18 Nucleated RBC % (auto) 0 % 01/11/25 17:18 Nucleated RBCs # 0.0 /100WBC 01/11/25 17:18 Specimen Type Arterial 01/11/25 18:31 Sample Site Radial, right 01/11/25 18:31 ABG pH 7.43 (7.35-7.45) 01/11/25 18:31 ABG pCO2 43.3 mmHg (35-45) 01/11/25 18:31 ABG pO2 68.3 mmHg (80.0-100.0) L 01/11/25 18:31 ABG PO2/FiO2 Ratio 243 01/11/25 18:31 ABG HCO3 28.4 mmol/L (22-26) H 01/11/25 18:31 ABG O2 Saturation 95.1 01/11/25 18:31 ABG Base Excess 3.4 mmol/L (-2.0-2.0) H 01/11/25 18:31 Juan Antonio Test Pos 01/11/25 18:31 A-a O2 Gradient 10.2 mmHg (5-10) H 01/11/25 18:31 Hematocrit 51.6 % (42-52) 01/11/25 18:31 Hgb O2 Saturation 89.9 % (95-100) L 01/11/25 18:31 Carboxyhemoglobin 4.5 %THgb (0.4-20.1) 01/11/25 18:31 Methemoglobin 1.0 % (0.4-1.5) 01/11/25 18:31 Total Hemoglobin 16.8 g/dL (14-18) 01/11/25 18:31 Sodium 142.0 mmol/L (131-143) 01/11/25 18:31 Potassium 4.3 mmol/L (3.5-5.0) 01/11/25 18:31 Glucose 247.0 mg/dL (70-115) H 01/11/25 18:31 Ionized Calcium 1.2 mmol/L (1.1-1.4) 01/11/25 18:31 O2 Delivery Device Nc 01/11/25 18:31 O2 Liters/Min 2.0 % 01/11/25 18:31 FiO2 28.0 % 01/11/25 18:31 Application Technician ID ylc 01/11/25 18:31 Sodium 138 mmol/L (136-145) 01/11/25 17:18 Potassium 4.8 mmol/L (3.5-5.1) 01/11/25 17:18 Chloride 101 mmol/L (98-107) 01/11/25 17:18 Carbon Dioxide 26 mmol/L (22-29) 01/11/25 17:18 Anion Gap 15.8 (5-19) 01/11/25 17:18 BUN 13 mg/dL (6-20) 01/11/25 17:18 Creatinine 0.6 mg/dL (0.7-1.2) L 01/11/25 17:18 GFR Calculation 137.9 mL/min (90-130) H 01/11/25 17:18 Glucose 290 mg/dL (65-115) H 01/11/25 17:18 Calculated Osmolality 297 mOsm/kg (285-295) H 01/11/25 17:18 Calcium 9.2 mg/dL (8.5-10.5) 01/11/25 17:18 Total Bilirubin 0.4 mg/dL (0.15-1.2) 01/11/25 17:18 AST 20 U/L (0-40) 01/11/25 17:18 ALT 26 U/L (0-41) 01/11/25 17:18 Alkaline Phosphatase 156 U/L (40-130) H 01/11/25 17:18 Troponin T Baseline 14 ng/L (0-15) 01/11/25 17:18 Troponin T 120 Minute 11.61 ng/L (0-15) 01/11/25 19:12 Delta Troponin T -2.39 ABS# (0-10) L 01/11/25 19:12 Total Protein 6.6 g/dL (6.6-8.7) 01/11/25 17:18 Albumin 3.8 g/dL (3.5-5.2) 01/11/25 17:18 Globulin 2.8 g/dL (1.3-4.6) 01/11/25 17:18 Influenza A (PCR) Negative (Negative) 01/11/25 18:00 Influenza Type B (PCR) Negative (Negative) 01/11/25 18:00 RSV (PCR) Negative (Negative) 01/11/25 18:00 SARS-CoV-2 (PCR) Negative (Negative) 01/11/25 18:00 All radiology interpretation(s) finalized by discharge Discharge Plan Discharge Patient Disposition: Home Clinical Impression: Non-cardiac chest pain Condition: Stable Prescriptions: No Action gabapentin 300 mg capsule 300 mg PO BID Qty: 60 1RF methocarbamol 500 mg tablet 500 mg PO TID PRN (Reason: muscle spasticity) Qty: 90 1RF (DME) pen needle, diabetic [Comfort EZ Pen [place]] 31 gauge x 5/16 needle See Rx Instructions .Route Qty: 100 3RF Rx Instructions: As directed (DME) Dexcom G7 Sensor Device See Rx Instructions .ROUTE .MEDSUPPLY Qty: 9 2RF Rx Instructions: change every 10 days (DME) Dexcom G7 Bridge Expert Misc See Rx Instructions .ROUTE .MEDSUPPLY Qty: 1 0RF Rx Instructions: As directed (DME) Diabetic shoes with 3 sets of inserts See Rx Instructions .Route .MEDSUPPLY Qty: 1 0RF Rx Instructions: As directed by HOME tamsulosin 0.4 mg capsule 0.4 mg PO DAILY naloxone [Narcan] 4 mg/actuation spray,non-aerosol 1 spray intranasal Q3M Rx Instructions: spray 1 dose into ONE nostril; alternate nostrils w each dose until help arrives duloxetine 30 mg capsule,delayed release(DR/EC) 30 mg PO .q am Qty: 30 1RF Rx Instructions: Take one capsule by mouth every morning (DME) oxygen-air delivery systems Device See Rx Instructions .ROUTE Rx Instructions: As directed lisinopril 20 mg tablet 20 mg PO DAILY Qty: 90 3RF trazodone 150 mg tablet See Rx Instructions PO BEDTIME PRN (Reason: insomnia) Qty: 30 0RF Rx Instructions: Take one-half to one tablet at bedtime, if needed for insomnia albuterol sulfate [Ventolin HFA] 90 mcg/actuation HFA aerosol inhaler 2 puff INHALATION Q4H PRN (Reason: Wheezing) umeclidinium-vilanterol [Anoro Ellipta] 62.5-25 mcg/actuation blister with device 1 inh inhalation DAILY PRN (Reason: Shortness Of Breath) clonidine HCl 0.1 mg tablet See Rx Instructions .ROUTE .COMPLEX Rx Instructions: TAKE 1 TABLET BY MOUTH EVERY 6 HOURS NEEDED FOR sbp greater THAN 170. Jardiance 25 mg tablet 25 mg PO DAILY aspirin 81 mg Tablet,Delayed Release (Dr/Ec) 81 mg PO DAILY Qty: 30 0RF insulin lispro [Humalog KwikPen Insulin] 100 unit/mL insulin pen See Protocol SUBCUT QPM Qty: 15 0RF Protocol: Insulin Corrective High-Dose Regimen Condition: Fingerstick Blood Glucose Dose/Route: Insulin Units Condition: 141-180 mg/dl Dose/Route: 2 units/SQ Condition: 181-220 mg/dl Dose/Route: 4 units/SQ Condition: 221-260 mg/dl Dose/Route: 4 units/SQ Condition: 261-300 mg/dl Dose/Route: 8 units/SQ Condition: 301-350 mg/dl Dose/Route: 10 units/SQ Condition: 351-400 mg/dl Dose/Route: 12 units/SQ Condition: greater than 400 mg/dl Dose/Route: 14 units/SQ atorvastatin 20 mg tablet 40 mg PO DAILY Qty: 60 0RF hydrocodone-acetaminophen 5-325 mg tablet 1 tab PO .EVERY 4-6 HOURS MDD 3 tabs PRN (Reason: Pain) meloxicam 15 mg tablet 15 mg PO DAILY docusate sodium [Stool Softener] 100 mg Capsule 100 mg PO BID PRN (Reason: Constipation) hydrocodone-acetaminophen 5-325 mg tablet 1 tab PO Q6H PRN (Reason: pain) Qty: 14 0RF Discharge Orders: Discharge ED (Routine); Ordered 01/11/25 Ordered By: Kamila Reynoso Referrals: Solitario Porter MD [Primary Care Provider, Family Practice] Discharge Diet: As Directed Discharge Activity: Increase activity as tolerated Patient Instructions: Noncardiac Chest Pain (ED), Opioid Safety, Pain Management, Patient Portal & Yulia Instructions Activity Restrictions/Additional Instructions: Thank you for choosing [facility] for your healthcare needs today. You have been screened and evaluated and felt safe for discharge. Health conditions do change or evolve sometimes and as such it is important that you follow up with your Primary Doctor to be re checked, 3-5 days is a general good time frame for follow up. You are always welcome to return to the ED for re assessment if your symptoms are worsening or you have new concerns Print Language: Bermudian Coding Level of Care Code ED Client Services Manager for Dilshad Bowens
--- NOTE | 2025-01-11 17:15 | ECG_ITS ---
[facility] Date: 2025-01-11 Pat Name: Iqra Meredith Department: Room: Gender: Male Program Strategist: : 1965 Requested By: Liam Babin Order Number: [id number] Maria Guadalupe MD: Vinnie Simms M.D. Measurements Intervals [place] Rate: 113 P: 51 IN: 136 QRS: -73 QRSD: 94 T: 52 QT: 325 QTc: 446 Interpretive Statements SINUS TACHYCARDIA S1-S2-S3 PATTERN, CONSISTENT WITH PULMONARY DISEASE, RVH, OR NORMAL VARIANT PATTERN CONSISTENT WITH PULMONARY DISEASE LEFT ANTERIOR FASCICULAR BLOCK [QRS AXIS <= -45, QR IN I, RS IN II] Compared to ECG 11/30/2024 14:27:27 Right ventricular hypertrophy now present Left anterior fascicular block now present Sinus rhythm no longer present Left-axis deviation no longer present Electronically Signed On 01-14-2025 10:27:38 CDT by Vinnie Simms M.D. [email or web address]
--- NOTE | 2025-01-11 17:15 | XRR_ITS ---
PROCEDURE INFORMATION: Exam: XR Chest Exam date and time: 01/11/2025 5:18 PM Age: 59 years old Clinical indication: Pain; Angina pectoris; Additional info: Chest pain TECHNIQUE: Imaging protocol: Radiologic exam of the chest. Views: 1 view. COMPARISON: CR (CHEST, ) 11/30/2024 12:46 PM FINDINGS: Lungs: Unremarkable. No consolidation. Pleural spaces: Unremarkable. No pleural effusion. No pneumothorax. Heart/Mediastinum: Cardiac silhouette is enlarged, unchanged. Bones/joints: Partially visualized spinal fusion hardware. Unchanged chronic right clavicular fracture. Remote bilateral rib fractures. XR/XR chest 1V portable [id number] IMPRESSION: No acute thoracic abnormality.
[2025-01-11 17:34] LABS: Hematocrit 49.8 % (37-53); Hemoglobin 16.30 g/dL (11.27-16.99); Mean Corpuscular HGB Conc 32.7 g/dL (30-55); Mean Corpuscular Hemoglobin 29.2 pg (27-33); Mean Corpuscular Volume 89.1 fl (82-101); Nucleated Red Blood Cells % 0 %; Platelet Count 451 10^3/cmm (157-399); Red Blood Count 5.59 10^6/uL (3.85-5.65); White Blood Count 11.10 10^3/uL (3.29-11.43)
--- NOTE | 2025-01-11 17:41 | CTR_ITS ---
PROCEDURE INFORMATION: Exam: CT Head Without Contrast Exam date and time: 01/11/2025 5:47 PM Age: 59 years old Clinical indication: Altered mental status/memory loss; Confusion or disorientation TECHNIQUE: Imaging protocol: Computed tomography of the head without contrast. Radiation optimization: All CT scans at this facility use at least one of these dose optimization techniques: automated exposure control; mA and/or kV adjustment per patient size (includes targeted exams where dose is matched to clinical indication); or iterative reconstruction. COMPARISON: CT head wo con* [id number] 11/30/2024 1:01 PM RADIATION DOSE METRICS: Total DLP (mGy-cm): 1141.38 FINDINGS: Brain: Evolving right MCA territory infarct with petechial hemorrhage but no jeni hemorrhagic transformation. No new loss of mackay-white differentiation. There is decreased mass effect throughout the right cerebral hemisphere. The lateral ventricles are symmetric. No midline shift. Cerebral ventricles: Normal in size. Paranasal sinuses: Visualized sinuses are unremarkable. No fluid levels. Mastoid air cells: Visualized mastoid air cells are well aerated. Bones: Unremarkable. No acute fracture. Soft tissues: Unremarkable. CT/CT head wo con* [id number] IMPRESSION: 1. Evolving right MCA territory infarct with petechial hemorrhage but no jeni hemorrhagic transformation. 2. No evidence of new infarct or other acute abnormality.
[2025-01-11 17:42] VITALS: BP 152/75; PULSE 97; RESP 16; O2SAT 91
[2025-01-11 17:53] LABS: Troponin(5th) Baseline 14 ng/L (0-15)
[2025-01-11 17:59] LABS: Alanine Aminotransferase 26 U/L (0-41); Albumin Level 3.8 g/dL (3.5-5.2); Alkaline Phosphatase 156 U/L (40-130); Anion Gap 15.8 (5-19); Aspartate Amino Transferase 20 U/L (0-40); Blood Urea Nitrogen 13 mg/dL (6-20); Calcium 9.2 mg/dL (8.5-10.5); Carbon Dioxide 26 mmol/L (22-29); Chloride 101 mmol/L (98-107); Creatinine Clr Calc Pharmacy 165.4725; Globulin 2.8 g/dL (1.3-4.6); Glucose 290 mg/dL (65-115); Osmolality Calculated 297 mOsm/kg (285-295); Potassium 4.8 mmol/L (3.5-5.1); Sodium 138 mmol/L (136-145); Total Protein 6.6 g/dL (6.6-8.7)
[2025-01-11 18:12] VITALS: BP 152/75; PULSE 97; RESP 15; O2SAT 90
[2025-01-11 18:42] LABS: ABG PCO2 43.3 mmHg (35-45); ABG PH Result 7.43 (7.35-7.45); Alveolar-Arterial Oxygen Gradi 10.2 mmHg (5-10); Arterial Blood Gas Hematocrit 51.6 % (42-52); Blood Gas Allen Test Pos; Blood Gas LPM 2.0 %; Blood Gas Operator Identificat ylc; Blood Gas Sample Site Radial, right; Blood Gas Sample Type Arterial; Carboxyhemoglobin 4.5 %THgb (0.4-20.1); Glucose Level-ABG 247.0 mg/dL (70-115); HCO3 ABG 28.4 mmol/L (22-26); Ionized Calcium Level - ABG 1.2 mmol/L (1.1-1.4); Methemoglobin 1.0 % (0.4-1.5); Oxygen Saturation ABG 95.1; PO2 ABG 68.3 mmHg (80.0-100.0); PO2 FiO2 Ratio Arterial Blood 243; Potassium Level - ABG 4.3 mmol/L (3.5-5.0); Sodium Level - ABG 142.0 mmol/L (131-143)
[2025-01-11 19:00] VITALS: BP 107/62; PULSE 84; RESP 16; O2SAT 94
[2025-01-11 19:13] LABS: Respiratory Syncytial Virus Ce NEGATIVE (Negative); SARS-CoV-2 PCR NEGATIVE (Negative)
--- NOTE | 2025-01-11 19:15 | ECG_ITS ---
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 Service Technician: : 1965 Requested By: Liam Babin Order Number: [id number] Reading MD: KURT OVIEDO Measurements Intervals [place] Rate: 77 P: 35 [place]: 145 QRS: -45 QRSD: 101 T: 44 QT: 353 QTc: 400 Interpretive Statements SINUS RHYTHM PATTERN CONSISTENT WITH PULMONARY DISEASE LEFT ANTERIOR FASCICULAR BLOCK [QRS AXIS <= -45, QR IN I, RS IN II] Compared to ECG 01/11/2025 17:06:35 Sinus tachycardia no longer present Right ventricular hypertrophy no longer present Electronically Signed On 01-14-2025 22:23:41 CDT by KURT OVIEDO [email or web address]
[2025-01-11 19:34] LABS: Troponin 5 2HR 11.61 ng/L (0-15); Troponin 5 2HR Delta -2.39 ABS# (0-10)
[2025-01-11 20:01] VITALS: BP 101/55; PULSE 88; RESP 16; O2SAT 95
== END 2025-01-11 20:05 | disposition home or self-care (01) ==
PROVIDERS: Family Medicine; Emergency Provider Emergency Medicine; PCP Family Medicine
DX: R07.89 Other chest pain (principal); Z79.82 Long term (current) use of aspirin; Z79.4 Long term (current) use of insulin; J44.9 Chronic obstructive pulmonary disease, unspecified; E11.9 Type 2 diabetes mellitus without complications; Z85.07 Personal history of malignant neoplasm of pancreas
CPT/HCPCS: 36415; 36600; 70450; 71045; 80051; 80053; 82330; 82805; 84484; 85025; 87637; 93005; 99285; J9999

== ENCOUNTER → 2025-01-14 07:51 | Outpatient (BNVA) | payer MEDICAID, SELFPAY ==
[2023-05-02 10:55] VITALS: BP 140/84; BMI 39.2
== END ==
PROVIDERS: PCP Family Medicine; Visit Provider Internal Medicine Cardiovascular Disease
DX: I10 Essential (primary) hypertension (principal); Z86.73 Personal history of transient ischemic attack (TIA), and cerebral infarction without residual deficits; Z79.82 Long term (current) use of aspirin; Z87.891 Personal history of nicotine dependence; I63.9 Cerebral infarction, unspecified
CPT/HCPCS: 99204

== ENCOUNTER → 2025-01-14 09:26 | Outpatient (BNVA) | payer MEDICAID, SELFPAY ==
[2023-05-02 10:55] VITALS: BP 140/84; BMI 39.2
== END ==
PROVIDERS: PCP Family Medicine; Visit Provider Internal Medicine Cardiovascular Disease
DX: I63.9 Cerebral infarction, unspecified (principal); R07.89 Other chest pain; R53.83 Other fatigue; I49.3 Ventricular premature depolarization; I49.1 Atrial premature depolarization; R00.0 Tachycardia, unspecified
CPT/HCPCS: 93270

== ENCOUNTER 2025-01-15 10:04 | Outpatient (CLI) | payer MEDICAID, SELFPAY ==
[2023-05-02 10:55] VITALS: BP 140/84; BMI 39.2
--- NOTE | 2025-01-15 11:00 | MR_ITS ---
WS: [id number] MRI BRAIN WITHOUT CONTRAST HISTORY: I67.1 - Cerebral aneurysm, nonruptured COMPARISON: CT head 01/11/2025 and 11/30/2024 TECHNIQUE: Diffusion imaging, multiplanar T1, T2 and FLAIR imaging obtained. Small amount of residual diffusion abnormality in the periphery of the recently described large RIGHT MCA territory infarct. No new infarct. Mixed signal is now present in the RIGHT MCA territory on T2 and FLAIR sequences. There is a large evolving hemorrhagic RIGHT MCA territory infarct. There is central hemosiderin. Increased T1 signal in the periphery consistent from cortical laminar necrosis. No midline shift or mass effect. Infarct extends into the RIGHT temporal lobe. No extra-axial fluid collection or blood identified. There are a few scattered T2 and FLAIR signal hyperintensities from small vessel changes. Mild cerebral and cerebellar atrophy with volume loss. No inferior displacement of cerebellar tonsils. The sella turcica and pituitary gland are unremarkable. Dural venous sinuses and [place] demonstrate no abnormality on this unenhanced studies. Paranasal sinuses: Clear. Mastoid air cells: Normal. Calvarium and scalp: Intact. MR/MR head wo con* [id number] IMPRESSION: 1. Large, hemorrhagic subacute infarct in the RIGHT MCA territory. Infarct was previously described on 11/27/2024. Cortical laminar necrosis and hemosiderin i s now present within the subacute infarct. There is no midline shift. No acute hemorrhage. 2. Mild small vessel disease otherwise. 3. No ventriculomegaly.
--- NOTE | 2025-01-15 11:45 | MR_ITS ---
WS: [id number] MRA ANGIOGRAPHY [place] HISTORY: I67.1 - Cerebral aneurysm, nonruptured COMPARISON: CT angiogram 11/30/2024, 11/27/2024 TECHNIQUE: 3-D MR angiography is performed of the [place]. All images are reviewed including source images. Distal vertebral and basilar arteries are intact with no significant stenosis or plaque. Posterior cerebral arteries are normal course and caliber. Posterior communicating arteries are both patent. Very slight narrowing of the internal carotid arteries near the skull base is an artifact. Intracranial carotid arteries are well opacified. No high-grade stenosis. No stenosis or atherosclerotic plaque within the middle cerebral arteries. No aneurysm is identified at the RIGHT MCA trifurcation as described on a prior study. There is some motion artifact on this exam. The arteries are better visualized on the CT angiogram. There is a mild paucity of vessels in the distal RIGHT MCA territory, and M3/M4 distribution. This is the site of the infarct. Anterior cerebral arteries are normal. MR/MR angio head wo con [id number] IMPRESSION: 1. No cerebral artery aneurysm identified. Recent CT angiograms better depicte d the cerebral arteries. There is some motion artifact on today's exam. No aneu rysm is identified. 2. Mild paucity of vessels in the distal RIGHT MCA territory, M3/M4. This is t he distribution of subacute infarct.
== END 2025-01-15 10:05 | disposition home or self-care (01) ==
PROVIDERS: PCP Family Medicine; Visit Provider Specialist
DX: I67.1 Cerebral aneurysm, nonruptured (principal); I69.398 Other sequelae of cerebral infarction; I61.1 Nontraumatic intracerebral hemorrhage in hemisphere, cortical
CPT/HCPCS: 70544; 70551

== ENCOUNTER 2025-01-28 06:36 | Day surgery (SDC) | payer MEDICAID, SELFPAY ==
[2023-05-02 10:55] VITALS: BP 140/84; BMI 39.2
[2025-01-28 07:19] VITALS: BMI 35.2
[2025-01-28 07:26] VITALS: BP 125/85; PULSE 96; RESP 18; TEMP 36.1; O2SAT 94
[2025-01-28 07:28] LABS: Hematocrit 48.1 % (37-53); Hemoglobin 15.70 g/dL (11.27-16.99); Mean Corpuscular HGB Conc 32.6 g/dL (30-55); Mean Corpuscular Hemoglobin 29.1 pg (27-33); Mean Corpuscular Volume 89.1 fl (82-101); Nucleated Red Blood Cells % 0 %; Platelet Count 398 10^3/cmm (157-399); Red Blood Count 5.40 10^6/uL (3.85-5.65); White Blood Count 12.18 10^3/uL (3.29-11.43)
--- NOTE | 2025-01-28 07:40 | USCV_ITS ---
Iqra Meredith Age: 59 Gender: M : 1965 Exam Date: 01/28/2025 08:19 Ordering Phys: Rafiq Gale MD ([email or web address]) Technologist: CARLY Exam Location: [facility] [place] Indication: CVA BP: / HR: Rhythm: Sinus Technical Quality: Adequate MEASUREMENTS (Male / Female) Normal Values Medications Complications Proc. Components FINDINGS Left Ventricle Normal left ventricular cavity size. Normal left ventricular systolic function. Left ventricular ejection fraction is estimated at 60 %. Right Ventricle Normal right ventricular size. Normal right ventricular systolic function. Right Atrium Normal right atrial size. Left Atrium Normal left atrial size. LA Appendage Normal left atrial appendage. Normal flow velocities in the left atrial appendage. No thrombus visualized in the left atrial appendage. IA Septum Mobile atrial septum. Fcalw-ml-dfhl shunt seen at the atrial level with agitated saline study consistent with a smalll patent foramen ovale. Mitral Valve Structurally normal mitral valve. No mitral valve regurgitation. No mitral valve stenosis. Aortic Valve Structurally normal trileaflet aortic valve. No aortic valve stenosis. No aortic valve regurgitation. Tricuspid Valve Structurally normal tricuspid valve. No tricuspid valve stenosis. No tricuspid valve regurgitation. Pulmonic Valve Structurally normal pulmonic valve. No pulmonary valve stenosis. No pulmonary valve regurgitation. Pericardium No pericardial effusion. Aorta Normal size aortic root and proximal ascending aorta. CONCLUSIONS 1. Normal biventricular size and systolic function, LV EF 60%. 2. Mobile atrial septum 3. Patent foramen ovalve with a small right to left shunt 4. No left atrial appendage thrombus. Rafiq Gale MD, FACC (Electronically Signed) Final Date: 28 January 2025 12:28 S
[2025-01-28 07:52] LABS: Alanine Aminotransferase 23 U/L (0-41); Albumin Level 3.6 g/dL (3.5-5.2); Alkaline Phosphatase 154 U/L (40-130); Anion Gap 13.4 (5-19); Aspartate Amino Transferase 17 U/L (0-40); Blood Urea Nitrogen 17 mg/dL (6-20); Calcium 9.0 mg/dL (8.5-10.5); Carbon Dioxide 26 mmol/L (22-29); Chloride 104 mmol/L (98-107); Creatinine Clr Calc Pharmacy 165.4725; Globulin 3.7 g/dL (1.3-4.6); Glucose 193 mg/dL (65-115); Osmolality Calculated 295 mOsm/kg (285-295); Potassium 4.4 mmol/L (3.5-5.1); Sodium 139 mmol/L (136-145); Total Protein 7.3 g/dL (6.6-8.7)
--- NOTE | 2025-01-28 07:59 | ANES.PREANE2 ---
Pre-Anesthetic Assessment Height/Weight: Height 1.78 m Weight 111.13 kg Temp Pulse Resp BP Pulse Ox O2 Del Method 97.0 F L 96 18 125/85 94 Room Air 01/28/25 07:26 01/28/25 07:26 01/28/25 07:26 01/28/25 07:26 01/28/25 07:26 01/28/25 07:26 Preop Diagnosis: CVA Operation Date: 01/28/25 08:00 Proposed Procedures p RODERICK(Not Applicable) - Rafiq Gale MD Familial anesthetic complications: none Was Beta Pillo taken within 24 hours: Yes Was Clonidine taken within 24 hours: Yes Last intake: Intake Last Liquid Date 01/28/25 Last Liquid Time 01:30 Last Solid Date 01/27/25 Last Solid Time 23:30 Social Tobacco and No alcohol 1/2ppd. smoked this AM pack(s) per day Exam alert and oriented x 3 Airway Submandibular: within normal limits Cervical ROM: within normal limits Mallampati: Class II Comments: Comments: many missing poor dentition Pulmonary Chronic Obstructive Pulmonary Disease and Sleep Apnea (2-3L O2 with CPAP at night) CV/HEM Hypertension None reported Hepatic None reported GI Gastroesophageal Reflux Disease Metabolic Diabetes Mellitus, Hyperlipidemia and Morbid Obesity Musc/skel T12 removed and neda was placed. Neuropsych Cerebrovascular Accident (no deficits) Anesthetic Plan ASA status: 3 Anesthesia: Anesthesia Evaluation and MAC Risk of > 500 ml blood loss (7ml/kg in children): No Medications/Allergies Home Medications ?Medication ?Instructions ?Recorded ?Confirmed ?Last Taken ?Type gabapentin 300 mg capsule 300 mg PO BID #60 caps 03/17/21 01/26/25 01/27/25 Rx methocarbamol 500 mg tablet 500 mg PO TID PRN muscle 05/09/21 01/26/25 01/27/25 Rx spasticity #90 tabs Diabetic shoes with 3 sets of #1 ea 01/09/22 01/26/25 Unknown Rx inserts hydrocodone 5 mg-acetaminophen 325 1 tab PO .EVERY 4-6 HOURS PRN Pain 05/03/23 01/26/25 01/27/25 History mg tablet meloxicam 15 mg tablet 15 mg PO DAILY 05/03/23 01/26/25 01/27/25 History tamsulosin 0.4 mg capsule 0.4 mg PO DAILY unknown 03/01/26/25 01/27/25 History naloxone 4 mg/actuation nasal 1 spray intranasal Q3M 01/27/24 01/26/25 01/27/25 History spray (Narcan) albuterol sulfate 90 mcg/actuation 2 puff inhalation Q4H PRN Wheezing 11/27/24 01/26/25 01/27/25 History aerosol inhaler (Ventolin HFA) clonidine HCl 0.1 mg tablet See Rx Instructions .Route .COMPLEX 11/27/24 01/26/25 01/27/25 History empagliflozin 25 mg tablet 25 mg PO DAILY 11/27/24 01/26/25 01/27/25 History (Jardiance) umeclidinium 62.5 mcg-vilanterol 1 inh inhalation DAILY 11/27/24 01/26/25 01/27/25 History 25 mcg/actuation powdr for inhalation (Anoro Ellipta) aspirin 81 mg tablet,delayed 81 mg PO DAILY #30 tabs 11/29/24 01/26/25 01/27/25 Rx release insulin lispro 100 unit/mL See Protocol SUBCUT QPM #15 mL 11/29/24 01/26/25 01/27/25 Rx subcutaneous pen (Humalog KwikPen (U-100) Insulin) duloxetine 30 mg capsule,delayed 30 mg PO .q am #30 caps 12/31/24 01/26/25 01/27/25 Rx release blood-glucose sensor (Dexcom G7 #9 ea 01/05/25 01/26/25 Unknown Rx Sensor device) blood-glucose,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 and 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 mechanic,cont #1 ea 01/05/25 01/26/25 Unknown Rx (Dexcom G7 Certified Driver Examiner) pen needle, diabetic 31 gauge x #100 ea 01/05/25 01/26/25 Unknown Rx 5/16 (Comfort EZ Pen [place]) lisinopril 20 mg tablet 20 mg PO DAILY #90 tabs 01/14/25 01/26/25 01/27/25 Rx oxygen-air delivery systems 01/14/25 01/26/25 Unknown History atorvastatin 40 mg tablet 40 mg PO DAILY 01/26/25 01/26/25 01/27/25 History trazodone 150 mg tablet 150 mg PO BEDTIME PRN insomnia 01/26/25 01/26/25 01/27/25 History Allergies Allergy/AdvReac Type Severity Reaction Status Date / Time adhesive Allergy ALGY-Hives Verified 01/14/25 08:24 Current Medications Generic Name Dose Route Start Last Admin Trade Name Freq PRN Reason Stop Dose Admin Sodium Chloride 1,000 mls @ 15 mls/hr 01/28/25 06:45 01/28/25 07:28 Sodium Chloride 0.9% IV 01/29/25 06:44 15 mls/hr .Q24H PRN Administration COLONOSCOPY FLUIDS PFSH Anesthesia Medical History (Updated 01/19/25 @ 00:00 by FREDI Flwoers) Neuroendocrine tumor Pancreatic cancer Mass of pancreas Incidentally noted on CTA of the chest done in the ED 08/11/2019 Acute calculous cholecystitis Cholecystitis, acute Type 2 diabetes mellitus MEN 1 syndrome Major depressive disorder, 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 History of spinal fusion Family History Mother , IN HER 60'S Diabetes CAD (coronary artery disease) Psychiatric illness Stroke Cancer UTERINE CANCER Father , AT AGE 56 Cancer PROSTATE Other Family history of premature coronary artery disease Social History Smoking and tobacco/nicotine status: former use of tobacco/nicotine (quit 3 days ago) Quit status (tobacco/nicotine): has quit using Year quit tobacco: 2019 Former quit date comment: 2 ppd X 40 years Alcohol intake: current Alcohol intake frequency: holidays/special occasions only Alcohol type: beer Substance/Drug Use: never Marital status: Number of children: 2 Number of grandchildren: 3 Education level details: Phlebotomy Current occupational status: disabled Do you think of yourself as: Straight/Heterosexual Rosey/Mosque: Other Data Anesthesia 01/28/25 07:15 01/28/25 07:15 Short CBC 01/28/25 Range/Units 07:15 WBC 12.18 H (3.29-11.43) 10^3/uL Hgb 15.70 (11.27-16.99) g/dL Hct 48.1 (37-53) % MCV 89.1 (82-101) fl Plt Count 398 (157-399) 10^3/cmm Neut % (Auto) 56.2 % Neut # (Auto) 6.84 (1.8-7.7) 10^3/uL BMP 01/28/25 07:15 Sodium 139 Potassium 4.4 Chloride 104 Carbon Dioxide 26 BUN 17 Creatinine 0.6 L Glucose 193 H Calcium 9.0 Liver Function 01/28/25 Range/Units 07:15 Total Bilirubin 0.3 (0.15-1.2) mg/dL AST 17 (0-40) U/L ALT 23 (0-41) U/L Alkaline Phosphatase 154 H (40-130) U/L Albumin 3.6 (3.5-5.2) g/dL Cardiac Studies: Echocardiogram 11/28/24
--- NOTE | 2025-01-28 08:04 | W.PM.OPSUD ---
Surgery/Procedure H&P Update DATE OF PROCEDURE: January 28, 2025 DATE H&P PERFORMED: 01/14/25 CHANGES TO PREVIOUS DOCUMENTATION: no new events PREOP DIAGNOSIS: CVA PRIMARY INDICATION FOR PROCEDURE: CVA PLANNED PROCEDURE: Operation Date: 01/28/25 08:00 Proposed Procedures p RODERICK(Not Applicable) - Rafiq Gale MD
[2025-01-28 08:41] VITALS: BP 91/58; PULSE 89; RESP 21; TEMP 36.1; O2SAT 93
--- NOTE | 2025-01-28 08:44 | P.PCN_ITS ---
Procedure Note: Date of procedure: 01/28/25 Pre-procedure diagnosis: CVA Post-procedure diagnosis: other (Patent foramen ovale) Procedure: Transesophageal echocardiogram Op report anesthesia: MAC Complications: None Other Information: Normal left ventricular size and systolic function. No masses or thrombus in the left atrium or left atrial appendage. No vegetations. No tumors. There was mobility of the interatrial septum. An agitated saline study was positive for owwyr-rs-oshy shunt consistent with a small patent foramen ovale. No significant valvular findings. Normal right ventricular size and systolic function. Coding Level of Care Code Acute Code for [facility] Fwd
[2025-01-28 08:58] VITALS: BP 96/58; PULSE 81; RESP 16; O2SAT 94
[2025-01-28 09:13] VITALS: BP 115/73; PULSE 88; RESP 18; O2SAT 92
--- NOTE | 2025-01-28 09:32 | ANE.PACU2 ---
Inpatient post-anesthesia follow up: Airway intact: Yes Vital signs: Temperature 97 F Pulse Rate 88 Respiratory Rate 18 Blood Pressure 115/73 Pulse Oximetry 92 Oxygen Delivery Me thod Room Air Oxygen Flow Rate 4 Fraction of Inspir ed Oxygen Hydration adequate: Yes Nausea and vomiting: No Pain level: 1 Mental status: Baseline
== END 2025-01-28 09:32 | disposition home or self-care (01) ==
PROVIDERS: Student in an Organized Health Care Education/Training Program; PCP Family Medicine; Visit Provider Internal Medicine Cardiovascular Disease
PROC: (CPT 93312; principal; 2025-01-28 08:00)
DX: I63.9 Cerebral infarction, unspecified (principal); I10 Essential (primary) hypertension; K21.9 Gastro-esophageal reflux disease without esophagitis; E11.9 Type 2 diabetes mellitus without complications; E78.5 Hyperlipidemia, unspecified; E66.01 Morbid (severe) obesity due to excess calories; Z68.35 Body mass index [BMI] 35.0-35.9, adult; Z79.82 Long term (current) use of aspirin; Z79.4 Long term (current) use of insulin; Z99.81 Dependence on supplemental oxygen; Z90.81 Acquired absence of spleen; Z85.07 Personal history of malignant neoplasm of pancreas; J44.9 Chronic obstructive pulmonary disease, unspecified; F32.A Depression, unspecified; Z87.891 Personal history of nicotine dependence; G47.33 Obstructive sleep apnea (adult) (pediatric); Z99.89 Dependence on other enabling machines and devices; Z86.73 Personal history of transient ischemic attack (TIA), and cerebral infarction without residual deficits; Z83.3 Family history of diabetes mellitus; Z82.49 Family history of ischemic heart disease and other diseases of the circulatory system; Z82.3 Family history of stroke
CPT/HCPCS: 36415; 36416; 80053; 82962; 85025; 93312; J2704; J7030; J9999

== ENCOUNTER → 2025-03-11 09:03 | Outpatient (BNVA) | payer MEDICAID, SELFPAY ==
[2023-05-02 10:55] VITALS: BP 140/84; BMI 39.2
== END ==
PROVIDERS: PCP Family Medicine; Visit Provider Internal Medicine Cardiovascular Disease
DX: Q21.12 Patent foramen ovale (principal); I10 Essential (primary) hypertension; Z86.73 Personal history of transient ischemic attack (TIA), and cerebral infarction without residual deficits; F17.211 Nicotine dependence, cigarettes, in remission
CPT/HCPCS: 99214

== ENCOUNTER 2025-03-30 11:01 | Outpatient (CLI) | payer MEDICAID, OTHER, SELFPAY ==
[2023-05-02 10:55] VITALS: BP 140/84; BMI 39.2
[2025-03-30 12:20] LABS: Estmated Average Glucose 197; Hemoglobin A1C 8.5 % (4.0-6.0)
[2025-03-30 12:28] LABS: Creatinine Urine, Random 65 mg/dL (39-259); Microalbum Creatinine Ratio Ur 15 mg/dL (0-20)
[2025-03-30 12:29] LABS: Alanine Aminotransferase 25 U/L (0-41); Albumin Level 3.7 g/dL (3.5-5.2); Alkaline Phosphatase 152 U/L (40-130); Anion Gap 14.2 (5-19); Aspartate Amino Transferase 16 U/L (0-40); Blood Urea Nitrogen 13 mg/dL (6-20); Calcium 9.1 mg/dL (8.5-10.5); Carbon Dioxide 29 mmol/L (22-29); Chloride 102 mmol/L (98-107); Cholesterol 143 mg/dL (0-200); Globulin 3.6 g/dL (1.3-4.6); Glucose 177 mg/dL (65-115); HDL Cholesterol 47 mg/dL (60-100); Osmolality Calculated 296 mOsm/kg (285-295); Potassium 4.2 mmol/L (3.5-5.1); Sodium 141 mmol/L (136-145); Total Protein 7.3 g/dL (6.6-8.7); Triglycerides 120 mg/dL (0-150)
== END 2025-03-30 11:02 | disposition home or self-care (01) ==
LOC: LAB 11:03
PROVIDERS: PCP Family Medicine; Visit Provider Internal Medicine
DX: E11.9 Type 2 diabetes mellitus without complications (principal); D3A.8 Other benign neuroendocrine tumors; I89.9 Noninfective disorder of lymphatic vessels and lymph nodes, unspecified; E55.9 Vitamin D deficiency, unspecified
CPT/HCPCS: 80053; 80061; 82044; 83036

== ENCOUNTER → 2025-05-03 13:39 | Outpatient (BNVA) | payer MEDICAID, SELFPAY ==
[2023-05-02 10:55] VITALS: BP 140/84; BMI 39.2
== END ==
PROVIDERS: PCP Family Medicine; Referring Provider Student in an Organized Health Care Education/Training Program; Visit Provider Specialist
DX: Q21.12 Patent foramen ovale (principal); I67.1 Cerebral aneurysm, nonruptured; E31.21 Multiple endocrine neoplasia [MEN] type I; E11.9 Type 2 diabetes mellitus without complications; E66.9 Obesity, unspecified; G47.33 Obstructive sleep apnea (adult) (pediatric)
CPT/HCPCS: 99215

== ENCOUNTER 2025-05-19 07:12 | Outpatient (CLI) | payer MEDICAID, SELFPAY ==
[2023-05-02 10:55] VITALS: BP 140/84; BMI 39.2
--- NOTE | 2025-05-19 07:18 | CT_ITS ---
WS: [id number] LDCT LUNG CANCER SCREENING TECHNIQUE: Noncontrast CT of the chest with coronal and sagittal reformatted images. CLINICAL INFORMATION: HX OF TOBACCO USE COMPARISON: 2023 DLP: 136.37 mGy.cm DIvol: Mean CTDIvol: 3.10 (mGy) All CT scans at [facility] use at least one of these dose optimization techniques: automated exposure control; mA and/or kV adjustment per patient size (includes targeted exams where dose is matched to clinical indication); or iterative reconstruction. FINDINGS: No new suspicious pulmonary parenchymal abnormalities. Hyperinflation. Stable noncalcified nodule LEFT fissure measuring 4 mm. Tiny noncalcified nodule adjacent to the LEFT hilum. 5 mm RIGHT perifissural nodule. Normal caliber thoracic aorta. No mediastinal or hilar lymphadenopathy. No axillary lymphadenopathy. Scattered areas subsegmental atelectasis and pleural parenchymal scarring similar to previous. Partially visualized distal pancreatectomy and splenectomy. Prior postoperative changes pedicle screw fixation in the thoracic spine with interbody fusion. Moderate thoracic kyphosis. Small esophageal hiatal hernia. Adrenal glands are normal. CT/CT lung screening [id number] IMPRESSION: LUNG-RADS: 2-Benign Appearance or Behavior FOLLOW UP: 12 Month: Continue annual screening with LDCT
== END 2025-05-19 07:13 | disposition home or self-care (01) ==
LOC: RAD 07:13
PROVIDERS: PCP Family Medicine; Visit Provider Family Medicine
DX: Z12.2 Encounter for screening for malignant neoplasm of respiratory organs (principal); Z87.891 Personal history of nicotine dependence; J98.11 Atelectasis; J98.4 Other disorders of lung; M40.204 Unspecified kyphosis, thoracic region; K44.9 Diaphragmatic hernia without obstruction or gangrene; R16.1 Splenomegaly, not elsewhere classified
CPT/HCPCS: 71271